=== PATIENT | male | born 1955 | race Caucasian/White ===

== ENCOUNTER 2017-07-26 12:15 | Inpatient (IN) ==
[2017-07-26] MEDS ORDERED: DILTIAZEM 50 MG/10 ML VIAL IV STA (12:34)
[2017-07-26] MEDS ORDERED: MAGNESIUM SULF RIDER 2 GM in PREMIX 1 EACH IV STA (12:34)
[2017-07-26] MEDS ORDERED: MAGNESIUM SULF RIDER 50 ML IV ONE (12:38)
[2017-07-26] MEDS ORDERED: DILTIAZEM 50 MG/10 ML VIAL IV ONE ×2 (12:38→12:53)
[2017-07-26 12:48] LABS: Basophils % 0.7 % (0.0-0.8); Eosinophils # 0.1 10*3/uL (0.0-0.87); Eosinophils % 2.3 % (0.00-10.9); Hematocrit 41.4 VOL% (42.0-52.0); Hemoglobin 14.6 GM/DL (14.0-18.0); Immature Granulocytes % 0.3 %; Immature Granulocytes Absolute 0.02 #; Lymphocytes # 0.7 10*3/uL (1.4-4.0); Lymphocytes % 11.7 % (21.2-54.2); Mean Corpuscular HGB Conc 35.3 GM/DL (32-36); Mean Corpuscular Hemoglobin 33 PG (27-34); Mean Corpuscular Volume 92.6 FL (87-102); Mean Platelet Volume 9.1 FL (9.6-12.0); Monocytes # 0.6 10*3/uL (0.11-0.8); Monocytes % 10.4 % (1.7-12.7); Neutrophils # 4.5 10*3/uL (1.4-7.4); Neutrophils % 74.6 % (38.7-73.9); Platelet Count 173 T/CUMM (130-400); Red Blood Count 4.47 MC/CUMM (3.8-5.5); Red Cell Distribution Width 13.5 % (9.3-17.3); White Blood Count 6.1 T/CUMM (4-12)
[2017-07-26] MEDS ORDERED: LORazepam 2 MG/1 ML VIAL IV STA (12:49)
--- NOTE | 2017-07-26 12:51 | Emergency Department Note ---
Johan Gonzales Manpreet, am scribing for, and in the presence of, Chevy Harper MD 12: 43. Meredith Gonzales James D, MD, personally performed the services described in this documentation, ascribed by Juan Manuel Prado in my presence, and it is both accurate and complete . Arrival - Arrival Chief Complaint: Chest Pain Stated Complaint: chest tightness, shaking all over ED Nursing Triage Note: c/o chest tightness and shaking all over. Patient states it started this am. He took oxycontin 20mg at 0901 and 1001 with no relief. EMS gave patient a 324mg ASA and patient refused nitro. Mode of Arrival: Stretcher Limitations: No Limitations Source: Patient Time Seen by Provider: 07/26/17 12:30 - History of Present Illness HPI Narrative: Pt is a 62 y/o male who is brought to the ED via EMS with CC of "shaking all over" and CP onset yesterday. Pt also c/o vomiting yesterday and this AM which was a greenish color. Pt's PCP is Dr. Sotomayor and saw him 5 months ago. Pt states he was not told about being in A-fib. Pt denies tobacco use, dysuria, fever, or cough but reports of EtOH of "about a half glass a day." No other pains/complaints reported to the ED. Onset (ago): day(s) (Yesterday) Severity: moderate Severity scale (1-10): 3 Allergies/Adverse Reactions: Allergies Allergy/AdvReac Type Severity Reaction Status Date / Time Iodinated Contrast Media - Allergy Severe Difficulty Verified 07/26/17 12:29 Oral and Breathing [Iodinated Contrast Media - IV Dye] Sulfa (Sulfonamide Allergy Severe Difficulty Verified 07/26/17 12:29 Antibiotics) Breathing Home Medications: Home Medications Medication Instructions Recorded Confirmed Type Temazepam 30 mg PO BEDTIME 06/10/16 07/26/17 History Timolol 0.25% Oph Joselyn [Timoptic 1 drop BOTH EYES BID 06/10/16 07/26/17 History 0.25%] Aspirin EC Tab 81 mg PO DAILY tablet 07/15/16 07/26/17 Rx Carvedilol [Carvedilol] 6.25 mg PO BID 07/26/17 07/26/17 History Ezetimibe [Zetia] 10 mg PO DAILY 07/26/17 07/26/17 History Mometasone Furoate [Mometasone 1 applicator TOP BID PRN 07/26/17 07/26/17 History 0.1% Oint] Oxycodone HCl [Oxycodone HCl] 10 mg PO QID PRN 07/26/17 07/26/17 History Review of System - Review of System 12 point system: reviewed and no additional remarkable complaints except as stated - Review of System Constitutional: Present: other ("shaking all over"). Absent: chills, diaphoresis, fever Respiratory: Absent: respiratory distress, wheezing Cardiovascular: Absent: chest pain Gastrointestinal: Absent: abdominal pain, nausea, vomiting, diarrhea Musculoskeletal: Absent: arm pain, back pain Neurological: Absent: headache, weakness, numbness, paresthesias Medical,Surgical,& Family Hx - Medical History HEENT: History of: Eye Problem (Detatched Retnia), Glaucoma Rheumatology: No history of;: Rheumatoid Arthritis (Degenerative arthritis) Other: History of: Miscellaneous Medical Problems (Collagen Disease, Atopic dermatitis) - Surgical History HEENT Surgeries: Surgical HX of: Eye Surgery (4 eye surgeries) - Social History Smoking Status: Never smoker Frequency of Alcohol Use: Frequently Type of Drug Use: None Exam Vital Signs: Vital Signs Temperature 97.6 F 07/26/17 12:15 Pulse Rate 92 H 07/26/17 12:15 Respiratory Rate 18 07/26/17 12:31 Blood Pressure 164/93 07/26/17 12:15 O2 Sat by Pulse Oximetry 96 07/26/17 13:57 GENERAL: This is a chronically ill-appearing disheveled white male in no apparent distress. VITAL SIGNS: Reviewed HEENT: Head is atraumatic and normocephalic. Pupils are equal round react to light. Extraocular movements are intact. Oropharynx is benign with moist mucous membranes. NECK: Neck is soft and supple without tenderness. There are no masses. There is no lymphadenopathy. LUNGS: Lungs are clear to auscultation. Chest rises symmetrically. There is no chest wall tenderness. CV: Heart is irregularly irregular, rapid rate without murmurs rubs or gallops. ABDOMEN: Abdomen is soft, nontender to palpation. There are no abdominal abnormal masses palpated. There is no organomegaly. Bowel sounds are present and active. SKIN: Linear excoriations of the pretibial areas bilaterally. No rash. EXTREMITIES: Patient has full range of motion without tenderness. There is no pedal edema. NEUROLOGIC: Awake alert and oriented 4. Cranial nerves II through XII are grossly intact. Motor is 5 over 5 in all extremities bilaterally. Course - Consultations Consultation #1: Discussed with hospitalist. Patient will be admitted to their service. Time: 14:12 Results - Labs CBC & BMP: 07/26/17 12:35 07/26/17 12:35 Lab Results: I have reviewed the patients labs Labs: Laboratory Tests 07/26/17 12:35 WBC 6.1 RBC 4.47 Hgb 14.6 Hct 41.4 L Plt Count 173 MPV 9.1 L Neut % (Auto) 74.6 H Lymph % (Auto) 11.7 L Lymph # (Auto) 0.7 L Laboratory Tests 07/26/17 12:35 INR 1.1 PT Patient/Control Mix 11.1 Circ Anticoag PTT 27.1 Laboratory Tests 07/26/17 07/26/17 07/26/17 12:35 12:35 12:36 Magnesium 1.1 L Free T4 0.82 Urine Opiates Screen Positive H Ur Barbiturates Screen Negative Ur Phencyclidine Scrn Negative U Amphetamine/Methamph Negative U Benzodiazepines Scrn Positive H U Cocaine Metab Screen Negative U Cannabinoids Screen Negative Serum Alcohol 27 Laboratory Tests 07/26/17 12:35 Sodium 140 Potassium 3.3 L Chloride 105 Carbon Dioxide 1 L Anion Gap 37.3 H BUN < 1 L BUN/Creatinine Ratio 1.00 L Glucose 152 H Calcium 8.3 L ALT < 6 L Troponin I < 0.015 Albumin 3.2 L Globulin 3.8 H Albumin/Globulin Ratio 0.8 L - EKG EKG results: interpreted by ERMD - Impressions EKG: Atrial fib with RVR, rate 131, low voltage QRS, nonspecific ST-T wave changes, normal axis. - Diagnostic Findings Procedure: Chest x-ray: image reviewed by me ("Chest X-ray: 1. No acute cardiopulmonary pathology radiographically.") Disposition Clinical Impression: Atrial fibrillation with RVR, Alcohol abuse, Hypomagnesemia Case discussed with: patient Disposition: Still a Patient Condition: Stable
[2017-07-26] MEDS ORDERED: LORazepam 2 MG/1 ML VIAL ONE (12:58)
[2017-07-26 13:06] LABS: INR 1.1; PT Patient Result 11.1 SECS; Partial Thromboplastin Time 27.1 SECS (0-40)
[2017-07-26] MEDS: DILTIAZEM INJ 100 MG in SODIUM CHLORIDE 0.9% 100 ML IV SCH ×2 (13:12→21:46)
[2017-07-26 13:29] LABS: Free T4 (Free Thyroxine) 0.82 NG/DL (0.76-1.46); Magnesium 1.1 MG/DL (1.8-2.4)
--- NOTE | 2017-07-26 13:29 | XRay Report ---
Exam: XR chest 1V Date: 07/26/2017 12:41 PM Indication: Atrial fibrillation Comparison: 07/13/2016 Technical: AP Findings: Mild prominence the cardiac silhouette. External cardiac leads are present. No obvious consolidating infiltrate or effusion. Mediastinum is intact. Bony structures reveal no acute findings with degenerative changes of the AC joint on the right Impression: 1. No acute cardiopulmonary pathology radiographically PROCEDURE INTERPRETED AT [facility] DEPARTMENT OF RADIOLOGY Final Report Signed by: Dr. Fabián Donis
[2017-07-26 13:30] LABS: Barbiturates Screen,Urine Negative (Negative); Benzodiazepines Screen,Urine Positive (Negative); Cannabinoid Screen,Urine Negative (Negative); Opiate Screen,Urine Positive (Negative); Phencyclidine Screen,Urine Negative (Negative)
[2017-07-26] MEDS ORDERED: THIAMINE INJ 100 MG, FOLIC ACID INJ 1 MG, MAGNESIUM SULF INJ 2 GM, MULTIVITAMIN INJ 10 ... IV ONE (14:09)
[2017-07-26 14:13] LABS: Alanine Aminotransferase < 6 U/L (16-61); Albumin 3.2 G/DL (3.4-5.0); Alkaline Phosphatase 110 U/L (45-117); Aspartate Amino Transferase < 3 U/L (0-37); Blood Urea Nitrogen < 1 MG/DL (7-18); Calcium 8.3 MG/DL (8.5-10.1); Glucose 152 MG/DL (74-106); Osmolality,Calculated 277.8 MOS/KG (273-304); Potassium 3.3 MMOL/L (3.5-5.1); Sodium 140 MMOL/L (136-145); Troponin I Only < 0.015 NG/ML (0.00-0.045)
[2017-07-26] MEDS ORDERED: ONDANSETRON 4 MG/2 ML VIAL IV PRN (16:05)
[2017-07-26] MEDS ORDERED: ACETAMINOPHEN 325 MG TABLET PO PRN (16:05)
[2017-07-26] MEDS ORDERED: MOMETASONE 0.1% CREAM 15 GM TUBE TOP PRN (16:05)
[2017-07-26] MEDS ORDERED: ALBUTEROL 2.5 MG/3 ML NEB RESP TX PRN (16:05)
--- NOTE | 2017-07-26 16:10 | Hospitalist History & Physical ---
Assessment and Plan (1) Atrial fibrillation with RVR Status: Acute Assessment and plan: Admit to ICU. Cardizem infusion @ 5 ml/hr. TSH normal. Cardiac monitoring. Consult cardiology to evaluate. Current Visit: Yes (2) Chest pain Status: Acute Assessment and plan: Admit as inpatient. Cardiac monitoring. Serial troponins. Consult cardiology. PT /INR stable. Echo from 07/14/16 EF 50%. Current Visit: No Qualifiers: Chest pain type: unspecified Qualified Code(s): R07.9 - Chest pain, unspecified (3) Dyslipidemia Status: Acute Assessment and plan: Restart home meds. Current Visit: No (4) Hypomagnesemia Status: Acute Assessment and plan: Replace and recheck. Current Visit: Yes (5) Hypokalemia Status: Acute Assessment and plan: Pt. K is 3.3 millimeters and potassium protocol and recheck in am. Current Visit: Yes (6) Alcohol abuse Status: Acute Assessment and plan: Start on multivitamin, folate. Implement withdrawal modular. Current Visit: Yes History of Present Illness Chief complaint: chest pain History of present illness: Mr. Condon is a 62 year old white male with history of hypertension, glaucoma and blindness, and dermatitis that presented to the ED via EMS with complaints of chest pain with an onset of yesterday that worsened this morning. Pt. also has complaints of diffuse abdominal pain and "shaking all over". Pt admits to alcohol using stating he took a "sip" of bourbon before presenting to the ED this morning for evaluation. Pt. denies fever, chills, night sweats. He does report intermittent shortness of breath associated with the chest pain. He describes the chest pain as midsternal and sharp with radiation to the his left arm. He states he has had these pains before. Pt's PCP is Dr. Sotomayor. Pt. reports being followed by Dr. Valles (cardiology). He says he was seen about 2 weeks ago for chest discomfort but did not have any change in his medication regimen. Pt. states he was referred to Dr. Davis but he has not had his appointment yet. On arrival in the ED, pt noted to be hypertensive and in afib w / RVR. Pt. was started on Cardizem infusion. Pt. also noted to have CO2 of 1 and anion gap of 37.3, magnesium 1.1, K of 3.3 and glucose of 152. On examination in the ED, patient noted to be in mild distress and is quite jittery. Pt. is not having any difficulty breathing but is on supplemental O2. Pt's case has been discussed with ER physician and hospitalist Dr. Jefferson. Pt. will be admitted to the hospital service for further evaluation and treatment. Due to patient's low CO2 level, a repeat BMP will be completed on patient to ensure accuracy. Patient will be placed in the intensive care unit for close monitoring. Home medications have been reviewed and reconciled. Home Medications Medication Instructions Recorded Confirmed Type Temazepam 30 mg PO BEDTIME 06/10/16 07/26/17 History Timolol 0.25% Oph Joselyn [Timoptic 1 drop BOTH EYES BID 06/10/16 07/26/17 History 0.25%] Aspirin EC Tab 81 mg PO DAILY tablet 07/15/16 07/26/17 Rx Carvedilol [Carvedilol] 6.25 mg PO BID 07/26/17 07/26/17 History Ezetimibe [Zetia] 10 mg PO DAILY 07/26/17 07/26/17 History Mometasone Furoate [Mometasone 1 applicator TOP BID PRN 07/26/17 07/26/17 History 0.1% Oint] Oxycodone HCl [Oxycodone HCl] 10 mg PO QID PRN 07/26/17 07/26/17 History Allergies Allergy/AdvReac Type Severity Reaction Status Date / Time Iodinated Contrast Media - Allergy Severe Difficulty Verified 07/26/17 12:29 Oral and Breathing [Iodinated Contrast Media - IV Dye] Sulfa (Sulfonamide Allergy Severe Difficulty Verified 07/26/17 12:29 Antibiotics) Breathing Medical,Surgical,& Family Hx - Medical History Cardio: History of: Hypertension, Cardiovascular Problems (abnormal stress test) Neurology: No history of: Seizures, TIA HEENT: History of: Eye Problem (Detatched Retnia; legally blind), Glaucoma Rheumatology: No history of;: Rheumatoid Arthritis (Degenerative arthritis) Gastrointestinal: History of: GI Problems (abdominal pain) Musculoskeletal: History of: Musculoskeletal Problems (collagen disease) Other: History of: Miscellaneous Medical Problems (Collagen Disease, Atopic dermatitis) - Surgical History HEENT Surgeries: Surgical HX of: Eye Surgery (4 eye surgeries) - Family History Family History: Reports;: Additional Family History (arthritis) - Social History Smoking Status: Never smoker Frequency of Alcohol Use: Frequently Type of Drug Use: None Marital Status: Single Lives With:: Parent (mother) Functional capacity: independent ambulation 12 point system: reviewed and no additional remarkable complaints except as stated - Cardiovascular Cardiovascular: Present: chest pain at rest, dyspnea on exertion, radiating jaw , neck or arm pain. Absent: diaphoresis, edema Exam - Constitutional Vitals: Period Temp Pulse Resp BP Sys/Denny Pulse Ox Last 24 Hr 97.6 F-97.6 F 92-92 18-18 164-164/93-93 96-100 General appearance: mild distress, over weight - Head Head exam: Present: normal inspection, normocephalic - Eye Eye exam: Present: EOMI Pupils: Present: KATERINA - ENT ENT exam: Present: normal exam - Respiratory Respiratory exam: Present: other (coarse) - Cardiovascular Cardiovascular exam: Present: irregular rhythm (afib ). Absent: regular rate and rhythm - GI/Abdominal GI/Abdominal exam: Present: normal bowel sounds, tenderness (diffuse abdominal pain ), soft - Extremities Exam Extremities exam: Present: normal capillary refill, full ROM. Absent: edema - Neurological Exam Neurological exam: Present: alert, oriented X3 - Psychiatric Psychiatric exam: Present: normal affect, normal mood - Skin Skin exam: Present: normal color, warm, dry (pt. has very dry skin; pt. confirms diagnosis of atopic dermatitis) Results - Labs CBC & BMP: 07/26/17 12:35 07/26/17 12:35 Lab Results: I have reviewed the past 24 hour labs
[2017-07-26] MEDS: LORazepam 2 MG/1 ML VIAL IV PRN ×2 (17:02→21:43)
[2017-07-26] MEDS: POTASSIUM CHLORIDE 20 MEQ TABLET PO PRN ×2 (17:02→21:50)
[2017-07-26] MEDS: SODIUM CHLORIDE 0.9% 1,000 ML IV SCH (17:37)
[2017-07-26] MEDS ORDERED: DIGOXIN 0.5 MG/2 ML AMP IV ONE (18:59)
--- NOTE | 2017-07-26 19:04 | Cardiology Consult Note ---
Assessment and Plan (1) Atrial fibrillation with RVR Status: Acute Assessment and plan: He has rapid ventricular spots atrial fibrillation. Has not had a history of this previously. We will try to manage his heart rates. Is not really clear the duration so I am not going to be real pushy to convert the patient at this moment. Reevaluate some his other issues before starting anticoagulation will go ahead and start the patient on low-dose Lovenox. Current Visit: Yes (2) Atypical chest pain Status: Acute Assessment and plan: His sensorimotor chest pain is atypical for cardiac. We will monitor this. His troponin is nondetectable and his ECG without acute changes. Current Visit: No (3) Dyslipidemia Status: Acute Assessment and plan: Has a history of this but not on any medications at present based on his chart. He has lipid profile is ordered for the morning. Current Visit: No (4) Alcohol abuse Status: Acute Current Visit: Yes (5) Hypomagnesemia Status: Acute Assessment and plan: This is being replaced. Current Visit: Yes (6) Hypokalemia Status: Acute Assessment and plan: This is being replaced in follow-up. Current Visit: Yes (7) Noncompliance Status: Chronic Assessment and plan: Patient is a history of not being compliant with follow-up for testing etc. 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 Condon is a 62 year old male who is admitted with multiple complaints but for manipulation rapid ventricular spots. On IV Cardizem at this time still having tachycardia. He is not having any particular chest pain has chest pain everywhere. He complains of his stomach fluttering and moving in his chest etc. He is not really clear along these hand the atrial fibrillation. He is shaking all over this is been going on for several days. He does drink alcohol daily we try to minimize this. He takes pain medications as noted by his urine drug screen. He was asking me for more pain medication as well as in the room. He states his abdomen is been getting larger is uncomfortable and painful. His appetite though is not really probably changed. He denies fever chills but feels cold all the time. His initial lab work does not reveal any specific abnormalities but is interested in his liver enzymes are low. His troponin is nondetectable. Dr. Valles is seen this patient previously. Reviewing the office records this patient apparently is really been noncompliant in getting in his studies including echocardiogram cardiac perfusion study and lab work. He is missed appointments and then called demanding appointments then I am keeping those. Certainly at this time he has a fibrillation RVR. I think this may be secondary other issues. Has not had this previously. At this point we will try to manage his heart rates but nothing his blood pressure will tolerate this. He is shaking and exam not sure what going on but he may have some type of underlying liver disease or even alcoholic disease process. He has been on chronic pain medications apparently. CC: Hilda Jefferson MD - Home Medications and Allergies Home Medications: Home Medications Medication Instructions Recorded Confirmed Type Temazepam 30 mg PO BEDTIME 06/10/16 07/26/17 History Timolol 0.25% Oph Joselyn [Timoptic 1 drop BOTH EYES BID 06/10/16 07/26/17 History 0.25%] Aspirin EC Tab 81 mg PO DAILY tablet 07/15/16 07/26/17 Rx Carvedilol [Carvedilol] 6.25 mg PO BID 07/26/17 07/26/17 History Ezetimibe [Zetia] 10 mg PO DAILY 07/26/17 07/26/17 History Mometasone Furoate [Mometasone 1 applicator TOP BID PRN 07/26/17 07/26/17 History 0.1% Oint] Oxycodone HCl [Oxycodone HCl] 10 mg PO QID PRN 07/26/17 07/26/17 History Allergies/Adverse Reactions: Allergies Allergy/AdvReac Type Severity Reaction Status Date / Time Iodinated Contrast Media - Allergy Severe Difficulty Verified 07/26/17 12:29 Oral and Breathing [Iodinated Contrast Media - IV Dye] Sulfa (Sulfonamide Allergy Severe Difficulty Verified 07/26/17 12:29 Antibiotics) Breathing Review of systems: General/constitutional: No weight loss. Appetite has been fairly good. He complains of diffuse shaking. Eyes: History progressive visual loss. Ears: Denies decreased hearing, vertigo Nose, mouth and throat: Denies dysphagia, epistaxis, headaches, neck pain, tongue swelling, Neck: Denies thyromegaly or masses. No stiffness. Cardiovascular: as per HPI Respiratory: Denies cough, dyspnea, hemoptysis, dyspnea on exertion, wheezing, snoring Gastrointestinal: Denies abdominal pain, constipation, dyspepsia, dysphagia, hematemesis, hematochezia, melena, nausea, vomiting Genitourinary: Denies dysuria, hematuria, nocturia Musculoskeletal: Denies arthralgias, joint swelling, muscle weakness, myalgias Neurological: denies seizures or syncope. He has not had any particular falls. No prior history of strokes. Psychiatric: Denies anxiety, confusion, depression Endocrine: Denies cold intolerance, fatigue, heat intolerance Hematologic/Lymphatic: Denies easy bleeding, easy bruising Dermatologic: Chronic dermatitis Medical,Surgical,& Family Hx - Medical History Cardio: History of: Hypertension, Cardiovascular Problems (abnormal stress test) Neurology: No history of: Seizures, TIA HEENT: History of: Eye Problem (Detatched Retnia; legally blind), Glaucoma Rheumatology: No history of;: Rheumatoid Arthritis (Degenerative arthritis) Gastrointestinal: History of: GI Problems (abdominal pain) Musculoskeletal: History of: Musculoskeletal Problems (collagen disease) Other: History of: Miscellaneous Medical Problems (Collagen Disease, Atopic dermatitis) - Surgical History HEENT Surgeries: Surgical HX of: Eye Surgery (4 eye surgeries) - Family History Family History: Reports;: Additional Family History (arthritis) - Social History Smoking Status: Never smoker Frequency of Alcohol Use: Frequently Type of Drug Use: None Physical Examination Vital Signs Temp Pulse Resp BP Pulse Ox 97.6 F 92 H 18 164/93 100 07/26/17 12:15 07/26/17 12:15 07/26/17 12:15 07/26/17 12:15 07/26/17 12:15 Exam: General appearance: Obese he is shaking all over tremulous little anxious. Head exam: normal inspection, atraumatic Eye exam: EOMI. There is no trauma. Ear exam: Anatomically normal. Normal auditory acuity to conversation. Oral exam: No significant oral lesions. Neck exam: normal inspection no JVD. No carotid bruit. Trachea is in midline. Respiratory exam: clear to auscultation bilaterally and anteriorly with with overall quiet breath sounds. No rales, rhonchi or wheezes. Cardiovascular exam: Tachycardic irregular and on auscultation no murmur or gallop or rub. No precordial lift. No bruits over the major arteries. Chest wall/torso: Anatomically normal. No tenderness, deformity Peripheral Pulses: 2+ throughout. GI/Abdominal exam: Bowel sounds are present, abdomen is soft with what may be some direct tenderness. Abdomen slightly protuberant but certainly not overly distended. Musculoskeletal/Extremities exam: normal inspection without edema or cyanosis. No deformities or trauma. Neurological exam: alert, oriented X3. There is no gross neurologic deficits. Psychiatric exam: normal affect, normal mood. Cognitive function is grossly intact. Skin exam: Patient has excoriations and scratch tapia especially in his legs with atopic dermatitis patches. Result/EKG - Labs CBC & BMP: 07/26/17 12:35 07/26/17 12:35 Lab Results: I have reviewed the past 24 hour labs (Troponin is nondetectable, his liver enzymes are actually look below normal range with low magnesium and potassium.) Labs: Laboratory Results - last 24 hr 07/26/17 07/26/17 07/26/17 12:35 12:35 12:35 WBC 6.1 RBC 4.47 Hgb 14.6 Hct 41.4 L MCV 92.6 MCH 33 MCHC 35.3 RDW 13.5 Plt Count 173 MPV 9.1 L Neut % (Auto) 74.6 H Lymph % (Auto) 11.7 L Rhea % (Auto) 10.4 Eos % (Auto) 2.3 Baso % (Auto) 0.7 Neut # (Auto) 4.5 Lymph # (Auto) 0.7 L Rhea # (Auto) 0.6 Eos # (Auto) 0.1 Baso # (Auto) 0.0 Immature Gran % 0.3 Nucleated RBC % 0.0 Immature Gran # 0.02 Nucleated RBCs # 0.00 Immature Plt Fraction 0.0 INR 1.1 PT Patient/Control Mix 11.1 Circ Anticoag PTT 27.1 Sodium Potassium Chloride Carbon Dioxide Anion Gap BUN Creatinine GFR Calculation BUN/Creatinine Ratio Glucose Calculated Osmolality Calcium Magnesium 1.1 L Total Bilirubin AST ALT Alkaline Phosphatase Troponin I Total Protein Albumin Globulin Albumin/Globulin Ratio Free T4 0.82 TSH 3rd Generation Urine Opiates Screen Ur Barbiturates Screen Ur Phencyclidine Scrn U Amphetamine/Methamph U Benzodiazepines Scrn U Cocaine Metab Screen U Cannabinoids Screen Serum Alcohol 07/26/17 07/26/17 07/26/17 12:35 12:35 12:36 WBC RBC Hgb Hct MCV MCH MCHC RDW Plt Count MPV Neut % (Auto) Lymph % (Auto) Rhea % (Auto) Eos % (Auto) Baso % (Auto) Neut # (Auto) Lymph # (Auto) Rhea # (Auto) Eos # (Auto) Baso # (Auto) Immature Gran % Nucleated RBC % Immature Gran # Nucleated RBCs # Immature Plt Fraction INR PT Patient/Control Mix Circ Anticoag PTT Sodium 140 Potassium 3.3 L Chloride 105 Carbon Dioxide 1 L Anion Gap 37.3 H BUN < 1 L Creatinine 0.90 GFR Calculation 124 BUN/Creatinine Ratio 1.00 L Glucose 152 H Calculated Osmolality 277.8 Calcium 8.3 L Magnesium Total Bilirubin 0.60 AST < 3 ALT < 6 L Alkaline Phosphatase 110 Troponin I < 0.015 Total Protein 7.0 Albumin 3.2 L Globulin 3.8 H Albumin/Globulin Ratio 0.8 L Free T4 TSH 3rd Generation 1.330 Urine Opiates Screen Positive H Ur Barbiturates Screen Negative Ur Phencyclidine Scrn Negative U Amphetamine/Methamph Negative U Benzodiazepines Scrn Positive H U Cocaine Metab Screen Negative U Cannabinoids Screen Negative Serum Alcohol 27 - Impressions Impressions: ECG revealed atrial flutter and rapid ventricular response without acute ECG changes. Does have some inferior nonspecific ST-T abnormalities.
[2017-07-26 19:13] LABS: Calcium 8.2 MG/DL (8.5-10.1); Osmolality,Calculated 278.4 MOS/KG (273-304); Potassium 3.4 MMOL/L (3.5-5.1)
[2017-07-26 19:18] LABS: Troponin I Only < 0.015 NG/ML (0.00-0.045)
[2017-07-26] MEDS ORDERED: ENOXAPARIN 40 MG/0.4 ML SYRINGE SUBCUT SCH (20:00)
[2017-07-26] MEDS: METOPROLOL TARTRATE 25 MG TABLET PO SCH (20:41)
[2017-07-26] MEDS: CARVEDILOL 6.25 MG TABLET PO SCH (20:41)
[2017-07-26] MEDS: MORPHINE 2 MG/1 ML SYRINGE IV PRN (20:46)
[2017-07-26] MEDS: TIMOLOL 0.25% OPH SOLN 5 ML BOTTLE BOTH EYES SCH (20:47)
[2017-07-26] MEDS: TEMAZEPAM 15 MG CAPSULE PO SCH (21:43)
[2017-07-26] MEDS: MAGNESIUM SULF RIDER 2 GM in PREMIX 1 EACH IV PRN (22:42)
[2017-07-27] MEDS: POTASSIUM CHLORIDE 20 MEQ TABLET PO PRN ×2 (00:11→09:48)
[2017-07-27] MEDS: MORPHINE 2 MG/1 ML SYRINGE IV PRN ×3 (00:38→09:49)
[2017-07-27 00:54] LABS: Troponin I Only < 0.015 NG/ML (0.00-0.045)
[2017-07-27] MEDS: LORazepam 2 MG/1 ML VIAL IV PRN ×8 (01:47→20:44)
[2017-07-27] MEDS: chlordiazePOXIDE 25 MG CAPSULE PO PRN ×3 (04:07→14:25)
[2017-07-27] MEDS: DILTIAZEM INJ 100 MG in SODIUM CHLORIDE 0.9% 100 ML IV SCH ×4 (04:49→18:28)
[2017-07-27] MEDS: SODIUM CHLORIDE 0.9% 1,000 ML IV SCH ×4 (06:16→17:40)
[2017-07-27 06:27] LABS: Basophils % 0.5 % (0.0-0.8); Eosinophils # 0.2 10*3/uL (0.0-0.87); Eosinophils % 2.3 % (0.00-10.9); Hematocrit 38.6 VOL% (42.0-52.0); Hemoglobin 13.7 GM/DL (14.0-18.0); Immature Granulocytes % 0.2 %; Immature Granulocytes Absolute 0.02 #; Lymphocytes # 0.8 10*3/uL (1.4-4.0); Lymphocytes % 9.5 % (21.2-54.2); Mean Corpuscular HGB Conc 35.5 GM/DL (32-36); Mean Corpuscular Hemoglobin 33 PG (27-34); Mean Corpuscular Volume 93.2 FL (87-102); Mean Platelet Volume 9.7 FL (9.6-12.0); Monocytes # 0.9 10*3/uL (0.11-0.8); Neutrophils # 6.7 10*3/uL (1.4-7.4); Neutrophils % 77.5 % (38.7-73.9); Platelet Count 175 T/CUMM (130-400); Red Blood Count 4.14 MC/CUMM (3.8-5.5); Red Cell Distribution Width 13.8 % (9.3-17.3); White Blood Count 8.7 T/CUMM (4-12)
--- NOTE | 2017-07-27 07:05 | Gastrointestinal Consult Note ---
Assessment and Plan (1) Pancreatitis, acute Status: Acute Assessment and plan: Would like to see what the results of an ultrasound and CT scan to look for evidence of severity of pancreatitis. Pancreatic enzymes are actually quite low. This may be another intra-abdominal process, will continue to follow lipase levels over time, I will leave the patient on sips with ice chips for the present time and would like to increase his IV fluid rate ideally up to 200/ h, will leave this up to cardiology as they are likely not going to feel comfortable with this level of hydration. Current Visit: Yes (2) Diarrhea Status: Acute Assessment and plan: We will check patient's stool cultures, fecal leukocytes, and C. difficile to see whether this low-grade diarrhea is going to be of any concern. For the present time we will not be treating this actively. Current Visit: Yes (3) Alcohol abuse Status: Acute Assessment and plan: We may wish to have a second pain management evaluation here to help get this patient off of alcohol. He may be at sincere in his desire to find additional pain medication to treat his underlying condition, ensure that the alcohol is likely exacerbating the pancreatitis if present. Again we are ruling out gallstones and sludge as a potential cause for the pancreatitis as well. Current Visit: Yes (4) Hypomagnesemia Status: Acute Assessment and plan: Hypomagnesemia with magnesium 1.1 is quite low, this can be seen with alcoholism , will see how quickly he responds to IV therapy per protocol. Current Visit: Yes History of Present Illness Chief complaint: Lipase elevation, nausea/vomiting, probable pancreatitis History of present illness: Mr. 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 The last 2-1/2 weeks the patient has been experiencing some increasing pain and was unable to convince his pain management physician to increase his intake of oral narcotics. He decided to supplement using bourbon and Coke and unfortunately has at this point developed a low-grade pancreatitis apparently. Lipase level was 488 with nausea and vomiting and multiple episodes of dry heaves with inability to take in food for the last 3 days he states. His pain is in a band over the epigastrium and does radiate through to his back he states this is 10 out of 10 in intensity. He states that yesterday he threw up something that look like cox fluid with bubbles in it. Patient is legally blind but can make out colors and shapes apparently. He presents with atrial fibrillation as well with rapid ventricular rate. States that he has approximately 2-3 loose stools per day that are yellow but not black or red. He has never had upper or lower endoscopy in the past. He does not admit to alcoholism or previous episodes of pancreatitis. He has a skin condition as well that he states is atopic dermatitis throughout his entire body. Patient does have a echocardiogram from 07/14/16 indicating an ejection fraction 50%. He does have both hypomagnesemia and hypokalemia at this time with a magnesium 1.1 and potassium of 3.3 both characteristic of alcoholism/chronic alcohol use, MCV is only 93.2. His hematocrit is stable at 38.6. Ultrasound is pending for this morning and will order a CT scan to visualize the pancreas as well--his creatinine is 0.9 the should be able to handle the dye load. Calcium level is 8.2 based on these numbers the pancreatitis does not seem to be severe. Liver function tests are surprisingly normal, this patient does not appear to have any cholestatic jaundice/alcoholic hepatitis. He has never had upper or lower endoscopy. Home Medications Medication Instructions Recorded Confirmed Type Temazepam 30 mg PO BEDTIME 06/10/16 07/26/17 History Timolol 0.25% Oph Joselyn [Timoptic 1 drop BOTH EYES BID 06/10/16 07/26/17 History 0.25%] Aspirin EC Tab 81 mg PO DAILY tablet 07/15/16 07/26/17 Rx Carvedilol [Carvedilol] 6.25 mg PO BID 07/26/17 07/26/17 History Ezetimibe [Zetia] 10 mg PO DAILY 07/26/17 07/26/17 History Mometasone Furoate [Mometasone 1 applicator TOP BID PRN 07/26/17 07/26/17 History 0.1% Oint] Oxycodone HCl [Oxycodone HCl] 10 mg PO QID PRN 07/26/17 07/26/17 History Allergies Allergy/AdvReac Type Severity Reaction Status Date / Time Iodinated Contrast Media - Allergy Severe Difficulty Verified 07/26/17 12:29 Oral and Breathing [Iodinated Contrast Media - IV Dye] Sulfa (Sulfonamide Allergy Severe Difficulty Verified 07/26/17 12:29 Antibiotics) Breathing Medical,Surgical,& Family Hx - Medical History Cardio: History of: Hypertension, Cardiovascular Problems (abnormal stress test) Neurology: No history of: Seizures, TIA HEENT: History of: Eye Problem (Detatched Retnia; legally blind), Glaucoma Rheumatology: No history of;: Rheumatoid Arthritis (Degenerative arthritis) Gastrointestinal: History of: GI Problems (abdominal pain) Musculoskeletal: History of: Musculoskeletal Problems (collagen disease) Other: History of: Miscellaneous Medical Problems (Collagen Disease, Atopic dermatitis) - Surgical History HEENT Surgeries: Surgical HX of: Eye Surgery (4 eye surgeries) - Family History Family History: Reports;: Additional Family History (arthritis) - Social History Smoking Status: Never smoker Frequency of Alcohol Use: Frequently Type of Drug Use: None Review of systems: Constitutional: Denies fever, chills, positive for nausea, and vomiting Eyes: Denies dry eyes, and scleral icterus HENT: Occasional headaches Cardiovascular: Admits to acute chest pain but no claudication Respiratory: Denies shortness of breath, wheezing, and difficulty breathing, denies cough Gastrointestinal: As noted in the HPI Genitourinary: Denies dysuria and hematuria Neurologic: He does have vision loss, and loss of sensation due to atopic dermatitis Musculoskeletal: Admits to joint swelling, joint stiffness, and muscular weakness Psychiatric: He does have some depression but no isaiah symptoms Heme-Lymph: Denies easy bruising, lymph node enlargement or tenderness, night sweats, excessive bleeding Allergies-immunologic: He has severe pruritus but no rhinorrhea, does admit to severe atopic dermatitis over his "whole body" Exam - Constitutional Vitals: Period Temp Pulse Resp BP Sys/Denny Pulse Ox Last 24 Hr 97.6 F-99.3 F 92-157 12-26 120-181/65-99 95-100 General appearance: severe distress Exam: Constitutional: Well-developed, well-nourished, alert, and in no moderate- severe distress Head and face: Head: Normocephalic atraumatic Eyes: Conjunctiva with injection and decreased visual acuity, no gross scleral icterus, pupils equal and round bilaterally Ears: Intact to conversation in both ears Nose: External appearance is normal, nares patent Mouth: Oral mucous membranes moist without erythema dentition noted to be without erosion Neck: Normal appearance, no masses or tenderness, trachea midline Thyroid: Gland midline and appropriate size for age Respiratory: Normal respiratory effort, clear to auscultation without wheezes, rhonchi or rales Cardiovascular: Irregular rate and rhythm, normal S1, S2, the exam is without rubs, murmurs or gallops. Gastrointestinal: Tenderness mostly in the epigastric region to palpation some bloating in all the other cup quadrants as well, normal active bowel sounds , tone normal without rigidity or guarding, no masses present, no hepatomegaly, no spleen tip felt. No rectal exam obtained. Lymphatic: Neck without adenopathy, axilla without lymphadenopathy present Musculoskeletal: Right and left lower extremities with thickened dry and excoriated skin but without evidence of edema Skin and subcutaneous tissue: No rashes or ulcerations noted, decreased skin turgor, thickened plaques of excoriated skin noted on all extremities chest belly and face, digits and nails without clubbing/cyanosis/deformities. Neurologic: The patient is grossly oriented to person place and time, cranial nerves show tongue movements are normal with normal tongue extrusion midline, light touch sensation is intact. Psychiatric: No hallucinations or delusions are present, does not appear depressed Results - Labs CBC & BMP: 07/27/17 06:03 07/26/17 17:20
[2017-07-27 07:06] LABS: Calcium 8.1 MG/DL (8.5-10.1); Magnesium 2.3 MG/DL (1.8-2.4); Osmolality,Calculated 275.5 MOS/KG (273-304); Potassium 3.8 MMOL/L (3.5-5.1); Risk Ratio 3.17; Thyroid Stimulating Hormone 1.79 uIU/ml (0.358-3.74)
--- NOTE | 2017-07-27 08:39 | Ultrasound Report ---
History: Abdominal pain and distention Date: 07/27/2017 Study: Abdominal ultrasound complete Comparison exam: No previous Real-time ultrasound images are captured and archived. The abdominal aorta and IVC are moderately obscured by bowel gas, though are grossly unremarkable where visualized. The pancreas appears normal. There is hepatopedal flow in the portal vein. There are minimal increased echoes throughout the hepatic parenchyma compatible with mild diffuse fatty infiltration of the liver. There is no focal hepatic mass. The liver measures 17.9 cm length. Numerous highly echogenic foci with posterior acoustic shadowing compatible with gallstones are noted in the lumen of the gallbladder. There is no gallbladder wall thickening. The spleen measures 9.0 x 5.6 x 4.3 cm and is unremarkable. While there is no intrahepatic biliary dilatation, there is ectasia of the common bile duct at 11 mm. No definite choledochal stone is seen, though evaluation of the distal most common duct is difficult because of bowel gas. There is no renal abnormality. The right kidney measures 12.7 cm length; the left kidney measures 11.6 cm. Impression: Cholelithiasis. Dilatation of the common bile duct of uncertain etiology. No intrahepatic biliary dilatation Minimal diffuse fatty infiltration of the liver PROCEDURE INTERPRETED AT [facility] DEPARTMENT OF RADIOLOGY Final Report Signed by: Dr. Briana Davis
[2017-07-27] MEDS ORDERED: PANTOPRAZOLE 40 MG TABLET PO SCH (09:00)
--- NOTE | 2017-07-27 09:13 | Cardiology Progress Note ---
Assessment and Plan (1) Atrial fibrillation with RVR Status: Acute Assessment and plan: He has rapid ventricular spots atrial fibrillation. His rates remain elevated. At this point he has no complication following coagulation so we will increase his Lovenox to full dose. Duration of his atrial fibrillation is unknown. Certainly with his abdominal discomfort other issues this exacerbates his RVR. Current Visit: Yes (2) Atypical chest pain Status: Acute Assessment and plan: He denies any further chest pain. Troponins were unremarkable and nondiagnostic for ischemia. Current Visit: No (3) Dyslipidemia Status: Acute Assessment and plan: Lipids are not adequately managed at this time but some this may be related to his acute pancreatic issues. Current Visit: No (4) Alcohol abuse Status: Acute Assessment and plan: Similar chronic issue. This is probably contributed to his pancreatitis. Current Visit: Yes (5) Hypomagnesemia Status: Acute Assessment and plan: This is been replaced and stable. Current Visit: Yes (6) Hypokalemia Status: Acute Assessment and plan: This has been replaced and stable. Current Visit: Yes (7) Noncompliance Status: Chronic Assessment and plan: Patient is a history of not being compliant with follow-up for testing etc. Current Visit: Yes (8) Pancreatitis, acute Status: Acute Assessment and plan: This may relate to his alcohol. GI medicine is now following. Current Visit: Yes (9) Diarrhea Status: Acute Assessment and plan: GI medicine is following. Current Visit: Yes Cardiology - PN: Subj Interval history: Patient seen last night with atrial fibrillation RVR. We made some adjustments in his medications. The patient remains in atrial fibrillation with RVR. He is not having as the tremulous findings he was having last night but continues to have these minimally. He has apparent pancreatitis with elevation of his lipase. Dr. Antoine mirza GI medicine is seeing the patient for this. Some issues is that he has chronic pain therapy. His troponins certainly are not indicative of underlying disease. His CPKs are elevated but I think this is noncardiac. His lipids are elevated some but this can be addressed after his acute status is managed. General patient is clinically stable with the exception of having the pancreatitis with abdominal pain and with persistent atrial fibrillation with RVR. Of issue is that we do not know the duration of his atrial fibrillation. We will continue anticoagulation. We await his echocardiogram. Exam (Progress Note) - Constitutional Vitals: Period Temp Pulse Resp BP Sys/Denny Pulse Ox Last 24 Hr 97.6 F-99.3 F 92-157 12-26 120-181/65-99 95-100 Exam: General appearance: Obese with occasional generalized tremor and remains little anxious. Head exam: normal inspection, atraumatic Eye exam: EOMI. Ear exam: Normal auditory acuity to conversation. Neck exam: normal inspection no JVD. No carotid bruit. Trachea is in midline. Respiratory exam: clear to auscultation bilaterally and anteriorly with with overall quiet breath sounds. No rales, rhonchi or wheezes. Cardiovascular exam: Tachycardic irregular and on auscultation no murmur or gallop or rub. No precordial lift. No bruits over the major arteries. Chest wall/torso: Anatomically normal. No tenderness, deformity Peripheral Pulses: 2+ throughout. GI/Abdominal exam: Bowel sounds are present, abdomen is soft with what may be some direct tenderness. Abdomen slightly protuberant but certainly not overly distended. Musculoskeletal/Extremities exam: normal inspection without edema or cyanosis. No deformities or trauma. Neurological exam: alert, oriented X3. There is no gross neurologic deficits. Psychiatric exam: normal affect, normal mood. Cognitive function is grossly intact. Skin exam: Patient has excoriations and scratch tapia especially in his legs with atopic dermatitis patches. Result/EKG - Labs CBC & BMP: 07/27/17 06:03 07/27/17 06:03 Lab Results: I have reviewed the past 24 hour labs Labs: Laboratory Results - last 24 hr 07/26/17 07/26/17 07/26/17 12:35 12:35 12:35 WBC 6.1 RBC 4.47 Hgb 14.6 Hct 41.4 L MCV 92.6 MCH 33 MCHC 35.3 RDW 13.5 Plt Count 173 MPV 9.1 L Neut % (Auto) 74.6 H Lymph % (Auto) 11.7 L [place] % (Auto) 10.4 Eos % (Auto) 2.3 Baso % (Auto) 0.7 Neut # (Auto) 4.5 Lymph # (Auto) 0.7 L [place] # (Auto) 0.6 Eos # (Auto) 0.1 Baso # (Auto) 0.0 Immature Gran % 0.3 Nucleated RBC % 0.0 Immature Gran # 0.02 Nucleated RBCs # 0.00 Immature Plt Fraction 0.0 INR 1.1 PT Patient/Control Mix 11.1 Circ Anticoag PTT 27.1 Sodium Potassium Chloride Carbon Dioxide Anion Gap BUN Creatinine GFR Calculation BUN/Creatinine Ratio Glucose Hemoglobin A1c Calculated Osmolality Calcium Magnesium 1.1 L Total Bilirubin AST ALT Alkaline Phosphatase Total Creatine Kinase CK-MB (CK-2) Troponin I Total Protein Albumin Globulin Albumin/Globulin Ratio Triglycerides Cholesterol LDL Cholesterol VLDL Cholesterol HDL Cholesterol Heart Disease Risk Ratio Amylase Lipase Free T4 0.82 TSH 3rd Generation Urine Opiates Screen Ur Barbiturates Screen Ur Phencyclidine Scrn U Amphetamine/Methamph U Benzodiazepines Scrn U Cocaine Metab Screen U Cannabinoids Screen Serum Alcohol 07/26/17 07/26/17 07/26/17 12:35 12:35 12:36 WBC RBC Hgb Hct MCV MCH MCHC RDW Plt Count MPV Neut % (Auto) Lymph % (Auto) [place] % (Auto) Eos % (Auto) Baso % (Auto) Neut # (Auto) Lymph # (Auto) [place] # (Auto) Eos # (Auto) Baso # (Auto) Immature Gran % Nucleated RBC % Immature Gran # Nucleated RBCs # Immature Plt Fraction INR PT Patient/Control Mix Circ Anticoag PTT Sodium 140 Potassium 3.3 L Chloride 105 Carbon Dioxide 1 L Anion Gap 37.3 H BUN < 1 L Creatinine 0.90 GFR Calculation 124 BUN/Creatinine Ratio 1.00 L Glucose 152 H Hemoglobin A1c Calculated Osmolality 277.8 Calcium 8.3 L Magnesium Total Bilirubin 0.60 AST < 3 ALT < 6 L Alkaline Phosphatase 110 Total Creatine Kinase CK-MB (CK-2) Troponin I < 0.015 Total Protein 7.0 Albumin 3.2 L Globulin 3.8 H Albumin/Globulin Ratio 0.8 L Triglycerides Cholesterol LDL Cholesterol VLDL Cholesterol HDL Cholesterol Heart Disease Risk Ratio Amylase Lipase Free T4 TSH 3rd Generation 1.330 Urine Opiates Screen Positive H Ur Barbiturates Screen Negative Ur Phencyclidine Scrn Negative U Amphetamine/Methamph Negative U Benzodiazepines Scrn Positive H U Cocaine Metab Screen Negative U Cannabinoids Screen Negative Serum Alcohol 07/26/17 07/26/17 07/26/17 17:20 17:20 17:54 WBC RBC Hgb Hct MCV MCH MCHC RDW Plt Count MPV Neut % (Auto) Lymph % (Auto) [place] % (Auto) Eos % (Auto) Baso % (Auto) Neut # (Auto) Lymph # (Auto) [place] # (Auto) Eos # (Auto) Baso # (Auto) Immature Gran % Nucleated RBC % Immature Gran # Nucleated RBCs # Immature Plt Fraction INR PT Patient/Control Mix Circ Anticoag PTT Sodium 140 Potassium 3.4 L Chloride 104 Carbon Dioxide 26 Anion Gap 13.4 BUN 7 Creatinine 0.90 GFR Calculation 128 BUN/Creatinine Ratio 7.00 Glucose 137 H Hemoglobin A1c Calculated Osmolality 278.4 Calcium 8.2 L Magnesium Total Bilirubin AST ALT Alkaline Phosphatase Total Creatine Kinase 714 H CK-MB (CK-2) 2.6 Troponin I < 0.015 Total Protein Albumin Globulin Albumin/Globulin Ratio Triglycerides Cholesterol LDL Cholesterol VLDL Cholesterol HDL Cholesterol Heart Disease Risk Ratio Amylase 62 Lipase 488.0 H Free T4 TSH 3rd Generation Urine Opiates Screen Ur Barbiturates Screen Ur Phencyclidine Scrn U Amphetamine/Methamph U Benzodiazepines Scrn U Cocaine Metab Screen U Cannabinoids Screen Serum Alcohol 07/27/17 07/27/17 07/27/17 00:14 06:03 06:03 WBC 8.7 D RBC 4.14 Hgb 13.7 L Hct 38.6 L MCV 93.2 MCH 33 MCHC 35.5 RDW 13.8 Plt Count 175 MPV 9.7 Neut % (Auto) 77.5 H Lymph % (Auto) 9.5 L [place] % (Auto) 10.0 Eos % (Auto) 2.3 Baso % (Auto) 0.5 Neut # (Auto) 6.7 Lymph # (Auto) 0.8 L [place] # (Auto) 0.9 H Eos # (Auto) 0.2 Baso # (Auto) 0.0 Immature Gran % 0.2 Nucleated RBC % 0.0 Immature Gran # 0.02 Nucleated RBCs # 0.00 Immature Plt Fraction 0.0 INR PT Patient/Control Mix Circ Anticoag PTT Sodium 139 Potassium 3.8 Chloride 105 Carbon Dioxide 26 Anion Gap 11.8 BUN 7 Creatinine 0.80 GFR Calculation 130 BUN/Creatinine Ratio 8.00 Glucose 117 H Hemoglobin A1c Calculated Osmolality 275.5 Calcium 8.1 L Magnesium 2.3 Total Bilirubin AST ALT Alkaline Phosphatase Total Creatine Kinase 659 H CK-MB (CK-2) 2.0 Troponin I < 0.015 Total Protein Albumin Globulin Albumin/Globulin Ratio Triglycerides 120 Cholesterol 228 H LDL Cholesterol 138.0 VLDL Cholesterol 24.0 HDL Cholesterol 72 H Heart Disease Risk Ratio 3.17 Amylase Lipase Free T4 TSH 3rd Generation 1.790 Urine Opiates Screen Ur Barbiturates Screen Ur Phencyclidine Scrn U Amphetamine/Methamph U Benzodiazepines Scrn U Cocaine Metab Screen U Cannabinoids Screen Serum Alcohol 07/27/17 07/27/17 07/27/17 06:03 06:03 06:03 WBC RBC Hgb Hct MCV MCH MCHC RDW Plt Count MPV Neut % (Auto) Lymph % (Auto) [place] % (Auto) Eos % (Auto) Baso % (Auto) Neut # (Auto) Lymph # (Auto) [place] # (Auto) Eos # (Auto) Baso # (Auto) Immature Gran % Nucleated RBC % Immature Gran # Nucleated RBCs # Immature Plt Fraction INR PT Patient/Control Mix Circ Anticoag PTT Sodium Potassium Chloride Carbon Dioxide Anion Gap BUN Creatinine GFR Calculation BUN/Creatinine Ratio Glucose Hemoglobin A1c 5.6 Calculated Osmolality Calcium Magnesium Total Bilirubin AST ALT Alkaline Phosphatase Total Creatine Kinase 590 H CK-MB (CK-2) 1.8 Troponin I 0.020 Total Protein Albumin Globulin Albumin/Globulin Ratio Triglycerides Cholesterol LDL Cholesterol VLDL Cholesterol HDL Cholesterol Heart Disease Risk Ratio Amylase Lipase Free T4 0.94 TSH 3rd Generation Urine Opiates Screen Ur Barbiturates Screen Ur Phencyclidine Scrn U Amphetamine/Methamph U Benzodiazepines Scrn U Cocaine Metab Screen U Cannabinoids Screen Serum Alcohol 07/27/17 06:03 WBC RBC Hgb Hct MCV MCH MCHC RDW Plt Count MPV Neut % (Auto) Lymph % (Auto) [place] % (Auto) Eos % (Auto) Baso % (Auto) Neut # (Auto) Lymph # (Auto) [place] # (Auto) Eos # (Auto) Baso # (Auto) Immature Gran % Nucleated RBC % Immature Gran # Nucleated RBCs # Immature Plt Fraction INR PT Patient/Control Mix Circ Anticoag PTT Sodium Potassium Chloride Carbon Dioxide Anion Gap BUN Creatinine GFR Calculation BUN/Creatinine Ratio Glucose Hemoglobin A1c Calculated Osmolality Calcium Magnesium Total Bilirubin AST ALT Alkaline Phosphatase Total Creatine Kinase CK-MB (CK-2) Troponin I Total Protein Albumin Globulin Albumin/Globulin Ratio Triglycerides Cholesterol LDL Cholesterol VLDL Cholesterol HDL Cholesterol Heart Disease Risk Ratio Amylase 61 Lipase Free T4 TSH 3rd Generation Urine Opiates Screen Ur Barbiturates Screen Ur Phencyclidine Scrn U Amphetamine/Methamph U Benzodiazepines Scrn U Cocaine Metab Screen U Cannabinoids Screen Serum Alcohol - Impressions Impressions: Telemetry with atrial fibrillation with rapid ventricular response.
--- NOTE | 2017-07-27 09:31 | Order Completion Report ---
See report scanned to EMR
[2017-07-27] MEDS: METOPROLOL TARTRATE 25 MG TABLET PO SCH (09:44)
[2017-07-27] MEDS: CARVEDILOL 6.25 MG TABLET PO SCH (09:44)
[2017-07-27] MEDS: METOPROLOL TARTRATE 50 MG TABLET PO SCH ×2 (09:47→21:25)
[2017-07-27] MEDS: MULTIVITAMIN (CENTRUM) TABLET PO SCH (09:48)
[2017-07-27] MEDS: ASPIRIN EC 81 MG TABLET PO SCH (09:48)
[2017-07-27] MEDS: EZETIMIBE 10 MG TABLET PO SCH (09:48)
[2017-07-27] MEDS: THIAMINE 100 MG TABLET PO SCH (09:48)
[2017-07-27] MEDS: ENOXAPARIN 100 MG/ML SYRINGE SUBCUT SCH ×2 (09:48→22:16)
[2017-07-27] MEDS: FOLIC ACID 1 MG TABLET PO SCH (09:48)
[2017-07-27] MEDS: PANTOPRAZOLE 40 MG TABLET PO SCH ×2 (09:49→21:26)
[2017-07-27] MEDS: TIMOLOL 0.25% OPH SOLN 5 ML BOTTLE BOTH EYES SCH ×2 (09:49→21:25)
[2017-07-27] MEDS: DIGOXIN 0.25 MG TABLET PO SCH ×2 (09:59→13:29)
--- NOTE | 2017-07-27 11:13 | Hospitalist Progress Note ---
Hospitalist: Subjective Interval history: 62-year-old male admitted with new onset atrial fibrillation with RVR, acute pancreatitis, shakiness, exacerbation of chronic pain. This morning he is feeling better, but is quite weak and deconditioned. Exam - Constitutional Vitals: Period Temp Pulse Resp BP Sys/Denny Pulse Ox Last 24 Hr 97.6 F-99.3 F 92-157 12-26 120-181/65-99 95-100 Exam: General: No Acute Distress HEENT: Normocephalic, atraumatic, Extra ocular movements intact Neck: Supple, No JVD Chest: Clear to auscultation B/L CV: S1 + S2 audible without murmur, gallop or rub Abd: soft, mild epigastric tenderness, distended, BS + Ext: No edema Skin: No purpura, chronic generalized plaques Rheumatologic: No Joint deformities Neurologic: Strength 5/5 all extremities, no gross sensory deficits Results - Labs CBC & BMP: 07/27/17 06:03 07/27/17 06:03 - Impressions Assessment and Plan: Atrial fibrillation with RVR Status: Acute Assessment and plan: On Cardizem infusion as well as digoxin, Lopressor, and full dose Lovenox Current Visit: Yes Chest pain, atypical Status: Acute Assessment and plan: Continue to monitor Current Visit: Yes Acute pancreatitis Status: Acute Assessment and plan: Continue IV fluid Current Visit: No Dyslipidemia Status: Acute Assessment and plan: On Zetia Current Visit: No Hypomagnesemia Status: Acute Assessment and plan: Improved after replacement Current Visit: Yes Hypokalemia Status: Acute Assessment and plan: Improved after placement Current Visit: Yes Alcohol abuse/DT Prophylaxis Status: Acute Assessment and plan: He is on both Librium and Ativan, continue thiamine and folate Current Visit: Yes Chronic pain syndrome Status: Chronic Assessment and plan: Pain was uncontrolled, pain management has been consulted Current Visit: Yes
--- NOTE | 2017-07-27 11:56 | Pain Management Consult Note ---
Assessment and Plan (1) Chronic pain Status: Acute Assessment and plan: he was discharged from my clinic in past and does not wish to see me as inpatient i will sign off Current Visit: Yes Qualifiers: Chronic pain type: chronic pain syndrome Qualified Code(s): G89.4 - Chronic pain syndrome History of Present Illness Chief complaint: neck and low back pain History of present illness: Mr. Condon is a 62 year old male patient has seen me in past and now sees dr Karena perdomo in [place] . he was upset that i wont see him back as op in pain clinic and does not wish me to see him while he is in hospital Home Medications Medication Instructions Recorded Confirmed Type Temazepam 30 mg PO BEDTIME 06/10/16 07/26/17 History Timolol 0.25% Oph Joselyn [Timoptic 1 drop BOTH EYES BID 06/10/16 07/26/17 History 0.25%] Aspirin EC Tab 81 mg PO DAILY tablet 07/15/16 07/26/17 Rx Carvedilol [Carvedilol] 6.25 mg PO BID 07/26/17 07/26/17 History Ezetimibe [Zetia] 10 mg PO DAILY 07/26/17 07/26/17 History Mometasone Furoate [Mometasone 1 applicator TOP BID PRN 07/26/17 07/26/17 History 0.1% Oint] Oxycodone HCl [Oxycodone HCl] 10 mg PO QID PRN 07/26/17 07/26/17 History Allergies Allergy/AdvReac Type Severity Reaction Status Date / Time Iodinated Contrast Media - Allergy Severe Difficulty Verified 07/26/17 12:29 Oral and Breathing [Iodinated Contrast Media - IV Dye] Sulfa (Sulfonamide Allergy Severe Difficulty Verified 07/26/17 12:29 Antibiotics) Breathing Medical,Surgical,& Family Hx - Medical History Cardio: History of: Hypertension, Cardiovascular Problems (abnormal stress test) Neurology: No history of: Seizures, TIA HEENT: History of: Eye Problem (Detatched Retnia; legally blind), Glaucoma Rheumatology: No history of;: Rheumatoid Arthritis (Degenerative arthritis) Gastrointestinal: History of: GI Problems (abdominal pain) Musculoskeletal: History of: Musculoskeletal Problems (collagen disease) Other: History of: Miscellaneous Medical Problems (Collagen Disease, Atopic dermatitis) - Surgical History HEENT Surgeries: Surgical HX of: Eye Surgery (4 eye surgeries) - Family History Family History: Reports;: Additional Family History (arthritis) - Social History Smoking Status: Never smoker Frequency of Alcohol Use: Frequently Type of Drug Use: None 12 point system: reviewed and no additional remarkable complaints except as stated - Musculoskeletal Musculoskeletal: Present: back pain Exam - Constitutional Vitals: Period Temp Pulse Resp BP Sys/Denny Pulse Ox Last 24 Hr 97.6 F-99.3 F 92-157 12-26 120-181/65-99 95-100 General appearance: no acute distress - Head Head exam: Present: normal inspection - Eye Eye exam: Present: EOMI Pupils: Present: KATERINA - ENT ENT exam: Present: normal exam Ear exam: Present: intact Mouth exam: Present: normal external inspection - Neck Neck exam: Present: normal inspection - Respiratory Respiratory exam: Present: clear to auscultation bilaterally - Cardiovascular Cardiovascular exam: Present: irregular rhythm - GI/Abdominal GI/Abdominal exam: Present: normal bowel sounds - Extremities Exam Extremities exam: Present: normal inspection - Back Exam Back exam: Present: vertebral tenderness - Neurological Exam Neurological exam: Present: alert, oriented X3, abnormal gait - Skin Skin exam: Present: dry, rash Results - Labs CBC & BMP: 07/27/17 06:03 07/27/17 06:03 Lab Results: I have reviewed the past 24 hour labs
--- NOTE | 2017-07-27 12:01 | CT Report ---
History: Elevated lipase. Evaluate for pancreatitis Date: 07/27/2017 Study: CT abdomen without IV contrast Comparison exam: No previous abdominal CT available for comparison Technique: Spiral CT sections were obtained from the lung bases to the pubic symphysis without contrast The partially visualized lung bases are generally clear without christal pneumonia. There is moderate diffuse fatty infiltration of the otherwise unremarkable liver. There is no intrahepatic biliary dilatation. The common bile duct measures approximately 10 mm diameter by this modality. There is no calcific density choledochal stone. There is slightly hyperdense opacity throughout the gallbladder. There is no gross gallbladder wall thickening. The pancreas is unremarkable in noncontrast CT appearance. There is no gross pancreatic mass, though evaluation is limited without the benefit of IV contrast. There is no abnormal peripancreatic inflammation. There is a small sliding-type hiatal hernia. The spleen, adrenal glands, and kidneys are normal in noncontrast appearance. There is no radiopaque renal or ureteral stone. There is no hydronephrosis. There is no aneurysm of the mildly calcified abdominal aorta. There is no evidence of pneumoperitoneum. There is no christal bowel obstruction. There is a tiny periumbilical hernia containing only fat. The CT exam was performed using one or more of the following dose reduction techniques: Automated exposure control, adjustment of the mA and/or kV according to patient size, or use of iterative reconstruction technique. Impression: The pancreas is normal in noncontrast CT appearance. Normal CT of the pancreas does not exclude the diagnosis of pancreatitis The common bile duct measures approximately 10 mm as noted on the recent ultrasound. There is no calcific density choledochal stone. Fatty infiltration of the liver Small hiatal hernia No acute process otherwise PROCEDURE INTERPRETED AT [facility] DEPARTMENT OF RADIOLOGY Final Report Signed by: Dr. Briana Davis
[2017-07-27] MEDS ORDERED: HALOPERIDOL 5 MG/ML AMP IV PRN (14:25)
[2017-07-27] MEDS: LORazepam 2 MG/1 ML VIAL IV SCH ×2 (15:12→23:00)
[2017-07-27] MEDS: HALOPERIDOL 5 MG/ML AMP IM PRN ×2 (15:39→20:44)
[2017-07-27] MEDS: DEXMEDETOMIDINE 200 MCG in SODIUM CHLORIDE 0.9% 48 ML IV SCH ×3 (18:01→22:09)
[2017-07-27] MEDS: TEMAZEPAM 15 MG CAPSULE PO SCH (21:26)
[2017-07-28] MEDS: LORazepam 2 MG/1 ML VIAL IV PRN ×3 (00:54→12:57)
[2017-07-28] MEDS: DEXMEDETOMIDINE 200 MCG in SODIUM CHLORIDE 0.9% 48 ML IV SCH ×5 (01:00→11:10)
[2017-07-28] MEDS: SODIUM CHLORIDE 0.9% 1,000 ML IV SCH ×2 (01:01→09:32)
[2017-07-28] MEDS: HALOPERIDOL 5 MG/ML AMP IM PRN ×3 (03:17→13:22)
[2017-07-28 06:13] LABS: Basophils % 0.3 % (0.0-0.8); Eosinophils # 0.2 10*3/uL (0.0-0.87); Eosinophils % 3.8 % (0.00-10.9); Hematocrit 41.8 VOL% (42.0-52.0); Hemoglobin 14.7 GM/DL (14.0-18.0); Immature Granulocytes % 0.5 %; Immature Granulocytes Absolute 0.03 #; Lymphocytes # 0.5 10*3/uL (1.4-4.0); Lymphocytes % 7.9 % (21.2-54.2); Mean Corpuscular HGB Conc 35.2 GM/DL (32-36); Mean Corpuscular Hemoglobin 33 PG (27-34); Mean Corpuscular Volume 93.9 FL (87-102); Mean Platelet Volume 10.6 FL (9.6-12.0); Monocytes # 0.7 10*3/uL (0.11-0.8); Monocytes % 11.3 % (1.7-12.7); NRBC # 0.02 10*3/uL; Neutrophils # 4.5 10*3/uL (1.4-7.4); Neutrophils % 76.2 % (38.7-73.9); Platelet Count 118 T/CUMM (130-400); Red Blood Count 4.45 MC/CUMM (3.8-5.5); Red Cell Distribution Width 13.8 % (9.3-17.3); White Blood Count 5.8 T/CUMM (4-12)
[2017-07-28] MEDS: LORazepam 2 MG/1 ML VIAL IV SCH ×3 (06:35→21:36)
[2017-07-28 06:44] LABS: Calcium 7.9 MG/DL (8.5-10.1); Magnesium 2.1 MG/DL (1.8-2.4); Osmolality,Calculated 282.1 MOS/KG (273-304); Potassium 3.9 MMOL/L (3.5-5.1)
--- NOTE | 2017-07-28 07:30 | Cardiology Progress Note ---
Assessment and Plan (1) Atrial fibrillation with RVR Status: Acute Assessment and plan: The true duration of his atrial fibrillation is really unknown. He has ventricular response is much better controlled while sedated. He is not requiring much in the way of rate control at this time. When he awakens though apparently his heart rates go up. We will get an ECG today. Current Visit: Yes (2) Atypical chest pain Status: Acute Assessment and plan: The present this is not an issue. Current Visit: No (3) Dyslipidemia Status: Acute Assessment and plan: This issue can be followed up later. Current Visit: No (4) Alcohol abuse Status: Acute Assessment and plan: Chronic alcohol use and now pancreatitis and DTs. Current Visit: Yes (5) Hypomagnesemia Status: Resolved Assessment and plan: This is normal now and stable. Current Visit: Yes (6) Hypokalemia Status: Resolved Assessment and plan: Result is stable. Current Visit: Yes (7) Noncompliance Status: Chronic Assessment and plan: Patient is a history of not being compliant with follow-up for testing etc. Current Visit: Yes (8) Pancreatitis, acute Status: Acute Assessment and plan: This may relate to his alcohol. GI medicine is following. Current Visit: Yes (9) Diarrhea Status: Acute Assessment and plan: GI medicine is following. Current Visit: Yes (10) Delirium tremens Status: Acute Assessment and plan: Patient's alcohol abuse and apparent DTs but being managed with Precedex. Current Visit: Yes Cardiology - PN: Subj Interval history: Patient during the night was started on Precedex for sedation. Patient with a sedation had decrease in his heart rates in management. Patient's heart rate now in the 70s 80s. At times it appears to be sinus rhythm. Still having some atrial fibrillation. We will get ECG this morning. Blood pressures been up and down. We will monitor this. I will not make any changes at this time. The patient is sleeping with his Precedex is minimally responsive secondary to this. His echocardiogram revealed left ventricular size normal with moderate concentric left ventricle pressure and ejection fraction 65%. Left atrium mildly dilated. He had mild mitral regurgitation aortic insufficiency. Otherwise echocardiogram is unremarkable. This time continue support we will monitor his rhythm. With his DTs pancreatitis his heart rates from a fluctuate depending on his sedation and agitation. Exam (Progress Note) - Constitutional Vitals: Period Temp Pulse Resp BP Sys/Denny Pulse Ox Last 24 Hr 97.8 F-98.9 F 67-158 14-23 112-158/67-120 93-99 Exam: General appearance: Obese who presents sedate on Precedex. Head exam: normal inspection, atraumatic Eye exam: Not done. Ear exam: Not done Neck exam: normal inspection no JVD. No carotid bruit. Trachea is in midline. Respiratory exam: clear to auscultation bilaterally and anteriorly with with overall quiet breath sounds. No rales, rhonchi or wheezes. Cardiovascular exam: Patient's heart rate is normal. No gross murmur gallop or rub. Chest wall/torso: Anatomically normal. No tenderness, deformity Peripheral Pulses: 2+ throughout. GI/Abdominal exam: Bowel sounds are present, abdomen is soft, protuberant but nondistended. Musculoskeletal/Extremities exam: normal inspection without edema or cyanosis. No deformities or trauma. Neurological exam: Sedated on Precedex. Psychiatric exam: Sedate on Precedex. Skin exam: Patient has excoriations with chronic dermatitis patches. Result/EKG - Labs CBC & BMP: 07/28/17 05:15 07/28/17 05:15 Lab Results: I have reviewed the past 24 hour labs Labs: Laboratory Results - last 24 hr 07/27/17 07/27/17 07/27/17 06:03 06:03 06:03 WBC RBC Hgb Hct MCV MCH MCHC RDW Plt Count MPV Neut % (Auto) Lymph % (Auto) Anson % (Auto) Eos % (Auto) Baso % (Auto) Neut # (Auto) Lymph # (Auto) Anson # (Auto) Eos # (Auto) Baso # (Auto) Immature Gran % Nucleated RBC % Immature Gran # Nucleated RBCs # Sodium Potassium Chloride Carbon Dioxide Anion Gap BUN Creatinine GFR Calculation BUN/Creatinine Ratio Glucose Calculated Osmolality Calcium Magnesium Total Creatine Kinase 590 H CK-MB (CK-2) 1.8 Troponin I 0.020 Amylase 61 Lipase Free T4 0.94 07/28/17 07/28/17 07/28/17 05:15 05:15 05:15 WBC 5.8 D RBC 4.45 Hgb 14.7 Hct 41.8 L MCV 93.9 MCH 33 MCHC 35.2 RDW 13.8 Plt Count 118 L D MPV 10.6 Neut % (Auto) 76.2 H Lymph % (Auto) 7.9 L Anson % (Auto) 11.3 Eos % (Auto) 3.8 Baso % (Auto) 0.3 Neut # (Auto) 4.5 Lymph # (Auto) 0.5 L Anson # (Auto) 0.7 Eos # (Auto) 0.2 Baso # (Auto) 0.0 Immature Gran % 0.5 Nucleated RBC % 0.3 Immature Gran # 0.03 Nucleated RBCs # 0.02 Sodium 142 Potassium 3.9 Chloride 112 H Carbon Dioxide 16 L Anion Gap 17.9 H BUN 9 Creatinine 0.60 L GFR Calculation 148 BUN/Creatinine Ratio 15.00 Glucose 111 H Calculated Osmolality 282.1 Calcium 7.9 L Magnesium 2.1 Total Creatine Kinase CK-MB (CK-2) Troponin I Amylase Lipase 793.0 H D Free T4 - Impressions Impressions: Telemetry reveals atrial fibrillation but episodes what may be sinus rhythm.
--- NOTE | 2017-07-28 07:54 | Order Completion Report ---
See report scanned to EMR
[2017-07-28] MEDS: TIMOLOL 0.25% OPH SOLN 5 ML BOTTLE BOTH EYES SCH ×2 (09:32→22:22)
[2017-07-28] MEDS: THIAMINE 100 MG TABLET PO SCH (09:33)
[2017-07-28] MEDS: METOPROLOL TARTRATE 50 MG TABLET PO SCH ×2 (09:33→21:45)
[2017-07-28] MEDS: ASPIRIN EC 81 MG TABLET PO SCH (09:33)
[2017-07-28] MEDS: PANTOPRAZOLE 40 MG TABLET PO SCH (09:33)
[2017-07-28] MEDS: EZETIMIBE 10 MG TABLET PO SCH (09:33)
[2017-07-28] MEDS: ENOXAPARIN 100 MG/ML SYRINGE SUBCUT SCH ×2 (09:39→22:20)
[2017-07-28] MEDS: FOLIC ACID 1 MG TABLET PO SCH (09:40)
[2017-07-28] MEDS: MULTIVITAMIN (CENTRUM) TABLET PO SCH (10:27)
--- NOTE | 2017-07-28 10:57 | Hospitalist Progress Note ---
Hospitalist: Subjective Interval history: 62-year-old male admitted with new onset atrial fibrillation with RVR, acute pancreatitis, shakiness, exacerbation of chronic pain. Patient developed visual hallucination yesterday and was felt to be in delirium tremens and was started on treatment for that. He was found to have some voiding difficulties today. Exam - Constitutional Vitals: Period Temp Pulse Resp BP Sys/Denny Pulse Ox Last 24 Hr 97.5 F-98.9 F 67-158 14-30 112-180/67-120 91-99 Exam: General: No Acute Distress HEENT: Normocephalic, atraumatic, Extra ocular movements intact Neck: Supple, No JVD Chest: Clear to auscultation B/L CV: S1 + S2 audible without murmur, gallop or rub Abd: soft, mild epigastric tenderness, distended, BS + Ext: No edema Skin: No purpura, chronic generalized plaques Rheumatologic: No Joint deformities Neurologic: Mildly agitated Results - Labs CBC & BMP: 07/28/17 05:15 07/28/17 05:15 - Impressions Assessment and Plan: Acute urine retention Status: Acute Assessment and plan: He has proven difficult to catheterize, Urology has been consulted, check bladder scan Current Visit: Yes Acute alcohol withdrawal/severe delirium tremens Status: Acute Assessment and plan: He is on IV Ativan as needed as well as scheduled, also on Precedex, is calm with that Current Visit: Yes Atrial fibrillation with RVR Status: Acute Assessment and plan: On Cardizem infusion as well as digoxin, Lopressor, and full dose Lovenox Current Visit: Yes Thrombocytopenia Status: Acute Assessment and plan: Monitor platelet count Current Visit: Yes Chest pain, atypical Status: Acute Assessment and plan: Continue to monitor Current Visit: Yes Acute pancreatitis Status: Acute Assessment and plan: Continue IV fluid Current Visit: No Dyslipidemia Status: Acute Assessment and plan: On Zetia Current Visit: No Hypomagnesemia Status: Acute Assessment and plan: Improved after replacement Current Visit: Yes Hypokalemia Status: Acute Assessment and plan: Improved after placement Current Visit: Yes Alcohol abuse Status: Acute Assessment and plan: Continue thiamine and folate Current Visit: Yes Chronic pain syndrome Status: Chronic Assessment and plan: He has declined to see Dr. Garcia, will continue follow-up with his pain doctor as output Current Visit: Yes
[2017-07-28] MEDS: DEXTROSE 5% NACL 0.45% 1,000 ML IV SCH ×2 (11:14→19:50)
[2017-07-28] MEDS: THIAMINE 200 MG/2 ML VIAL IV SCH (11:16)
--- NOTE | 2017-07-28 11:18 | Gastrointestinal Progress Note ---
Assessment and Plan (1) Pancreatitis, acute Status: Acute Assessment and plan: Would like to see what the results of an ultrasound and CT scan to look for evidence of severity of pancreatitis. Pancreatic enzymes are actually quite low. This may be another intra-abdominal process, will continue to follow lipase levels over time, I will leave the patient on sips with ice chips for the present time and would like to increase his IV fluid rate ideally up to 200/ h, will leave this up to cardiology as they are likely not going to feel comfortable with this level of hydration. 07/28/17--the patient's IV fluid rate is still running 125 mL/h. His lipase levels increased up to the 793 up from the 488 level yesterday. He is in florid delirium tremens at this time., He is not able to answer questions. Current Visit: Yes (2) Diarrhea Status: Acute Assessment and plan: We will check patient's stool cultures, fecal leukocytes, and C. difficile to see whether this low-grade diarrhea is going to be of any concern. For the present time we will not be treating this actively. 07/28/17--the patient's diarrhea is under control for the present time but is not eating much. Current Visit: Yes (3) Alcohol abuse Status: Acute Assessment and plan: We may wish to have a second pain management evaluation here to help get this patient off of alcohol. He may be at sincere in his desire to find additional pain medication to treat his underlying condition, ensure that the alcohol is likely exacerbating the pancreatitis if present. Again we are ruling out gallstones and sludge as a potential cause for the pancreatitis as well. 07/28/17--apparently the patient is minimizing the amount of alcohol that he drinks as he is actively in florid DTs at this time. This will likely go on for several more days. Current Visit: Yes (4) Hypomagnesemia Status: Resolved Assessment and plan: Hypomagnesemia with magnesium 1.1 is quite low, this can be seen with alcoholism , will see how quickly he responds to IV therapy per protocol. 07/28/17--This is being addressed/corrected over time. Current Visit: Yes Gastroenterology - PN: Subj Interval history: The patient went into delirium tremens yesterday and despite use of multiple medications he had to be placed on a Precedex drip in order to relieve his agitation, this does appear to be working as far as keeping him calm for the most part. His lipase level has increased slightly. CT scan of the abdomen yesterday does show a ductal dilatation to 1 cm with fatty infiltration of the liver versus cirrhosis but no intrahepatic ductal dilatation and no gross evidence of stones. The pancreas actually appears normal. Exam (Progress Note) - Constitutional Vitals: Period Temp Pulse Resp BP Sys/Denny Pulse Ox Last 24 Hr 97.5 F-98.9 F 67-158 14-30 112-180/67-120 91-99 General appearance: mild distress - Head Head exam: Present: normocephalic - Eye Eye exam: Present: EOMI - Respiratory Respiratory exam: Present: decreased breath sounds (In the bases bilaterally) - Cardiovascular Cardiovascular exam: Present: regular rate and rhythm - GI/Abdominal GI/Abdominal exam: Present: normal bowel sounds, tenderness (Mild diffuse mostly in the epigastric region), soft. Absent: distended, guarding, rebound - Extremities Exam Extremities exam: Present: edema Results - Labs CBC & BMP: 07/28/17 05:15 07/28/17 05:15
[2017-07-28] MEDS: DEXMEDETOMIDINE 400 MCG in SODIUM CHLORIDE 0.9% 96 ML IV SCH ×3 (12:45→21:51)
--- NOTE | 2017-07-28 12:46 | Urology Consultation ---
Assessment and Plan - Time spent with patient Time spent with patient: Greater than 30 minutes (1) Urethral stricture Status: Acute Assessment and plan: We will have to dilate him to place a catheter. Current Visit: Yes (2) Urinary retention Status: Acute Current Visit: Yes History of Present Illness - Data of Consult Patient: new to practice Consult date: 07/28/17 Requesting Physician: Hilda Jefferson - Consult Narrative Reason for consult: Unable to pass Butts History of present illness: Mr. Condon is a 62 year old male who I had seen over 20 years ago for prostatitis. He is now in the unit with acute delirium tremors. And nursing service cannot put a Butts catheter. I have not seen him since. He is somewhat coherent and says he has problems with having a catheter placed. He is being sedated and restrained in the unit. And we will attempt to place a catheter. He is on Precedex. CC: Hilda Jefferson MD - Home Medications and Allergies Home Medications: Home Medications Medication Instructions Recorded Confirmed Type Temazepam 30 mg PO BEDTIME 06/10/16 07/26/17 History Timolol 0.25% Oph Joselyn [Timoptic 1 drop BOTH EYES BID 06/10/16 07/26/17 History 0.25%] Aspirin EC Tab 81 mg PO DAILY tablet 07/15/16 07/26/17 Rx Carvedilol [Carvedilol] 6.25 mg PO BID 07/26/17 07/26/17 History Ezetimibe [Zetia] 10 mg PO DAILY 07/26/17 07/26/17 History Mometasone Furoate [Mometasone 1 applicator TOP BID PRN 07/26/17 07/26/17 History 0.1% Oint] Oxycodone HCl [Oxycodone HCl] 10 mg PO QID PRN 07/26/17 07/26/17 History Allergies/Adverse Reactions: Allergies Allergy/AdvReac Type Severity Reaction Status Date / Time Iodinated Contrast Media - Allergy Severe Difficulty Verified 07/26/17 12:29 Oral and Breathing [Iodinated Contrast Media - IV Dye] Sulfa (Sulfonamide Allergy Severe Difficulty Verified 07/26/17 12:29 Antibiotics) Breathing Medical,Surgical,& Family Hx - Medical History Cardio: History of: Hypertension, Cardiovascular Problems (abnormal stress test) Neurology: No history of: Seizures, TIA HEENT: History of: Eye Problem (Detatched Retnia; legally blind), Glaucoma Rheumatology: No history of;: Rheumatoid Arthritis (Degenerative arthritis) Gastrointestinal: History of: GI Problems (abdominal pain) Musculoskeletal: History of: Musculoskeletal Problems (collagen disease) Other: History of: Miscellaneous Medical Problems (Collagen Disease, Atopic dermatitis) - Surgical History HEENT Surgeries: Surgical HX of: Eye Surgery (4 eye surgeries) - Family History Family History: Reports;: Additional Family History (arthritis) - Social History Smoking Status: Never smoker Frequency of Alcohol Use: Frequently Type of Drug Use: None Exam - Constitutional Vitals: Period Temp Pulse Resp BP Sys/Denny Pulse Ox Last 24 Hr 97.5 F-98.5 F 67-158 14-30 112-180/67-120 91-99 - GI/Abdominal GI/Abdominal exam: Present: distended, guarding, tenderness (Suprapubic. Bladder is at umbilicus), soft - Genitourinary Genitourinary: scrotum without lesions, cysts, edema or rash, penis with no lesions or discharge Results - Labs CBC & BMP: 07/28/17 05:15 07/28/17 05:15 Lab Results: I have reviewed the past 24 hour labs
--- NOTE | 2017-07-28 12:51 | Operative Note ---
Date of procedure: 07/28/17 Pre-op diagnosis: Urethral stricture, urinary retention Post-op diagnosis: other (Stricture at the fossa navicularis) Procedure: 62-year-old white male in the hospital in the ICU with acute delirium tremors. Nursing service unable to pass a Butts catheter. He has a stricture at the fossa navicularis. Patient was prepared and draped in usual sterile manner. 2% Xylocaine jelly is placed in urethra for anesthesia. The distal urethra was then dilated to 20 [place] using Ronald sounds. An 18 [place] coud tip Butts was then passed with some difficulty due to the stricture but I was able pass in the bladder. Clear urine was obtained. This was then left to gravity. There was ultimately about 2000 cc in his bladder and the Butts was clamped intermittently to prevent acute bladder hemorrhage. Patient tolerated this procedure well. Implants: 18 [place] Butts Anesthesia: local Surgeon / Physician: Jamie Cisneros Estimated blood loss: none Specimens: none sent Condition: stable Disposition: PACU Results - Labs CBC & BMP: 07/28/17 05:15 07/28/17 05:15 Discharge Plan - Discharge Medications No Action Timolol 0.25% Oph Joselyn [Timoptic 0.25%] 1 drop BOTH EYES BID Temazepam 30 mg PO BEDTIME Aspirin EC Tab 81 mg PO DAILY tablet Oxycodone HCl [Oxycodone HCl] 10 mg PO QID PRN PRN Reason: Pain Mometasone Furoate [Mometasone 0.1% Oint] 1 applicator TOP BID PRN PRN Reason: Rash Ezetimibe [Zetia] 10 mg PO DAILY Carvedilol [Carvedilol] 6.25 mg PO BID - Follow Up or Referral - Forms/Instructions
[2017-07-28 13:09] LABS: Apearance,Urine CLEAR (Clear); Bilirubin,Urine Negative (Negative); Blood, Urine Small mg/dL (Negative); Glucose,Urine (UA) Negative (Negative); Ketones,Urine 20 mg/dL (Negative); Mucus,Urine Occasional /LPF (Occasional); Nitrite,Urine Negative (Negative); Protein,Urine 30 MG/DL; RBC,Urine 3 /HPF (0-4); Urine Color Yellow (Yellow); Urine Urobilinogen < 2.0 EU/DL (0.2-1.0); WBC,Urine <1 /HPF (0-6)
--- NOTE | 2017-07-28 13:14 | Order Completion Report ---
See report scanned to EMR
[2017-07-28] MEDS: DILTIAZEM INJ 100 MG in SODIUM CHLORIDE 0.9% 100 ML IV SCH (13:15)
[2017-07-28] MEDS: DIGOXIN 0.25 MG TABLET PO SCH (13:23)
[2017-07-28] MEDS: TEMAZEPAM 15 MG CAPSULE PO SCH (22:11)
[2017-07-28] MEDS: PANTOPRAZOLE 40 MG VIAL IV SCH (22:13)
[2017-07-29] MEDS: MORPHINE 2 MG/1 ML SYRINGE IV PRN ×4 (01:10→20:01)
[2017-07-29] MEDS: LORazepam 2 MG/1 ML VIAL IV PRN ×5 (02:25→20:28)
[2017-07-29] MEDS: HALOPERIDOL 5 MG/ML AMP IM PRN ×3 (02:56→23:17)
[2017-07-29] MEDS: DEXTROSE 5% NACL 0.45% 1,000 ML IV SCH ×2 (04:49→12:37)
[2017-07-29 05:40] LABS: Basophils % 0.3 % (0.0-0.8); Eosinophils # 0.2 10*3/uL (0.0-0.87); Eosinophils % 2.6 % (0.00-10.9); Hematocrit 38.5 VOL% (42.0-52.0); Hemoglobin 13.7 GM/DL (14.0-18.0); Immature Granulocytes % 0.4 %; Immature Granulocytes Absolute 0.03 #; Lymphocytes % 13.5 % (21.2-54.2); Mean Corpuscular HGB Conc 35.6 GM/DL (32-36); Mean Corpuscular Hemoglobin 33 PG (27-34); Mean Corpuscular Volume 93.2 FL (87-102); Monocytes # 0.8 10*3/uL (0.11-0.8); Monocytes % 10.9 % (1.7-12.7); NRBC # 0.02 10*3/uL; Neutrophils # 5.1 10*3/uL (1.4-7.4); Neutrophils % 72.3 % (38.7-73.9); Platelet Count 157 T/CUMM (130-400); Red Blood Count 4.13 MC/CUMM (3.8-5.5); Red Cell Distribution Width 13.7 % (9.3-17.3); White Blood Count 7.1 T/CUMM (4-12)
[2017-07-29 05:49] LABS: Calcium 7.8 MG/DL (8.5-10.1); Magnesium 1.8 MG/DL (1.8-2.4); Osmolality,Calculated 283.1 MOS/KG (273-304); Potassium 2.9 MMOL/L (3.5-5.1)
--- NOTE | 2017-07-29 06:38 | Cardiology Progress Note ---
Assessment and Plan (1) Atrial fibrillation with RVR Status: Acute Assessment and plan: The true duration of his atrial fibrillation is really unknown. His heart rates are well controlled at this time. Continue present medications for this. He is anticoagulated adequately. He will need to move to oral anticoagulation seen. Current Visit: Yes (2) Atypical chest pain Status: Acute Assessment and plan: No recurrence and this may last for more of abdominal pain from his pancreatitis. Current Visit: No (3) Dyslipidemia Status: Acute Assessment and plan: This issue can be followed up later. Current Visit: No (4) Alcohol abuse Status: Acute Assessment and plan: Chronic alcohol use and now pancreatitis and DTs. Current Visit: Yes (5) Hypomagnesemia Status: Resolved Assessment and plan: This is normal now and stable. Current Visit: Yes (6) Hypokalemia Status: Resolved Assessment and plan: Test is low this morning but he has protocol ordered. Current Visit: Yes (7) Noncompliance Status: Chronic Assessment and plan: Patient is a history of not being compliant with follow-up and for testing etc. Current Visit: Yes (8) Pancreatitis, acute Status: Acute Assessment and plan: This may relate to his alcohol. GI medicine is following. Current Visit: Yes (9) Diarrhea Status: Acute Assessment and plan: GI medicine is following. Current Visit: Yes (10) Delirium tremens Status: Acute Assessment and plan: This is improving. Current Visit: Yes Cardiology - PN: Subj Interval history: Patient has been going through DTs the last 2 days but this morning is doing well but continues Precedex. He certainly is not as agitated and with this his heart rates are doing well with his atrial fibrillation. He is making reasonable progress from his DTs. He remains anticoagulated for his atrial fibrillation. With his present medications his heart rates are controlled but his blood pressures have some area for improvement. His renal function and ejection fraction normal. I think he would benefit from losartan. I will stay away from amlodipine because of progressive edema would be possible. We will need to look at place him on oral anticoagulant wants he is a little more stable. He may be of do this tomorrow. Exam (Progress Note) - Constitutional Vitals: Period Temp Pulse Resp BP Sys/Denny Pulse Ox Last 24 Hr 97.5 F-99.2 F 83-108 18-30 142-180/93-120 91-97 Exam: General appearance: Obese who is awake and responsive this morning is slightly sedated on Precedex. Head exam: normal inspection, atraumatic Eye exam: Not done. Ear exam: Not done Neck exam: normal inspection no JVD. No carotid bruit. Trachea is in midline. Respiratory exam: clear to auscultation bilaterally and anteriorly with with overall quiet breath sounds. No rales, rhonchi or wheezes. Cardiovascular exam: Patient's heart rate is normal but irregular. No gross murmur gallop or rub. Chest wall/torso: Anatomically normal. No tenderness, deformity Peripheral Pulses: 2+ throughout. GI/Abdominal exam: Bowel sounds are present, abdomen is soft, protuberant but nondistended. Still slightly direct tenderness. Musculoskeletal/Extremities exam: normal inspection without edema or cyanosis. No deformities or trauma. Neurological exam: Patient is awake and responds but quickly drops back off to sleep, he is on Precedex still. Psychiatric exam: Sedate on Precedex. Skin exam: Patient has excoriations with chronic dermatitis patches. Result/EKG - Labs CBC & BMP: 07/29/17 04:29 07/29/17 04:29 Lab Results: I have reviewed the past 24 hour labs Labs: Laboratory Results - last 24 hr 07/28/17 07/28/17 07/29/17 05:15 12:58 04:29 WBC RBC Hgb Hct MCV MCH MCHC RDW Plt Count MPV Neut % (Auto) Lymph % (Auto) Bond % (Auto) Eos % (Auto) Baso % (Auto) Neut # (Auto) Lymph # (Auto) Bond # (Auto) Eos # (Auto) Baso # (Auto) Immature Gran % Nucleated RBC % Immature Gran # Nucleated RBCs # Immature Plt Fraction Sodium 142 Potassium 3.9 Chloride 112 H Carbon Dioxide 16 L Anion Gap 17.9 H BUN 9 Creatinine 0.60 L GFR Calculation 148 BUN/Creatinine Ratio 15.00 Glucose 111 H Calculated Osmolality 282.1 Calcium 7.9 L Magnesium 2.1 Lipase 1229.0 H D Urine Color Yellow Urine Appearance Clear Urine pH 7.0 Ur Specific [place] 1.010 Urine Protein 30 Urine Glucose (UA) Negative Urine Ketones 20 Urine Blood Small Urine Nitrate Negative Urine Bilirubin Negative Urine Urobilinogen < 2.0 H Urine Leukocytes Negative Urine RBC 3 Urine WBC <1 Urine Mucus Occasional Ur Culture Indicated? Not indicated 07/29/17 07/29/17 04:29 04:29 WBC 7.1 RBC 4.13 Hgb 13.7 L Hct 38.5 L MCV 93.2 MCH 33 MCHC 35.6 RDW 13.7 Plt Count 157 D MPV 10.0 Neut % (Auto) 72.3 Lymph % (Auto) 13.5 L Bond % (Auto) 10.9 Eos % (Auto) 2.6 Baso % (Auto) 0.3 Neut # (Auto) 5.1 Lymph # (Auto) 1.0 L Bond # (Auto) 0.8 Eos # (Auto) 0.2 Baso # (Auto) 0.0 Immature Gran % 0.4 Nucleated RBC % 0.3 Immature Gran # 0.03 Nucleated RBCs # 0.02 Immature Plt Fraction 0.0 Sodium 142 Potassium 2.9 L Chloride 108 H Carbon Dioxide 23 Anion Gap 13.9 BUN 10 Creatinine 0.70 GFR Calculation 138 BUN/Creatinine Ratio 14.00 Glucose 136 H Calculated Osmolality 283.1 Calcium 7.8 L Magnesium 1.8 Lipase Urine Color Urine Appearance Urine pH Ur Specific [place] Urine Protein Urine Glucose (UA) Urine Ketones Urine Blood Urine Nitrate Urine Bilirubin Urine Urobilinogen Urine Leukocytes Urine RBC Urine WBC Urine Mucus Ur Culture Indicated? - Impressions Impressions: Telemetry with atrial fibrillation but controlled ventricular response.
[2017-07-29] MEDS: POTASSIUM CHLORIDE 20 MEQ TABLET PO PRN ×2 (08:02→13:38)
[2017-07-29] MEDS: DEXMEDETOMIDINE 400 MCG in SODIUM CHLORIDE 0.9% 96 ML IV SCH ×2 (08:03→11:07)
[2017-07-29] MEDS: LORazepam 2 MG/1 ML VIAL IV SCH ×3 (08:07→22:32)
[2017-07-29] MEDS: LOSARTAN 50 MG TABLET PO SCH (10:21)
[2017-07-29] MEDS: FOLIC ACID 1 MG TABLET PO SCH (10:21)
[2017-07-29] MEDS: METOPROLOL TARTRATE 50 MG TABLET PO SCH ×2 (10:21→21:47)
[2017-07-29] MEDS: EZETIMIBE 10 MG TABLET PO SCH (10:21)
[2017-07-29] MEDS: THIAMINE 200 MG/2 ML VIAL IV SCH (10:22)
[2017-07-29] MEDS: PANTOPRAZOLE 40 MG VIAL IV SCH ×2 (10:22→21:56)
[2017-07-29] MEDS: ASPIRIN EC 81 MG TABLET PO SCH (10:22)
[2017-07-29] MEDS: TIMOLOL 0.25% OPH SOLN 5 ML BOTTLE BOTH EYES SCH ×2 (10:23→21:59)
[2017-07-29] MEDS: ENOXAPARIN 100 MG/ML SYRINGE SUBCUT SCH ×2 (10:24→21:45)
[2017-07-29] MEDS: MULTIVITAMIN (CENTRUM) TABLET PO SCH (10:24)
--- NOTE | 2017-07-29 10:33 | Hospitalist Progress Note ---
Hospitalist: Subjective Interval history: 62-year-old male admitted with new onset atrial fibrillation with RVR, acute pancreatitis, shakiness, exacerbation of chronic pain. His confusion due to delirium tremens is improving. Exam - Constitutional Vitals: Period Temp Pulse Resp BP Sys/Denny Pulse Ox Last 24 Hr 97.7 F-99.2 F 82-108 18-27 119-174/93-120 95-98 Exam: General: No Acute Distress HEENT: Normocephalic, atraumatic, Extra ocular movements intact Neck: Supple, No JVD Chest: Clear to auscultation B/L CV: S1 + S2 audible without murmur, gallop or rub Abd: soft, mild epigastric tenderness, distended, BS + Ext: No edema Skin: No purpura, chronic generalized plaques Rheumatologic: No Joint deformities Neurologic: Mildly agitated Results - Labs CBC & BMP: 07/29/17 04:29 07/29/17 04:29 - Impressions Assessment and Plan: Acute urine retention Status: Acute Assessment and plan: Butts catheter placed 07/28 due to urethral stricture Current Visit: Yes Acute alcohol withdrawal/severe delirium tremens Status: Acute Assessment and plan: He is on IV Ativan as needed as well as scheduled, also on Precedex, is calm with that. DTs are improving, not requiring restraints anymore, tapered down Precedex Current Visit: Yes Atrial fibrillation with RVR Status: Acute Assessment and plan: On Cardizem infusion as well as digoxin, Lopressor, and full dose Lovenox Current Visit: Yes Chest pain, atypical Status: Acute Assessment and plan: Continue to monitor Current Visit: Yes Acute pancreatitis Status: Acute Assessment and plan: Continue IV fluid Current Visit: No Dyslipidemia Status: Acute Assessment and plan: On Zetia Current Visit: No Hypomagnesemia Status: Acute Assessment and plan: Improved after replacement Current Visit: Yes Hypokalemia Status: Acute Assessment and plan: Replacement per potassium protocol Current Visit: Yes Alcohol abuse Status: Acute Assessment and plan: Continue thiamine and folate Current Visit: Yes Essential hypertension Status: Chronic Assessment and plan: Controlled on losartan Current Visit: Yes Chronic pain syndrome Status: Chronic Assessment and plan: He has declined to see Dr. Garcia, will continue follow-up with his pain doctor as output Current Visit: Yes
[2017-07-29] MEDS: DILTIAZEM INJ 100 MG in SODIUM CHLORIDE 0.9% 100 ML IV SCH ×2 (13:37→18:24)
[2017-07-29] MEDS: DIGOXIN 0.25 MG TABLET PO SCH (13:38)
--- NOTE | 2017-07-29 14:47 | Gastrointestinal Progress Note ---
Assessment and Plan (1) Pancreatitis, acute Status: Acute Assessment and plan: Would like to see what the results of an ultrasound and CT scan to look for evidence of severity of pancreatitis. Pancreatic enzymes are actually quite low. This may be another intra-abdominal process, will continue to follow lipase levels over time, I will leave the patient on sips with ice chips for the present time and would like to increase his IV fluid rate ideally up to 200/ h, will leave this up to cardiology as they are likely not going to feel comfortable with this level of hydration. 07/28/17--the patient's IV fluid rate is still running 125 mL/h. His lipase levels increased up to the 793 up from the 488 level yesterday. He is in florid delirium tremens at this time., He is not able to answer questions. 07/29/17--the patient's lipase level continues to climb. He appears to be doing somewhat better in terms of his delirium tremens. He is thirsty and having diarrhea now. This may be related to some narcotic withdrawal or pain but stool cultures have been negative up to this point. We will continue to watch his lipase level, CT scan was fairly unrevealing as far as pancreatic changes leading me to believe this is not going to be a serious problem in the long- term. Current Visit: Yes (2) Diarrhea Status: Acute Assessment and plan: We will check patient's stool cultures, fecal leukocytes, and C. difficile to see whether this low-grade diarrhea is going to be of any concern. For the present time we will not be treating this actively. 07/28/17--the patient's diarrhea is under control for the present time but is not eating much. 07/29/17--The diarrhea is back in force at this point. This might be related to narcotic withdrawal, stool studies are negative, we may end up having to do a colonoscopy look for microscopic and collagenous colitis further down the admission, if this continues. We will repeat C. difficile at this time. Current Visit: Yes (3) Alcohol abuse Status: Acute Assessment and plan: We may wish to have a second pain management evaluation here to help get this patient off of alcohol. He may be at sincere in his desire to find additional pain medication to treat his underlying condition, ensure that the alcohol is likely exacerbating the pancreatitis if present. Again we are ruling out gallstones and sludge as a potential cause for the pancreatitis as well. 07/28/17--apparently the patient is minimizing the amount of alcohol that he drinks as he is actively in florid DTs at this time. This will likely go on for several more days. 07/29/17--Continue to observe as he pulls out of the DTs further, check ammonia level to see if this is elevated. Current Visit: Yes (4) Hypomagnesemia Status: Resolved Assessment and plan: Hypomagnesemia with magnesium 1.1 is quite low, this can be seen with alcoholism , will see how quickly he responds to IV therapy per protocol. 07/28/17--This is being addressed/corrected over time. 07/29--improving. Currently up to 1.8 at this time. Current Visit: Yes Gastroenterology - PN: Subj Interval history: Current complaints include bilateral lower quadrant abdominal pain with right lower quadrant greater than left lower quadrant. In addition the patient is having numerous episodes of diarrhea. This is already been checked and discovered to be C. difficile negative and stool cultures are negative as are fecal white blood cells. It is unclear why this is occurring, but narcotic withdrawal seems like one possibility. Exam (Progress Note) - Constitutional Vitals: Period Temp Pulse Resp BP Sys/Denny Pulse Ox Last 24 Hr 97.7 F-99.2 F 82-109 18-27 119-173/87-124 95-100 General appearance: mild distress - Head Head exam: Present: normocephalic - Eye Eye exam: Present: EOMI Pupils: Present: KATERINA - Respiratory Respiratory exam: Present: clear to auscultation bilaterally - Cardiovascular Cardiovascular exam: Present: regular rate and rhythm - GI/Abdominal GI/Abdominal exam: Present: normal bowel sounds, distended, tenderness (Right greater than left lower quadrant pain), soft. Absent: guarding, rebound - Neurological Exam Neurological exam: Present: alert, oriented X3, altered - Psychiatric Psychiatric exam: Present: normal affect, agitated - Skin Skin exam: Present: warm Results - Labs CBC & BMP: 07/29/17 04:29 07/29/17 04:29
[2017-07-29] MEDS ORDERED: hydrALAZINE 25 MG TABLET PO ONE (15:39)
[2017-07-29] MEDS ORDERED: hydrALAZINE 25 MG TABLET PO SCH (21:00)
[2017-07-29] MEDS: TAMSULOSIN 0.4 MG CAPSULE PO SCH (21:47)
[2017-07-29] MEDS: TEMAZEPAM 15 MG CAPSULE PO SCH (21:47)
[2017-07-29] MEDS: hydrALAZINE 25 MG TABLET PO SCH (21:48)
[2017-07-30] MEDS: MORPHINE 2 MG/1 ML SYRINGE IV PRN ×5 (00:43→22:40)
[2017-07-30] MEDS: DEXTROSE 5% NACL 0.45% 1,000 ML IV SCH ×3 (00:49→11:44)
[2017-07-30] MEDS: DILTIAZEM INJ 100 MG in SODIUM CHLORIDE 0.9% 100 ML IV SCH ×2 (01:11→13:18)
[2017-07-30] MEDS: LORazepam 2 MG/1 ML VIAL IV PRN ×4 (01:13→22:39)
[2017-07-30 06:09] LABS: Basophils # 0.1 10*3/uL (0.0-0.2); Basophils % 0.6 % (0.0-0.8); Eosinophils # 0.3 10*3/uL (0.0-0.87); Eosinophils % 3.7 % (0.00-10.9); Hematocrit 38.3 VOL% (42.0-52.0); Hemoglobin 13.5 GM/DL (14.0-18.0); Immature Granulocytes % 0.5 %; Immature Granulocytes Absolute 0.04 #; Lymphocytes # 1.4 10*3/uL (1.4-4.0); Lymphocytes % 17.6 % (21.2-54.2); Mean Corpuscular HGB Conc 35.2 GM/DL (32-36); Mean Corpuscular Hemoglobin 33 PG (27-34); Mean Corpuscular Volume 93.6 FL (87-102); Mean Platelet Volume 10.1 FL (9.6-12.0); Monocytes # 1.1 10*3/uL (0.11-0.8); Monocytes % 14.2 % (1.7-12.7); Neutrophils % 63.4 % (38.7-73.9); Platelet Count 204 T/CUMM (130-400); Red Blood Count 4.09 MC/CUMM (3.8-5.5); Red Cell Distribution Width 13.9 % (9.3-17.3); White Blood Count 7.9 T/CUMM (4-12)
[2017-07-30 06:44] LABS: Calcium 8.2 MG/DL (8.5-10.1); Magnesium 1.6 MG/DL (1.8-2.4); Osmolality,Calculated 278.3 MOS/KG (273-304); Potassium 3.4 MMOL/L (3.5-5.1)
[2017-07-30] MEDS: LORazepam 2 MG/1 ML VIAL IV SCH ×2 (07:32→14:58)
--- NOTE | 2017-07-30 07:42 | Gastrointestinal Progress Note ---
Assessment and Plan (1) Pancreatitis, acute Status: Acute Assessment and plan: Would like to see what the results of an ultrasound and CT scan to look for evidence of severity of pancreatitis. Pancreatic enzymes are actually quite low. This may be another intra-abdominal process, will continue to follow lipase levels over time, I will leave the patient on sips with ice chips for the present time and would like to increase his IV fluid rate ideally up to 200/ h, will leave this up to cardiology as they are likely not going to feel comfortable with this level of hydration. 07/28/17--the patient's IV fluid rate is still running 125 mL/h. His lipase levels increased up to the 793 up from the 488 level yesterday. He is in florid delirium tremens at this time., He is not able to answer questions. 07/29/17--the patient's lipase level continues to climb. He appears to be doing somewhat better in terms of his delirium tremens. He is thirsty and having diarrhea now. This may be related to some narcotic withdrawal or pain but stool cultures have been negative up to this point. We will continue to watch his lipase level, CT scan was fairly unrevealing as far as pancreatic changes leading me to believe this is not going to be a serious problem in the long- term. 07/30/17--patient's lipase level does still continue to climb. Review of the ultrasound did show gallstone shadowing in addition to a ectatic common bile duct that was dilated to 11 mm. If the patient's liver function tests are abnormally elevated in addition to the lipase level being elevated this with the presumptive evidence of ongoing gallstone pancreatitis and would require ERCP likely to clear the duct. We will arrange this for tomorrow if the bilirubin is elevated as I suspect it might be. Labs are pending. If bilirubin is not elevated would likely just continue to watch the lipase level with time. Current Visit: Yes (2) Diarrhea Status: Acute Assessment and plan: We will check patient's stool cultures, fecal leukocytes, and C. difficile to see whether this low-grade diarrhea is going to be of any concern. For the present time we will not be treating this actively. 07/28/17--the patient's diarrhea is under control for the present time but is not eating much. 07/29/17--The diarrhea is back in force at this point. This might be related to narcotic withdrawal, stool studies are negative, we may end up having to do a colonoscopy look for microscopic and collagenous colitis further down the admission, if this continues. We will repeat C. difficile at this time. 07/30/17--The patient's diarrhea has slowed down to 1 now the potassium has been discontinued. The C. difficile recheck could not be obtained. We are continue to watch him. He remains on clear liquids because of his pancreatitis. Current Visit: Yes (3) Alcohol abuse Status: Acute Assessment and plan: We may wish to have a second pain management evaluation here to help get this patient off of alcohol. He may be at sincere in his desire to find additional pain medication to treat his underlying condition, ensure that the alcohol is likely exacerbating the pancreatitis if present. Again we are ruling out gallstones and sludge as a potential cause for the pancreatitis as well. 07/28/17--apparently the patient is minimizing the amount of alcohol that he drinks as he is actively in florid DTs at this time. This will likely go on for several more days. 07/29/17--Continue to observe as he pulls out of the DTs further, check ammonia level to see if this is elevated. 07/30/17--Patient appears to be out of the delirium tremens at this time he is cognizant and able to answer all questions. I do not see an ammonia level-- will check this for tomorrow. Current Visit: Yes (4) Hypomagnesemia Status: Resolved Assessment and plan: Hypomagnesemia with magnesium 1.1 is quite low, this can be seen with alcoholism , will see how quickly he responds to IV therapy per protocol. 07/28/17--This is being addressed/corrected over time. 07/29--improving. Currently up to 1.8 at this time. Current Visit: Yes Gastroenterology - PN: Subj Interval history: Patient states that he has a chill inside of his body that causes shaking and that he thinks this is rated as about an 8 out of 10 in intensity and may represent his pancreatitis equivalent. He has been thirsty and is a bit hungry as well. His lipase level has increased from 793 on 07/28/17 up to 1229 yesterday and is now up to 1878 this morning. He did have a gallbladder that showed acoustic shadowing consistent with gallstones as well as ectasia with the common bile duct of [address] scan failed to show any enlargement of the pancreas when this was done previously this admission. LFTs not collected this morning. Exam (Progress Note) - Constitutional Vitals: Period Temp Pulse Resp BP Sys/Denny Pulse Ox Last 24 Hr 97.2 F-98.5 F 82-123 15-26 77-170/53-124 95-100 General appearance: no acute distress - Head Head exam: Present: normocephalic - Eye Eye exam: Present: EOMI - Respiratory Respiratory exam: Present: clear to auscultation bilaterally. Absent: rhonchi, stridor, wheezes - Cardiovascular Cardiovascular exam: Present: regular rate and rhythm - GI/Abdominal GI/Abdominal exam: Present: normal bowel sounds, tenderness (Patient's worst pain appears to be in a band across the bilateral upper quadrants right greater than left, there is minimal pain in the bilateral lower quadrants. There is no gross evidence of Elva or Garvey Rojo sign. No ascites is noted), soft. Absent: distended - Extremities Exam Extremities exam: Absent: edema - Neurological Exam Neurological exam: Present: alert, oriented X3 - Psychiatric Psychiatric exam: Present: agitated - Skin Skin exam: Present: warm Results - Labs CBC & BMP: 07/30/17 05:03 07/30/17 05:03
[2017-07-30 08:00] LABS: Albumin 2.7 G/DL (3.4-5.0); Bilirubin,Direct 0.26 MG/DL (0.0-0.20); Bilirubin,Indirect 0.5 MG/DL (0.0-1.0); Bilirubin,Total 0.8 MG/DL (0.2-1.0); Total Protein 6.1 G/DL (6.4-8.3)
[2017-07-30] MEDS: EZETIMIBE 10 MG TABLET PO SCH (09:23)
[2017-07-30] MEDS: PANTOPRAZOLE 40 MG VIAL IV SCH ×2 (09:23→21:01)
[2017-07-30] MEDS: METOPROLOL TARTRATE 50 MG TABLET PO SCH (09:23)
[2017-07-30] MEDS: LOSARTAN 50 MG TABLET PO SCH (09:23)
[2017-07-30] MEDS: ASPIRIN EC 81 MG TABLET PO SCH (09:23)
[2017-07-30] MEDS: FOLIC ACID 1 MG TABLET PO SCH (09:23)
[2017-07-30] MEDS: MULTIVITAMIN (CENTRUM) TABLET PO SCH (09:23)
[2017-07-30] MEDS: ENOXAPARIN 100 MG/ML SYRINGE SUBCUT SCH ×2 (09:23→20:58)
[2017-07-30] MEDS: THIAMINE 200 MG/2 ML VIAL IV SCH (09:24)
--- NOTE | 2017-07-30 09:50 | Order Completion Report ---
See report scanned to EMR
--- NOTE | 2017-07-30 09:55 | Cardiology Progress Note ---
Assessment and Plan (1) Atrial fibrillation with RVR Status: Acute Assessment and plan: Patient is in sinus rhythm now with sinus tachycardia. We will increase his beta-tong. Current Visit: Yes (2) Dyslipidemia Status: Chronic Assessment and plan: This issue can be followed up later and as an outpatient once he is over his acute illness. Current Visit: No (3) Alcohol abuse Status: Chronic Assessment and plan: Chronic alcohol use and now pancreatitis and DTs. Current Visit: Yes (4) Hypomagnesemia Status: Acute Assessment and plan: This is being monitored and treated by protocol. Current Visit: Yes (5) Hypokalemia Status: Resolved Assessment and plan: Test is low this morning but he has protocol ordered. Current Visit: Yes (6) Noncompliance Status: Chronic Assessment and plan: Patient is a history of not being compliant with follow-up and for testing etc. Current Visit: Yes (7) Pancreatitis, acute Status: Acute Assessment and plan: This may relate to his alcohol. GI medicine is following. Current Visit: Yes (8) Delirium tremens Status: Acute Assessment and plan: This is improving. He is short much better today. Current Visit: Yes Cardiology - PN: Subj Interval history: Patient generally is doing better. He is off the Precedex now. He still somewhat anxious but better than he was a few days ago. He still complains of his abdominal pain from his pancreatitis. His heart rates are up though he is in sinus rhythm now. His heart rates normalized when he is not agitated sleeping. I do not think at this time the blood counts is doing much for his heart rates. We will increase his metoprolol low. We will increase his metoprolol. Exam (Progress Note) - Constitutional Vitals: Period Temp Pulse Resp BP Sys/Denny Pulse Ox Last 24 Hr 97.2 F-99.9 F 82-123 15-29 77-174/53-124 95-100 Exam: General appearance: Obese who is awake and responsive this morning and more weight since he is off the Precedex. Head exam: normal inspection, atraumatic Eye exam: Not done. Ear exam: Not done Neck exam: normal inspection no JVD. No carotid bruit. Trachea is in midline. Respiratory exam: Has some slight wheezes anteriorly. Otherwise really has good air movement Cardiovascular exam: Patient's heart rate is normal but irregular. No gross murmur gallop or rub. Chest wall/torso: Anatomically normal. No tenderness, deformity Peripheral Pulses: 2+ throughout. GI/Abdominal exam: Bowel sounds are present, abdomen is soft, protuberant but nondistended. Still slightly direct tenderness. Musculoskeletal/Extremities exam: normal inspection without edema or cyanosis. No deformities or trauma. Neurological exam: Patient is awake and responds but quickly drops back off to sleep, he is on Precedex still. Psychiatric exam: Sedate on Precedex. Skin exam: Patient has excoriations with chronic dermatitis patches. Result/EKG - Labs CBC & BMP: 07/30/17 05:03 07/30/17 05:03 Lab Results: I have reviewed the past 24 hour labs Labs: Laboratory Results - last 24 hr 07/29/17 07/30/17 07/30/17 19:31 05:01 05:03 WBC 7.9 RBC 4.09 Hgb 13.5 L Hct 38.3 L MCV 93.6 MCH 33 MCHC 35.2 RDW 13.9 Plt Count 204 D MPV 10.1 Neut % (Auto) 63.4 Lymph % (Auto) 17.6 L [place] % (Auto) 14.2 H Eos % (Auto) 3.7 Baso % (Auto) 0.6 Neut # (Auto) 5.0 Lymph # (Auto) 1.4 [place] # (Auto) 1.1 H Eos # (Auto) 0.3 Baso # (Auto) 0.1 Immature Gran % 0.5 Nucleated RBC % 0.0 Immature Gran # 0.04 Nucleated RBCs # 0.00 Immature Plt Fraction 0.0 Sodium Potassium 3.7 Chloride Carbon Dioxide Anion Gap BUN Creatinine GFR Calculation BUN/Creatinine Ratio Glucose Calculated Osmolality Calcium Magnesium Total Bilirubin 0.80 Direct Bilirubin 0.260 H Indirect Bilirubin 0.5 AST 83 H ALT 63 H Alkaline Phosphatase 101 Total Protein 6.1 L Albumin 2.7 L Lipase 07/30/17 07/30/17 05:03 05:03 WBC RBC Hgb Hct MCV MCH MCHC RDW Plt Count MPV Neut % (Auto) Lymph % (Auto) [place] % (Auto) Eos % (Auto) Baso % (Auto) Neut # (Auto) Lymph # (Auto) [place] # (Auto) Eos # (Auto) Baso # (Auto) Immature Gran % Nucleated RBC % Immature Gran # Nucleated RBCs # Immature Plt Fraction Sodium 141 Potassium 3.4 L Chloride 108 H Carbon Dioxide 24 Anion Gap 12.4 BUN 8 Creatinine 0.80 GFR Calculation 133 BUN/Creatinine Ratio 10.00 Glucose 98 Calculated Osmolality 278.3 Calcium 8.2 L Magnesium 1.6 L Total Bilirubin Direct Bilirubin Indirect Bilirubin AST ALT Alkaline Phosphatase Total Protein Albumin Lipase 1878.0 H D - Impressions Impressions: ECG with sinus tachycardia without acute changes.
[2017-07-30] MEDS: hydrALAZINE 25 MG TABLET PO SCH (10:21)
[2017-07-30] MEDS: TIMOLOL 0.25% OPH SOLN 5 ML BOTTLE BOTH EYES SCH ×2 (10:21→21:00)
[2017-07-30] MEDS: HALOPERIDOL 5 MG/ML AMP IM PRN ×3 (10:30→20:46)
[2017-07-30] MEDS: MAGNESIUM SULF RIDER 2 GM in PREMIX 1 EACH IV PRN (11:41)
[2017-07-30] MEDS: DIGOXIN 0.25 MG TABLET PO SCH (12:11)
--- NOTE | 2017-07-30 14:43 | Hospitalist Progress Note ---
Hospitalist: Subjective Interval history: Patient awake and alert and coherent today, diarrhea is better, has abdominal pain but tolerating liquid diet. Exam - Constitutional Vitals: Period Temp Pulse Resp BP Sys/Denny Pulse Ox Last 24 Hr 97.2 F-99.9 F 82-123 12 77-174/53-123 95-99 Exam: General: No Acute Distress HEENT: Normocephalic, atraumatic, Extra ocular movements intact Neck: Supple, No JVD Chest: Clear to auscultation B/L CV: S1 + S2 audible without murmur, gallop or rub Abd: soft, mild epigastric tenderness, distended, BS + Ext: No edema Skin: No purpura, chronic generalized plaques Rheumatologic: No Joint deformities Neurologic: Mildly agitated Results - Labs CBC & BMP: 07/30/17 05:03 07/30/17 05:03 - Impressions Assessment and Plan: Acute urine retention Status: Acute Assessment and plan: Butts catheter placed 07/28 due to urethral stricture. Continue Flomax Current Visit: Yes Acute alcohol withdrawal/severe delirium tremens Status: Acute Assessment and plan: This is much improved, Precedex discontinued 08/28, continue Ativan Current Visit: Yes Atrial fibrillation with RVR Status: Acute Assessment and plan: Resolved, he is in NSR. Continue digoxin 0.25 mg and Lopressor 50 mg twice daily Current Visit: Yes Chest pain, atypical Status: Acute Assessment and plan: Continue to monitor Current Visit: Yes Acute pancreatitis Status: Acute Assessment and plan: Lipid level is trending up, continue IV fluid, liquid diet, advance as tolerated. Dr. Schultz is considering ERCP, if liver enzymes and bilirubin persistently high Current Visit: No Dyslipidemia Status: Acute Assessment and plan: On Zetia Current Visit: No Hypomagnesemia Status: Acute Assessment and plan: Improved after replacement Current Visit: Yes Hypokalemia Status: Acute Assessment and plan: Replacement per potassium protocol Current Visit: Yes Alcohol abuse Status: Acute Assessment and plan: Continue thiamine and folate Current Visit: Yes Essential hypertension Status: Chronic Assessment and plan: Controlled on losartan, hydralazine and Lopressor Current Visit: Yes Chronic pain syndrome Status: Chronic Assessment and plan: He has declined to see Dr. Garcia, likely would need a new pain doctor as outpatient Current Visit: Yes
[2017-07-30] MEDS: ALBUTEROL/IPRATROPIUM 3 ML NEB RESP TX SCH ×3 (16:55→23:07)
[2017-07-30] MEDS: TEMAZEPAM 15 MG CAPSULE PO SCH (20:55)
[2017-07-30] MEDS: TAMSULOSIN 0.4 MG CAPSULE PO SCH (20:55)
[2017-07-31] MEDS: HALOPERIDOL 5 MG/ML AMP IM PRN (01:19)
[2017-07-31] MEDS: ALBUTEROL/IPRATROPIUM 3 ML NEB RESP TX SCH ×6 (02:42→23:31)
[2017-07-31] MEDS: MORPHINE 2 MG/1 ML SYRINGE IV PRN ×5 (03:19→22:56)
[2017-07-31 06:47] LABS: Basophils % 0.5 % (0.0-0.8); Eosinophils # 0.3 10*3/uL (0.0-0.87); Eosinophils % 4.4 % (0.00-10.9); Hematocrit 36.8 VOL% (42.0-52.0); Hemoglobin 12.8 GM/DL (14.0-18.0); Immature Granulocytes % 0.3 %; Immature Granulocytes Absolute 0.02 #; Lymphocytes % 16.6 % (21.2-54.2); Mean Corpuscular HGB Conc 34.8 GM/DL (32-36); Mean Corpuscular Hemoglobin 33 PG (27-34); Mean Corpuscular Volume 94.6 FL (87-102); Mean Platelet Volume 9.7 FL (9.6-12.0); Monocytes % 15.8 % (1.7-12.7); Neutrophils # 3.8 10*3/uL (1.4-7.4); Neutrophils % 62.4 % (38.7-73.9); Platelet Count 205 T/CUMM (130-400); Red Blood Count 3.89 MC/CUMM (3.8-5.5); Red Cell Distribution Width 13.9 % (9.3-17.3); White Blood Count 6.1 T/CUMM (4-12)
[2017-07-31 07:09] LABS: Calcium 8.4 MG/DL (8.5-10.1); Eosinophils 3 % (0-10); Giant Platelets Few; Hypochromasia 1+; Lymphocytes 20 % (20-55); Magnesium 1.8 MG/DL (1.8-2.4); Platelet Estimate Adequate; Potassium 3.3 MMOL/L (3.5-5.1); Segmented Neutrophils 64 % (50-85); Total Cells Counted 100
--- NOTE | 2017-07-31 08:01 | Cardiology Progress Note ---
<Jahaira Rojo E - Last Filed: 07/31/17 08:11> Assessment and Plan - Time spent with patient Time spent with patient: Less than 30 minutes (1) Atrial fibrillation with RVR Status: Acute Assessment and plan: See plan of care listed below. Current Visit: Yes (2) Dyslipidemia Status: Chronic Assessment and plan: See plan of care listed below. Current Visit: No (3) Alcohol abuse Status: Chronic Assessment and plan: See plan of care listed below. Current Visit: Yes (4) Hypomagnesemia Status: Acute Assessment and plan: See plan of care listed below. Current Visit: Yes (5) Hypokalemia Status: Acute Assessment and plan: See plan of care listed below. Current Visit: Yes (6) Pancreatitis, acute Status: Acute Assessment and plan: See plan of care listed below. Current Visit: Yes (7) Noncompliance Status: Chronic Assessment and plan: See plan of care listed below. Current Visit: Yes (8) Delirium tremens Status: Acute Assessment and plan: See plan of care listed below. Current Visit: Yes Cardiology - PN: Subj Interval history: Employment Law Attorney: Dr. Valles SUMMARY: Mr. Condon is a 62 y/o WM who was admitted with atrial fibrillation w/ RVR, pancreatitis, and alcohol abuse. We were consulted to aid in management of his afib. GI was consulted. He has a history of dyslipidemia, alcohol abuse, noncompliance, hypertension. JULY 31, 2017: We are continuing to follow Mr. Condon for his atrial fibrillation. GI continues to follow him related to his pancreatitis. He has converted to a normal sinus rhythm but continues to have elevated heart rates. We are maximizing his beta blockers and calcium channel blockers. He has been on IV Cardizem which we will transition to PO. We will continue to replace magnesium and potassium. He is on the potassium replacement protocol. We'll give him 2 grams of magnesium this morning and this evening. We'll also start him on calcium supplements to maintain adequate electrolytes while he is being treated for his pancreatitis. REVIEW OF SYSTEMS: CARDIAC: No chest pain. RESPIRATORY: No shortness of breath. IMPRESSION/PLAN: 1. ATRIAL FIBRILLATION W/ RVR: Continue to maximize CCB and BB therapy. Continue anticoagulation with Lovenox. He will need to continue anticoagulation for 1 month following discharge. IF he remains in sinus rhythm, this could likely be stopped after 1 month. He will also need an event monitor for 1 month after discharge. Continue aspirin. 2. DYSLIPIDEMIA: This issue can be followed up later and as an outpatient once he is over his acute illness. 3. ALCOHOL ABUSE: Chronic alcohol use and now pancreatitis and DTs. Continue treatment for DTs. 4. HYPOMAGNESEMIA: Continue to replace per protocol. Will give an additional 2gm Magnesium this morning and repeat dose this evening. 5. HYPOKALEMIA: Continue to replace per protocol. 6. ACUTE PANCREATITIS: This may relate to his alcohol. GI medicine is following. 7. NONCOMPLIANCE: Patient is a history of not being compliant with follow-up and for testing etc. 8. DELIRIUM TREMENS: This continues to improve. Exam (Progress Note) - Constitutional Vitals: Period Temp Pulse Resp BP Sys/Denny Pulse Ox Last 24 Hr 98.6 F-99.9 F 82-122 12-33 114-182/62-106 94-100 Exam: General appearance: Appears well. Pleasant and cooperative. Overweight, no acute distress. Head exam: Present: normal inspection, normocephalic, atraumatic. Absent: hematoma, laceration Eye exam: Present: EOMI. Absent: conjunctival injection, nystagmus, periorbital swelling, scleral icterus, laceration to eyelids, jaundice Pupils: Present: PERRL. Absent: constricted, dilated, fixed, irregular, unequal ENT exam: Present: normal exam, normal external ear exam, mucous membranes moist. Neck exam: Present: normal inspection, midline trachea. Absent: masses, lymphadenopathy, tenderness, thyromegaly, carotid bruit Respiratory exam: Present: clear to auscultation bilaterally. Absent: accessory muscle use, chest wall tenderness, rales, rhonchi, wheezing. Cardiovascular exam: Present: regular rate and rhythm, tachycardia. Absent: gallop, JVD, rubs, murmur GI/Abdominal exam: Present: normal bowel sounds, soft. Absent: distended, firm , hernia, mass, tenderness. Extremities exam: Present: Normal Gait, No Clubbing, No Cyanosis, Upper Extr. Pulses 2+, Lower Extr. Pulses 2+, No edema. Capillary refill less than 3 seconds. Musculoskeletal: Present: No Fluid Collection, No Pain, Normal Range of Motion Back exam: Present: normal inspection. Absent: muscle spasm, vertebral tenderness Neurological exam: Present: awake, alert, oriented X3, Moves all extremities well without hemiparesis or paralysis. Grossly intact without resting or essential tremor Psychiatric exam: Present: normal affect, normal mood Skin exam: Present: normal color, warm, dry, intact. Absent: cyanosis, diaphoretic, rash, urticaria Result/EKG - Labs CBC & BMP: 07/31/17 05:58 07/31/17 05:58 Lab Results: I have reviewed the past 24 hour labs Labs: Laboratory Results - last 24 hr 07/30/17 07/31/17 07/31/17 05:01 05:58 05:58 WBC 6.1 RBC 3.89 Hgb 12.8 L Hct 36.8 L MCV 94.6 MCH 33 MCHC 34.8 RDW 13.9 Plt Count 205 MPV 9.7 Neut % (Auto) 62.4 Lymph % (Auto) 16.6 L Graham % (Auto) 15.8 H Eos % (Auto) 4.4 Baso % (Auto) 0.5 Neut # (Auto) 3.8 Lymph # (Auto) 1.0 L Graham # (Auto) 1.0 H Eos # (Auto) 0.3 Baso # (Auto) 0.0 Total Counted 100 Immature Gran % 0.3 Nucleated RBC % 0.0 Immature Gran # 0.02 Segmented Neutrophils 64 Lymphocytes 20 Monocytes 12 Eosinophils 3 Basophils 1.0 H Nucleated RBCs # 0.00 Platelet Estimate Adequate Giant Platelets Few Immature Plt Fraction 0.0 Hypochromasia 1+ Sodium 143 Potassium 3.3 L Chloride 108 H Carbon Dioxide 30 Anion Gap 8.3 BUN 5 L Creatinine 0.80 GFR Calculation 133 BUN/Creatinine Ratio 6.00 Glucose 111 H Calculated Osmolality 282.0 Calcium 8.4 L Magnesium 1.8 Total Bilirubin 0.80 Direct Bilirubin 0.260 H Indirect Bilirubin 0.5 AST 83 H ALT 63 H Alkaline Phosphatase 101 Ammonia Total Protein 6.1 L Albumin 2.7 L 07/31/17 05:58 WBC RBC Hgb Hct MCV MCH MCHC RDW Plt Count MPV Neut % (Auto) Lymph % (Auto) Graham % (Auto) Eos % (Auto) Baso % (Auto) Neut # (Auto) Lymph # (Auto) Graham # (Auto) Eos # (Auto) Baso # (Auto) Total Counted Immature Gran % Nucleated RBC % Immature Gran # Segmented Neutrophils Lymphocytes Monocytes Eosinophils Basophils Nucleated RBCs # Platelet Estimate Giant Platelets Immature Plt Fraction Hypochromasia Sodium Potassium Chloride Carbon Dioxide Anion Gap BUN Creatinine GFR Calculation BUN/Creatinine Ratio Glucose Calculated Osmolality Calcium Magnesium Total Bilirubin Direct Bilirubin Indirect Bilirubin AST ALT Alkaline Phosphatase Ammonia 24 Total Protein Albumin - EKG EKG results: interpreted by me, sinus rhythm EKG shows: tachycardia <Roka,Chema - Last Filed: 07/31/17 08:31> Exam (Progress Note) - Constitutional Vitals: Period Temp Pulse Resp BP Sys/Denny Pulse Ox Last 24 Hr 98.6 F-99.5 F 82-122 12-33 114-182/62-106 94-100 Result/EKG - Labs CBC & BMP: 07/31/17 05:58 07/31/17 05:58 Labs: Laboratory Results - last 24 hr 07/31/17 07/31/17 07/31/17 05:58 05:58 05:58 WBC 6.1 RBC 3.89 Hgb 12.8 L Hct 36.8 L MCV 94.6 MCH 33 MCHC 34.8 RDW 13.9 Plt Count 205 MPV 9.7 Neut % (Auto) 62.4 Lymph % (Auto) 16.6 L Graham % (Auto) 15.8 H Eos % (Auto) 4.4 Baso % (Auto) 0.5 Neut # (Auto) 3.8 Lymph # (Auto) 1.0 L Graham # (Auto) 1.0 H Eos # (Auto) 0.3 Baso # (Auto) 0.0 Total Counted 100 Immature Gran % 0.3 Nucleated RBC % 0.0 Immature Gran # 0.02 Segmented Neutrophils 64 Lymphocytes 20 Monocytes 12 Eosinophils 3 Basophils 1.0 H Nucleated RBCs # 0.00 Platelet Estimate Adequate Giant Platelets Few Immature Plt Fraction 0.0 Hypochromasia 1+ Sodium 143 Potassium 3.3 L Chloride 108 H Carbon Dioxide 30 Anion Gap 8.3 BUN 5 L Creatinine 0.80 GFR Calculation 133 BUN/Creatinine Ratio 6.00 Glucose 111 H Calculated Osmolality 282.0 Calcium 8.4 L Magnesium 1.8 Ammonia 24
[2017-07-31] MEDS: LORazepam 2 MG/1 ML VIAL IV PRN (08:17)
[2017-07-31] MEDS: ASPIRIN EC 81 MG TABLET PO SCH (08:33)
[2017-07-31] MEDS: LOSARTAN 50 MG TABLET PO SCH (08:33)
[2017-07-31] MEDS: EZETIMIBE 10 MG TABLET PO SCH (08:34)
[2017-07-31] MEDS: MULTIVITAMIN (CENTRUM) TABLET PO SCH (08:34)
[2017-07-31] MEDS: NEBIVOLOL 10 MG TABLET PO SCH (08:34)
[2017-07-31] MEDS: FOLIC ACID 1 MG TABLET PO SCH (08:35)
[2017-07-31] MEDS: ASCORBIC ACID 500 MG TABLET PO SCH ×2 (08:35→21:50)
[2017-07-31] MEDS: CALCIUM CARBONATE CHEW 500 MG TABLET PO SCH ×2 (08:36→21:53)
[2017-07-31] MEDS: THIAMINE 200 MG/2 ML VIAL IV SCH (08:36)
[2017-07-31] MEDS: PANTOPRAZOLE 40 MG VIAL IV SCH ×2 (08:41→21:54)
[2017-07-31] MEDS: MAGNESIUM SULF RIDER 2 GM in PREMIX 1 EACH IV SCH ×2 (08:42→22:11)
[2017-07-31] MEDS: ENOXAPARIN 100 MG/ML SYRINGE SUBCUT SCH ×2 (08:42→22:02)
[2017-07-31] MEDS: TIMOLOL 0.25% OPH SOLN 5 ML BOTTLE BOTH EYES SCH ×3 (08:42→22:03)
[2017-07-31] MEDS: DILTIAZEM CD 120 MG CAPSULE PO SCH ×2 (09:26→21:52)
[2017-07-31] MEDS: LORazepam 1 MG TABLET PO PRN ×2 (13:17→21:53)
--- NOTE | 2017-07-31 14:15 | Hospitalist Progress Note ---
Hospitalist: Subjective Interval history: Patient is awake and alert, has some abdominal pain and diarrhea, but otherwise feeling better. His mother is also admitted to the hospital on the fourth floor. Exam - Constitutional Vitals: Period Temp Pulse Resp BP Sys/Denny Pulse Ox Last 24 Hr 99.1 F-100.2 F 88-122 13-33 114-182/71-109 93-100 Exam: General: No Acute Distress HEENT: Normocephalic, atraumatic, Extra ocular movements intact Neck: Supple, No JVD Chest: Clear to auscultation B/L CV: S1 + S2 audible without murmur, gallop or rub Abd: soft, mild epigastric tenderness, distended, BS + Ext: No edema Skin: No purpura, chronic generalized plaques Rheumatologic: No Joint deformities Neurologic: Mildly agitated Results - Labs CBC & BMP: 07/31/17 05:58 07/31/17 05:58 - Impressions Assessment and Plan: Acute urine retention Status: Acute Assessment and plan: Butts catheter placed 07/28 due to urethral stricture. Continue Flomax Current Visit: Yes Acute alcohol withdrawal/severe delirium tremens Status: Acute Assessment and plan: This has resolved Current Visit: Yes Atrial fibrillation with RVR Status: Acute Assessment and plan: Resolved, he is in NSR. Continue digoxin 0.25 mg and Lopressor 50 mg twice daily Current Visit: Yes Chest pain, atypical Status: Acute Assessment and plan: Continue to monitor Current Visit: Yes Acute pancreatitis Status: Acute Assessment and plan: Lipid level is trending up, continue IV fluid, liquid diet, advance as tolerated. Dr. Schultz is considering ERCP, if liver enzymes and bilirubin persistently high Current Visit: No Dyslipidemia Status: Acute Assessment and plan: On Zetia Current Visit: No Hypomagnesemia Status: Acute Assessment and plan: Improved after replacement Current Visit: Yes Hypokalemia Status: Acute Assessment and plan: Replacement per potassium protocol Current Visit: Yes Alcohol abuse Status: Acute Assessment and plan: Continue thiamine and folate Current Visit: Yes Essential hypertension Status: Chronic Assessment and plan: Controlled on losartan, hydralazine and Lopressor Current Visit: Yes Chronic pain syndrome Status: Chronic Assessment and plan: He has declined to see Dr. Garcia, likely would need a new pain doctor as outpatient Current Visit: Yes Transfer to floor from ICU and initiate physical therapy
[2017-07-31] MEDS: DEXTROSE 5% NACL 0.45% 1,000 ML IV SCH (16:34)
--- NOTE | 2017-07-31 16:36 | Gastrointestinal Progress Note ---
Assessment and Plan (1) Pancreatitis, acute Status: Acute Assessment and plan: Would like to see what the results of an ultrasound and CT scan to look for evidence of severity of pancreatitis. Pancreatic enzymes are actually quite low. This may be another intra-abdominal process, will continue to follow lipase levels over time, I will leave the patient on sips with ice chips for the present time and would like to increase his IV fluid rate ideally up to 200/ h, will leave this up to cardiology as they are likely not going to feel comfortable with this level of hydration. 07/28/17--the patient's IV fluid rate is still running 125 mL/h. His lipase levels increased up to the 793 up from the 488 level yesterday. He is in florid delirium tremens at this time., He is not able to answer questions. 07/29/17--the patient's lipase level continues to climb. He appears to be doing somewhat better in terms of his delirium tremens. He is thirsty and having diarrhea now. This may be related to some narcotic withdrawal or pain but stool cultures have been negative up to this point. We will continue to watch his lipase level, CT scan was fairly unrevealing as far as pancreatic changes leading me to believe this is not going to be a serious problem in the long- term. 07/30/17--patient's lipase level does still continue to climb. Review of the ultrasound did show gallstone shadowing in addition to a ectatic common bile duct that was dilated to 11 mm. If the patient's liver function tests are abnormally elevated in addition to the lipase level being elevated this with the presumptive evidence of ongoing gallstone pancreatitis and would require ERCP likely to clear the duct. We will arrange this for tomorrow if the bilirubin is elevated as I suspect it might be. Labs are pending. If bilirubin is not elevated would likely just continue to watch the lipase level with time. 07/30/17--the patient's ultrasound may have shown a ductal dilatation but the bilirubin is well within normal limits as is the alkaline phosphatase. No ERCP will be done. I am not completely sure why the patient's lipase levels have not peaked yet. We will continue to monitor them. He may have a drug induced pancreatitis as well, although these are fairly unusual. We will asked the nursing staff to obtain a C. difficile second specimen, given his severe complaints of diarrhea. Leave him on the clear liquids for today until we see what tomorrow's lipase level looks like. Current Visit: Yes (2) Diarrhea Status: Acute Assessment and plan: We will check patient's stool cultures, fecal leukocytes, and C. difficile to see whether this low-grade diarrhea is going to be of any concern. For the present time we will not be treating this actively. 07/28/17--the patient's diarrhea is under control for the present time but is not eating much. 07/29/17--The diarrhea is back in force at this point. This might be related to narcotic withdrawal, stool studies are negative, we may end up having to do a colonoscopy look for microscopic and collagenous colitis further down the admission, if this continues. We will repeat C. difficile at this time. 07/30/17--The patient's diarrhea has slowed down to 1 now the potassium has been discontinued. The C. difficile recheck could not be obtained. We are continue to watch him. He remains on clear liquids because of his pancreatitis. 07/31/17--I asked the patient to keep track of how many stools he is having per day. We are waiting C. difficile recheck. The patient remains on clear liquids due to his pancreatitis, hopefully we can advance him to more solid food tomorrow if his enzymes have peaked. Current Visit: Yes (3) Alcohol abuse Status: Chronic Assessment and plan: We may wish to have a second pain management evaluation here to help get this patient off of alcohol. He may be at sincere in his desire to find additional pain medication to treat his underlying condition, ensure that the alcohol is likely exacerbating the pancreatitis if present. Again we are ruling out gallstones and sludge as a potential cause for the pancreatitis as well. 07/28/17--apparently the patient is minimizing the amount of alcohol that he drinks as he is actively in florid DTs at this time. This will likely go on for several more days. 07/29/17--Continue to observe as he pulls out of the DTs further, check ammonia level to see if this is elevated. 07/30/17--Patient appears to be out of the delirium tremens at this time he is cognizant and able to answer all questions. I do not see an ammonia level-- will check this for tomorrow. 07/31/17--Currently under observation at this time. His ammonia surprisingly good at only 24. He does not require lactulose. Current Visit: Yes (4) Hypomagnesemia Status: Acute Assessment and plan: Hypomagnesemia with magnesium 1.1 is quite low, this can be seen with alcoholism , will see how quickly he responds to IV therapy per protocol. 07/28/17--This is being addressed/corrected over time. 07/29--improving. Currently up to 1.8 at this maykel. 07/31/17--patient's magnesium level is again 1.8. Current Visit: Yes Gastroenterology - PN: Subj Interval history: The patient's bilirubin is well within normal limits. He still feels like his pain in his abdomen is about a 7 out of 10 in intensity otherwise he appears to be doing fairly well. He is tolerating his clears well. He states that he would like to have some cheeseburgers. I have counseled him that this is not quite the diet we want for patient's with pancreatitis. Exam (Progress Note) - Constitutional Vitals: Period Temp Pulse Resp BP Sys/Denny Pulse Ox Last 24 Hr 99.2 F-100.2 F 80-122 13-33 114-182/76-109 93-100 General appearance: mild distress - Head Head exam: Present: normocephalic - Eye Eye exam: Present: EOMI Pupils: Present: KATERINA - Respiratory Respiratory exam: Present: clear to auscultation bilaterally. Absent: rhonchi, stridor, wheezes - Cardiovascular Cardiovascular exam: Present: regular rate and rhythm - GI/Abdominal GI/Abdominal exam: Present: normal bowel sounds, distended, tenderness ( Moderate epigastric and left upper quadrant/right upper quadrant tenderness), soft. Absent: guarding, rebound - Extremities Exam Extremities exam: Present: edema - Neurological Exam Neurological exam: Present: alert, oriented X3 - Psychiatric Psychiatric exam: Present: normal affect, normal mood Results - Labs CBC & BMP: 07/31/17 05:58 07/31/17 05:58
[2017-07-31] MEDS: TEMAZEPAM 15 MG CAPSULE PO SCH (21:52)
[2017-07-31] MEDS: TAMSULOSIN 0.4 MG CAPSULE PO SCH (21:52)
[2017-08-01] MEDS: DEXTROSE 5% NACL 0.45% 1,000 ML IV SCH ×4 (02:19→19:59)
[2017-08-01] MEDS: MORPHINE 2 MG/1 ML SYRINGE IV PRN ×2 (03:38→09:38)
[2017-08-01] MEDS: ALBUTEROL/IPRATROPIUM 3 ML NEB RESP TX SCH ×5 (04:38→21:56)
--- NOTE | 2017-08-01 06:54 | Gastrointestinal Progress Note ---
Assessment and Plan (1) Pancreatitis, acute Status: Acute Assessment and plan: Would like to see what the results of an ultrasound and CT scan to look for evidence of severity of pancreatitis. Pancreatic enzymes are actually quite low. This may be another intra-abdominal process, will continue to follow lipase levels over time, I will leave the patient on sips with ice chips for the present time and would like to increase his IV fluid rate ideally up to 200/ h, will leave this up to cardiology as they are likely not going to feel comfortable with this level of hydration. 07/28/17--the patient's IV fluid rate is still running 125 mL/h. His lipase levels increased up to the 793 up from the 488 level yesterday. He is in florid delirium tremens at this time., He is not able to answer questions. 07/29/17--the patient's lipase level continues to climb. He appears to be doing somewhat better in terms of his delirium tremens. He is thirsty and having diarrhea now. This may be related to some narcotic withdrawal or pain but stool cultures have been negative up to this point. We will continue to watch his lipase level, CT scan was fairly unrevealing as far as pancreatic changes leading me to believe this is not going to be a serious problem in the long- term. 07/30/17--patient's lipase level does still continue to climb. Review of the ultrasound did show gallstone shadowing in addition to a ectatic common bile duct that was dilated to 11 mm. If the patient's liver function tests are abnormally elevated in addition to the lipase level being elevated this with the presumptive evidence of ongoing gallstone pancreatitis and would require ERCP likely to clear the duct. We will arrange this for tomorrow if the bilirubin is elevated as I suspect it might be. Labs are pending. If bilirubin is not elevated would likely just continue to watch the lipase level with time. 07/31/17--the patient's ultrasound may have shown a ductal dilatation but the bilirubin is well within normal limits as is the alkaline phosphatase. No ERCP will be done. I am not completely sure why the patient's lipase levels have not peaked yet. We will continue to monitor them. He may have a drug induced pancreatitis as well, although these are fairly unusual. We will asked the nursing staff to obtain a C. difficile second specimen, given his severe complaints of diarrhea. Leave him on the clear liquids for today until we see what tomorrow's lipase level looks like. 08/01/17--If the patient's pancreatic enzymes are elevated again today, would definitely consider switching over from morphine to Dilaudid. Patient states that his pain is worse and in anticipation of elevation of lipase level will make this patient n.p.o. off clear liquids and put the pancreas completely at rest. We may have to consider placement of a central line and TPN. If the lipase level again remains elevated again today would also consider getting an MRCP should the patient be able to hold still long enough to be able to obtain the images. The only other choice is ERCP. Current Visit: Yes (2) Diarrhea Status: Acute Assessment and plan: We will check patient's stool cultures, fecal leukocytes, and C. difficile to see whether this low-grade diarrhea is going to be of any concern. For the present time we will not be treating this actively. 07/28/17--the patient's diarrhea is under control for the present time but is not eating much. 07/29/17--The diarrhea is back in force at this point. This might be related to narcotic withdrawal, stool studies are negative, we may end up having to do a colonoscopy look for microscopic and collagenous colitis further down the admission, if this continues. We will repeat C. difficile at this time. 07/30/17--The patient's diarrhea has slowed down to 1 now the potassium has been discontinued. The C. difficile recheck could not be obtained. We are continue to watch him. He remains on clear liquids because of his pancreatitis. 07/31/17--I asked the patient to keep track of how many stools he is having per day. We are waiting C. difficile recheck. The patient remains on clear liquids due to his pancreatitis, hopefully we can advance him to more solid food tomorrow if his enzymes have peaked. 08/01/17--this continues we can consider getting a BMS in place. The nurses have not checked his C. difficile again. There are no stools documented in the computer. Will talk to the nurses about this since patient claims he is still having diarrhea. Current Visit: Yes (3) Alcohol abuse Status: Chronic Assessment and plan: We may wish to have a second pain management evaluation here to help get this patient off of alcohol. He may be at sincere in his desire to find additional pain medication to treat his underlying condition, ensure that the alcohol is likely exacerbating the pancreatitis if present. Again we are ruling out gallstones and sludge as a potential cause for the pancreatitis as well. 07/28/17--apparently the patient is minimizing the amount of alcohol that he drinks as he is actively in florid DTs at this time. This will likely go on for several more days. 07/29/17--Continue to observe as he pulls out of the DTs further, check ammonia level to see if this is elevated. 07/30/17--Patient appears to be out of the delirium tremens at this time he is cognizant and able to answer all questions. I do not see an ammonia level-- will check this for tomorrow. 07/31/17--Currently under observation at this time. His ammonia surprisingly good at only 24. He does not require lactulose. Current Visit: Yes (4) Hypomagnesemia Status: Acute Assessment and plan: Hypomagnesemia with magnesium 1.1 is quite low, this can be seen with alcoholism , will see how quickly he responds to IV therapy per protocol. 07/28/17--This is being addressed/corrected over time. 07/29--improving. Currently up to 1.8 at this maykel. 07/31/17--patient's magnesium level is again 1.8. Current Visit: Yes Gastroenterology - PN: Subj Interval history: Patient states that his pain is up to an 8.5 out of 10, not surprising of his pancreatitis is getting worse. I have not seen the lab work from today as this is not on the chart yet. Patient states that he feels extremely weak, the nurses did observe him get up out of bed and "dinorah" after his mother down the hallway. He did admit to this after questioning. His mother is in the next room over and had to be given Geodon to help with her dementia/agitation. She is in the room with her son now. We did discuss switching out the morphine for Dilaudid as this would be less stimulating to his pancreas but he states that he likes the morphine better. Exam (Progress Note) - Constitutional Vitals: Period Temp Pulse Resp BP Sys/Denny Pulse Ox Last 24 Hr 97.8 F-100.2 F 80-113 13-20 130-183/71-109 93-99 General appearance: no acute distress - Head Head exam: Present: normocephalic - Eye Eye exam: Present: EOMI - Respiratory Respiratory exam: Present: clear to auscultation bilaterally. Absent: rhonchi, wheezes - Cardiovascular Cardiovascular exam: Present: regular rate and rhythm - GI/Abdominal GI/Abdominal exam: Present: normal bowel sounds, distended, tenderness (Mild to moderate tenderness over the epigastrium), soft. Absent: guarding, rebound - Extremities Exam Extremities exam: Absent: edema - Neurological Exam Neurological exam: Present: alert, oriented X3 - Psychiatric Psychiatric exam: Present: normal affect, anxious - Skin Skin exam: Present: warm Results - Labs CBC & BMP: 07/31/17 05:58 07/31/17 05:58
[2017-08-01 07:09] LABS: Basophils % 0.5 % (0.0-0.8); Eosinophils # 0.5 10*3/uL (0.0-0.87); Eosinophils % 8.1 % (0.00-10.9); Hematocrit 37.2 VOL% (42.0-52.0); Hemoglobin 12.8 GM/DL (14.0-18.0); Immature Granulocytes % 0.5 %; Immature Granulocytes Absolute 0.03 #; Lymphocytes # 0.9 10*3/uL (1.4-4.0); Lymphocytes % 16.9 % (21.2-54.2); Mean Corpuscular HGB Conc 34.4 GM/DL (32-36); Mean Corpuscular Hemoglobin 33 PG (27-34); Mean Corpuscular Volume 95.4 FL (87-102); Mean Platelet Volume 10.1 FL (9.6-12.0); Monocytes # 0.9 10*3/uL (0.11-0.8); Monocytes % 16.5 % (1.7-12.7); Neutrophils # 3.2 10*3/uL (1.4-7.4); Neutrophils % 57.5 % (38.7-73.9); Platelet Count 216 T/CUMM (130-400); Red Cell Distribution Width 14.1 % (9.3-17.3); White Blood Count 5.6 T/CUMM (4-12)
[2017-08-01 07:31] LABS: Band Neutrophils 1 % (0-10); Eosinophils 10 % (0-10); Giant Platelets Few; Hypochromasia 1+; Lymphocytes 13 % (20-55); Platelet Estimate Adequate; Segmented Neutrophils 54 % (50-85); Total Cells Counted 100
[2017-08-01 07:39] LABS: Calcium 8.7 MG/DL (8.5-10.1); Magnesium 2.1 MG/DL (1.8-2.4); Osmolality,Calculated 281.1 MOS/KG (273-304)
[2017-08-01] MEDS: FOLIC ACID 1 MG TABLET PO SCH (09:29)
[2017-08-01] MEDS: DILTIAZEM CD 120 MG CAPSULE PO SCH (09:29)
[2017-08-01] MEDS: MULTIVITAMIN (CENTRUM) TABLET PO SCH (09:29)
[2017-08-01] MEDS: CALCIUM CARBONATE CHEW 500 MG TABLET PO SCH ×2 (09:30→20:02)
[2017-08-01] MEDS: EZETIMIBE 10 MG TABLET PO SCH (09:30)
[2017-08-01] MEDS: THIAMINE 100 MG TABLET PO SCH (09:30)
[2017-08-01] MEDS: ASCORBIC ACID 500 MG TABLET PO SCH ×2 (09:30→20:02)
[2017-08-01] MEDS: ASPIRIN EC 81 MG TABLET PO SCH (09:30)
[2017-08-01] MEDS: LOSARTAN 50 MG TABLET PO SCH (09:30)
[2017-08-01] MEDS: NEBIVOLOL 10 MG TABLET PO SCH (09:30)
[2017-08-01] MEDS: LORazepam 1 MG TABLET PO PRN ×2 (09:32→20:02)
[2017-08-01] MEDS: ENOXAPARIN 100 MG/ML SYRINGE SUBCUT SCH ×2 (09:34→21:20)
[2017-08-01] MEDS: PANTOPRAZOLE 40 MG VIAL IV SCH ×2 (09:36→20:01)
--- NOTE | 2017-08-01 09:45 | Urology Progress Note ---
Assessment and Plan (1) Urethral stricture Status: Acute Assessment and plan: We will have to dilate him to place a catheter. Current Visit: Yes (2) Urinary retention Status: Acute Current Visit: Yes Urology - PN: Subj Interval history: Patient is now on the floor. He says he is voiding but it slow. I am going to double his Flomax. His urine is appears infected. We will culture. I will place him on ciprofloxacin pending culture. He is allergic to sulfa. I will order bladder scan in the morning. Exam - Constitutional Vitals: Period Temp Pulse Resp BP Sys/Denny Pulse Ox Last 24 Hr 97.8 F-100.1 F 80-103 13-20 130-183/71-90 91-99 Results - Labs CBC & BMP: 08/01/17 05:06 08/01/17 05:06
--- NOTE | 2017-08-01 11:01 | Hospitalist Progress Note ---
Assessment and Plan - Time spent with patient Time spent with patient: Less than 30 minutes (1) Alcohol abuse Status: Chronic Assessment and plan: 62-year-old white male with history of hypertension, glaucoma and blindness, and dermatitis admitted by the hospitalist service on 07/26/2017 with chest pain and new onset A. fib with RVR. He was also found to be in alcoholic delirium tremens with acute pancreatitis. He is being followed by gastroenterology and cardiology. Urology also got involved due to urethral stricture and urinary retention and Dr. Cisneros had to place a Butts catheter in the operating room. Dr. Fisher will see and examine patient and further recommendations to follow. Urinary retention/urethral stricture--Dr. Hernandez is following today. Patient is voiding but it is slow. Dr. Hernandez has doubled his Flomax, cultured the urine and has placed him on Cipro. Bladder scan has been ordered for in the morning. Acute alcoholic pancreatitis--Dr. Schultz is following. Patient is having increasing pain today with lipase 860. Make patient n.p.o. except ice chips and switched him from morphine to Dilaudid for better pain control. Dr. Schultz is considering MRCP or ERCP if the lipase remains elevated. I have also increase his IV fluids to 150 mL/h Diarrhea--patient is also having some diarrhea. Dr. Schultz has ordered C. difficile studies and these are pending. A. fib with RVR--cardiology is following. He is converted to normal sinus rhythm he continues to have elevated heart rates. There are maximizing their beta blockers and calcium channel blockers and replacing his magnesium and potassium. He has been placed on p.o. Cardizem. He was also started on calcium supplementation. Current Visit: Yes (2) Pancreatitis, acute Status: Acute Current Visit: Yes (3) Chronic pain Status: Acute Current Visit: Yes Qualifiers: Chronic pain type: chronic pain syndrome Qualified Code(s): G89.4 - Chronic pain syndrome (4) Delirium tremens Status: Acute Current Visit: Yes (5) Urinary retention Status: Acute Current Visit: Yes Hospitalist: Subjective Interval history: Patient complaining of increasing abdominal pain today. Continues to have urinary retention with little flow. Exam - Constitutional Vitals: Period Temp Pulse Resp BP Sys/Denny Pulse Ox Last 24 Hr 97.8 F-100.1 F 80-96 13-20 130-183/71-90 91-99 Exam: 62-year-old white male, mild distress due to pain, alert and oriented Chest clear CV regular rate and rhythm Abdomen mildly tender Extremities no edema Results - Labs CBC & BMP: 08/01/17 05:06 08/01/17 05:06 Lab Results: I have reviewed the past 24 hour labs
[2017-08-01] MEDS: CIPROFLOXACIN 500 MG TABLET PO SCH ×2 (12:57→20:02)
[2017-08-01] MEDS: TIMOLOL 0.25% OPH SOLN 5 ML BOTTLE BOTH EYES SCH ×2 (12:57→20:03)
[2017-08-01] MEDS: HYDROmorphone 2 MG/1 ML VIAL IV PRN ×2 (14:51→20:00)
[2017-08-01] MEDS: DEXMEDETOMIDINE 400 MCG in SODIUM CHLORIDE 0.9% 96 ML IV SCH (14:55)
--- NOTE | 2017-08-01 15:42 | Cardiology Progress Note ---
<Jahaira Rojo E - Last Filed: 08/01/17 16:14> Assessment and Plan - Time spent with patient Time spent with patient: Less than 30 minutes (1) Atrial fibrillation with RVR Status: Acute Assessment and plan: See plan of care listed below. Current Visit: Yes (2) Dyslipidemia Status: Chronic Assessment and plan: See plan of care listed below. Current Visit: No (3) Alcohol abuse Status: Chronic Assessment and plan: See plan of care listed below. Current Visit: Yes (4) Hypomagnesemia Status: Acute Assessment and plan: See plan of care listed below. Current Visit: Yes (5) Hypokalemia Status: Acute Assessment and plan: See plan of care listed below. Current Visit: Yes (6) Pancreatitis, acute Status: Acute Assessment and plan: See plan of care listed below. Current Visit: Yes (7) Noncompliance Status: Chronic Assessment and plan: See plan of care listed below. Current Visit: Yes (8) Delirium tremens Status: Acute Assessment and plan: See plan of care listed below. Current Visit: Yes Cardiology - PN: Subj Interval history: Information Receptionist: Dr. Valles SUMMARY: Mr. Condon is a 62 y/o WM who was admitted with atrial fibrillation w/ RVR, pancreatitis, and alcohol abuse. We were consulted to aid in management of his afib. GI was consulted. He has a history of dyslipidemia, alcohol abuse, noncompliance, hypertension. AUGUST 01, 2017: Mr. Condon is fairly drowsy at the time of exam today. Upon review of his chart, it seems he has just been given a dose of Dilaudid within the past hour. We are continuing to follow Mr. Condon for his atrial fibrillation. GI continues to follow him related to his pancreatitis. He has converted to a normal sinus rhythm with well controlled rates. Cardizem was transitioned to PO on 07/31/17. We will increase this dosage to 180mg po BID today as his blood pressure has been elevated. We will continue intensive electrolyte monitoring and repletion. He is on the potassium replacement protocol which we have changed to IV. He has not been given any PO replacement since 07/29/17 even though his potassium level has steadily declined and is 3.0 today. He was also started on calcium supplements to maintain adequate electrolytes while he is being treated for his pancreatitis. He has been made NPO except for meds in an attempt to rest his pancreas. REVIEW OF SYSTEMS: Unable to obtain due to patient being drowsy from recent pain medication administration. IMPRESSION/PLAN: 1. ATRIAL FIBRILLATION W/ RVR: Continue to maximize CCB and BB therapy. Continue anticoagulation with Lovenox, once ab. He will need to continue anticoagulation for 1 month following discharge. IF he remains in sinus rhythm, this could likely be stopped after 1 month. He will also need an event monitor for 1 month after discharge. Continue aspirin. 2. DYSLIPIDEMIA: This issue can be followed up later and as an outpatient once he is over his acute illness. 3. ALCOHOL ABUSE: Chronic alcohol use and now pancreatitis and DTs. Continue treatment for DTs. 4. HYPOMAGNESEMIA: Continue to replace per protocol. Will give an additional 2gm Magnesium this morning and repeat dose this evening. 5. HYPOKALEMIA: Continue to replace per protocol. As he is NPO except for meds while trying to give his pancreas a rest, will change his potassium replacements to IV. 6. ACUTE PANCREATITIS: This may relate to his alcohol. GI medicine is following. 7. NONCOMPLIANCE: Patient is a history of not being compliant with follow-up and for testing etc. 8. DELIRIUM TREMENS: This continues to improve. Exam (Progress Note) - Constitutional Vitals: Period Temp Pulse Resp BP Sys/Denny Pulse Ox Last 24 Hr 97.8 F-98.9 F 75-96 18-20 138-183/71-90 91-98 Exam: General appearance: Appears well. Pleasant and cooperative. Overweight, no acute distress. Head exam: Present: normal inspection, normocephalic, atraumatic. Absent: hematoma, laceration Eye exam: Present: EOMI. Absent: conjunctival injection, nystagmus, periorbital swelling, scleral icterus, laceration to eyelids, jaundice Pupils: Present: PERRL. Absent: constricted, dilated, fixed, irregular, unequal ENT exam: Present: normal exam, normal external ear exam, mucous membranes moist. Neck exam: Present: normal inspection, midline trachea. Absent: masses, lymphadenopathy, tenderness, thyromegaly, carotid bruit Respiratory exam: Present: clear to auscultation bilaterally. Absent: accessory muscle use, chest wall tenderness, rales, rhonchi, wheezing. Cardiovascular exam: Present: regular rate and rhythm, tachycardia. Absent: gallop, JVD, rubs, murmur GI/Abdominal exam: Present: normal bowel sounds, soft. Absent: distended, firm , hernia, mass, tenderness. Extremities exam: Present: Normal Gait, No Clubbing, No Cyanosis, Upper Extr. Pulses 2+, Lower Extr. Pulses 2+, No edema. Capillary refill less than 3 seconds. Musculoskeletal: Present: No Fluid Collection, No Pain, Normal Range of Motion Back exam: Present: normal inspection. Absent: muscle spasm, vertebral tenderness Neurological exam: Present: awake, alert, oriented X3, Moves all extremities well without hemiparesis or paralysis. Grossly intact without resting or essential tremor Psychiatric exam: Present: normal affect, normal mood Skin exam: Present: normal color, warm, dry, intact. Absent: cyanosis, diaphoretic, rash, urticaria Result/EKG - Labs CBC & BMP: 08/01/17 05:06 08/01/17 05:06 Lab Results: I have reviewed the past 24 hour labs Labs: Laboratory Results - last 24 hr 07/31/17 08/01/17 08/01/17 21:38 05:06 05:06 WBC 5.6 RBC 3.90 Hgb 12.8 L Hct 37.2 L MCV 95.4 MCH 33 MCHC 34.4 RDW 14.1 Plt Count 216 MPV 10.1 Neut % (Auto) 57.5 Lymph % (Auto) 16.9 L [place] % (Auto) 16.5 H Eos % (Auto) 8.1 Baso % (Auto) 0.5 Neut # (Auto) 3.2 Lymph # (Auto) 0.9 L [place] # (Auto) 0.9 H Eos # (Auto) 0.5 Baso # (Auto) 0.0 Total Counted 100 Immature Gran % 0.5 Nucleated RBC % 0.0 Immature Gran # 0.03 Segmented Neutrophils 54 Band Neutrophils 1 Lymphocytes 13 L Monocytes 22 H Eosinophils 10 Nucleated RBCs # 0.00 Platelet Estimate Adequate Giant Platelets Few Immature Plt Fraction 0.0 Hypochromasia 1+ Sodium 142 Potassium 3.0 L Chloride 107 Carbon Dioxide 26 Anion Gap 12.0 BUN 7 Creatinine 0.70 GFR Calculation 140 BUN/Creatinine Ratio 10.00 Glucose 108 H POC Glucose 119 H Calculated Osmolality 281.1 Calcium 8.7 Magnesium 2.1 Lipase 08/01/17 05:06 WBC RBC Hgb Hct MCV MCH MCHC RDW Plt Count MPV Neut % (Auto) Lymph % (Auto) [place] % (Auto) Eos % (Auto) Baso % (Auto) Neut # (Auto) Lymph # (Auto) [place] # (Auto) Eos # (Auto) Baso # (Auto) Total Counted Immature Gran % Nucleated RBC % Immature Gran # Segmented Neutrophils Band Neutrophils Lymphocytes Monocytes Eosinophils Nucleated RBCs # Platelet Estimate Giant Platelets Immature Plt Fraction Hypochromasia Sodium Potassium Chloride Carbon Dioxide Anion Gap BUN Creatinine GFR Calculation BUN/Creatinine Ratio Glucose POC Glucose Calculated Osmolality Calcium Magnesium Lipase 860.0 H D - EKG EKG results: interpreted by me, sinus rhythm <Fany Cleveland - Last Filed: 08/01/17 19:33> Cardiology - PN: Subj Interval history: I have personally interviewed and evaluated the patient, reviewed the chart and discussed medical decision-making with Practitioner Lucita. I have read this note and agree with her documentation here in. Exam (Progress Note) - Constitutional Vitals: Period Temp Pulse Resp BP Sys/Denny Pulse Ox Last 24 Hr 97.8 F-99.6 F 75-96 18-20 133-183/71-90 91-98 Result/EKG - Labs CBC & BMP: 08/01/17 05:06 08/01/17 05:06 Labs: Laboratory Results - last 24 hr 07/31/17 08/01/17 08/01/17 21:38 05:06 05:06 WBC 5.6 RBC 3.90 Hgb 12.8 L Hct 37.2 L MCV 95.4 MCH 33 MCHC 34.4 RDW 14.1 Plt Count 216 MPV 10.1 Neut % (Auto) 57.5 Lymph % (Auto) 16.9 L [place] % (Auto) 16.5 H Eos % (Auto) 8.1 Baso % (Auto) 0.5 Neut # (Auto) 3.2 Lymph # (Auto) 0.9 L [place] # (Auto) 0.9 H Eos # (Auto) 0.5 Baso # (Auto) 0.0 Total Counted 100 Immature Gran % 0.5 Nucleated RBC % 0.0 Immature Gran # 0.03 Segmented Neutrophils 54 Band Neutrophils 1 Lymphocytes 13 L Monocytes 22 H Eosinophils 10 Nucleated RBCs # 0.00 Platelet Estimate Adequate Giant Platelets Few Immature Plt Fraction 0.0 Hypochromasia 1+ Sodium 142 Potassium 3.0 L Chloride 107 Carbon Dioxide 26 Anion Gap 12.0 BUN 7 Creatinine 0.70 GFR Calculation 140 BUN/Creatinine Ratio 10.00 Glucose 108 H POC Glucose 119 H Calculated Osmolality 281.1 Calcium 8.7 Magnesium 2.1 Lipase 08/01/17 05:06 WBC RBC Hgb Hct MCV MCH MCHC RDW Plt Count MPV Neut % (Auto) Lymph % (Auto) [place] % (Auto) Eos % (Auto) Baso % (Auto) Neut # (Auto) Lymph # (Auto) [place] # (Auto) Eos # (Auto) Baso # (Auto) Total Counted Immature Gran % Nucleated RBC % Immature Gran # Segmented Neutrophils Band Neutrophils Lymphocytes Monocytes Eosinophils Nucleated RBCs # Platelet Estimate Giant Platelets Immature Plt Fraction Hypochromasia Sodium Potassium Chloride Carbon Dioxide Anion Gap BUN Creatinine GFR Calculation BUN/Creatinine Ratio Glucose POC Glucose Calculated Osmolality Calcium Magnesium Lipase 860.0 H D
[2017-08-01] MEDS: DILTIAZEM CD 180 MG CAPSULE PO SCH (21:20)
[2017-08-01] MEDS: TAMSULOSIN 0.4 MG CAPSULE PO SCH (21:20)
[2017-08-01] MEDS: TEMAZEPAM 15 MG CAPSULE PO SCH (22:47)
[2017-08-02] MEDS: ALBUTEROL/IPRATROPIUM 3 ML NEB RESP TX SCH ×2 (01:06→07:59)
[2017-08-02] MEDS: LORazepam 1 MG TABLET PO PRN (03:50)
[2017-08-02] MEDS: HYDROmorphone 2 MG/1 ML VIAL IV PRN ×6 (03:51→21:40)
[2017-08-02] MEDS: DEXTROSE 5% NACL 0.45% 1,000 ML IV SCH ×3 (03:56→19:32)
[2017-08-02 07:59] LABS: Basophils % 0.4 % (0.0-0.8); Eosinophils # 0.5 10*3/uL (0.0-0.87); Eosinophils % 7.2 % (0.00-10.9); Hematocrit 37.9 VOL% (42.0-52.0); Immature Granulocytes % 0.6 %; Immature Granulocytes Absolute 0.04 #; Lymphocytes # 1.4 10*3/uL (1.4-4.0); Lymphocytes % 18.9 % (21.2-54.2); Mean Corpuscular HGB Conc 34.3 GM/DL (32-36); Mean Corpuscular Hemoglobin 33 PG (27-34); Mean Corpuscular Volume 95.2 FL (87-102); Mean Platelet Volume 9.5 FL (9.6-12.0); Monocytes % 13.8 % (1.7-12.7); Neutrophils # 4.3 10*3/uL (1.4-7.4); Neutrophils % 59.1 % (38.7-73.9); Platelet Count 246 T/CUMM (130-400); Red Blood Count 3.98 MC/CUMM (3.8-5.5); White Blood Count 7.3 T/CUMM (4-12)
[2017-08-02 08:23] LABS: Calcium 8.6 MG/DL (8.5-10.1); Magnesium 1.9 MG/DL (1.8-2.4); Osmolality,Calculated 280.3 MOS/KG (273-304); Potassium 3.2 MMOL/L (3.5-5.1)
[2017-08-02 08:25] LABS: Eosinophils 15 % (0-10); Giant Platelets Few; Hypochromasia 1+; Lymphocytes 15 % (20-55); Platelet Estimate Adequate; Segmented Neutrophils 57 % (50-85); Total Cells Counted 100
[2017-08-02] MEDS: LOSARTAN 50 MG TABLET PO SCH (09:55)
[2017-08-02] MEDS: POTASSIUM CHLORIDE 20 MEQ TABLET PO PRN (09:56)
[2017-08-02] MEDS: TAMSULOSIN 0.4 MG CAPSULE PO SCH ×2 (09:58→21:33)
[2017-08-02] MEDS: THIAMINE 100 MG TABLET PO SCH (09:59)
[2017-08-02] MEDS: ASPIRIN EC 81 MG TABLET PO SCH (10:00)
[2017-08-02] MEDS: CALCIUM CARBONATE CHEW 500 MG TABLET PO SCH ×2 (10:00→21:33)
[2017-08-02] MEDS: DILTIAZEM CD 180 MG CAPSULE PO SCH ×2 (10:00→21:33)
[2017-08-02] MEDS: MULTIVITAMIN (CENTRUM) TABLET PO SCH (10:00)
[2017-08-02] MEDS: ASCORBIC ACID 500 MG TABLET PO SCH ×2 (10:00→21:33)
[2017-08-02] MEDS: NEBIVOLOL 10 MG TABLET PO SCH (10:00)
[2017-08-02] MEDS: FOLIC ACID 1 MG TABLET PO SCH (10:00)
[2017-08-02] MEDS: EZETIMIBE 10 MG TABLET PO SCH (10:01)
[2017-08-02] MEDS: ENOXAPARIN 100 MG/ML SYRINGE SUBCUT SCH ×2 (10:01→21:44)
[2017-08-02] MEDS: TIMOLOL 0.25% OPH SOLN 5 ML BOTTLE BOTH EYES SCH ×2 (10:01→21:37)
[2017-08-02] MEDS: PANTOPRAZOLE 40 MG VIAL IV SCH ×2 (10:01→21:38)
[2017-08-02] MEDS: CIPROFLOXACIN 500 MG TABLET PO SCH ×2 (10:34→21:34)
--- NOTE | 2017-08-02 11:14 | Cardiology Progress Note ---
Assessment and Plan - Time spent with patient Time spent with patient: Less than 30 minutes (1) Atrial fibrillation with RVR Status: Acute Assessment and plan: See plan of care listed below. Current Visit: Yes (2) Dyslipidemia Status: Chronic Assessment and plan: See plan of care listed below. Current Visit: No (3) Alcohol abuse Status: Chronic Assessment and plan: See plan of care listed below. Current Visit: Yes (4) Hypomagnesemia Status: Acute Assessment and plan: See plan of care listed below. Current Visit: Yes (5) Hypokalemia Status: Acute Assessment and plan: See plan of care listed below. Current Visit: Yes (6) Pancreatitis, acute Status: Acute Assessment and plan: See plan of care listed below. Current Visit: Yes (7) Noncompliance Status: Chronic Assessment and plan: See plan of care listed below. Current Visit: Yes (8) Delirium tremens Status: Acute Assessment and plan: See plan of care listed below. Current Visit: Yes Cardiology - PN: Subj Interval history: [employer] Flight Attendant: Dr. Valles SUMMARY: Mr. Condon is a 62 y/o WM who was admitted with atrial fibrillation w/ RVR, pancreatitis, and alcohol abuse. We were consulted to aid in management of his afib. GI was consulted. He has a history of dyslipidemia, alcohol abuse, noncompliance, hypertension. AUGUST 02, 2017: Mr. Condon seems drowsy upon exam, but is alert and responsive when speaking with him. We are continuing to follow Mr. Condon for his atrial fibrillation. GI continues to follow him related to his pancreatitis. He has converted to a normal sinus rhythm with well controlled rates. Cardizem was transitioned to PO on 07/31/17. We will continue current dosage of Cardizem 180mg PO BID. We will continue intensive electrolyte monitoring and repletion. He is on the potassium replacement protocol but today is the first day he has received a dose of potassium since 07/29/17. He was also started on calcium supplements to maintain adequate electrolytes while he is being treated for his pancreatitis. He has been made NPO except for meds in an attempt to rest his pancreas. He was noted to have a low-grade temperature this morning. He had blood cultures drawn yesterday and has been started on antibiotics. His white blood cell and neutrophil count have been normal. He has been having diarrhea and stool culture was negative for CDiff. REVIEW OF SYSTEMS: GENERAL: Reports itching (he has atopic dermatitis) CARDIAC: No chest pain. RESPIRATORY: No shortness of breath. IMPRESSION/PLAN: 1. ATRIAL FIBRILLATION W/ RVR: Continue to maximize CCB and BB therapy. Continue anticoagulation with Lovenox, will need to transition to PO Eliquis prior to discharge. He will need to continue anticoagulation for 1 month following discharge. IF he remains in sinus rhythm, this could likely be stopped after 1 month. He will also need an event monitor for 1 month after discharge. Continue aspirin. 2. DYSLIPIDEMIA: This issue can be followed up later and as an outpatient once he is over his acute illness. 3. ALCOHOL ABUSE: Chronic alcohol use and now pancreatitis and DTs. Continue treatment for DTs. 4. HYPOMAGNESEMIA: Continue to replace per protocol. 5. HYPOKALEMIA: Continue to replace per protocol. 6. ACUTE PANCREATITIS: This may relate to his alcohol. GI medicine is following. 7. NONCOMPLIANCE: Patient is a history of not being compliant with follow-up and for testing etc. 8. DELIRIUM TREMENS: Likely related to his alcohol abuse. He is receiving treatment for DTs. 9. ATOPIC DERMATITIS: He usually uses Elocon ointment for this. Will defer management to attending. Exam (Progress Note) - Constitutional Vitals: Period Temp Pulse Resp BP Sys/Denny Pulse Ox Last 24 Hr 98 F-100.4 F 74-92 16-20 124-157/60-81 94-96 Exam: General appearance: Appears well. Pleasant and cooperative. Overweight, no acute distress. Head exam: Present: normal inspection, normocephalic, atraumatic. Absent: hematoma, laceration Eye exam: Present: EOMI. Absent: conjunctival injection, nystagmus, periorbital swelling, scleral icterus, laceration to eyelids, jaundice Pupils: Present: PERRL. Absent: constricted, dilated, fixed, irregular, unequal ENT exam: Present: normal exam, normal external ear exam, mucous membranes moist. Neck exam: Present: normal inspection, midline trachea. Absent: masses, lymphadenopathy, tenderness, thyromegaly, carotid bruit Respiratory exam: Present: clear to auscultation bilaterally. Absent: accessory muscle use, chest wall tenderness, rales, rhonchi, wheezing. Cardiovascular exam: Present: regular rate and rhythm, tachycardia. Absent: gallop, JVD, rubs, murmur GI/Abdominal exam: Present: normal bowel sounds, soft. Absent: distended, firm , hernia, mass, tenderness. Extremities exam: Present: Normal Gait, No Clubbing, No Cyanosis, Upper Extr. Pulses 2+, Lower Extr. Pulses 2+, No edema. Capillary refill less than 3 seconds. Musculoskeletal: Present: No Fluid Collection, No Pain, Normal Range of Motion Back exam: Present: normal inspection. Absent: muscle spasm, vertebral tenderness Neurological exam: Present: awake, alert, oriented X3, Moves all extremities well without hemiparesis or paralysis. Grossly intact without resting or essential tremor Psychiatric exam: Present: normal affect, normal mood Skin exam: Present: normal color, warm, intact, dry, scaly patches of skin on face and bilateral upper extremities (patient reports a history of atopic dermatitis). Absent: cyanosis, diaphoretic, rash, urticaria Result/EKG - Labs CBC & BMP: 08/03/17 05:45 08/03/17 05:45 Lab Results: I have reviewed the past 24 hour labs Labs: Laboratory Results - last 24 hr 08/02/17 08/02/17 08/02/17 07:42 07:42 07:42 WBC 7.3 D RBC 3.98 Hgb 13.0 L Hct 37.9 L MCV 95.2 MCH 33 MCHC 34.3 RDW 14.0 Plt Count 246 MPV 9.5 L Neut % (Auto) 59.1 Lymph % (Auto) 18.9 L [place] % (Auto) 13.8 H Eos % (Auto) 7.2 Baso % (Auto) 0.4 Neut # (Auto) 4.3 Lymph # (Auto) 1.4 [place] # (Auto) 1.0 H Eos # (Auto) 0.5 Baso # (Auto) 0.0 Total Counted 100 Immature Gran % 0.6 Nucleated RBC % 0.0 Immature Gran # 0.04 Segmented Neutrophils 57 Lymphocytes 15 L Monocytes 13 Eosinophils 15 H Nucleated RBCs # 0.00 Platelet Estimate Adequate Giant Platelets Few Immature Plt Fraction 0.0 Hypochromasia 1+ Sodium 141 Potassium 3.2 L Chloride 108 H Carbon Dioxide 26 Anion Gap 10.2 BUN 6 L Creatinine 0.70 GFR Calculation 140 BUN/Creatinine Ratio 8.00 Glucose 127 H Calculated Osmolality 280.3 Calcium 8.6 Magnesium 1.9 Amylase 68 Lipase 536.0 H D - EKG EKG results: interpreted by me, sinus rhythm
[2017-08-02] MEDS ORDERED: DIAZEPAM 10 MG/2 ML SYRINGE IM PRN (11:44)
[2017-08-02] MEDS: POTASSIUM CHLORIDE RIDER 10 MEQ in PREMIX 1 EACH IV PRN ×3 (12:42→18:40)
--- NOTE | 2017-08-02 13:39 | Order Completion Report ---
See report scanned to EMR
--- NOTE | 2017-08-02 13:44 | Gastrointestinal Progress Note ---
Assessment and Plan (1) Pancreatitis, acute Status: Acute Assessment and plan: Would like to see what the results of an ultrasound and CT scan to look for evidence of severity of pancreatitis. Pancreatic enzymes are actually quite low. This may be another intra-abdominal process, will continue to follow lipase levels over time, I will leave the patient on sips with ice chips for the present time and would like to increase his IV fluid rate ideally up to 200/ h, will leave this up to cardiology as they are likely not going to feel comfortable with this level of hydration. 07/28/17--the patient's IV fluid rate is still running 125 mL/h. His lipase levels increased up to the 793 up from the 488 level yesterday. He is in florid delirium tremens at this time., He is not able to answer questions. 07/29/17--the patient's lipase level continues to climb. He appears to be doing somewhat better in terms of his delirium tremens. He is thirsty and having diarrhea now. This may be related to some narcotic withdrawal or pain but stool cultures have been negative up to this point. We will continue to watch his lipase level, CT scan was fairly unrevealing as far as pancreatic changes leading me to believe this is not going to be a serious problem in the long- term. 07/30/17--patient's lipase level does still continue to climb. Review of the ultrasound did show gallstone shadowing in addition to a ectatic common bile duct that was dilated to 11 mm. If the patient's liver function tests are abnormally elevated in addition to the lipase level being elevated this with the presumptive evidence of ongoing gallstone pancreatitis and would require ERCP likely to clear the duct. We will arrange this for tomorrow if the bilirubin is elevated as I suspect it might be. Labs are pending. If bilirubin is not elevated would likely just continue to watch the lipase level with time. 07/31/17--the patient's ultrasound may have shown a ductal dilatation but the bilirubin is well within normal limits as is the alkaline phosphatase. No ERCP will be done. I am not completely sure why the patient's lipase levels have not peaked yet. We will continue to monitor them. He may have a drug induced pancreatitis as well, although these are fairly unusual. We will asked the nursing staff to obtain a C. difficile second specimen, given his severe complaints of diarrhea. Leave him on the clear liquids for today until we see what tomorrow's lipase level looks like. 08/01/17--If the patient's pancreatic enzymes are elevated again today, would definitely consider switching over from morphine to Dilaudid. Patient states that his pain is worse and in anticipation of elevation of lipase level will make this patient n.p.o. off clear liquids and put the pancreas completely at rest. We may have to consider placement of a central line and TPN. If the lipase level again remains elevated again today would also consider getting an MRCP should the patient be able to hold still long enough to be able to obtain the images. The only other choice is ERCP. 08/02/17--Patient's pancreatic enzymes came down yesterday and again today they are currently down from 1878 now down to 536 today. We can think about putting him back on a clear liquid diet tomorrow if he is going to undergo endoscopy after this is completed. We will likely be able to suction up any fluids that are left in the stomach. This patient's pain medications with the Dilaudid may be causing a gastroparesis and bloating. We will check for gastric ulcers and erosions that might be feeding into his pain as well and rule out stomach cancer with the endoscopy tomorrow. The patient is also experiencing some dysphagia and we will consider doing dilation while we are performing the procedure. Current Visit: Yes (2) Dysphagia Status: Acute Assessment and plan: Patient is having difficulty swallowing large pills, will perform upper endoscopy tomorrow. Risks were reviewed with the patient and include but are not limited to bleeding, infection, perforation, cardiac and pulmonary compromise. Current Visit: Yes (3) Diarrhea Status: Acute Assessment and plan: We will check patient's stool cultures, fecal leukocytes, and C. difficile to see whether this low-grade diarrhea is going to be of any concern. For the present time we will not be treating this actively. 07/28/17--the patient's diarrhea is under control for the present time but is not eating much. 07/29/17--The diarrhea is back in force at this point. This might be related to narcotic withdrawal, stool studies are negative, we may end up having to do a colonoscopy look for microscopic and collagenous colitis further down the admission, if this continues. We will repeat C. difficile at this time. 07/30/17--The patient's diarrhea has slowed down to 1 now the potassium has been discontinued. The C. difficile recheck could not be obtained. We are continue to watch him. He remains on clear liquids because of his pancreatitis. 07/31/17--I asked the patient to keep track of how many stools he is having per day. We are waiting C. difficile recheck. The patient remains on clear liquids due to his pancreatitis, hopefully we can advance him to more solid food tomorrow if his enzymes have peaked. 08/01/17--this continues we can consider getting a BMS in place. The nurses have not checked his C. difficile again. There are no stools documented in the computer. Will talk to the nurses about this since patient claims he is still having diarrhea. 08/02/17--diarrhea appears to be doing better. Bowel movements are being documented 0-1 per day. Current Visit: Yes (4) Alcohol abuse Status: Chronic Assessment and plan: We may wish to have a second pain management evaluation here to help get this patient off of alcohol. He may be at sincere in his desire to find additional pain medication to treat his underlying condition, ensure that the alcohol is likely exacerbating the pancreatitis if present. Again we are ruling out gallstones and sludge as a potential cause for the pancreatitis as well. 07/28/17--apparently the patient is minimizing the amount of alcohol that he drinks as he is actively in florid DTs at this time. This will likely go on for several more days. 07/29/17--Continue to observe as he pulls out of the DTs further, check ammonia level to see if this is elevated. 07/30/17--Patient appears to be out of the delirium tremens at this time he is cognizant and able to answer all questions. I do not see an ammonia level-- will check this for tomorrow. 07/31/17--Currently under observation at this time. His ammonia surprisingly good at only 24. He does not require lactulose. 08/02/17--patient is clearly out of the delirium tremens at this point and able to hold normal conversations. Current Visit: Yes (5) Hypomagnesemia Status: Acute Assessment and plan: Hypomagnesemia with magnesium 1.1 is quite low, this can be seen with alcoholism , will see how quickly he responds to IV therapy per protocol. 07/28/17--This is being addressed/corrected over time. 07/29--improving. Currently up to 1.8 at this maykel. 07/31/17--patient's magnesium level is again 1.8. 08/02/17--recheck magnesium tomorrow. Current Visit: Yes Gastroenterology - PN: Subj Interval history: Patient is off of p.o. intake at this time, he is able to handle ice chips. He states that his pain is "a little better", not really willing to quantify. The patient's [id number] who is a doctor/steward[employer] is at the bedside and is able to explained to the patient his diagnosis of pancreatitis better. His brother has a history of gallbladder removal for pancreatitis as well. He still seems quite agitated and we discussed his pain medications as well as use of Ativan to control some of his anxiety. His [id number] is wondering if to help control his anxiety. He might be started on an SSRI during his hospitalization, to help control his anxiety. Will leave this up to the hospitalist. Exam (Progress Note) - Constitutional Vitals: Period Temp Pulse Resp BP Sys/Denny Pulse Ox Last 24 Hr 98.6 F-101.1 F 74-96 16-24 124-157/60-81 93-96 General appearance: mild distress - Eye Eye exam: Present: EOMI - Respiratory Respiratory exam: Present: clear to auscultation bilaterally. Absent: wheezes - Cardiovascular Cardiovascular exam: Present: irregular rhythm, systolic murmur - GI/Abdominal GI/Abdominal exam: Present: normal bowel sounds, distended, tenderness (Mild epigastric), soft. Absent: guarding, rebound - Neurological Exam Neurological exam: Present: alert, oriented X3 - Psychiatric Psychiatric exam: Present: normal affect, normal mood - Skin Skin exam: Present: warm Results - Labs CBC & BMP: 08/02/17 07:42 08/02/17 07:42
--- NOTE | 2017-08-02 15:26 | Hospitalist Progress Note ---
Assessment and Plan (1) Dermatitis, seborrheic Status: Acute Assessment and plan: Add hydrocortisone cream and applied to face twice daily Current Visit: Yes (2) Pancreatitis, acute Status: Acute Assessment and plan: Continue supportive care as outlined by Dr. Schultz. The patient will have EGD tomorrow. Current Visit: Yes (3) Dysphagia Status: Acute Current Visit: Yes Hospitalist: Subjective Interval history: Mr. Colunga has pain in the belly and requests increase of pain medicine. Failing that he wishes to have increased Ativan. I discussed the patient's illness with him and that has improved he would have less pain and therefore was going to keep his sedatives at the present dose. His sedatives are also increasing the risk of gastroparesis which we wish to avoid. The patient has red scaling rash on the face consistent with seborrheic dermatitis. Exam - Constitutional Vitals: Period Temp Pulse Resp BP Sys/Denny Pulse Ox Last 24 Hr 98.6 F-101.1 F 74-96 16-24 124-157/60-81 93-96 General appearance: mild distress - Respiratory Respiratory exam: Present: clear to auscultation bilaterally - Cardiovascular Cardiovascular exam: Present: regular rate and rhythm Results - Labs CBC & BMP: 08/02/17 07:42 08/02/17 07:42 Lab Results: I have reviewed the past 24 hour labs
--- NOTE | 2017-08-02 17:43 | Urology Progress Note ---
Assessment and Plan (1) Urethral stricture Status: Acute Assessment and plan: We will have to dilate him to place a catheter. Current Visit: Yes (2) Urinary retention Status: Acute Current Visit: Yes Urology - PN: Subj Interval history: Patient's residual urine scan was 193. He is voiding some he needs to ambulate more. I placed him on Cipro for his urinary tract infection. It shows gram- negative rods but sensitivities pending. My suggestion is we give this more time and treat the UTI. Exam - Constitutional Vitals: Period Temp Pulse Resp BP Sys/Denny Pulse Ox Last 24 Hr 98.6 F-101.1 F 74-96 16-24 124-157/60-81 93-96 Results - Labs CBC & BMP: 08/02/17 07:42 08/02/17 07:42
[2017-08-02] MEDS: LORazepam 2 MG/1 ML VIAL IV PRN ×2 (18:38→21:39)
[2017-08-02] MEDS: TEMAZEPAM 15 MG CAPSULE PO SCH (21:33)
[2017-08-02] MEDS: HYDROCORTISONE 1% CREAM 28 GM TUBE TOP SCH (21:58)
[2017-08-03] MEDS: HYDROmorphone 2 MG/1 ML VIAL IV PRN ×6 (00:06→17:14)
[2017-08-03] MEDS: DEXTROSE 5% NACL 0.45% 1,000 ML IV SCH ×3 (01:19→12:48)
[2017-08-03] MEDS: LORazepam 2 MG/1 ML VIAL IV PRN ×4 (02:09→17:15)
[2017-08-03] MEDS: POTASSIUM CHLORIDE RIDER 10 MEQ in PREMIX 1 EACH IV PRN ×2 (03:50→09:53)
[2017-08-03 06:15] LABS: Basophils % 0.4 % (0.0-0.8); Eosinophils # 0.5 10*3/uL (0.0-0.87); Eosinophils % 6.1 % (0.00-10.9); Hematocrit 35.9 VOL% (42.0-52.0); Hemoglobin 12.2 GM/DL (14.0-18.0); Immature Granulocytes % 0.4 %; Immature Granulocytes Absolute 0.03 #; Lymphocytes # 1.2 10*3/uL (1.4-4.0); Lymphocytes % 16.2 % (21.2-54.2); Mean Corpuscular Hemoglobin 33 PG (27-34); Mean Corpuscular Volume 96.8 FL (87-102); Mean Platelet Volume 9.9 FL (9.6-12.0); Monocytes # 0.9 10*3/uL (0.11-0.8); Neutrophils # 4.9 10*3/uL (1.4-7.4); Neutrophils % 64.9 % (38.7-73.9); Platelet Count 252 T/CUMM (130-400); Red Blood Count 3.71 MC/CUMM (3.8-5.5); Red Cell Distribution Width 14.1 % (9.3-17.3); White Blood Count 7.5 T/CUMM (4-12)
[2017-08-03 06:51] LABS: Calcium 8.8 MG/DL (8.5-10.1); Magnesium 1.7 MG/DL (1.8-2.4); Potassium 3.4 MMOL/L (3.5-5.1)
--- NOTE | 2017-08-03 07:45 | Order Completion Report ---
See report scanned to EMR
--- NOTE | 2017-08-03 07:59 | Urology Progress Note ---
Assessment and Plan (1) Urethral stricture Status: Acute Assessment and plan: We will have to dilate him to place a catheter. Current Visit: Yes (2) Urinary retention Status: Acute Current Visit: Yes Urology - PN: Subj Interval history: Patient complains of being "weak" this morning. His culture should be out today and we will follow-up on that to make sure the Cipro was working. He does complain of some dysuria. But he has a stricture. I told the patient that he needs to get up and ambulate as much as possible and that will help his voiding issue. He needs cystoscopy but I do not think he is ready to do that just yet. Exam - Constitutional Vitals: Period Temp Pulse Resp BP Sys/Denny Pulse Ox Last 24 Hr 99.0 F-101.1 F 79-96 16-24 114-149/53-79 93-99 Results - Labs CBC & BMP: 08/03/17 05:45 08/03/17 05:45
[2017-08-03] MEDS: ENOXAPARIN 100 MG/ML SYRINGE SUBCUT SCH ×2 (09:56→21:02)
--- NOTE | 2017-08-03 12:39 | Gastrointestinal Progress Note ---
Assessment and Plan (1) Pancreatitis, acute Status: Acute Assessment and plan: Would like to see what the results of an ultrasound and CT scan to look for evidence of severity of pancreatitis. Pancreatic enzymes are actually quite low. This may be another intra-abdominal process, will continue to follow lipase levels over time, I will leave the patient on sips with ice chips for the present time and would like to increase his IV fluid rate ideally up to 200/ h, will leave this up to cardiology as they are likely not going to feel comfortable with this level of hydration. 07/28/17--the patient's IV fluid rate is still running 125 mL/h. His lipase levels increased up to the 793 up from the 488 level yesterday. He is in florid delirium tremens at this time., He is not able to answer questions. 07/29/17--the patient's lipase level continues to climb. He appears to be doing somewhat better in terms of his delirium tremens. He is thirsty and having diarrhea now. This may be related to some narcotic withdrawal or pain but stool cultures have been negative up to this point. We will continue to watch his lipase level, CT scan was fairly unrevealing as far as pancreatic changes leading me to believe this is not going to be a serious problem in the long- term. 07/30/17--patient's lipase level does still continue to climb. Review of the ultrasound did show gallstone shadowing in addition to a ectatic common bile duct that was dilated to 11 mm. If the patient's liver function tests are abnormally elevated in addition to the lipase level being elevated this with the presumptive evidence of ongoing gallstone pancreatitis and would require ERCP likely to clear the duct. We will arrange this for tomorrow if the bilirubin is elevated as I suspect it might be. Labs are pending. If bilirubin is not elevated would likely just continue to watch the lipase level with time. 07/31/17--the patient's ultrasound may have shown a ductal dilatation but the bilirubin is well within normal limits as is the alkaline phosphatase. No ERCP will be done. I am not completely sure why the patient's lipase levels have not peaked yet. We will continue to monitor them. He may have a drug induced pancreatitis as well, although these are fairly unusual. We will asked the nursing staff to obtain a C. difficile second specimen, given his severe complaints of diarrhea. Leave him on the clear liquids for today until we see what tomorrow's lipase level looks like. 08/01/17--If the patient's pancreatic enzymes are elevated again today, would definitely consider switching over from morphine to Dilaudid. Patient states that his pain is worse and in anticipation of elevation of lipase level will make this patient n.p.o. off clear liquids and put the pancreas completely at rest. We may have to consider placement of a central line and TPN. If the lipase level again remains elevated again today would also consider getting an MRCP should the patient be able to hold still long enough to be able to obtain the images. The only other choice is ERCP. 08/02/17--Patient's pancreatic enzymes came down yesterday and again today they are currently down from 1878 now down to 536 today. We can think about putting him back on a clear liquid diet tomorrow if he is going to undergo endoscopy after this is completed. We will likely be able to suction up any fluids that are left in the stomach. This patient's pain medications with the Dilaudid may be causing a gastroparesis and bloating. We will check for gastric ulcers and erosions that might be feeding into his pain as well and rule out stomach cancer with the endoscopy tomorrow. The patient is also experiencing some dysphagia and we will consider doing dilation while we are performing the procedure. 08/03/17--patient appears to be tolerating the decrease in his Dilaudid, states the pain is still approximately 8 out of 10. It is difficult to tell without knowing his baseline, will continue to follow the lipase now that the clear liquids have been restarted--these will be rechecked tomorrow. No further diarrhea. Current Visit: Yes (2) Dysphagia Status: Acute Assessment and plan: Patient is having difficulty swallowing large pills, will perform upper endoscopy tomorrow. Risks were reviewed with the patient and include but are not limited to bleeding, infection, perforation, cardiac and pulmonary compromise. 08/03/17--The patient is refusing an upper endoscopy, states that he does not want to pursue this at this time. There appears to be little reason to keep this patient in the hospital at this time, he can be given clear liquids in a swing bed/rehab facility to help build up his strength. Current Visit: Yes (3) Diarrhea Status: Acute Assessment and plan: We will check patient's stool cultures, fecal leukocytes, and C. difficile to see whether this low-grade diarrhea is going to be of any concern. For the present time we will not be treating this actively. 07/28/17--the patient's diarrhea is under control for the present time but is not eating much. 07/29/17--The diarrhea is back in force at this point. This might be related to narcotic withdrawal, stool studies are negative, we may end up having to do a colonoscopy look for microscopic and collagenous colitis further down the admission, if this continues. We will repeat C. difficile at this time. 07/30/17--The patient's diarrhea has slowed down to 1 now the potassium has been discontinued. The C. difficile recheck could not be obtained. We are continue to watch him. He remains on clear liquids because of his pancreatitis. 07/31/17--I asked the patient to keep track of how many stools he is having per day. We are waiting C. difficile recheck. The patient remains on clear liquids due to his pancreatitis, hopefully we can advance him to more solid food tomorrow if his enzymes have peaked. 08/01/17--this continues we can consider getting a BMS in place. The nurses have not checked his C. difficile again. There are no stools documented in the computer. Will talk to the nurses about this since patient claims he is still having diarrhea. 08/02/17--diarrhea appears to be doing better. Bowel movements are being documented 0-1 per day. 08/03/17--No further diarrhea but the patient has been off of solid food. We will watch and see how he does with clear liquids. Current Visit: Yes (4) Alcohol abuse Status: Chronic Assessment and plan: We may wish to have a second pain management evaluation here to help get this patient off of alcohol. He may be at sincere in his desire to find additional pain medication to treat his underlying condition, ensure that the alcohol is likely exacerbating the pancreatitis if present. Again we are ruling out gallstones and sludge as a potential cause for the pancreatitis as well. 07/28/17--apparently the patient is minimizing the amount of alcohol that he drinks as he is actively in florid DTs at this time. This will likely go on for several more days. 07/29/17--Continue to observe as he pulls out of the DTs further, check ammonia level to see if this is elevated. 07/30/17--Patient appears to be out of the delirium tremens at this time he is cognizant and able to answer all questions. I do not see an ammonia level-- will check this for tomorrow. 07/31/17--Currently under observation at this time. His ammonia surprisingly good at only 24. He does not require lactulose. 08/02/17--patient is clearly out of the delirium tremens at this point and able to hold normal conversations. 08/03/17--The patient appears somewhat sedated and depressed. Little else to offer unfortunately. Current Visit: Yes (5) Hypomagnesemia Status: Acute Assessment and plan: Hypomagnesemia with magnesium 1.1 is quite low, this can be seen with alcoholism , will see how quickly he responds to IV therapy per protocol. 07/28/17--This is being addressed/corrected over time. 07/29--improving. Currently up to 1.8 at this maykel. 07/31/17--patient's magnesium level is again 1.8. 08/02/17--recheck magnesium tomorrow. 08/03/17--Magnesium is 1.7 today. Current Visit: Yes Gastroenterology - PN: Subj Interval history: Patient states that his pain is 8 out of 10 in intensity, he really does not have much of an appetite for his clear liquids. He is been restarted as of lunch. We are rechecking his lipase levels tomorrow. He is off of fluids now. Exam (Progress Note) - Constitutional Vitals: Period Temp Pulse Resp BP Sys/Denny Pulse Ox Last 24 Hr 99.0 F-100.9 F 79-85 16-20 114-149/53-70 93-99 General appearance: mild distress - Eye Eye exam: Present: EOMI - Respiratory Respiratory exam: Present: clear to auscultation bilaterally. Absent: rhonchi, stridor, wheezes - Cardiovascular Cardiovascular exam: Present: regular rate and rhythm - GI/Abdominal GI/Abdominal exam: Present: distended, hypoactive bowel sounds, tenderness ( Mild diffuse tenderness throughout), soft. Absent: ascites, guarding, rebound - Extremities Exam Extremities exam: Present: edema, other (Skin thickening from atopic dermatitis) - Neurological Exam Neurological exam: Present: alert, oriented X3 - Psychiatric Psychiatric exam: Present: depressed, flat affect - Skin Skin exam: Present: warm Results - Labs CBC & BMP: 08/03/17 05:45 08/03/17 05:45
--- NOTE | 2017-08-03 12:40 | Cardiology Progress Note ---
<Ana Landrum E - Last Filed: 08/03/17 16:06> Assessment and Plan - Time spent with patient Time spent with patient: Greater than 30 minutes (1) Hypertension Status: Chronic Assessment and plan: SEE PLAN OF CARE LISTED BELOW Current Visit: Yes (2) Non-compliant behavior Status: Chronic Assessment and plan: SEE PLAN OF CARE LISTED BELOW Current Visit: Yes (3) Dyslipidemia Status: Chronic Assessment and plan: SEE PLAN OF CARE LISTED BELOW Current Visit: No (4) Atrial fibrillation with RVR Status: Resolved Assessment and plan: SEE PLAN OF CARE LISTED BELOW Current Visit: Yes (5) Alcohol abuse Status: Chronic Assessment and plan: SEE PLAN OF CARE LISTED BELOW Current Visit: Yes (6) Pancreatitis, acute Status: Acute Assessment and plan: SEE PLAN OF CARE LISTED BELOW Current Visit: Yes Qualifiers: Pancreatitis type: alcohol induced (7) Delirium tremens Status: Acute Assessment and plan: SEE PLAN OF CARE LISTED BELOW Current Visit: Yes (8) Dermatitis, seborrheic Status: Chronic Assessment and plan: SEE PLAN OF CARE LISTED BELOW Current Visit: Yes Cardiology - PN: Subj Interval history: INTERIOR SPECIALIST: DR. COSTA SUMMARY: Mr. Condon, 62WM, with risk factors significant for hypertension, dyslipidemia, noncompliance. History of atrial fibrillation, alcohol abuse. Admitted July 26, 2017 for pancreatitis. He was found to be in atrial fibrillation with rapid ventricular response. Cardiology was consulted for management of his atrial fibrillation. With medication adjustments, atrial fibrillation came under good control and has been in normal sinus rhythm for several days. He is maintained on Aspirin and therapeutic doses of Lovenox. At discharge, patient may need anticoagulation for 1 month. If he remains in sinus rhythm this can likely be stopped after 1 month. He will need an event monitor for 1 month after discharge as well to verify he is having no paroxysms of atrial fibrillation. Echocardiogram: AUGUST 03, 2017: Patient is followed for stable chronic conditions to include dyslipidemia, hypertension. He is also followed for acute conditions including atrial fibrillation with rapid ventricular response, acute pancreatitis, hypokalemia. Mr. Colunga complaints of chest pain which is reducible to light palpation across the chest wall. Denies heaviness, tightness. Denies shortness of breath, orthopnea or PND. Lipase is improving. Other labs are stable. He has had no fever for the past 24 hours. Urine culture revealed gram -positive E. coli results. Being treated with antibiotics. Blood pressure is adequately controlled on beta-tong, calcium channel tong, ARB. Continue Zetia (avoiding statins due to elevated LFTs). Each morning, will document his rhythm with an official EKG. AUGUST 03, 2017 REVIEW OF SYSTEMS: Cardiovascular: Complains of chest pain to palpation. Denies heaviness, tightness or palpitations. Pulmonary: Denies shortness of breath, orthopnea or PND. Gastrointestinal: Denies constipation, nausea or vomiting. IMPRESSION/PLAN: 1. ATRIAL FIBRILLATION W/ RVR -currently in normal sinus rhythm. Continue beta tong, calcium channel tong. He is currently taking aspirin and therapeutic doses of Lovenox for stroke prevention. Will document his normal sinus rhythm each morning with an EKG. He has previously been a noncompliant patient. If possible, will discharge patient on an anticoagulant for 30 days and then discontinue if we can document he has remained in normal sinus rhythm. His noncompliance, alcoholism presents long-term use of anticoagulant. Will need a 30 day event monitor at discharge if possible. Patient has failed to follow-up in clinic and we will reinforce the importance of follow-up outpatient in order to better manage his conditions. 2. DYSLIPIDEMIA - avoiding statins due to his transaminitis. Continue Zetia. 3. ALCOHOL ABUSE - Chronic alcohol use, now pancreatitis and DTs. Continue treatment for DTs. Reinforced the merits of alcohol cessation 4. HYPOMAGNESEMIA - currently within normal limits. Will continue to monitor daily. Replace accordingly. 5. HYPOKALEMIA - normalized today after finally receiving the potassium protocol routinely. Continue to monitor daily. 6. ACUTE PANCREATITIS - most likely alcohol-related. Improving. 7. NONCOMPLIANCE - greater than 5 minutes was spent today discussing the merits of compliance. 8. DELIRIUM TREMENS - continue current treatment for management of this condition. 9. ATOPIC DERMATITIS - He usually uses Elocon ointment for this. Will defer management to Attending. Exam (Progress Note) - Constitutional Vitals: Period Temp Pulse Resp BP Sys/Denny Pulse Ox Last 24 Hr 99.0 F-100.9 F 79-85 16-20 114-149/53-70 93-99 Exam: General: [Appears well with no apparent distress.] [Pleasant and cooperative. ] [Appears comfortable.] HEENT: [PERRL, normocephalic, atraumatic. Mucous membranes moist. No jaundice noted. Conjunctiva moist and clear, sclerae anicteric] Neck: No JVD/HJR, no thyromegaly or lymphadenopathy noted. No carotid bruit appreciated Cardiac: [Regular rate and rhythm.] [No obvious murmur, rub or gallop.] Lungs: [Clear to auscultation without accessory muscle use to assist the respiratory pattern.] Oxygen in use via nasal cannula Abdomen: Soft, bowel sounds normoactive. Nontender and nondistended. No abdominal bruit or thrill noted. No masses noted. Musculoskeletal: No fluid collection. Decreased range of motion is noted. Extremities: No clubbing, cyanosis noted. [ No edema noted.] Upper extremity pulses 2+. Lower extremity pulses 2+. Capillary refill less than 3 seconds. Skin: Multiple areas of skin excoriation noted over various parts of the body. No other unusual lesions or rashes. No skin breakdown appreciated. Neuro: Awake, alert and oriented 3. Moves all extremities well without hemiparesis or paralysis. No essential tremor is appreciated. Result/EKG - Labs CBC & BMP: 08/03/17 05:45 08/03/17 05:45 Lab Results: I have reviewed the past 24 hour labs Labs: Laboratory Results - last 24 hr 08/03/17 08/03/17 08/03/17 00:37 05:45 05:45 WBC 7.5 RBC 3.71 L Hgb 12.2 L Hct 35.9 L MCV 96.8 MCH 33 MCHC 34.0 RDW 14.1 Plt Count 252 MPV 9.9 Neut % (Auto) 64.9 Lymph % (Auto) 16.2 L [place] % (Auto) 12.0 Eos % (Auto) 6.1 Baso % (Auto) 0.4 Neut # (Auto) 4.9 Lymph # (Auto) 1.2 L [place] # (Auto) 0.9 H Eos # (Auto) 0.5 Baso # (Auto) 0.0 Immature Gran % 0.4 Nucleated RBC % 0.0 Immature Gran # 0.03 Nucleated RBCs # 0.00 Immature Plt Fraction 0.0 Sodium 143 Potassium 3.7 3.4 L Chloride 108 H Carbon Dioxide 26 Anion Gap 12.4 BUN 4 L Creatinine 0.70 GFR Calculation 140 BUN/Creatinine Ratio 5.00 L Glucose 98 Calculated Osmolality 281.0 Calcium 8.8 Magnesium 1.7 L - Diagnostic Findings Procedure: Chest x-ray: report reviewed by me - EKG EKG results: interpreted by me EKG shows: sinus rhythm <Fany Cleveland - Last Filed: 08/03/17 18:00> Cardiology - PN: Subj Interval history: I have personally interviewed and evaluated the patient, reviewed the chart and discussed medical decision-making with Practitioner Lucita. I have read this note and agree with her documentation here in. Exam (Progress Note) - Constitutional Vitals: Period Temp Pulse Resp BP Sys/Denny Pulse Ox Last 24 Hr 99.0 F-100.9 F 82-87 16-20 114-149/53-66 93-99 Result/EKG - Labs CBC & BMP: 08/03/17 05:45 08/03/17 05:45 Labs: Laboratory Results - last 24 hr 08/03/17 08/03/17 08/03/17 00:37 05:45 05:45 WBC 7.5 RBC 3.71 L Hgb 12.2 L Hct 35.9 L MCV 96.8 MCH 33 MCHC 34.0 RDW 14.1 Plt Count 252 MPV 9.9 Neut % (Auto) 64.9 Lymph % (Auto) 16.2 L [place] % (Auto) 12.0 Eos % (Auto) 6.1 Baso % (Auto) 0.4 Neut # (Auto) 4.9 Lymph # (Auto) 1.2 L [place] # (Auto) 0.9 H Eos # (Auto) 0.5 Baso # (Auto) 0.0 Immature Gran % 0.4 Nucleated RBC % 0.0 Immature Gran # 0.03 Nucleated RBCs # 0.00 Immature Plt Fraction 0.0 Sodium 143 Potassium 3.7 3.4 L Chloride 108 H Carbon Dioxide 26 Anion Gap 12.4 BUN 4 L Creatinine 0.70 GFR Calculation 140 BUN/Creatinine Ratio 5.00 L Glucose 98 Calculated Osmolality 281.0 Calcium 8.8 Magnesium 1.7 L
[2017-08-03] MEDS: EZETIMIBE 10 MG TABLET PO SCH (12:54)
[2017-08-03] MEDS: ASPIRIN EC 81 MG TABLET PO SCH (12:54)
[2017-08-03] MEDS: CIPROFLOXACIN 500 MG TABLET PO SCH ×2 (12:54→20:51)
[2017-08-03] MEDS: NEBIVOLOL 10 MG TABLET PO SCH (12:54)
[2017-08-03] MEDS: MULTIVITAMIN (CENTRUM) TABLET PO SCH (12:54)
[2017-08-03] MEDS: FOLIC ACID 1 MG TABLET PO SCH (12:54)
[2017-08-03] MEDS: THIAMINE 100 MG TABLET PO SCH (12:54)
[2017-08-03] MEDS: LOSARTAN 50 MG TABLET PO SCH (12:54)
[2017-08-03] MEDS: ASCORBIC ACID 500 MG TABLET PO SCH ×2 (12:54→20:51)
[2017-08-03] MEDS: TAMSULOSIN 0.4 MG CAPSULE PO SCH ×2 (12:54→20:51)
[2017-08-03] MEDS: CALCIUM CARBONATE CHEW 500 MG TABLET PO SCH ×2 (12:55→20:51)
[2017-08-03] MEDS: DILTIAZEM CD 180 MG CAPSULE PO SCH ×2 (12:55→20:51)
[2017-08-03] MEDS: PANTOPRAZOLE 40 MG VIAL IV SCH (13:13)
[2017-08-03] MEDS: HYDROCORTISONE 1% CREAM 28 GM TUBE TOP SCH ×2 (13:13→21:02)
[2017-08-03] MEDS: TIMOLOL 0.25% OPH SOLN 5 ML BOTTLE BOTH EYES SCH ×2 (13:13→21:02)
--- NOTE | 2017-08-03 14:30 | Hospitalist Progress Note ---
Assessment and Plan (1) Dermatitis, seborrheic Status: Acute Assessment and plan: Add hydrocortisone cream and applied to face twice daily Current Visit: Yes (2) Pancreatitis, acute Status: Acute Assessment and plan: The patient continues therapy for acute pancreatitis. The patient is healing slowly. Current Visit: Yes (3) Dysphagia Status: Acute Current Visit: Yes Hospitalist: Subjective Interval history: Mr. Colunga is bargaining about his pain medications. The patient should continue on present doses. The patient is beginning to take small amounts of clear liquids. Exam - Constitutional Vitals: Period Temp Pulse Resp BP Sys/Denny Pulse Ox Last 24 Hr 99.0 F-100.9 F 79-87 16-20 114-149/53-70 93-99 General appearance: mild distress - Respiratory Respiratory exam: Present: clear to auscultation bilaterally - Cardiovascular Cardiovascular exam: Present: regular rate and rhythm Results - Labs CBC & BMP: 08/03/17 05:45 08/03/17 05:45 Lab Results: I have reviewed the past 24 hour labs
[2017-08-03] MEDS: MAGNESIUM SULF RIDER 2 GM in PREMIX 1 EACH IV PRN (16:25)
[2017-08-04] MEDS: LORazepam 2 MG/1 ML VIAL IM PRN ×4 (02:08→19:41)
[2017-08-04] MEDS: HYDROmorphone 2 MG/1 ML VIAL IM PRN ×4 (02:09→19:43)
[2017-08-04] MEDS: PANTOPRAZOLE 40 MG VIAL IV SCH ×3 (02:11→20:23)
[2017-08-04] MEDS: DEXTROSE 5% NACL 0.45% 1,000 ML IV SCH ×3 (02:12→21:25)
[2017-08-04 04:45] LABS: Basophils % 0.5 % (0.0-0.8); Eosinophils # 0.4 10*3/uL (0.0-0.87); Eosinophils % 5.7 % (0.00-10.9); Hemoglobin 11.8 GM/DL (14.0-18.0); Immature Granulocytes % 0.5 %; Immature Granulocytes Absolute 0.03 #; Lymphocytes # 1.2 10*3/uL (1.4-4.0); Mean Corpuscular HGB Conc 33.7 GM/DL (32-36); Mean Corpuscular Hemoglobin 33 PG (27-34); Monocytes # 0.8 10*3/uL (0.11-0.8); Monocytes % 12.5 % (1.7-12.7); Neutrophils # 3.8 10*3/uL (1.4-7.4); Neutrophils % 61.8 % (38.7-73.9); Platelet Count 274 T/CUMM (130-400); Red Blood Count 3.61 MC/CUMM (3.8-5.5); Red Cell Distribution Width 13.7 % (9.3-17.3); White Blood Count 6.1 T/CUMM (4-12)
[2017-08-04 05:20] LABS: Calcium 8.7 MG/DL (8.5-10.1); Magnesium 1.8 MG/DL (1.8-2.4); Osmolality,Calculated 281.8 MOS/KG (273-304); Potassium 3.5 MMOL/L (3.5-5.1)
[2017-08-04 05:24] LABS: Giant Platelets Few; Hypochromasia 1+; Platelet Estimate Adequate
--- NOTE | 2017-08-04 07:26 | Order Completion Report ---
See report scanned to EMR
--- NOTE | 2017-08-04 09:09 | Urology Progress Note ---
Assessment and Plan (1) Urethral stricture Status: Acute Assessment and plan: We will have to dilate him to place a catheter. Current Visit: Yes (2) Urinary retention Status: Acute Current Visit: Yes Urology - PN: Subj Interval history: Patient is voiding better. Less discomfort. We will continue to observe Exam - Constitutional Vitals: Period Temp Pulse Resp BP Sys/Denny Pulse Ox Last 24 Hr 98.6 F-99.9 F 71-87 18-20 125-145/62-72 95-99 Results - Labs CBC & BMP: 08/04/17 03:32 08/04/17 03:32
[2017-08-04] MEDS: LOSARTAN 50 MG TABLET PO SCH (09:28)
[2017-08-04] MEDS: CALCIUM CARBONATE CHEW 500 MG TABLET PO SCH ×2 (09:28→20:30)
[2017-08-04] MEDS: ASPIRIN EC 81 MG TABLET PO SCH (09:28)
[2017-08-04] MEDS: MULTIVITAMIN (CENTRUM) TABLET PO SCH (09:28)
[2017-08-04] MEDS: DILTIAZEM CD 180 MG CAPSULE PO SCH ×2 (09:29→20:31)
[2017-08-04] MEDS: FOLIC ACID 1 MG TABLET PO SCH (09:29)
[2017-08-04] MEDS: TAMSULOSIN 0.4 MG CAPSULE PO SCH ×2 (09:29→20:31)
[2017-08-04] MEDS: NEBIVOLOL 10 MG TABLET PO SCH (09:29)
[2017-08-04] MEDS: CIPROFLOXACIN 500 MG TABLET PO SCH ×2 (09:29→20:32)
[2017-08-04] MEDS: ASCORBIC ACID 500 MG TABLET PO SCH ×2 (09:29→20:31)
[2017-08-04] MEDS: THIAMINE 100 MG TABLET PO SCH (09:29)
[2017-08-04] MEDS: HYDROCORTISONE 1% CREAM 28 GM TUBE TOP SCH ×2 (09:38→20:37)
[2017-08-04] MEDS: EZETIMIBE 10 MG TABLET PO SCH (09:56)
[2017-08-04] MEDS: ENOXAPARIN 100 MG/ML SYRINGE SUBCUT SCH ×2 (09:56→20:35)
--- NOTE | 2017-08-04 10:45 | Gastrointestinal Progress Note ---
Assessment and Plan (1) Pancreatitis, acute Status: Acute Assessment and plan: Would like to see what the results of an ultrasound and CT scan to look for evidence of severity of pancreatitis. Pancreatic enzymes are actually quite low. This may be another intra-abdominal process, will continue to follow lipase levels over time, I will leave the patient on sips with ice chips for the present time and would like to increase his IV fluid rate ideally up to 200/ h, will leave this up to cardiology as they are likely not going to feel comfortable with this level of hydration. 07/28/17--the patient's IV fluid rate is still running 125 mL/h. His lipase levels increased up to the 793 up from the 488 level yesterday. He is in florid delirium tremens at this time., He is not able to answer questions. 07/29/17--the patient's lipase level continues to climb. He appears to be doing somewhat better in terms of his delirium tremens. He is thirsty and having diarrhea now. This may be related to some narcotic withdrawal or pain but stool cultures have been negative up to this point. We will continue to watch his lipase level, CT scan was fairly unrevealing as far as pancreatic changes leading me to believe this is not going to be a serious problem in the long- term. 07/30/17--patient's lipase level does still continue to climb. Review of the ultrasound did show gallstone shadowing in addition to a ectatic common bile duct that was dilated to 11 mm. If the patient's liver function tests are abnormally elevated in addition to the lipase level being elevated this with the presumptive evidence of ongoing gallstone pancreatitis and would require ERCP likely to clear the duct. We will arrange this for tomorrow if the bilirubin is elevated as I suspect it might be. Labs are pending. If bilirubin is not elevated would likely just continue to watch the lipase level with time. 07/31/17--the patient's ultrasound may have shown a ductal dilatation but the bilirubin is well within normal limits as is the alkaline phosphatase. No ERCP will be done. I am not completely sure why the patient's lipase levels have not peaked yet. We will continue to monitor them. He may have a drug induced pancreatitis as well, although these are fairly unusual. We will asked the nursing staff to obtain a C. difficile second specimen, given his severe complaints of diarrhea. Leave him on the clear liquids for today until we see what tomorrow's lipase level looks like. 08/01/17--If the patient's pancreatic enzymes are elevated again today, would definitely consider switching over from morphine to Dilaudid. Patient states that his pain is worse and in anticipation of elevation of lipase level will make this patient n.p.o. off clear liquids and put the pancreas completely at rest. We may have to consider placement of a central line and TPN. If the lipase level again remains elevated again today would also consider getting an MRCP should the patient be able to hold still long enough to be able to obtain the images. The only other choice is ERCP. 08/02/17--Patient's pancreatic enzymes came down yesterday and again today they are currently down from 1878 now down to 536 today. We can think about putting him back on a clear liquid diet tomorrow if he is going to undergo endoscopy after this is completed. We will likely be able to suction up any fluids that are left in the stomach. This patient's pain medications with the Dilaudid may be causing a gastroparesis and bloating. We will check for gastric ulcers and erosions that might be feeding into his pain as well and rule out stomach cancer with the endoscopy tomorrow. The patient is also experiencing some dysphagia and we will consider doing dilation while we are performing the procedure. 08/03/17--patient appears to be tolerating the decrease in his Dilaudid, states the pain is still approximately 8 out of 10. It is difficult to tell without knowing his baseline, will continue to follow the lipase now that the clear liquids have been restarted--these will be rechecked tomorrow. No further diarrhea. 08/04/17--the patient is doing better with a decrease of Dilaudid and pain now a 6 out of 10 intensity. He is able tolerate some clear liquids and may need to be on these as an outpatient once he was discharged before proceeding with a low -fat diet. He does not want to have inpatient endoscopy, this can be arranged as an outpatient down the road at some point. He certainly can follow-up with me on a as needed basis to arrange this and to discuss his other GI issues. He 100% needs to be abstinent from alcohol, from a GI standpoint he can be discharged at this time. Thank you for this interesting consult, please call myself or my partners if we can be of service to you in the future/or answer further questions. Current Visit: Yes Qualifiers: Pancreatitis type: alcohol induced (2) Dysphagia Status: Acute Assessment and plan: Patient is having difficulty swallowing large pills, will perform upper endoscopy tomorrow. Risks were reviewed with the patient and include but are not limited to bleeding, infection, perforation, cardiac and pulmonary compromise. 08/03/17--The patient is refusing an upper endoscopy, states that he does not want to pursue this at this time. There appears to be little reason to keep this patient in the hospital at this time, he can be given clear liquids in a swing bed/rehab facility to help build up his strength. 08/04/17--we can arrange upper endoscopy on a as needed basis as an outpatient. Consider rehab versus home health for strengthening. Continue current medications, patient will need a clear liquid/low-fat diet for the next 2 weeks at least. Current Visit: Yes (3) Diarrhea Status: Acute Assessment and plan: We will check patient's stool cultures, fecal leukocytes, and C. difficile to see whether this low-grade diarrhea is going to be of any concern. For the present time we will not be treating this actively. 07/28/17--the patient's diarrhea is under control for the present time but is not eating much. 07/29/17--The diarrhea is back in force at this point. This might be related to narcotic withdrawal, stool studies are negative, we may end up having to do a colonoscopy look for microscopic and collagenous colitis further down the admission, if this continues. We will repeat C. difficile at this time. 07/30/17--The patient's diarrhea has slowed down to 1 now the potassium has been discontinued. The C. difficile recheck could not be obtained. We are continue to watch him. He remains on clear liquids because of his pancreatitis. 07/31/17--I asked the patient to keep track of how many stools he is having per day. We are waiting C. difficile recheck. The patient remains on clear liquids due to his pancreatitis, hopefully we can advance him to more solid food tomorrow if his enzymes have peaked. 08/01/17--this continues we can consider getting a BMS in place. The nurses have not checked his C. difficile again. There are no stools documented in the computer. Will talk to the nurses about this since patient claims he is still having diarrhea. 08/02/17--diarrhea appears to be doing better. Bowel movements are being documented 0-1 per day. 08/03/17--No further diarrhea but the patient has been off of solid food. We will watch and see how he does with clear liquids. 08/04/17--no further diarrhea. Patient is back on clears. Current Visit: Yes (4) Alcohol abuse Status: Chronic Assessment and plan: We may wish to have a second pain management evaluation here to help get this patient off of alcohol. He may be at sincere in his desire to find additional pain medication to treat his underlying condition, ensure that the alcohol is likely exacerbating the pancreatitis if present. Again we are ruling out gallstones and sludge as a potential cause for the pancreatitis as well. 07/28/17--apparently the patient is minimizing the amount of alcohol that he drinks as he is actively in florid DTs at this time. This will likely go on for several more days. 07/29/17--Continue to observe as he pulls out of the DTs further, check ammonia level to see if this is elevated. 07/30/17--Patient appears to be out of the delirium tremens at this time he is cognizant and able to answer all questions. I do not see an ammonia level-- will check this for tomorrow. 07/31/17--Currently under observation at this time. His ammonia surprisingly good at only 24. He does not require lactulose. 08/02/17--patient is clearly out of the delirium tremens at this point and able to hold normal conversations. 08/03/17--The patient appears somewhat sedated and depressed. Little else to offer unfortunately. 08/04/17--patient is a slightly better mood. He has not yet agreed to be abstinent as an outpatient, it would not surprise me if he went directly back to drinking. Current Visit: Yes (5) Hypomagnesemia Status: Acute Assessment and plan: Hypomagnesemia with magnesium 1.1 is quite low, this can be seen with alcoholism , will see how quickly he responds to IV therapy per protocol. 07/28/17--This is being addressed/corrected over time. 07/29--improving. Currently up to 1.8 at this maykel. 07/31/17--patient's magnesium level is again 1.8. 08/02/17--recheck magnesium tomorrow. 08/03/17--Magnesium is 1.7 today. Current Visit: Yes Gastroenterology - PN: Subj Interval history: Mateus states that his pain is down to about a 6 out of 10 in intensity, he is now tolerating clear liquids although is not eating much. He needs to continue his advance to a low-fat diet as tolerated although can certainly do this as an outpatient. He does not wish to have upper endoscopy done. He does remain concerned about the "shaking sensation" in his abdomen. The dysphagia does not seem to be bothering him much but he is just taking clears and at this time. We can certainly pursue the upper endoscopy as an outpatient if he desires this. I do not really see a purpose for keeping him here in the hospital from a GI standpoint. It is going to take some time for his pancreatitis to completely [place]. He may need to be transferred to some place where he can do strengthening exercises versus getting some home physical therapy. The patient appears slightly less depressed today. His mother is advocating for his release. I have again emphasized the need for complete abstinence from alcohol. Exam (Progress Note) - Constitutional Vitals: Period Temp Pulse Resp BP Sys/Denny Pulse Ox Last 24 Hr 98.6 F-99.9 F 71-90 18-20 125-165/62-72 94-99 General appearance: no acute distress - Head Head exam: Present: normocephalic - Eye Eye exam: Present: EOMI - ENT ENT exam: Present: normal exam - Respiratory Respiratory exam: Present: clear to auscultation bilaterally. Absent: rhonchi, stridor, wheezes - GI/Abdominal GI/Abdominal exam: Present: normal bowel sounds, distended, tenderness (Mild epigastric tenderness), soft. Absent: ascites, guarding, rebound - Extremities Exam Extremities exam: Present: edema, other (Patient has the atopic dermatitis with skin thickening) - Neurological Exam Neurological exam: Present: alert, oriented X3 - Psychiatric Psychiatric exam: Present: normal affect, normal mood - Skin Skin exam: Present: warm, other (Multiple excoriated and thickened patches across the patient's body) Results - Labs CBC & BMP: 08/04/17 03:32 08/04/17 03:32
--- NOTE | 2017-08-04 13:32 | Cardiology Progress Note ---
<Ana Landrum E - Last Filed: 08/04/17 13:28> Assessment and Plan - Time spent with patient Time spent with patient: Greater than 30 minutes (1) Hypertension Status: Chronic Assessment and plan: SEE PLAN OF CARE LISTED BELOW Current Visit: Yes (2) Non-compliant behavior Status: Chronic Assessment and plan: SEE PLAN OF CARE LISTED BELOW Current Visit: Yes (3) Dyslipidemia Status: Chronic Assessment and plan: SEE PLAN OF CARE LISTED BELOW Current Visit: No (4) Atrial fibrillation with RVR Status: Resolved Assessment and plan: SEE PLAN OF CARE LISTED BELOW Current Visit: Yes (5) Alcohol abuse Status: Chronic Assessment and plan: SEE PLAN OF CARE LISTED BELOW Current Visit: Yes (6) Pancreatitis, acute Status: Acute Assessment and plan: SEE PLAN OF CARE LISTED BELOW Current Visit: Yes Qualifiers: Pancreatitis type: alcohol induced (7) Delirium tremens Status: Acute Assessment and plan: SEE PLAN OF CARE LISTED BELOW Current Visit: Yes (8) Dermatitis, seborrheic Status: Chronic Assessment and plan: SEE PLAN OF CARE LISTED BELOW Current Visit: Yes Cardiology - PN: Subj Interval history: [employer]: DR. COSTA SUMMARY: Mr. Condon, 62WM, with risk factors significant for hypertension, dyslipidemia, noncompliance. History of atrial fibrillation, alcohol abuse. Admitted July 26, 2017 for pancreatitis. He was found to be in atrial fibrillation with rapid ventricular response. Cardiology was consulted for management of his atrial fibrillation. With medication adjustments, atrial fibrillation came under good control and has been in normal sinus rhythm for several days. He is maintained on Aspirin and therapeutic doses of Lovenox. At discharge, patient may need anticoagulation for 1 month. If he remains in sinus rhythm this can likely be stopped after 1 month. He will need an event monitor for 1 month after discharge as well to verify he is having no paroxysms of atrial fibrillation. Echocardiogram: AUGUST 04, 2017: Patient is followed for stable chronic conditions to include dyslipidemia, hypertension. He is also followed for acute conditions including atrial fibrillation with rapid ventricular response, acute pancreatitis, hypokalemia. Mr. Colunga continues to have complaints of reproducible chest pain. He also has pain in general and all over his body Denies heaviness, tightness of chest. Denies shortness of breath, orthopnea or PND. Lipase is basically unchanged overnight but still improving. Other labs are stable. He has had no fever for the past 48 hours. Blood pressure is adequately controlled and will make no medication adjustments in his meds today. Continue Zetia (avoiding statins due to elevated LFTs). Each morning, will document his rhythm with an official EKG. At discharge may be eligible for an event monitor for 30 days. If he has no recurrent atrial fibrillation will need of further anticoagulation. At this time, needs Xarelto for 30 days at discharge. Because of his history of noncompliance, alcohol abuse and transaminitis hesitate to use anticoagulation long-term. We will continue to reevaluate this as we near his discharge. Will further discuss with Dr. Cleveland and await additional recommendations. AUGUST 04, 2017 REVIEW OF SYSTEMS: Cardiovascular: Complains of chest pain to palpation. Denies heaviness, tightness or palpitations. Pulmonary: Denies shortness of breath, orthopnea or PND. Gastrointestinal: Denies constipation, nausea or vomiting. IMPRESSION/PLAN: 1. ATRIAL FIBRILLATION W/ RVR -currently in normal sinus rhythm. Continue beta tong, calcium channel tong. He is currently taking aspirin and therapeutic doses of Lovenox for stroke prevention. Will document his normal sinus rhythm each morning with an EKG. He has previously been a noncompliant patient. If possible, will discharge patient on an anticoagulant for 30 days and then discontinue if we can document he has remained in normal sinus rhythm. His noncompliance, alcoholism presents long-term use of anticoagulant. Will need a 30 day event monitor at discharge if possible. Patient has failed to follow-up in clinic and we will reinforce the importance of follow-up outpatient in order to better manage his conditions. 2. DYSLIPIDEMIA - avoiding statins due to his transaminitis. Continue Zetia. 3. ALCOHOL ABUSE - Chronic alcohol use, now pancreatitis and DTs. Continue treatment for DTs. Reinforced the merits of alcohol cessation 4. HYPOMAGNESEMIA - currently within normal limits. Will continue to monitor daily. Replace accordingly. 5. HYPOKALEMIA - normalized today and continues to receive potassium protocol daily. Continue to monitor daily. 6. ACUTE PANCREATITIS - most likely alcohol-related. Improving. 7. NONCOMPLIANCE - greater than 5 minutes was spent today discussing the merits of compliance. 8. DELIRIUM TREMENS - continue current treatment for management of this condition. 9. ATOPIC DERMATITIS -continue current plan of care. Exam (Progress Note) - Constitutional Vitals: Period Temp Pulse Resp BP Sys/Denny Pulse Ox Last 24 Hr 98.6 F-99.9 F 71-90 18-20 125-165/62-72 90-99 Exam: General: [Appears well with no apparent distress.] [Pleasant and cooperative. ] [Appears comfortable.] HEENT: [PERRL, normocephalic, atraumatic. Mucous membranes moist. No jaundice noted. Conjunctiva moist and clear, sclerae anicteric] Neck: No JVD/HJR, no thyromegaly or lymphadenopathy noted. No carotid bruit appreciated Cardiac: [Regular rate and rhythm.] [No obvious murmur, rub or gallop.] Lungs: [Clear to auscultation without accessory muscle use to assist the respiratory pattern.] Oxygen in use via nasal cannula Abdomen: Soft, bowel sounds normoactive. Nontender and nondistended. No abdominal bruit or thrill noted. No masses noted. Musculoskeletal: No fluid collection. Decreased range of motion is noted. Extremities: No clubbing, cyanosis noted. [ No edema noted.] Upper extremity pulses 2+. Lower extremity pulses 2+. Capillary refill less than 3 seconds. Skin: Multiple areas of skin excoriation noted over various parts of the body. No other unusual lesions or rashes. No skin breakdown appreciated. Neuro: Awake, alert and oriented 3. Moves all extremities well without hemiparesis or paralysis. No essential tremor is appreciated. Result/EKG - Labs CBC & BMP: 08/04/17 03:32 08/04/17 03:32 Lab Results: I have reviewed the past 24 hour labs Labs: Laboratory Results - last 24 hr 08/04/17 08/04/17 08/04/17 03:32 03:32 03:32 WBC 6.1 RBC 3.61 L Hgb 11.8 L Hct 35.0 L MCV 97.0 MCH 33 MCHC 33.7 RDW 13.7 Plt Count 274 MPV 10.0 Neut % (Auto) 61.8 Lymph % (Auto) 19.0 L [place] % (Auto) 12.5 Eos % (Auto) 5.7 Baso % (Auto) 0.5 Neut # (Auto) 3.8 Lymph # (Auto) 1.2 L [place] # (Auto) 0.8 Eos # (Auto) 0.4 Baso # (Auto) 0.0 Immature Gran % 0.5 Nucleated RBC % 0.0 Immature Gran # 0.03 Nucleated RBCs # 0.00 Platelet Estimate Adequate Giant Platelets Few Immature Plt Fraction 0.0 Hypochromasia 1+ Sodium 144 Potassium 3.5 Chloride 108 H Carbon Dioxide 26 Anion Gap 13.5 BUN 4 L Creatinine 0.60 L GFR Calculation 149 BUN/Creatinine Ratio 6.00 Glucose 89 Calculated Osmolality 281.8 Calcium 8.7 Magnesium 1.8 Lipase 579.0 H <Fany Cleveland - Last Filed: 08/04/17 19:34> Cardiology - PN: Subj Interval history: I have personally interviewed and evaluated the patient, reviewed the chart and discussed medical decision-making with Practitioner Lucita. I have read this note and agree with her documentation here in. Exam (Progress Note) - Constitutional Vitals: Period Temp Pulse Resp BP Sys/Denny Pulse Ox Last 24 Hr 98.6 F-99.9 F 71-90 18-20 110-165/56-72 90-97 Result/EKG - Labs CBC & BMP: 08/04/17 03:32 08/04/17 03:32 Labs: Laboratory Results - last 24 hr 08/04/17 08/04/17 08/04/17 03:32 03:32 03:32 WBC 6.1 RBC 3.61 L Hgb 11.8 L Hct 35.0 L MCV 97.0 MCH 33 MCHC 33.7 RDW 13.7 Plt Count 274 MPV 10.0 Neut % (Auto) 61.8 Lymph % (Auto) 19.0 L [place] % (Auto) 12.5 Eos % (Auto) 5.7 Baso % (Auto) 0.5 Neut # (Auto) 3.8 Lymph # (Auto) 1.2 L [place] # (Auto) 0.8 Eos # (Auto) 0.4 Baso # (Auto) 0.0 Immature Gran % 0.5 Nucleated RBC % 0.0 Immature Gran # 0.03 Nucleated RBCs # 0.00 Platelet Estimate Adequate Giant Platelets Few Immature Plt Fraction 0.0 Hypochromasia 1+ Sodium 144 Potassium 3.5 Chloride 108 H Carbon Dioxide 26 Anion Gap 13.5 BUN 4 L Creatinine 0.60 L GFR Calculation 149 BUN/Creatinine Ratio 6.00 Glucose 89 Calculated Osmolality 281.8 Calcium 8.7 Magnesium 1.8 Lipase 579.0 H
[2017-08-04] MEDS: TIMOLOL 0.25% OPH SOLN 5 ML BOTTLE BOTH EYES SCH ×2 (14:17→20:42)
--- NOTE | 2017-08-04 14:34 | Hospitalist Progress Note ---
Assessment and Plan (1) Pancreatitis, acute Status: Acute Assessment and plan: The patient continues therapy for acute pancreatitis. The patient is healing slowly. I am going to advance to soft diet today and anticipate discharge home tomorrow or Monday. Current Visit: Yes Qualifiers: Pancreatitis type: alcohol induced (2) Dermatitis, seborrheic Status: Chronic Assessment and plan: Add hydrocortisone cream and applied to face twice daily Current Visit: Yes (3) Dysphagia Status: Acute Current Visit: Yes Hospitalist: Subjective Interval history: Mr. Colunga is resting quietly in his room today. Seems like pain control is better. He has less shortness of breath and less tremulousness today. The patient complains of shaking of the belly and spells consistent with tremulousness. The patient requests soft diet. Appetite is getting better Exam - Constitutional Vitals: Period Temp Pulse Resp BP Sys/Denny Pulse Ox Last 24 Hr 98.6 F-99.9 F 71-90 18-20 125-165/62-72 90-99 General appearance: mild distress - Respiratory Respiratory exam: Present: clear to auscultation bilaterally - Cardiovascular Cardiovascular exam: Present: regular rate and rhythm - GI/Abdominal GI/Abdominal exam: Present: hypoactive bowel sounds Results - Labs CBC & BMP: 08/04/17 03:32 08/04/17 03:32 Lab Results: I have reviewed the past 24 hour labs
[2017-08-05] MEDS: LORazepam 2 MG/1 ML VIAL IM PRN ×6 (00:01→23:53)
[2017-08-05] MEDS: DEXTROSE 5% NACL 0.45% 1,000 ML IV SCH ×4 (00:35→21:13)
[2017-08-05 04:28] LABS: Basophils % 0.6 % (0.0-0.8); Eosinophils # 0.3 10*3/uL (0.0-0.87); Eosinophils % 5.5 % (0.00-10.9); Hematocrit 34.1 VOL% (42.0-52.0); Hemoglobin 11.7 GM/DL (14.0-18.0); Immature Granulocytes % 0.4 %; Immature Granulocytes Absolute 0.02 #; Lymphocytes # 1.4 10*3/uL (1.4-4.0); Lymphocytes % 27.2 % (21.2-54.2); Mean Corpuscular HGB Conc 34.3 GM/DL (32-36); Mean Corpuscular Hemoglobin 33 PG (27-34); Mean Corpuscular Volume 95.5 FL (87-102); Mean Platelet Volume 9.7 FL (9.6-12.0); Monocytes # 0.7 10*3/uL (0.11-0.8); Monocytes % 14.2 % (1.7-12.7); Neutrophils # 2.6 10*3/uL (1.4-7.4); Neutrophils % 52.1 % (38.7-73.9); Platelet Count 299 T/CUMM (130-400); Red Blood Count 3.57 MC/CUMM (3.8-5.5); Red Cell Distribution Width 13.5 % (9.3-17.3); White Blood Count 5.1 T/CUMM (4-12)
[2017-08-05] MEDS: HYDROmorphone 2 MG/1 ML VIAL IM PRN ×6 (04:41→23:52)
[2017-08-05 04:58] LABS: Calcium 8.9 MG/DL (8.5-10.1); Magnesium 1.7 MG/DL (1.8-2.4); Potassium 3.2 MMOL/L (3.5-5.1)
[2017-08-05 05:29] LABS: Eosinophils 7 % (0-10); Lymphocytes 27 % (20-55); Total Cells Counted 100
[2017-08-05 05:30] LABS: Hypochromasia 2+; Platelet Estimate Normal; Segmented Neutrophils 55 % (50-85)
[2017-08-05] MEDS: THIAMINE 100 MG TABLET PO SCH (08:59)
[2017-08-05] MEDS: CALCIUM CARBONATE CHEW 500 MG TABLET PO SCH ×2 (08:59→21:20)
[2017-08-05] MEDS: EZETIMIBE 10 MG TABLET PO SCH (08:59)
[2017-08-05] MEDS: LOSARTAN 50 MG TABLET PO SCH (08:59)
[2017-08-05] MEDS: MULTIVITAMIN (CENTRUM) TABLET PO SCH (08:59)
[2017-08-05] MEDS: NEBIVOLOL 10 MG TABLET PO SCH (08:59)
[2017-08-05] MEDS: FOLIC ACID 1 MG TABLET PO SCH (09:00)
[2017-08-05] MEDS: CIPROFLOXACIN 500 MG TABLET PO SCH ×2 (09:00→21:20)
[2017-08-05] MEDS: TAMSULOSIN 0.4 MG CAPSULE PO SCH ×2 (09:00→21:20)
[2017-08-05] MEDS: ASCORBIC ACID 500 MG TABLET PO SCH ×2 (09:00→21:19)
[2017-08-05] MEDS: DILTIAZEM CD 180 MG CAPSULE PO SCH ×2 (09:01→21:19)
[2017-08-05] MEDS: HYDROCORTISONE 1% CREAM 28 GM TUBE TOP SCH ×2 (09:09→21:26)
[2017-08-05] MEDS: PANTOPRAZOLE 40 MG VIAL IV SCH ×2 (09:09→21:26)
--- NOTE | 2017-08-05 10:16 | Cardiology Progress Note ---
Assessment and Plan (1) Atypical chest pain Status: Resolved Current Visit: No (2) Dyslipidemia Status: Chronic Current Visit: No (3) Atrial fibrillation with RVR Status: Resolved Current Visit: Yes (4) Alcohol abuse Status: Chronic Current Visit: Yes (5) Hypomagnesemia Status: Acute Current Visit: Yes (6) Hypokalemia Status: Acute Current Visit: Yes (7) Noncompliance Status: Chronic Current Visit: Yes (8) Pancreatitis, acute Status: Acute Current Visit: Yes Qualifiers: Pancreatitis type: alcohol induced (9) Chronic pain Status: Acute Current Visit: Yes Qualifiers: Chronic pain type: chronic pain syndrome Qualified Code(s): G89.4 - Chronic pain syndrome (10) Hypertension Status: Chronic Current Visit: Yes Cardiology - PN: Subj Interval history: 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 Condon, 62WM, with risk factors significant for hypertension, dyslipidemia, noncompliance. History of atrial fibrillation, alcohol abuse. Admitted July 26, 2017 for pancreatitis. He was found to be in atrial fibrillation with rapid ventricular response. Cardiology was consulted for management of his atrial fibrillation. With medication adjustments, atrial fibrillation came under good control and has been in normal sinus rhythm for several days. He is maintained on Aspirin and therapeutic doses of Lovenox. At discharge, patient may need anticoagulation for 1 month. If he remains in sinus rhythm this can likely be stopped after 1 month. He will need an event monitor for 1 month after discharge as well to verify he is having no paroxysms of atrial fibrillation. AUGUST 05, 2017: Patient is followed for stable chronic conditions to include dyslipidemia, hypertension. He is also followed for acute conditions including atrial fibrillation with rapid ventricular response, acute pancreatitis, hypokalemia. He is denying chest pain today. No significant shortness of breath. He is complaining of back pain which is somewhat chronic for him but is now exacerbated. He continues to have his skin rash which is bothersome to him. He continues to have some abdominal discomfort. IMPRESSION/PLAN: 1. ATRIAL FIBRILLATION W/ RVR -currently in normal sinus rhythm. Continue beta tong, calcium channel tong. He is currently taking aspirin and therapeutic doses of Lovenox for stroke prevention. Will document his normal sinus rhythm each morning with an EKG. He has previously been a noncompliant patient. If possible, will discharge patient on an anticoagulant for 30 days and then discontinue if we can document he has remained in normal sinus rhythm. His noncompliance, alcoholism presents a challenge to his long-term use of anticoagulant. Will need a 30 day event monitor at discharge if possible. Patient has failed to follow-up in clinic and we will reinforce the importance of follow-up outpatient in order to better manage his conditions. 2. DYSLIPIDEMIA - avoiding statins due to his transaminitis. Continue Zetia. 3. ALCOHOL ABUSE - Chronic alcohol use, now pancreatitis and DTs. Continue treatment for DTs. Reinforced the merits of alcohol cessation 4. HYPOMAGNESEMIA - currently within normal limits. Will continue to monitor daily. Replace accordingly. 5. HYPOKALEMIA - normalized today and continues to receive potassium protocol daily. Continue to monitor daily. 6. ACUTE PANCREATITIS - most likely alcohol-related. Improving. 7. NONCOMPLIANCE - greater than 5 minutes was spent today discussing the merits of compliance. 8. DELIRIUM TREMENS - continue current treatment for management of this condition. 9. ATOPIC DERMATITIS -continue current plan of care. Exam (Progress Note) - Constitutional Vitals: Period Temp Pulse Resp BP Sys/Denny Pulse Ox Last 24 Hr 98.5 F-99.6 F 67-85 18-20 110-133/56-68 90-97 Exam: General appearance: Over weight, uncomfortable but no acute distress - Head Head exam: Present: normal inspection, normocephalic, atraumatic. Absent: hematoma, laceration - Eye Eye exam: Present: EOMI. Absent: conjunctival injection, nystagmus, periorbital swelling, scleral icterus, laceration to eyelids Pupils: Present: PERRL. Absent: constricted, dilated, fixed, irregular, unequal - ENT ENT exam: Present: normal exam, normal external ear exam - Neck Neck exam: Present: normal inspection. Absent: lymphadenopathy, meningismus, tenderness, thyromegaly - Respiratory Respiratory exam: Present: clear to auscultation bilaterally. Absent: accessory muscle use, chest wall tenderness - Cardiovascular Cardiovascular exam: Present: regular rate and rhythm. Absent: carotid bruit, gallop, JVD, rubs - GI/Abdominal GI/Abdominal exam: Present: normal bowel sounds, soft protuberant, mild tenderness. Absent: firm, guarding, hernia, mass, rebound. - Extremities Exam Extremities exam: Present: normal inspection, normal capillary refill. Absent: calf tenderness, edema - Back Exam Back exam: Present: normal inspection. Absent: muscle spasm, vertebral tenderness - Neurological Exam Neurological exam: Present: alert, oriented X3, grossly intact without resting or intention tremor - Psychiatric Psychiatric exam: Present: normal affect, normal mood - Skin Skin exam: Present: He has erythema and dryness associated with his chronic skin condition on his face and extremities, warm, dry, intact. Absent: cyanosis , diaphoretic, urticaria Result/EKG - Labs CBC & BMP: 08/05/17 04:00 08/05/17 04:00 Lab Results: I have reviewed the past 24 hour labs Labs: Laboratory Results - last 24 hr 08/05/17 08/05/17 04:00 04:00 WBC 5.1 RBC 3.57 L Hgb 11.7 L Hct 34.1 L MCV 95.5 MCH 33 MCHC 34.3 RDW 13.5 Plt Count 299 MPV 9.7 Neut % (Auto) 52.1 Lymph % (Auto) 27.2 [place] % (Auto) 14.2 H Eos % (Auto) 5.5 Baso % (Auto) 0.6 Neut # (Auto) 2.6 Lymph # (Auto) 1.4 [place] # (Auto) 0.7 Eos # (Auto) 0.3 Baso # (Auto) 0.0 Total Counted 100 Immature Gran % 0.4 Nucleated RBC % 0.0 Immature Gran # 0.02 Segmented Neutrophils 55 Lymphocytes 27 Monocytes 11 Eosinophils 7 Nucleated RBCs # 0.00 Platelet Estimate Normal Immature Plt Fraction 0.0 Hypochromasia 2+ Sodium 143 Potassium 3.2 L Chloride 106 Carbon Dioxide 29 Anion Gap 11.2 BUN 6 L Creatinine 0.70 GFR Calculation 140 BUN/Creatinine Ratio 8.00 Glucose 104 Calculated Osmolality 282.0 Calcium 8.9 Magnesium 1.7 L
--- NOTE | 2017-08-05 12:49 | Urology Progress Note ---
Assessment and Plan (1) Urethral stricture Status: Acute Assessment and plan: We will have to dilate him to place a catheter. Current Visit: Yes (2) Urinary retention Status: Acute Current Visit: Yes Urology - PN: Subj Interval history: Patient is stable. Still has a little dysuria. Voiding better. Exam - Constitutional Vitals: Period Temp Pulse Resp BP Sys/Denny Pulse Ox Last 24 Hr 98.5 F-99.6 F 67-85 18-20 110-133/56-68 92-97 Results - Labs CBC & BMP: 08/05/17 04:00 08/05/17 04:00
[2017-08-05] MEDS: ENOXAPARIN 100 MG/ML SYRINGE SUBCUT SCH ×2 (13:24→21:20)
[2017-08-05] MEDS: TIMOLOL 0.25% OPH SOLN 5 ML BOTTLE BOTH EYES SCH ×2 (13:26→21:26)
[2017-08-05] MEDS: ASPIRIN EC 81 MG TABLET PO SCH (13:33)
--- NOTE | 2017-08-05 14:08 | Hospitalist Progress Note ---
Assessment and Plan (1) Pancreatitis, acute Status: Acute Assessment and plan: The patient continues therapy for acute pancreatitis. The patient is healing slowly. I am going to advance to soft diet today and anticipate discharge home Monday. Current Visit: Yes Qualifiers: Pancreatitis type: alcohol induced (2) Dermatitis, seborrheic Status: Chronic Assessment and plan: Add hydrocortisone cream and applied to face twice daily Current Visit: Yes (3) Dysphagia Status: Acute Current Visit: Yes Hospitalist: Subjective Interval history: The patient has no new complaints. He tolerated starting soft diet. Chest clear without complaint of shortness of breath. Exam - Constitutional Vitals: Period Temp Pulse Resp BP Sys/Denny Pulse Ox Last 24 Hr 98.5 F-99.6 F 67-85 18-20 110-133/56-68 92-97 General appearance: no acute distress - Respiratory Respiratory exam: Present: decreased breath sounds - Cardiovascular Cardiovascular exam: Present: regular rate and rhythm - GI/Abdominal GI/Abdominal exam: Present: normal bowel sounds Results - Labs CBC & BMP: 08/05/17 04:00 08/05/17 04:00 Lab Results: I have reviewed the past 24 hour labs
[2017-08-06] MEDS: DEXTROSE 5% NACL 0.45% 1,000 ML IV SCH (02:29)
[2017-08-06] MEDS: LORazepam 2 MG/1 ML VIAL IM PRN ×2 (04:37→08:41)
[2017-08-06] MEDS: HYDROmorphone 2 MG/1 ML VIAL IM PRN ×2 (04:40→08:42)
[2017-08-06] MEDS: THIAMINE 100 MG TABLET PO SCH (08:29)
[2017-08-06] MEDS: NEBIVOLOL 10 MG TABLET PO SCH (08:29)
[2017-08-06] MEDS: EZETIMIBE 10 MG TABLET PO SCH (08:30)
[2017-08-06] MEDS: LOSARTAN 50 MG TABLET PO SCH (08:30)
[2017-08-06] MEDS: MULTIVITAMIN (CENTRUM) TABLET PO SCH (08:30)
[2017-08-06] MEDS: FOLIC ACID 1 MG TABLET PO SCH (08:30)
[2017-08-06] MEDS: CALCIUM CARBONATE CHEW 500 MG TABLET PO SCH (08:30)
[2017-08-06] MEDS: ASCORBIC ACID 500 MG TABLET PO SCH (08:30)
[2017-08-06] MEDS: ASPIRIN EC 81 MG TABLET PO SCH (08:30)
[2017-08-06] MEDS: CIPROFLOXACIN 500 MG TABLET PO SCH (08:30)
[2017-08-06] MEDS: TAMSULOSIN 0.4 MG CAPSULE PO SCH (08:31)
[2017-08-06] MEDS: DILTIAZEM CD 180 MG CAPSULE PO SCH (08:32)
[2017-08-06] MEDS: ENOXAPARIN 100 MG/ML SYRINGE SUBCUT SCH (08:41)
[2017-08-06] MEDS: PANTOPRAZOLE 40 MG VIAL IV SCH (08:44)
--- NOTE | 2017-08-06 10:17 | Discharge Summary ---
Hospital Course - Hospital Course Hospital Course: The patient was admitted to the hospital with acute alcoholic pancreatitis. The patient has chronic pain and had been under their pain management physician receiving OxyContin and Percocet. The patient's prescriptions were not refilled in mid-June and the patient began drinking a great deal of alcohol to try to assuage his discomfort. The patient developed pancreatitis and came to the hospital. The patient has been treated for pancreatitis with bowel rest and gradual transition to liquid and now soft mechanical low-fat diet. The patient is improving his strength and is now rational. The patient did have withdrawal phenomenon but these are mostly extinguished. The patient is safe for discharge home and will follow up with his usual primary care physician. I am going to give 30 pills supply of Percocet at the time of discharge to help with the patient's abdominal discomfort. The patient will follow up with his usual pain management physician at discharge. At the time of discharge, chest is clear and abdomen soft but tender. Heart has regular rate and rhythm and sinus rhythm on cardiac monitoring. Patient medications were reconciled upon admission, and again at the time of discharge. The patient was screened for tobacco use and found to be a occasional smoker. The patient was given 4 minutes of tobacco avoidance education. The patient's medical decsion maker is themself, and when asked, they asked to be Full code. Discharge Time was 34 minutes, including final examination, evaluation and planning, education, reconciliation of medications, writing prescriptions, coordinating care with case management rn, and preparing discharge documentation. - Time spent with patient Time with patient DS: Greater than 30 minutes Diagnosis - Discharge Diagnosis (1) Pancreatitis, acute Status: Acute (2) Dermatitis, seborrheic Status: Chronic (3) Dysphagia Status: Chronic Specialty Discharge - Follow Up or Referrals Discharge Plan - Discharge Data Disposition: Disch To Home/Self Care Condition at Discharge: Stable Discharge Diet: low fat, low cholesterol Activity: resume usual activities as tolerated - Discharge Medications New Losartan [Cozaar] 50 mg PO DAILY #30 tablet Multivitamin (Centrum) [Centrum Tab] 1 tablet PO DAILY #30 tablet Oxycodone HCl/Acetaminophen [Oxycodone-Acetaminophen 10-325] 1 each PO Q8HR PRN #30 tablet PRN Reason: Pain Moderate (4-7) Tamsulosin [Flomax] 0.4 mg PO DAILY #30 capsule Folic Acid Tab 1 mg PO DAILY #30 tablet Continue Timolol 0.25% Oph Joselyn [Timoptic 0.25%] 1 drop BOTH EYES BID Temazepam 30 mg PO BEDTIME Aspirin EC Tab 81 mg PO DAILY tablet Mometasone Furoate [Mometasone 0.1% Oint] 1 applicator TOP BID PRN PRN Reason: Rash Ezetimibe [Zetia] 10 mg PO DAILY Carvedilol 6.25 mg PO BID No Action Oxycodone HCl [Oxycodone HCl] 10 mg PO QID PRN PRN Reason: Pain - Follow Up or Referral - Forms/Instructions Instructions: Pancreatitis (DC), Abuse of Alcohol (DC) Exam - Constitutional Vitals: Period Temp Pulse Resp BP Sys/Denny Pulse Ox Last 24 Hr 96.8 F-99.7 F 72-81 18-20 109-164/59-74 95-99 Discharge Results Procedures and tests throughout hospitalization: Pending Orders 08/04/17 14:38 C. Diff Toxins A & B Routine DS: Provider Date of admission: 07/26/17 14:41 Primary care physician: Will Miramontes DO Attending physician on admission: Hilda Jefferson MD Consults: 07/26/17 16:05 Consult to Physician [CONS] Routine Comment: afib Consulting Provider: Cardiology - [facility] Person Notified: Dr. Wiggins Date Notified: 07/26/17 Time Notified: 17:44 07/27/17 11:06 Consult to Physician [CONS] Routine Comment: Patient with chronic uncontrolled pain Consulting Provider: Karlie Garcia Consulting Provider Notified: Yes When should Consulting Provider be notified: Now Consult to Specialist Group: Pain Management Person Notified: CLARICE Date Notified: 07/27/17 Time Notified: 11:25 07/28/17 09:27 Consult to Physician [CONS] Routine Comment: unable to void or pass catheter Consulting Provider: Jamie Cisneros Consulting Provider Notified: Yes Consult to Specialist Group: Urology When should Consulting Provider be notified: Now Person Notified: KERRY Date Notified: 07/28/17 Time Notified: 09:45 08/02/17 13:38 Consult to Anesthesiology [CONS] Routine Consulting Provider: Reason for Anesthesiology: Pre-op Clearance 08/06/17 08:35 Consult to Case Mgmt/Social Srvs [CONS] Routine Reason for Case Mgmt/Social Srvs: Discharge Planning Consult Comment: Kath Palomino Discharging clinician: Michael Fisher MD
[2017-08-06] MEDS: TIMOLOL 0.25% OPH SOLN 5 ML BOTTLE BOTH EYES SCH (11:09)
[2017-08-06] MEDS: HYDROCORTISONE 1% CREAM 28 GM TUBE TOP SCH (11:09)
[2017-08-06 13:53] VITALS: BP 131/74
== END 2017-08-06 12:15 | disposition home or self-care (01) | DRG 308 ==
LOC: EDUNIT# → EDBD → N.ED 12:15 → N.EDINP 14:41 → SUATTDRO 14:41 → N.EDINP 15:40 → N.ICU 16:28 → N.4E 07-31 15:21
PROVIDERS: ADMIT Hospitalist; ATTEND Internal Medicine

== ENCOUNTER 2017-08-29 06:03 | Inpatient (IN) ==
[2017-08-29] MEDS ORDERED: ONDANSETRON 4 MG/2 ML VIAL IV STA ×2 (06:20→07:55)
[2017-08-29] MEDS ORDERED: SODIUM CHLORIDE 0.9% 1,000 ML IV STA (06:20)
[2017-08-29] MEDS ORDERED: ONDANSETRON 4 MG/2 ML VIAL ONE ×3 (06:22→07:52)
[2017-08-29 06:31] LABS: Basophils # 0.1 10*3/uL (0.0-0.2); Basophils % 0.6 % (0.0-0.8); Eosinophils # 0.7 10*3/uL (0.0-0.87); Eosinophils % 6.4 % (0.00-10.9); Hematocrit 41.5 VOL% (42.0-52.0); Hemoglobin 14.3 GM/DL (14.0-18.0); Immature Granulocytes % 0.4 %; Immature Granulocytes Absolute 0.04 #; Lymphocytes # 2.9 10*3/uL (1.4-4.0); Lymphocytes % 26.9 % (21.2-54.2); Mean Corpuscular HGB Conc 34.5 GM/DL (32-36); Mean Corpuscular Hemoglobin 32 PG (27-34); Mean Corpuscular Volume 93.5 FL (87-102); Mean Platelet Volume 9.5 FL (9.6-12.0); Monocytes # 0.7 10*3/uL (0.11-0.8); Monocytes % 6.7 % (1.7-12.7); Neutrophils # 6.4 10*3/uL (1.4-7.4); Platelet Count 277 T/CUMM (130-400); Red Blood Count 4.44 MC/CUMM (3.8-5.5); Red Cell Distribution Width 13.7 % (9.3-17.3); White Blood Count 10.8 T/CUMM (4-12)
[2017-08-29] MEDS ORDERED: THIAMINE 200 MG/2 ML VIAL IM STA (06:44)
[2017-08-29 06:59] LABS: Albumin 3.5 G/DL (3.4-5.0); Bilirubin,Total 0.4 MG/DL (0.2-1.0); Calcium 9.3 MG/DL (8.5-10.1); Osmolality,Calculated 280.4 MOS/KG (273-304); Potassium 4.5 MMOL/L (3.5-5.1); Total Protein 7.4 G/DL (6.4-8.3)
[2017-08-29 09:44] LABS: Troponin I Only < 0.015 NG/ML (0.00-0.045)
[2017-08-29] MEDS ORDERED: ONDANSETRON 4 MG/2 ML VIAL IV PRN (10:57)
[2017-08-29] MEDS ORDERED: ACETAMINOPHEN 325 MG TABLET PO PRN (10:57)
[2017-08-29] MEDS: MORPHINE 2 MG/1 ML SYRINGE IV PRN ×4 (11:10→23:14)
[2017-08-29] MEDS: PANTOPRAZOLE 40 MG VIAL IV SCH (11:18)
[2017-08-29] MEDS: chlordiazePOXIDE 25 MG CAPSULE PO PRN ×2 (11:18→22:13)
[2017-08-29] MEDS: MULTIVITAMIN (CENTRUM) TABLET PO SCH (11:18)
[2017-08-29] MEDS: CARVEDILOL 6.25 MG TABLET PO SCH ×2 (11:18→20:57)
[2017-08-29] MEDS: DEXTROSE 5% NACL 0.9% 1,000 ML IV SCH ×2 (11:22→20:57)
[2017-08-29 12:05] LABS: PT Patient Result 10.1 SECS; Partial Thromboplastin Time 24.2 SECS (0-40)
[2017-08-29 13:16] LABS: Hepatitis A Ab IgM Quant 0.09 Index; Hepatitis A Ab IgM Result Negative (Negative); Hepatitis B Core IgM Quant 0.13 Index; Hepatitis B Core IgM Result Negative (Negative); Hepatitis B Surface Ag Quant < 0.10 Index; Hepatitis B Surface Ag Result Negative (Negative); Hepatitis C Virus Ab Quant 0.12 Index; Hepatitis C Virus Ab Result Negative (Negative)
[2017-08-29 14:44] LABS: Apearance,Urine CLOUDY (Clear); Bacteria,Urine Occasional /HPF (Few); Bilirubin,Urine Negative (Negative); Blood, Urine Small mg/dL (Negative); Glucose,Urine (UA) Negative (Negative); Ketones,Urine Negative (Negative); Nitrite,Urine Positive (Negative); Protein,Urine 30 MG/DL; Urine Color Yellow (Yellow); Urine Urobilinogen < 2.0 EU/DL (0.2-1.0); WBC,Urine 3069 /HPF (0-6)
[2017-08-30] MEDS: DEXTROSE 5% NACL 0.9% 1,000 ML IV SCH ×3 (02:20→18:32)
[2017-08-30 06:53] LABS: Basophils % 0.2 % (0.0-0.8); Eosinophils % 0.1 % (0.00-10.9); Hematocrit 37.4 VOL% (42.0-52.0); Immature Granulocytes % 0.4 %; Immature Granulocytes Absolute 0.06 #; Lymphocytes # 1.3 10*3/uL (1.4-4.0); Lymphocytes % 9.2 % (21.2-54.2); Mean Corpuscular HGB Conc 34.8 GM/DL (32-36); Mean Corpuscular Hemoglobin 32 PG (27-34); Mean Corpuscular Volume 92.8 FL (87-102); Mean Platelet Volume 9.8 FL (9.6-12.0); Monocytes # 0.7 10*3/uL (0.11-0.8); Neutrophils # 12.2 10*3/uL (1.4-7.4); Neutrophils % 85.1 % (38.7-73.9); Platelet Count 196 T/CUMM (130-400); Red Blood Count 4.03 MC/CUMM (3.8-5.5); Red Cell Distribution Width 13.6 % (9.3-17.3); White Blood Count 14.3 T/CUMM (4-12)
[2017-08-30 07:35] LABS: Bilirubin,Total 1.7 MG/DL (0.2-1.0); Calcium 8.7 MG/DL (8.5-10.1); Magnesium 1.4 MG/DL (1.8-2.4); Osmolality,Calculated 279.5 MOS/KG (273-304); Potassium 3.8 MMOL/L (3.5-5.1); Total Protein 6.5 G/DL (6.4-8.3)
[2017-08-30] MEDS: chlordiazePOXIDE 25 MG CAPSULE PO PRN (09:55)
[2017-08-30] MEDS: ASPIRIN EC 81 MG TABLET PO SCH (10:02)
[2017-08-30] MEDS: MORPHINE 2 MG/1 ML SYRINGE IV PRN ×4 (10:03→22:18)
[2017-08-30] MEDS: CARVEDILOL 6.25 MG TABLET PO SCH ×2 (10:03→20:55)
[2017-08-30] MEDS: FOLIC ACID 1 MG TABLET PO SCH (10:03)
[2017-08-30] MEDS: PANTOPRAZOLE 40 MG VIAL IV SCH (10:03)
[2017-08-30] MEDS: MULTIVITAMIN (CENTRUM) TABLET PO SCH (10:03)
[2017-08-30] MEDS: THIAMINE 200 MG/2 ML VIAL IV SCH (10:03)
[2017-08-30] MEDS ORDERED: TIMOLOL 0.25% OPH SOLN 5 ML BOTTLE BOTH EYES SCH (10:04)
[2017-08-30] MEDS: LORazepam 2 MG/1 ML VIAL IV SCH ×4 (11:01→22:16)
[2017-08-30] MEDS: VANCOMYCIN INJ 1,500 MG in SODIUM CHLORIDE 0.9% 500 ML IV SCH ×2 (11:01→22:23)
[2017-08-30] MEDS ORDERED: TISSUE ADHESIVE 1 EACH APPLICATOR TOP ONE (12:30)
[2017-08-30] MEDS ORDERED: LIDOCAINE 1%/EPI INJ 20 ML VIAL ONE (12:31)
[2017-08-30] MEDS ORDERED: BUPIVACAINE 0.25% 50 ML VIAL ONE (12:31)
[2017-08-30] MEDS ORDERED: MAGNESIUM SULF RIDER 4 GM in PREMIX 1 EACH IV PRN (14:08)
[2017-08-31] MEDS: MORPHINE 2 MG/1 ML SYRINGE IV PRN ×5 (01:46→23:27)
[2017-08-31] MEDS: MAGNESIUM SULF RIDER 2 GM in PREMIX 1 EACH IV PRN ×2 (01:49→03:37)
[2017-08-31] MEDS: LORazepam 2 MG/1 ML VIAL IV SCH ×4 (04:24→23:33)
[2017-08-31 06:28] LABS: Basophils % 0.2 % (0.0-0.8); Eosinophils # 0.2 10*3/uL (0.0-0.87); Hematocrit 37.5 VOL% (42.0-52.0); Hemoglobin 12.6 GM/DL (14.0-18.0); Immature Granulocytes % 0.8 %; Immature Granulocytes Absolute 0.12 #; Lymphocytes # 1.5 10*3/uL (1.4-4.0); Lymphocytes % 9.3 % (21.2-54.2); Mean Corpuscular HGB Conc 33.6 GM/DL (32-36); Mean Corpuscular Hemoglobin 32 PG (27-34); Mean Corpuscular Volume 95.2 FL (87-102); Mean Platelet Volume 9.6 FL (9.6-12.0); Monocytes # 0.7 10*3/uL (0.11-0.8); Monocytes % 4.6 % (1.7-12.7); Neutrophils # 13.3 10*3/uL (1.4-7.4); Neutrophils % 84.1 % (38.7-73.9); Platelet Count 171 T/CUMM (130-400); Red Blood Count 3.94 MC/CUMM (3.8-5.5); Red Cell Distribution Width 13.4 % (9.3-17.3); White Blood Count 15.8 T/CUMM (4-12)
[2017-08-31 07:06] LABS: Albumin 2.6 G/DL (3.4-5.0); Bilirubin,Total 0.8 MG/DL (0.2-1.0); Calcium 8.7 MG/DL (8.5-10.1); Osmolality,Calculated 278.5 MOS/KG (273-304); Total Protein 6.2 G/DL (6.4-8.3)
[2017-08-31] MEDS: FOLIC ACID 1 MG TABLET PO SCH (08:04)
[2017-08-31] MEDS: CARVEDILOL 6.25 MG TABLET PO SCH ×2 (08:04→20:57)
[2017-08-31] MEDS: ASPIRIN EC 81 MG TABLET PO SCH (08:04)
[2017-08-31] MEDS: MULTIVITAMIN (CENTRUM) TABLET PO SCH (08:04)
[2017-08-31] MEDS: THIAMINE 200 MG/2 ML VIAL IV SCH (09:31)
[2017-08-31] MEDS: PANTOPRAZOLE 40 MG VIAL IV SCH (09:32)
[2017-08-31] MEDS: DEXTROSE 5% NACL 0.9% 1,000 ML IV SCH ×2 (10:03→23:06)
[2017-08-31] MEDS ORDERED: LIDOCAINE 1%/EPI INJ 20 ML VIAL ONE (11:37)
[2017-08-31] MEDS ORDERED: BUPIVACAINE 0.25% 50 ML VIAL ONE (11:37)
[2017-08-31] MEDS ORDERED: TISSUE ADHESIVE 1 EACH APPLICATOR TOP ONE (11:37)
[2017-08-31] MEDS: VANCOMYCIN INJ 1,500 MG in SODIUM CHLORIDE 0.9% 500 ML IV SCH ×2 (12:13→23:30)
[2017-08-31] MEDS ORDERED: fentaNYL 100 MCG/2 ML VIAL ONE (14:27)
[2017-08-31] MEDS ORDERED: SEVOFLURANE 1 UNIT/15 MINUTE INH ONE (14:27)
[2017-08-31] MEDS ORDERED: HYDROmorphone 2 MG/1 ML VIAL ONE (14:27)
[2017-08-31] MEDS ORDERED: MIDAZOLAM 2 MG/2 ML VIAL ONE (14:27)
[2017-08-31] MEDS ORDERED: ONDANSETRON 4 MG/2 ML VIAL ONE (14:27)
[2017-08-31] MEDS ORDERED: PROPOFOL 200 MG/20 ML VIAL IV ONE (14:27)
[2017-08-31] MEDS ORDERED: KETOROLAC 30 MG/1 ML VIAL ONE (14:28)
[2017-08-31] MEDS ORDERED: ROCURONIUM 100 MG/10 ML VIAL IV ONE (14:28)
[2017-08-31] MEDS ORDERED: SUCCINYLCHOLINE 200 MG/10 ML VIAL ONE (14:28)
[2017-08-31 16:56] LABS: Hematocrit 35.2 VOL% (42.0-52.0)
[2017-09-01 02:58] LABS: Basophils % 0.2 % (0.0-0.8); Eosinophils # 0.1 10*3/uL (0.0-0.87); Eosinophils % 1.3 % (0.00-10.9); Hematocrit 33.3 VOL% (42.0-52.0); Hemoglobin 11.1 GM/DL (14.0-18.0); Immature Granulocytes % 0.4 %; Immature Granulocytes Absolute 0.04 #; Lymphocytes # 1.3 10*3/uL (1.4-4.0); Lymphocytes % 12.8 % (21.2-54.2); Mean Corpuscular HGB Conc 33.3 GM/DL (32-36); Mean Corpuscular Hemoglobin 32 PG (27-34); Mean Corpuscular Volume 97.1 FL (87-102); Mean Platelet Volume 9.5 FL (9.6-12.0); Monocytes # 0.7 10*3/uL (0.11-0.8); Monocytes % 7.1 % (1.7-12.7); Neutrophils # 7.7 10*3/uL (1.4-7.4); Neutrophils % 78.2 % (38.7-73.9); Platelet Count 133 T/CUMM (130-400); Red Blood Count 3.43 MC/CUMM (3.8-5.5); Red Cell Distribution Width 13.9 % (9.3-17.3); White Blood Count 9.9 T/CUMM (4-12)
[2017-09-01 03:24] LABS: Albumin 2.2 G/DL (3.4-5.0); Bilirubin,Total 0.6 MG/DL (0.2-1.0); Calcium 7.8 MG/DL (8.5-10.1); Osmolality,Calculated 286.1 MOS/KG (273-304); Potassium 4.5 MMOL/L (3.5-5.1); Total Protein 5.4 G/DL (6.4-8.3)
[2017-09-01] MEDS: LORazepam 2 MG/1 ML VIAL IV SCH ×4 (04:16→23:28)
[2017-09-01] MEDS: MORPHINE 2 MG/1 ML SYRINGE IV PRN ×4 (04:17→21:08)
[2017-09-01] MEDS: DEXTROSE 5% NACL 0.9% 1,000 ML IV SCH ×3 (04:18→12:59)
[2017-09-01 07:25] LABS: Hematocrit 31.9 VOL% (42.0-52.0); Hemoglobin 10.7 GM/DL (14.0-18.0)
[2017-09-01] MEDS: PANTOPRAZOLE 40 MG VIAL IV SCH (08:25)
[2017-09-01] MEDS: CARVEDILOL 6.25 MG TABLET PO SCH ×2 (08:25→21:07)
[2017-09-01] MEDS: ASPIRIN EC 81 MG TABLET PO SCH (08:25)
[2017-09-01] MEDS: MULTIVITAMIN (CENTRUM) TABLET PO SCH (08:25)
[2017-09-01] MEDS: FOLIC ACID 1 MG TABLET PO SCH (08:25)
[2017-09-01] MEDS: THIAMINE 200 MG/2 ML VIAL IV SCH (09:09)
[2017-09-01] MEDS: VANCOMYCIN INJ 1,500 MG in SODIUM CHLORIDE 0.9% 500 ML IV SCH (10:45)
[2017-09-01] MEDS ORDERED: oxyCODONE IR 5 MG TABLET PO PRN (17:00)
[2017-09-01] MEDS: NITROFURANTOIN MACROCRYSTALS 100 MG CAPSULE PO SCH (21:07)
[2017-09-01 22:22] LABS: Basophils % 0.2 % (0.0-0.8); Eosinophils # 0.3 10*3/uL (0.0-0.87); Eosinophils % 3.8 % (0.00-10.9); Hematocrit 31.6 VOL% (42.0-52.0); Hemoglobin 10.5 GM/DL (14.0-18.0); Immature Granulocytes % 0.6 %; Immature Granulocytes Absolute 0.05 #; Lymphocytes # 1.4 10*3/uL (1.4-4.0); Lymphocytes % 17.1 % (21.2-54.2); Mean Corpuscular HGB Conc 33.2 GM/DL (32-36); Mean Corpuscular Hemoglobin 32 PG (27-34); Mean Corpuscular Volume 96.6 FL (87-102); Mean Platelet Volume 9.6 FL (9.6-12.0); Monocytes # 0.7 10*3/uL (0.11-0.8); Monocytes % 8.8 % (1.7-12.7); Neutrophils # 5.7 10*3/uL (1.4-7.4); Neutrophils % 69.5 % (38.7-73.9); Platelet Count 157 T/CUMM (130-400); Red Blood Count 3.27 MC/CUMM (3.8-5.5); Red Cell Distribution Width 13.6 % (9.3-17.3); White Blood Count 8.1 T/CUMM (4-12)
[2017-09-02] MEDS: MORPHINE 2 MG/1 ML SYRINGE IV PRN ×3 (02:20→14:06)
[2017-09-02] MEDS: DEXTROSE 5% NACL 0.9% 1,000 ML IV SCH ×3 (03:25→12:59)
[2017-09-02] MEDS: LORazepam 2 MG/1 ML VIAL IV SCH ×3 (05:26→17:35)
[2017-09-02 06:00] LABS: Basophils % 0.3 % (0.0-0.8); Eosinophils # 0.3 10*3/uL (0.0-0.87); Eosinophils % 4.6 % (0.00-10.9); Hematocrit 31.1 VOL% (42.0-52.0); Hemoglobin 10.3 GM/DL (14.0-18.0); Immature Granulocytes % 0.7 %; Immature Granulocytes Absolute 0.05 #; Lymphocytes # 1.3 10*3/uL (1.4-4.0); Mean Corpuscular HGB Conc 33.1 GM/DL (32-36); Mean Corpuscular Hemoglobin 32 PG (27-34); Mean Corpuscular Volume 96.6 FL (87-102); Mean Platelet Volume 9.7 FL (9.6-12.0); Monocytes # 0.8 10*3/uL (0.11-0.8); Monocytes % 11.2 % (1.7-12.7); Neutrophils # 4.9 10*3/uL (1.4-7.4); Neutrophils % 66.2 % (38.7-73.9); Platelet Count 162 T/CUMM (130-400); Red Blood Count 3.22 MC/CUMM (3.8-5.5); Red Cell Distribution Width 13.5 % (9.3-17.3); White Blood Count 7.4 T/CUMM (4-12)
[2017-09-02 06:42] LABS: Calcium 7.7 MG/DL (8.5-10.1); Osmolality,Calculated 279.3 MOS/KG (273-304); Potassium 4.1 MMOL/L (3.5-5.1)
[2017-09-02] MEDS: MULTIVITAMIN (CENTRUM) TABLET PO SCH (09:05)
[2017-09-02] MEDS: ASPIRIN EC 81 MG TABLET PO SCH (09:05)
[2017-09-02] MEDS: FOLIC ACID 1 MG TABLET PO SCH (09:05)
[2017-09-02] MEDS: CARVEDILOL 6.25 MG TABLET PO SCH (09:05)
[2017-09-02] MEDS: NITROFURANTOIN MACROCRYSTALS 100 MG CAPSULE PO SCH ×3 (09:05→17:35)
[2017-09-02] MEDS: PANTOPRAZOLE 40 MG VIAL IV SCH (09:05)
[2017-09-02] MEDS: THIAMINE 200 MG/2 ML VIAL IV SCH (09:06)
[2017-09-02 16:54] VITALS: BP 128/56
== END 2017-09-02 18:06 | disposition home or self-care (01) | DRG 419 ==
LOC: EDBD → EDUNIT# → N.ED 06:03 → N.EDINP 10:03 → N.5E 10:57
PROVIDERS: ADMIT Surgery; ATTEND Surgery
PROC: LAPCHOL (2017-08-31 12:46)

== ENCOUNTER 2018-09-13 14:49 | Inpatient (IN) ==
[2018-09-13 15:17] LABS: Basophils % 0.5 % (0.0-0.8); Eosinophils # 0.2 10*3/uL (0.0-0.87); Eosinophils % 3.2 % (0.00-10.9); Hematocrit 44.1 VOL% (42.0-52.0); Hemoglobin 14.8 GM/DL (14.0-18.0); Immature Granulocytes % 0.4 %; Immature Granulocytes Absolute 0.03 #; Lymphocytes # 1.2 10*3/uL (1.4-4.0); Lymphocytes % 15.5 % (21.2-54.2); Mean Corpuscular HGB Conc 33.6 GM/DL (32-36); Mean Corpuscular Hemoglobin 32 PG (27-34); Mean Corpuscular Volume 94.2 FL (87-102); Mean Platelet Volume 9.5 FL (9.6-12.0); Monocytes # 0.8 10*3/uL (0.11-0.8); Monocytes % 10.5 % (1.7-12.7); Neutrophils # 5.2 10*3/uL (1.4-7.4); Neutrophils % 69.9 % (38.7-73.9); Platelet Count 154 T/CUMM (130-400); Red Blood Count 4.68 MC/CUMM (3.8-5.5); Red Cell Distribution Width 16.6 % (9.3-17.3); White Blood Count 7.5 T/CUMM (4-12)
[2018-09-13 15:41] LABS: Albumin 3.9 G/DL (3.4-5.0); Bilirubin,Total 0.4 MG/DL (0.2-1.0); Calcium 9.3 MG/DL (8.5-10.1); Osmolality,Calculated 280.3 MOS/KG (273-304); Potassium 3.3 MMOL/L (3.5-5.1); Total Protein 8.2 G/DL (6.4-8.3)
[2018-09-13] MEDS ORDERED: ALUM/MAG/SIMETH/LIDO VISC 1:1 30 ML BOTTLE PO STA (16:45)
[2018-09-13] MEDS ORDERED: ONDANSETRON 4 MG/2 ML VIAL IV STA (16:45)
[2018-09-13] MEDS ORDERED: HYDROmorphone 2 MG/1 ML VIAL IV STA (16:45)
[2018-09-13] MEDS ORDERED: SODIUM CHLORIDE 0.9% 500 ML IV STA (16:45)
[2018-09-13] MEDS ORDERED: PANTOPRAZOLE 40 MG VIAL IV STA (16:45)
[2018-09-13 17:09] LABS: Amylase 71 U/L (25-115)
[2018-09-13 18:01] LABS: Lactic Acid 3.9 MMOL/L (0.4-2.0)
[2018-09-13 18:15] LABS: Apearance,Urine CLOUDY (Clear); Bilirubin,Urine Negative (Negative); Blood, Urine Moderate mg/dL (Negative); Glucose,Urine (UA) Negative (Negative); Ketones,Urine Negative (Negative); Nitrite,Urine Negative (Negative); Protein,Urine 30 MG/DL; RBC,Urine 120 /HPF (0-4); Urine Color Yellow (Yellow); Urine Specific Gravity 1.008 (1.001-1.035); Urine Urobilinogen < 2.0 EU/DL (0.2-1.0); WBC,Urine 1264 /HPF (0-6)
[2018-09-13 18:23] LABS: Barbiturates Screen,Urine Negative (Negative); Benzodiazepines Screen,Urine Positive (Negative); Cannabinoid Screen,Urine Negative (Negative); Opiate Screen,Urine Negative (Negative); Phencyclidine Screen,Urine Negative (Negative)
[2018-09-13] MEDS ORDERED: LORazepam 2 MG/1 ML VIAL IM PRN (18:57)
[2018-09-13] MEDS ORDERED: ONDANSETRON 4 MG/2 ML VIAL IV PRN (19:12)
[2018-09-13 20:40] LABS: Lactic Acid 2.4 MMOL/L (0.4-2.0)
[2018-09-13] MEDS ORDERED: CARVEDILOL 6.25 MG TABLET PO SCH (21:00)
[2018-09-13] MEDS: MORPHINE 4 MG/1 ML VIAL IV PRN (22:07)
[2018-09-13] MEDS: TEMAZEPAM 15 MG CAPSULE PO SCH (22:07)
[2018-09-13] MEDS: EZETIMIBE 10 MG TABLET PO SCH (22:07)
[2018-09-13] MEDS: TIMOLOL 0.25% OPH SOLN 5 ML BOTTLE BOTH EYES SCH (22:07)
[2018-09-13] MEDS: SODIUM CHLOR 0.45% KCL 20 MEQ 20 MEQ/1,000 ML BAG IV SCH (22:42)
[2018-09-14] MEDS: MORPHINE 4 MG/1 ML VIAL IV PRN ×7 (02:04→21:57)
[2018-09-14] MEDS: POTASSIUM CHLORIDE 20 MEQ TABLET PO PRN ×3 (02:15→06:14)
[2018-09-14] MEDS ORDERED: LIDOCAINE 2% TOP JELLY 20 ML VIAL INTRAURETH ONE ×2 (07:31→08:30)
[2018-09-14] MEDS ORDERED: LORazepam 2 MG/1 ML VIAL ONE (08:48)
[2018-09-14] MEDS ORDERED: LORazepam 2 MG/1 ML VIAL IV ONE (08:56)
[2018-09-14 09:07] LABS: Apearance,Urine CLOUDY (Clear); Bilirubin,Urine Negative (Negative); Blood, Urine Moderate mg/dL (Negative); Glucose,Urine (UA) Negative (Negative); Ketones,Urine Negative (Negative); Mucus,Urine Occasional /LPF (Occasional); Nitrite,Urine Negative (Negative); Protein,Urine 100 MG/DL; RBC,Urine 145 /HPF (0-4); Squamous Epithelial Cell,Urine Occasional /HPF (0-10); Urine Color Amber (Yellow); Urine Specific Gravity 1.013 (1.001-1.035); WBC,Urine 2836 /HPF (0-6)
[2018-09-14] MEDS ORDERED: ZIPRASIDONE 20 MG/1 ML VIAL IM PRN (09:21)
[2018-09-14] MEDS: PANTOPRAZOLE 40 MG VIAL IV SCH (09:36)
[2018-09-14] MEDS: MUPIROCIN 2% OINT 22 GM TUBE TOP SCH (09:43)
[2018-09-14] MEDS: CARVEDILOL 12.5 MG TABLET PO SCH ×2 (09:43→20:14)
[2018-09-14] MEDS: MOMETASONE 0.1% CREAM 15 GM TUBE TOP SCH (09:43)
[2018-09-14] MEDS: CIPROFLOXACIN INJ 400 MG in PREMIX 1 EACH IV SCH ×2 (09:46→20:12)
[2018-09-14] MEDS: chlordiazePOXIDE 25 MG CAPSULE PO SCH ×2 (10:42→20:13)
[2018-09-14] MEDS ORDERED: SODIUM CHLORIDE 0.9% 1,000 ML IV SCH (12:00)
[2018-09-14] MEDS ORDERED: PROMETHAZINE 25 MG/1 ML VIAL IM PRN (13:29)
[2018-09-14] MEDS ORDERED: ONDANSETRON 4 MG/2 ML VIAL IV PRN ×2 (13:30)
[2018-09-14] MEDS: LORazepam 2 MG/1 ML VIAL IV PRN ×2 (13:58→21:57)
[2018-09-14] MEDS: SODIUM CHLOR 0.45% KCL 20 MEQ 20 MEQ/1,000 ML BAG IV SCH (17:19)
[2018-09-14] MEDS: EZETIMIBE 10 MG TABLET PO SCH (20:14)
[2018-09-14] MEDS: TEMAZEPAM 15 MG CAPSULE PO SCH (20:18)
[2018-09-15] MEDS: MORPHINE 4 MG/1 ML VIAL IV PRN ×5 (00:50→19:22)
[2018-09-15] MEDS: SODIUM CHLOR 0.45% KCL 20 MEQ 20 MEQ/1,000 ML BAG IV SCH ×2 (03:13→13:34)
[2018-09-15 06:03] LABS: Basophils % 0.4 % (0.0-0.8); Eosinophils # 0.2 10*3/uL (0.0-0.87); Eosinophils % 2.7 % (0.00-10.9); Hematocrit 36.3 VOL% (42.0-52.0); Hemoglobin 12.2 GM/DL (14.0-18.0); Immature Granulocytes % 0.9 %; Immature Granulocytes Absolute 0.06 #; Lymphocytes # 0.8 10*3/uL (1.4-4.0); Lymphocytes % 11.9 % (21.2-54.2); Mean Corpuscular HGB Conc 33.6 GM/DL (32-36); Mean Corpuscular Hemoglobin 32 PG (27-34); Mean Platelet Volume 9.9 FL (9.6-12.0); Monocytes # 0.4 10*3/uL (0.11-0.8); Monocytes % 6.5 % (1.7-12.7); Neutrophils # 5.2 10*3/uL (1.4-7.4); Neutrophils % 77.6 % (38.7-73.9); Platelet Count 110 T/CUMM (130-400); Red Blood Count 3.82 MC/CUMM (3.8-5.5); Red Cell Distribution Width 15.5 % (9.3-17.3); White Blood Count 6.7 T/CUMM (4-12)
[2018-09-15 06:18] LABS: Platelet Estimate Decreased; Polychromasia Few
[2018-09-15 06:25] LABS: Calcium 8.5 MG/DL (8.5-10.1); Osmolality,Calculated 269.1 MOS/KG (273-304); Potassium 3.8 MMOL/L (3.5-5.1)
[2018-09-15] MEDS: PANTOPRAZOLE 40 MG VIAL IV SCH (08:33)
[2018-09-15] MEDS: MUPIROCIN 2% OINT 22 GM TUBE TOP SCH (08:33)
[2018-09-15] MEDS: chlordiazePOXIDE 25 MG CAPSULE PO SCH ×2 (08:33→20:41)
[2018-09-15] MEDS: CARVEDILOL 12.5 MG TABLET PO SCH (08:34)
[2018-09-15] MEDS: CIPROFLOXACIN INJ 400 MG in PREMIX 1 EACH IV SCH ×2 (08:46→20:41)
[2018-09-15] MEDS: MOMETASONE 0.1% CREAM 15 GM TUBE TOP SCH (08:49)
[2018-09-15] MEDS ORDERED: MAGNESIUM SULF RIDER 4 GM in PREMIX 1 EACH IV PRN (09:41)
[2018-09-15] MEDS ORDERED: CARVEDILOL 25 MG TABLET PO SCH (11:00)
[2018-09-15] MEDS: MAGNESIUM SULF RIDER 2 GM in PREMIX 1 EACH IV PRN ×2 (11:44→13:45)
[2018-09-15] MEDS: LOSARTAN 50 MG TABLET PO SCH (12:56)
[2018-09-15] MEDS: VANCOMYCIN INJ 1,750 MG in SODIUM CHLORIDE 0.9% 500 ML IV SCH (17:25)
[2018-09-15] MEDS: EZETIMIBE 10 MG TABLET PO SCH (20:41)
[2018-09-15] MEDS: TEMAZEPAM 15 MG CAPSULE PO SCH (20:41)
[2018-09-16] MEDS: SODIUM CHLOR 0.45% KCL 20 MEQ 20 MEQ/1,000 ML BAG IV SCH (00:45)
[2018-09-16] MEDS: MORPHINE 4 MG/1 ML VIAL IV PRN ×8 (00:46→19:58)
[2018-09-16] MEDS: CIPROFLOXACIN INJ 400 MG in PREMIX 1 EACH IV SCH ×2 (08:44→20:00)
[2018-09-16] MEDS: chlordiazePOXIDE 25 MG CAPSULE PO SCH ×2 (08:45→20:01)
[2018-09-16] MEDS: LOSARTAN 50 MG TABLET PO SCH (08:45)
[2018-09-16] MEDS: MUPIROCIN 2% OINT 22 GM TUBE TOP SCH (08:45)
[2018-09-16] MEDS: PANTOPRAZOLE 40 MG VIAL IV SCH (08:45)
[2018-09-16] MEDS: MOMETASONE 0.1% CREAM 15 GM TUBE TOP SCH (08:49)
[2018-09-16] MEDS: MAGNESIUM CHLORIDE 64 MG TABLET PO SCH ×2 (10:15→20:01)
[2018-09-16] MEDS: VANCOMYCIN INJ 1,750 MG in SODIUM CHLORIDE 0.9% 500 ML IV SCH (10:16)
[2018-09-16] MEDS: AMPICILLIN INJ 2,000 MG in SODIUM CHLORIDE 0.9% 100 ML IV SCH ×2 (15:23→21:46)
[2018-09-16] MEDS: TIMOLOL 0.25% OPH SOLN 5 ML BOTTLE BOTH EYES SCH (20:01)
[2018-09-16] MEDS: TEMAZEPAM 15 MG CAPSULE PO SCH (20:01)
[2018-09-16] MEDS: EZETIMIBE 10 MG TABLET PO SCH (20:01)
[2018-09-17] MEDS: MORPHINE 4 MG/1 ML VIAL IV PRN ×3 (00:30→09:04)
[2018-09-17] MEDS: AMPICILLIN INJ 2,000 MG in SODIUM CHLORIDE 0.9% 100 ML IV SCH ×3 (03:33→10:08)
[2018-09-17] MEDS: MUPIROCIN 2% OINT 22 GM TUBE TOP SCH (08:57)
[2018-09-17] MEDS: MAGNESIUM CHLORIDE 64 MG TABLET PO SCH (09:01)
[2018-09-17] MEDS: PANTOPRAZOLE 40 MG VIAL IV SCH (09:02)
[2018-09-17] MEDS: LOSARTAN 50 MG TABLET PO SCH (09:02)
[2018-09-17] MEDS: MOMETASONE 0.1% CREAM 15 GM TUBE TOP SCH (09:04)
[2018-09-17] MEDS: chlordiazePOXIDE 25 MG CAPSULE PO SCH (09:08)
[2018-09-17] MEDS: CIPROFLOXACIN INJ 400 MG in PREMIX 1 EACH IV SCH (10:08)
[2018-09-17 12:38] VITALS: BP 138/91
== END 2018-09-17 13:25 | disposition home or self-care (01) | DRG 697 ==
LOC: N.ED 14:49 → N.EDINP 18:53 → N.5E 20:41
PROVIDERS: ADMIT Internal Medicine; ATTEND Internal Medicine

== ENCOUNTER 2018-10-14 12:32 | Inpatient (IN) ==
[2018-10-14] MEDS ORDERED: THIAMINE INJ 100 MG, FOLIC ACID INJ 1 MG, MAGNESIUM SULF INJ 2 GM, MULTIVITAMIN INJ 10 ... IV ONE (13:14)
[2018-10-14 13:55] LABS: Eosinophils # 0.2 10*3/uL (0.0-0.87); Eosinophils % 5.4 % (0.00-10.9); Hematocrit 42.8 VOL% (42.0-52.0); Immature Granulocytes % 0.3 %; Immature Granulocytes Absolute 0.01 #; Lymphocytes # 1.5 10*3/uL (1.4-4.0); Lymphocytes % 37.9 % (21.2-54.2); Mean Corpuscular HGB Conc 32.7 GM/DL (32-36); Mean Corpuscular Hemoglobin 31 PG (27-34); Mean Platelet Volume 9.6 FL (9.6-12.0); Monocytes # 0.4 10*3/uL (0.11-0.8); Monocytes % 11.3 % (1.7-12.7); Neutrophils # 1.7 10*3/uL (1.4-7.4); Neutrophils % 44.1 % (38.7-73.9); Platelet Count 102 T/CUMM (130-400); Red Blood Count 4.46 MC/CUMM (3.8-5.5); Red Cell Distribution Width 15.5 % (9.3-17.3); White Blood Count 3.9 T/CUMM (4-12)
[2018-10-14 14:03] LABS: INR 0.9; PT Patient Result 10.1 SECS; Partial Thromboplastin Time 25.6 SECS (0-40)
[2018-10-14 14:19] LABS: Alanine Aminotransferase 28 U/L (16-61); Albumin 3.6 G/DL (3.4-5.0); Alkaline Phosphatase 124 U/L (45-117); Amylase 59 U/L (25-115); Aspartate Amino Transferase 58 U/L (0-37); Blood Urea Nitrogen 9 MG/DL (7-18); Calcium 8.3 MG/DL (8.5-10.1); Glucose 111 MG/DL (74-106); Potassium 3.1 MMOL/L (3.5-5.1); Sodium 143 MMOL/L (136-145); Total Protein 7.7 G/DL (6.4-8.3); Troponin I < 0.015 NG/ML (0.00-0.045)
[2018-10-14 14:27] LABS: Lactic Acid 4.5 MMOL/L (0.4-2.0)
[2018-10-14] MEDS ORDERED: SODIUM CHLORIDE 0.9% 1,000 ML IV STA (14:30)
[2018-10-14 14:32] LABS: Ammonia 40 UMOL/L (11-32)
[2018-10-14 14:47] LABS: Apearance,Urine CLEAR (Clear); Bilirubin,Urine Negative (Negative); Blood, Urine Small mg/dL (Negative); Glucose,Urine (UA) Negative (Negative); Ketones,Urine Negative (Negative); Mucus,Urine Occasional /LPF (Occasional); Nitrite,Urine Negative (Negative); Protein,Urine 30 MG/DL; RBC,Urine 5 /HPF (0-4); Urine Color Yellow (Yellow); Urine Urobilinogen < 2.0 EU/DL (0.2-1.0); WBC,Urine 1 /HPF (0-6)
[2018-10-14 14:49] LABS: Barbiturates Screen,Urine Negative (Negative); Benzodiazepines Screen,Urine Positive (Negative); Cannabinoid Screen,Urine Negative (Negative); Opiate Screen,Urine Positive (Negative); Phencyclidine Screen,Urine Negative (Negative)
[2018-10-14] MEDS ORDERED: POTASSIUM BICARB EFFERVESCENT 25 MEQ TABLET PO ONE (14:57)
[2018-10-14] MEDS ORDERED: ALBUTEROL 2.5 MG/3 ML NEB RESP TX PRN (15:26)
[2018-10-14] MEDS ORDERED: LABETALOL 20 MG/4 ML SYRINGE IV PRN (15:32)
[2018-10-14 16:00] LABS: Risk Ratio 2.75; VLDL CHOLESTEROL 30.4 MG/DL
[2018-10-14 16:11] LABS: Folate 2.1 NG/ML (5.4-24.0)
[2018-10-14] MEDS ORDERED: MAGNESIUM SULF RIDER 4 GM in PREMIX 1 EACH IV PRN (16:48)
[2018-10-14] MEDS: SODIUM CHLORIDE 0.9% 1,000 ML IV SCH (18:39)
[2018-10-14] MEDS: PIPERACILLIN/TAZOBACTAM 3,375 MG in SODIUM CHLORIDE 0.9% 100 ML IV SCH (18:43)
[2018-10-14] MEDS: PANTOPRAZOLE 40 MG VIAL IV SCH (18:43)
[2018-10-14] MEDS: LACTULOSE 20 GM/30 ML UDCUP PO SCH ×2 (18:46→23:04)
[2018-10-14 18:59] LABS: Lactic Acid 3.8 MMOL/L (0.4-2.0)
[2018-10-14] MEDS: LORazepam 2 MG/1 ML VIAL IV PRN ×2 (19:04→23:41)
[2018-10-14] MEDS ORDERED: ASPIRIN CHEW 81 MG TABLET PO ONE (19:18)
[2018-10-14] MEDS ORDERED: NITROGLYCERIN SL 0.4 MG TABLET SL PRN (19:18)
[2018-10-14] MEDS ORDERED: MORPHINE 4 MG/1 ML VIAL ONE (19:22)
[2018-10-14] MEDS: MORPHINE 4 MG/1 ML VIAL IV PRN ×3 (19:24→22:45)
[2018-10-14] MEDS ORDERED: DILTIAZEM 25 MG/5 ML VIAL IV ONE ×2 (19:31→20:28)
[2018-10-14] MEDS ORDERED: DILTIAZEM 50 MG/10 ML VIAL IV ONE (19:33)
[2018-10-14] MEDS: dilTIAZem Drip 125 MG/125 ML PREMIX IV SCH (19:45)
[2018-10-14] MEDS ORDERED: ROSUVASTATIN 20 MG TABLET PO SCH (21:00)
[2018-10-14] MEDS ORDERED: METOPROLOL TARTRATE 5 MG/5 ML VIAL IV ONE (21:04)
[2018-10-14] MEDS: METOPROLOL TARTRATE 5 MG/5 ML VIAL IV PRN (22:23)
[2018-10-14] MEDS: TAMSULOSIN 0.4 MG CAPSULE PO SCH (23:04)
[2018-10-14] MEDS: ASCORBIC ACID 500 MG TABLET PO SCH (23:05)
[2018-10-14] MEDS: MAGNESIUM CHLORIDE 64 MG TABLET PO SCH (23:05)
[2018-10-14] MEDS: chlordiazePOXIDE 25 MG CAPSULE PO SCH (23:41)
[2018-10-15] MEDS ORDERED: METOPROLOL TARTRATE 5 MG/5 ML VIAL IV SCH
[2018-10-15] MEDS: SODIUM CHLORIDE 0.9% 1,000 ML IV SCH ×4 (01:17→23:37)
[2018-10-15] MEDS: LACTULOSE 20 GM/30 ML UDCUP PO SCH ×7 (01:26→23:27)
[2018-10-15] MEDS ORDERED: MORPHINE 4 MG/1 ML VIAL ONE (01:43)
[2018-10-15] MEDS: MORPHINE 4 MG/1 ML VIAL IV PRN ×5 (01:47→23:36)
[2018-10-15] MEDS: LORazepam 2 MG/1 ML VIAL IV PRN ×3 (02:53→21:09)
[2018-10-15] MEDS: dilTIAZem Drip 125 MG/125 ML PREMIX IV SCH ×3 (02:54→19:54)
[2018-10-15] MEDS: PIPERACILLIN/TAZOBACTAM 3,375 MG in SODIUM CHLORIDE 0.9% 100 ML IV SCH ×3 (03:44→17:16)
[2018-10-15] MEDS: METOPROLOL TARTRATE 5 MG/5 ML VIAL IV PRN ×2 (03:55→16:53)
[2018-10-15] MEDS: ONDANSETRON 4 MG/2 ML VIAL IV PRN ×2 (04:51→13:21)
[2018-10-15] MEDS ORDERED: PROMETHAZINE 25 MG/1 ML VIAL ONE (05:00)
[2018-10-15] MEDS: PROMETHAZINE 25 MG/1 ML VIAL IM PRN ×2 (05:11→17:14)
[2018-10-15 05:26] LABS: Basophils % 0.3 % (0.0-0.8); Eosinophils # 0.1 10*3/uL (0.0-0.87); Eosinophils % 0.7 % (0.00-10.9); Hematocrit 39.8 VOL% (42.0-52.0); Immature Granulocytes % 0.1 %; Immature Granulocytes Absolute 0.01 #; Lymphocytes # 0.9 10*3/uL (1.4-4.0); Lymphocytes % 12.1 % (21.2-54.2); Mean Corpuscular HGB Conc 32.7 GM/DL (32-36); Mean Corpuscular Hemoglobin 31 PG (27-34); Mean Corpuscular Volume 96.1 FL (87-102); Mean Platelet Volume 10.1 FL (9.6-12.0); Monocytes # 0.7 10*3/uL (0.11-0.8); Monocytes % 9.4 % (1.7-12.7); Neutrophils # 5.7 10*3/uL (1.4-7.4); Neutrophils % 77.4 % (38.7-73.9); Red Blood Count 4.14 MC/CUMM (3.8-5.5); Red Cell Distribution Width 15.1 % (9.3-17.3); White Blood Count 7.4 T/CUMM (4-12)
[2018-10-15 05:30] LABS: Platelet Count 99 T/CUMM (130-400)
[2018-10-15 05:41] LABS: Albumin 3.3 G/DL (3.4-5.0); Bilirubin,Total 1.5 MG/DL (0.2-1.0); Calcium 7.8 MG/DL (8.5-10.1); Potassium 3.1 MMOL/L (3.5-5.1); Total Protein 7.1 G/DL (6.4-8.3)
[2018-10-15 05:42] LABS: Lactic Acid 4.2 MMOL/L (0.4-2.0)
[2018-10-15] MEDS ORDERED: METOPROLOL TARTRATE 5 MG/5 ML VIAL IV ONE ×2 (06:01→11:33)
[2018-10-15 07:37] LABS: Risk Ratio 2.32; VLDL CHOLESTEROL 14.4 MG/DL
[2018-10-15] MEDS ORDERED: DIGOXIN 0.5 MG/2 ML AMP IV ONE ×2 (07:39→09:00)
[2018-10-15] MEDS: MAGNESIUM SULF RIDER 2 GM in PREMIX 1 EACH IV PRN (08:20)
[2018-10-15] MEDS: ASCORBIC ACID 500 MG TABLET PO SCH ×2 (08:24→20:25)
[2018-10-15] MEDS: MAGNESIUM CHLORIDE 64 MG TABLET PO SCH ×2 (08:24→20:25)
[2018-10-15] MEDS: THIAMINE 100 MG TABLET PO SCH (08:24)
[2018-10-15] MEDS: chlordiazePOXIDE 25 MG CAPSULE PO SCH ×5 (08:24→23:36)
[2018-10-15] MEDS: FOLIC ACID 1 MG TABLET PO SCH (08:25)
[2018-10-15] MEDS: MUPIROCIN 2% OINT 22 GM TUBE TOP SCH ×2 (08:25→08:48)
[2018-10-15] MEDS: CYANOCOBALAMIN 1000 MCG/1 ML VIAL IM SCH (08:25)
[2018-10-15] MEDS: TAMSULOSIN 0.4 MG CAPSULE PO SCH ×2 (08:25→20:25)
[2018-10-15] MEDS: POTASSIUM CHLORIDE 20 MEQ TABLET PO SCH ×5 (08:25→23:36)
[2018-10-15] MEDS: ASPIRIN EC 81 MG TABLET PO SCH (08:25)
[2018-10-15] MEDS: METOPROLOL TARTRATE 100 MG TABLET PO SCH ×2 (08:25→20:25)
[2018-10-15] MEDS: MOMETASONE 0.1% CREAM 15 GM TUBE TOP SCH (08:46)
[2018-10-15] MEDS: PANTOPRAZOLE 40 MG VIAL IV SCH (16:21)
[2018-10-15] MEDS: THIAMINE INJ 100 MG, FOLIC ACID INJ 1 MG, MULTIVITAMIN INJ 10 ML in SODIUM CHLORIDE 0.9... IV SCH (18:29)
[2018-10-15] MEDS: oxyCODONE IR 5 MG TABLET PO PRN (20:26)
[2018-10-15 23:29] LABS: Lactic Acid 2.1 MMOL/L (0.4-2.0)
[2018-10-16] MEDS: PIPERACILLIN/TAZOBACTAM 3,375 MG in SODIUM CHLORIDE 0.9% 100 ML IV SCH ×3 (01:48→17:02)
[2018-10-16] MEDS: oxyCODONE IR 5 MG TABLET PO PRN ×2 (01:52→21:54)
[2018-10-16 02:10] LABS: Basophils % 0.4 % (0.0-0.8); Eosinophils # 0.2 10*3/uL (0.0-0.87); Hematocrit 36.6 VOL% (42.0-52.0); Hemoglobin 11.7 GM/DL (14.0-18.0); Immature Granulocytes % 0.5 %; Immature Granulocytes Absolute 0.04 #; Lymphocytes # 1.1 10*3/uL (1.4-4.0); Lymphocytes % 12.7 % (21.2-54.2); Mean Corpuscular Hemoglobin 32 PG (27-34); Mean Corpuscular Volume 98.4 FL (87-102); Mean Platelet Volume 10.4 FL (9.6-12.0); Monocytes # 0.6 10*3/uL (0.11-0.8); Monocytes % 6.7 % (1.7-12.7); Neutrophils # 6.5 10*3/uL (1.4-7.4); Neutrophils % 77.7 % (38.7-73.9); Red Blood Count 3.72 MC/CUMM (3.8-5.5); White Blood Count 8.3 T/CUMM (4-12)
[2018-10-16 02:48] LABS: Platelet Count 74 T/CUMM (130-400)
[2018-10-16 02:50] LABS: Calcium 7.8 MG/DL (8.5-10.1); Osmolality,Calculated 272.7 MOS/KG (273-304); Potassium 3.6 MMOL/L (3.5-5.1)
[2018-10-16 02:52] LABS: Bilirubin,Total 1.2 MG/DL (0.2-1.0); Calcium 7.9 MG/DL (8.5-10.1); Osmolality,Calculated 270.8 MOS/KG (273-304); Potassium 3.5 MMOL/L (3.5-5.1); Total Protein 6.5 G/DL (6.4-8.3)
[2018-10-16 03:42] LABS: Platelet Estimate Decreased
[2018-10-16 03:43] LABS: Polychromasia Few
[2018-10-16] MEDS: LACTULOSE 20 GM/30 ML UDCUP PO SCH ×3 (05:14→21:55)
[2018-10-16] MEDS: dilTIAZem Drip 125 MG/125 ML PREMIX IV SCH ×2 (05:14→13:36)
[2018-10-16] MEDS: chlordiazePOXIDE 25 MG CAPSULE PO SCH ×5 (05:15→19:18)
[2018-10-16] MEDS: MORPHINE 4 MG/1 ML VIAL IV PRN ×4 (05:15→19:08)
[2018-10-16] MEDS: SODIUM CHLORIDE 0.9% 1,000 ML IV SCH ×2 (07:47→16:55)
[2018-10-16] MEDS ORDERED: MAGNESIUM SULF RIDER 2 GM in PREMIX 1 EACH IV ONE ×2 (08:01→17:07)
[2018-10-16] MEDS: METOPROLOL TARTRATE 100 MG TABLET PO SCH ×2 (08:58→21:55)
[2018-10-16] MEDS: TAMSULOSIN 0.4 MG CAPSULE PO SCH ×2 (08:59→21:55)
[2018-10-16] MEDS: FOLIC ACID 1 MG TABLET PO SCH (09:00)
[2018-10-16] MEDS: THIAMINE 100 MG TABLET PO SCH (09:01)
[2018-10-16] MEDS: ASCORBIC ACID 500 MG TABLET PO SCH ×2 (09:01→21:55)
[2018-10-16] MEDS: MAGNESIUM CHLORIDE 64 MG TABLET PO SCH ×2 (09:01→21:55)
[2018-10-16] MEDS: ASPIRIN EC 81 MG TABLET PO SCH (09:02)
[2018-10-16] MEDS: CYANOCOBALAMIN 1000 MCG/1 ML VIAL IM SCH (09:02)
[2018-10-16] MEDS: MUPIROCIN 2% OINT 22 GM TUBE TOP SCH (09:56)
[2018-10-16] MEDS: MOMETASONE 0.1% CREAM 15 GM TUBE TOP SCH (09:56)
[2018-10-16] MEDS: THIAMINE INJ 100 MG, FOLIC ACID INJ 1 MG, MULTIVITAMIN INJ 10 ML in SODIUM CHLORIDE 0.9... IV SCH (13:44)
[2018-10-16] MEDS: DILTIAZEM CD 240 MG CAPSULE PO SCH ×2 (13:44→21:55)
[2018-10-16] MEDS: PANTOPRAZOLE 40 MG VIAL IV SCH (15:00)
[2018-10-16] MEDS: METOPROLOL TARTRATE 5 MG/5 ML VIAL IV PRN (17:01)
[2018-10-16] MEDS: LORazepam 2 MG/1 ML VIAL IV PRN ×2 (18:10→21:56)
[2018-10-16] MEDS: PROMETHAZINE 25 MG/1 ML VIAL IM PRN (21:54)
[2018-10-17] MEDS: PIPERACILLIN/TAZOBACTAM 3,375 MG in SODIUM CHLORIDE 0.9% 100 ML IV SCH ×2 (00:18→08:40)
[2018-10-17] MEDS: chlordiazePOXIDE 25 MG CAPSULE PO SCH ×6 (00:18→20:18)
[2018-10-17] MEDS: SODIUM CHLORIDE 0.9% 1,000 ML IV SCH ×4 (00:50→22:17)
[2018-10-17] MEDS: LORazepam 2 MG/1 ML VIAL IV PRN ×2 (01:49→04:28)
[2018-10-17] MEDS: MORPHINE 4 MG/1 ML VIAL IV PRN ×4 (01:52→18:44)
[2018-10-17] MEDS: METOPROLOL TARTRATE 5 MG/5 ML VIAL IV PRN (04:28)
[2018-10-17 04:39] LABS: Basophils % 0.5 % (0.0-0.8); Eosinophils # 0.3 10*3/uL (0.0-0.87); Hematocrit 35.9 VOL% (42.0-52.0); Hemoglobin 11.9 GM/DL (14.0-18.0); Immature Granulocytes % 0.5 %; Immature Granulocytes Absolute 0.03 #; Lymphocytes # 0.8 10*3/uL (1.4-4.0); Lymphocytes % 12.3 % (21.2-54.2); Mean Corpuscular HGB Conc 33.1 GM/DL (32-36); Mean Corpuscular Hemoglobin 32 PG (27-34); Mean Corpuscular Volume 97.3 FL (87-102); Monocytes # 0.5 10*3/uL (0.11-0.8); Monocytes % 7.2 % (1.7-12.7); Neutrophils # 4.7 10*3/uL (1.4-7.4); Neutrophils % 75.5 % (38.7-73.9); Red Blood Count 3.69 MC/CUMM (3.8-5.5); Red Cell Distribution Width 14.3 % (9.3-17.3); White Blood Count 6.3 T/CUMM (4-12)
[2018-10-17 05:03] LABS: Platelet Count 86 T/CUMM (130-400)
[2018-10-17 05:06] LABS: Albumin 2.7 G/DL (3.4-5.0); Bilirubin,Total 0.7 MG/DL (0.2-1.0); Calcium 8.3 MG/DL (8.5-10.1); Osmolality,Calculated 280.3 MOS/KG (273-304); Potassium 3.4 MMOL/L (3.5-5.1); Total Protein 6.4 G/DL (6.4-8.3)
[2018-10-17] MEDS: POTASSIUM CHLORIDE RIDER 10 MEQ in PREMIX 1 EACH IV PRN ×3 (07:01→09:30)
[2018-10-17] MEDS: MAGNESIUM SULF RIDER 2 GM in PREMIX 1 EACH IV PRN (07:05)
[2018-10-17] MEDS: THIAMINE 100 MG TABLET PO SCH (08:25)
[2018-10-17] MEDS: LACTULOSE 20 GM/30 ML UDCUP PO SCH ×2 (08:26→20:19)
[2018-10-17] MEDS: METOPROLOL TARTRATE 100 MG TABLET PO SCH ×2 (08:26→20:18)
[2018-10-17] MEDS: ASCORBIC ACID 500 MG TABLET PO SCH ×2 (08:26→20:19)
[2018-10-17] MEDS: TAMSULOSIN 0.4 MG CAPSULE PO SCH ×2 (08:26→20:19)
[2018-10-17] MEDS: FOLIC ACID 1 MG TABLET PO SCH (08:27)
[2018-10-17] MEDS: DILTIAZEM CD 240 MG CAPSULE PO SCH ×2 (08:27→20:19)
[2018-10-17] MEDS: MAGNESIUM CHLORIDE 64 MG TABLET PO SCH ×2 (08:27→20:18)
[2018-10-17] MEDS: ASPIRIN EC 81 MG TABLET PO SCH (08:27)
[2018-10-17] MEDS: CYANOCOBALAMIN 1000 MCG/1 ML VIAL IM SCH (08:37)
[2018-10-17] MEDS: MUPIROCIN 2% OINT 22 GM TUBE TOP SCH (11:23)
[2018-10-17] MEDS: MOMETASONE 0.1% CREAM 15 GM TUBE TOP SCH (11:23)
[2018-10-17] MEDS: TIMOLOL 0.25% OPH SOLN 5 ML BOTTLE BOTH EYES SCH (11:23)
[2018-10-17] MEDS: DIGOXIN 0.5 MG/2 ML AMP IV SCH (11:33)
[2018-10-17] MEDS: LEVOFLOXACIN 750 MG TABLET PO SCH (12:33)
[2018-10-17] MEDS: PANTOPRAZOLE 40 MG VIAL IV SCH (17:41)
[2018-10-18] MEDS: SODIUM CHLORIDE 0.9% 1,000 ML IV SCH ×5 (00:07→23:45)
[2018-10-18] MEDS: MORPHINE 4 MG/1 ML VIAL IV PRN ×3 (00:18→16:55)
[2018-10-18] MEDS: chlordiazePOXIDE 25 MG CAPSULE PO SCH ×5 (00:19→20:13)
[2018-10-18 05:56] LABS: Basophils % 0.4 % (0.0-0.8); Eosinophils # 0.2 10*3/uL (0.0-0.87); Eosinophils % 4.4 % (0.00-10.9); Hematocrit 36.5 VOL% (42.0-52.0); Hemoglobin 11.7 GM/DL (14.0-18.0); Immature Granulocytes % 0.4 %; Immature Granulocytes Absolute 0.02 #; Lymphocytes # 0.8 10*3/uL (1.4-4.0); Lymphocytes % 17.5 % (21.2-54.2); Mean Corpuscular HGB Conc 32.1 GM/DL (32-36); Mean Corpuscular Hemoglobin 32 PG (27-34); Mean Corpuscular Volume 98.6 FL (87-102); Mean Platelet Volume 9.9 FL (9.6-12.0); Monocytes # 0.7 10*3/uL (0.11-0.8); Monocytes % 14.8 % (1.7-12.7); Neutrophils % 62.5 % (38.7-73.9); Platelet Count 108 T/CUMM (130-400); Red Cell Distribution Width 14.6 % (9.3-17.3); White Blood Count 4.7 T/CUMM (4-12)
[2018-10-18 06:12] LABS: Albumin 2.5 G/DL (3.4-5.0); Bilirubin,Total 0.6 MG/DL (0.2-1.0); Calcium 8.6 MG/DL (8.5-10.1); Osmolality,Calculated 279.3 MOS/KG (273-304); Potassium 3.7 MMOL/L (3.5-5.1); Total Protein 6.4 G/DL (6.4-8.3)
[2018-10-18] MEDS: POTASSIUM CHLORIDE RIDER 10 MEQ in PREMIX 1 EACH IV PRN (06:39)
[2018-10-18] MEDS: MAGNESIUM SULF RIDER 2 GM in PREMIX 1 EACH IV PRN (06:40)
[2018-10-18] MEDS: DILTIAZEM CD 240 MG CAPSULE PO SCH ×2 (09:05→20:10)
[2018-10-18] MEDS: ASPIRIN EC 81 MG TABLET PO SCH (09:05)
[2018-10-18] MEDS: TAMSULOSIN 0.4 MG CAPSULE PO SCH ×2 (09:06→20:10)
[2018-10-18] MEDS: LACTULOSE 20 GM/30 ML UDCUP PO SCH ×2 (09:06→20:13)
[2018-10-18] MEDS: FOLIC ACID 1 MG TABLET PO SCH (09:15)
[2018-10-18] MEDS: MAGNESIUM CHLORIDE 64 MG TABLET PO SCH ×2 (09:15→20:10)
[2018-10-18] MEDS: THIAMINE 100 MG TABLET PO SCH (09:15)
[2018-10-18] MEDS: LEVOFLOXACIN 750 MG TABLET PO SCH (09:16)
[2018-10-18] MEDS: METOPROLOL TARTRATE 100 MG TABLET PO SCH ×2 (09:16→20:13)
[2018-10-18] MEDS: ASCORBIC ACID 500 MG TABLET PO SCH ×2 (09:16→20:10)
[2018-10-18] MEDS: DIGOXIN 0.5 MG/2 ML AMP IV SCH (09:17)
[2018-10-18] MEDS: CYANOCOBALAMIN 1000 MCG/1 ML VIAL IM SCH (09:20)
[2018-10-18] MEDS: oxyCODONE IR 5 MG TABLET PO PRN ×3 (09:36→20:10)
[2018-10-18] MEDS: MOMETASONE 0.1% CREAM 15 GM TUBE TOP SCH (11:42)
[2018-10-18] MEDS: MUPIROCIN 2% OINT 22 GM TUBE TOP SCH (11:42)
[2018-10-18] MEDS ORDERED: POTASSIUM CHLORIDE 20 MEQ TABLET PO ONE (12:57)
[2018-10-18] MEDS ORDERED: MAGNESIUM SULF RIDER 2 GM in PREMIX 1 EACH IV ONE (12:58)
[2018-10-18] MEDS: PANTOPRAZOLE 40 MG TABLET PO SCH (13:19)
[2018-10-18] MEDS: ONDANSETRON 4 MG/2 ML VIAL IV PRN (22:50)
[2018-10-19] MEDS: MORPHINE 4 MG/1 ML VIAL IV PRN ×3 (01:18→23:40)
[2018-10-19] MEDS: chlordiazePOXIDE 25 MG CAPSULE PO SCH ×5 (04:18→20:14)
[2018-10-19 04:59] LABS: Basophils % 0.5 % (0.0-0.8); Eosinophils # 0.2 10*3/uL (0.0-0.87); Eosinophils % 5.5 % (0.00-10.9); Hemoglobin 11.6 GM/DL (14.0-18.0); Immature Granulocytes % 0.7 %; Immature Granulocytes Absolute 0.03 #; Lymphocytes % 21.9 % (21.2-54.2); Mean Corpuscular HGB Conc 32.2 GM/DL (32-36); Mean Corpuscular Hemoglobin 32 PG (27-34); Mean Corpuscular Volume 99.2 FL (87-102); Mean Platelet Volume 9.5 FL (9.6-12.0); Monocytes # 0.7 10*3/uL (0.11-0.8); Monocytes % 16.6 % (1.7-12.7); Neutrophils # 2.4 10*3/uL (1.4-7.4); Neutrophils % 54.8 % (38.7-73.9); Platelet Count 148 T/CUMM (130-400); Red Blood Count 3.63 MC/CUMM (3.8-5.5); Red Cell Distribution Width 14.6 % (9.3-17.3); White Blood Count 4.4 T/CUMM (4-12)
[2018-10-19 05:16] LABS: Calcium 8.4 MG/DL (8.5-10.1); Osmolality,Calculated 282.3 MOS/KG (273-304); Potassium 4.1 MMOL/L (3.5-5.1)
[2018-10-19] MEDS: oxyCODONE IR 5 MG TABLET PO PRN ×4 (05:55→20:18)
[2018-10-19] MEDS: MAGNESIUM SULF RIDER 2 GM in PREMIX 1 EACH IV PRN (05:58)
[2018-10-19 06:42] LABS: Band Neutrophils 2 % (0-10); Eosinophils 2 % (0-10); Lymphocytes 21 % (20-55); Metamyelocytes 2 %; Segmented Neutrophils 50 % (50-85); Total Cells Counted 100
[2018-10-19 06:43] LABS: Hypochromasia 2+; Platelet Estimate Adequate
[2018-10-19] MEDS: DIGOXIN 0.25 MG TABLET PO SCH (08:04)
[2018-10-19] MEDS: DILTIAZEM CD 240 MG CAPSULE PO SCH ×2 (08:05→20:15)
[2018-10-19] MEDS: MAGNESIUM CHLORIDE 64 MG TABLET PO SCH ×2 (08:05→20:15)
[2018-10-19] MEDS: FOLIC ACID 1 MG TABLET PO SCH (08:06)
[2018-10-19] MEDS: LEVOFLOXACIN 750 MG TABLET PO SCH (08:06)
[2018-10-19] MEDS: THIAMINE 100 MG TABLET PO SCH (08:06)
[2018-10-19] MEDS: METOPROLOL TARTRATE 100 MG TABLET PO SCH ×2 (08:06→20:14)
[2018-10-19] MEDS: PANTOPRAZOLE 40 MG TABLET PO SCH (08:06)
[2018-10-19] MEDS: POTASSIUM CHLORIDE 20 MEQ TABLET PO SCH (08:06)
[2018-10-19] MEDS: ASCORBIC ACID 500 MG TABLET PO SCH ×2 (08:06→20:15)
[2018-10-19] MEDS: TAMSULOSIN 0.4 MG CAPSULE PO SCH ×2 (08:07→20:15)
[2018-10-19] MEDS: LACTULOSE 20 GM/30 ML UDCUP PO SCH ×2 (08:07→20:14)
[2018-10-19] MEDS: MUPIROCIN 2% OINT 22 GM TUBE TOP SCH (08:07)
[2018-10-19] MEDS: ASPIRIN EC 81 MG TABLET PO SCH (08:07)
[2018-10-19] MEDS: MOMETASONE 0.1% CREAM 15 GM TUBE TOP SCH (08:07)
[2018-10-19] MEDS: CYANOCOBALAMIN 1000 MCG/1 ML VIAL IM SCH (08:07)
[2018-10-19] MEDS: SODIUM CHLORIDE 0.9% 1,000 ML IV SCH ×3 (10:25→23:42)
[2018-10-19] MEDS: PROMETHAZINE 25 MG/1 ML VIAL IM PRN (15:33)
[2018-10-20] MEDS: chlordiazePOXIDE 25 MG CAPSULE PO SCH ×3 (03:13→20:58)
[2018-10-20 05:18] LABS: Basophils % 0.6 % (0.0-0.8); Eosinophils # 0.3 10*3/uL (0.0-0.87); Eosinophils % 5.7 % (0.00-10.9); Hematocrit 40.1 VOL% (42.0-52.0); Hemoglobin 12.9 GM/DL (14.0-18.0); Immature Granulocytes % 0.6 %; Immature Granulocytes Absolute 0.03 #; Mean Corpuscular HGB Conc 32.2 GM/DL (32-36); Mean Corpuscular Hemoglobin 32 PG (27-34); Mean Corpuscular Volume 98.8 FL (87-102); Mean Platelet Volume 9.4 FL (9.6-12.0); Monocytes # 0.8 10*3/uL (0.11-0.8); Monocytes % 16.3 % (1.7-12.7); Neutrophils # 2.9 10*3/uL (1.4-7.4); Neutrophils % 56.8 % (38.7-73.9); Platelet Count 204 T/CUMM (130-400); Red Blood Count 4.06 MC/CUMM (3.8-5.5); Red Cell Distribution Width 14.6 % (9.3-17.3); White Blood Count 5.1 T/CUMM (4-12)
[2018-10-20 05:34] LABS: Bilirubin,Total 0.6 MG/DL (0.2-1.0); Calcium 9.2 MG/DL (8.5-10.1); Osmolality,Calculated 276.5 MOS/KG (273-304); Total Protein 7.1 G/DL (6.4-8.3)
[2018-10-20 06:02] LABS: Anisocytosis Slight; Band Neutrophils 13 % (0-10); Eosinophils 2 % (0-10); Lymphocytes 18 % (20-55); Macrocytosis Slight; Platelet Estimate Normal; Segmented Neutrophils 54 % (50-85); Total Cells Counted 100
[2018-10-20] MEDS: oxyCODONE IR 5 MG TABLET PO PRN ×4 (06:38→23:06)
[2018-10-20] MEDS: FOLIC ACID 1 MG TABLET PO SCH (09:02)
[2018-10-20] MEDS: METOPROLOL TARTRATE 100 MG TABLET PO SCH ×2 (09:02→20:58)
[2018-10-20] MEDS: LEVOFLOXACIN 750 MG TABLET PO SCH (09:03)
[2018-10-20] MEDS: TAMSULOSIN 0.4 MG CAPSULE PO SCH ×2 (09:03→20:58)
[2018-10-20] MEDS: PANTOPRAZOLE 40 MG TABLET PO SCH (09:03)
[2018-10-20] MEDS: MAGNESIUM CHLORIDE 64 MG TABLET PO SCH ×2 (09:03→20:58)
[2018-10-20] MEDS: ASCORBIC ACID 500 MG TABLET PO SCH ×2 (09:04→20:58)
[2018-10-20] MEDS: ASPIRIN EC 81 MG TABLET PO SCH (09:04)
[2018-10-20] MEDS: LACTULOSE 20 GM/30 ML UDCUP PO SCH ×2 (09:04→20:59)
[2018-10-20] MEDS: CYANOCOBALAMIN 1000 MCG/1 ML VIAL IM SCH (09:05)
[2018-10-20] MEDS: DIGOXIN 0.25 MG TABLET PO SCH (10:14)
[2018-10-20] MEDS: DILTIAZEM CD 240 MG CAPSULE PO SCH ×2 (10:14→20:58)
[2018-10-20] MEDS: THIAMINE 100 MG TABLET PO SCH (10:15)
[2018-10-20] MEDS: POTASSIUM CHLORIDE 20 MEQ TABLET PO SCH (10:17)
[2018-10-20] MEDS: PROMETHAZINE 25 MG/1 ML VIAL IM PRN (13:50)
[2018-10-20] MEDS: MUPIROCIN 2% OINT 22 GM TUBE TOP SCH (16:35)
[2018-10-20] MEDS: TIMOLOL 0.25% OPH SOLN 5 ML BOTTLE BOTH EYES SCH (16:35)
[2018-10-20] MEDS: MOMETASONE 0.1% CREAM 15 GM TUBE TOP SCH (16:35)
[2018-10-20] MEDS: SODIUM CHLORIDE 0.9% 1,000 ML IV SCH ×2 (23:11→23:12)
[2018-10-21] MEDS: oxyCODONE IR 5 MG TABLET PO PRN ×2 (02:35→08:15)
[2018-10-21] MEDS ORDERED: MORPHINE 4 MG/1 ML VIAL IV ONE (03:57)
[2018-10-21] MEDS: SODIUM CHLORIDE 0.9% 1,000 ML IV SCH (04:21)
[2018-10-21] MEDS: MUPIROCIN 2% OINT 22 GM TUBE TOP SCH (08:11)
[2018-10-21] MEDS: THIAMINE 100 MG TABLET PO SCH (08:12)
[2018-10-21] MEDS: TAMSULOSIN 0.4 MG CAPSULE PO SCH (08:12)
[2018-10-21] MEDS: LACTULOSE 20 GM/30 ML UDCUP PO SCH (08:12)
[2018-10-21] MEDS: chlordiazePOXIDE 25 MG CAPSULE PO SCH (08:12)
[2018-10-21] MEDS: LEVOFLOXACIN 750 MG TABLET PO SCH (08:13)
[2018-10-21] MEDS: CYANOCOBALAMIN 1000 MCG/1 ML VIAL IM SCH (08:13)
[2018-10-21] MEDS: POTASSIUM CHLORIDE 20 MEQ TABLET PO SCH (08:13)
[2018-10-21] MEDS: METOPROLOL TARTRATE 100 MG TABLET PO SCH (08:13)
[2018-10-21] MEDS: FOLIC ACID 1 MG TABLET PO SCH (08:14)
[2018-10-21] MEDS: ASPIRIN EC 81 MG TABLET PO SCH (08:14)
[2018-10-21] MEDS: DIGOXIN 0.25 MG TABLET PO SCH (08:14)
[2018-10-21] MEDS: ASCORBIC ACID 500 MG TABLET PO SCH (08:14)
[2018-10-21] MEDS: DILTIAZEM CD 240 MG CAPSULE PO SCH (08:14)
[2018-10-21] MEDS: MAGNESIUM CHLORIDE 64 MG TABLET PO SCH (08:15)
[2018-10-21] MEDS: PANTOPRAZOLE 40 MG TABLET PO SCH (08:15)
[2018-10-21] MEDS: MOMETASONE 0.1% CREAM 15 GM TUBE TOP SCH (08:16)
[2018-10-21 13:45] VITALS: BP 138/67
== END 2018-10-21 13:55 | disposition home or self-care (01) | DRG 896 ==
LOC: EDBD → EDUNIT# → N.ED 12:32 → N.EDINP 15:26 → SUATTDRO 15:26 → N.CC 15:57 → N.4E 16:41 → N.ICU 19:26 → N.5E 10-19 11:44
PROVIDERS: ADMIT Internal Medicine; ATTEND Hospitalist

== ENCOUNTER 2018-10-27 20:16 | Inpatient (IN) ==
[2018-10-27 22:44] LABS: Basophils # 0.1 10*3/uL (0.0-0.2); Basophils % 0.7 % (0.0-0.8); Eosinophils # 0.1 10*3/uL (0.0-0.87); Eosinophils % 0.7 % (0.00-10.9); Hematocrit 39.6 VOL% (42.0-52.0); Hemoglobin 12.9 GM/DL (14.0-18.0); Immature Granulocytes % 0.8 %; Immature Granulocytes Absolute 0.09 #; Lymphocytes # 1.3 10*3/uL (1.4-4.0); Mean Corpuscular HGB Conc 32.6 GM/DL (32-36); Mean Corpuscular Hemoglobin 32 PG (27-34); Mean Corpuscular Volume 97.5 FL (87-102); Mean Platelet Volume 9.7 FL (9.6-12.0); Monocytes # 0.7 10*3/uL (0.11-0.8); Monocytes % 5.5 % (1.7-12.7); Neutrophils # 9.7 10*3/uL (1.4-7.4); Neutrophils % 81.3 % (38.7-73.9); Platelet Count 476 T/CUMM (130-400); Red Blood Count 4.06 MC/CUMM (3.8-5.5); Red Cell Distribution Width 14.6 % (9.3-17.3); White Blood Count 11.9 T/CUMM (4-12)
[2018-10-27 22:50] LABS: Apearance,Urine CLOUDY (Clear); Bilirubin,Urine Negative (Negative); Blood, Urine Moderate mg/dL (Negative); Glucose,Urine (UA) Negative (Negative); Ketones,Urine Negative (Negative); Mucus,Urine Occasional /LPF (Occasional); Nitrite,Urine Negative (Negative); Protein,Urine Negative; RBC,Urine 24 /HPF (0-4); Squamous Epithelial Cell,Urine Occasional /HPF (0-10); Urine Color Yellow (Yellow); Urine Specific Gravity 1.006 (1.001-1.035); Urine Urobilinogen < 2.0 EU/DL (0.2-1.0); WBC,Urine 973 /HPF (0-6)
[2018-10-27 22:51] LABS: INR 0.9; PT Patient Result 9.9 SECS; Partial Thromboplastin Time < 21.0 SECS (0-40)
[2018-10-27 23:07] LABS: Lactic Acid 2.4 MMOL/L (0.4-2.0)
[2018-10-27 23:14] LABS: Alanine Aminotransferase 36 U/L (16-61); Albumin 3.1 G/DL (3.4-5.0); Alkaline Phosphatase 130 U/L (45-117); Aspartate Amino Transferase 55 U/L (0-37); Bilirubin,Total < 0.39 MG/DL (0.2-1.0); Blood Urea Nitrogen 8 MG/DL (7-18); Calcium 8.5 MG/DL (8.5-10.1); Glucose 117 MG/DL (74-106); Osmolality,Calculated 281.1 MOS/KG (273-304); Potassium 3.8 MMOL/L (3.5-5.1); Sodium 142 MMOL/L (136-145); Total Protein 7.3 G/DL (6.4-8.3)
[2018-10-27 23:15] LABS: Giant Platelets Few; Hypochromasia Slight; Platelet Estimate Normal
[2018-10-27] MEDS ORDERED: DIPH/TET/ACEL PERT BOOSTER VACCINE 0.5 ML VIAL IM ONE (23:16)
[2018-10-27] MEDS ORDERED: LACTATED RINGERS 1,000 ML IV ONE (23:16)
[2018-10-27] MEDS: ACETAMINOPHEN 500 MG TABLET PO STA (23:30)
[2018-10-27 23:33] LABS: Barbiturates Screen,Urine Negative (Negative); Benzodiazepines Screen,Urine Positive (Negative); Cannabinoid Screen,Urine Negative (Negative); Opiate Screen,Urine Negative (Negative); Phencyclidine Screen,Urine Negative (Negative)
[2018-10-28] MEDS: cefTRIAXone 1,000 MG in SODIUM CHLORIDE 0.9% 100 ML IV STA ×2 (01:15→02:41)
[2018-10-28] MEDS ORDERED: diphenhydrAMINE CAP 25 MG CAPSULE PO PRN (01:46)
[2018-10-28] MEDS ORDERED: guaiFENesin/DM ER 600-30 MG TABLET PO PRN (01:46)
[2018-10-28] MEDS ORDERED: NICOTINE 21 MG/24 HR PATCH TRANSDERM PRN (01:46)
[2018-10-28] MEDS: ACETAMINOPHEN 500 MG TABLET PO STA (02:41)
[2018-10-28] MEDS: SODIUM CHLORIDE 0.9% 1,000 ML IV SCH ×3 (03:14→21:04)
[2018-10-28] MEDS: MORPHINE 4 MG/1 ML VIAL IV PRN ×5 (03:15→20:56)
[2018-10-28] MEDS: PANTOPRAZOLE 40 MG TABLET PO SCH (09:10)
[2018-10-28] MEDS: DIGOXIN 0.25 MG TABLET PO SCH (09:10)
[2018-10-28] MEDS: MUPIROCIN 2% OINT 22 GM TUBE TOP SCH (09:10)
[2018-10-28] MEDS: FOLIC ACID 1 MG TABLET PO SCH (09:10)
[2018-10-28] MEDS: DILTIAZEM CD 240 MG CAPSULE PO SCH ×2 (09:10→20:57)
[2018-10-28] MEDS: chlordiazePOXIDE 25 MG CAPSULE PO SCH ×3 (09:10→20:57)
[2018-10-28] MEDS: TAMSULOSIN 0.4 MG CAPSULE PO SCH ×2 (09:10→20:58)
[2018-10-28] MEDS: METOPROLOL TARTRATE 100 MG TABLET PO SCH ×2 (09:10→20:58)
[2018-10-28] MEDS: THIAMINE 100 MG TABLET PO SCH (09:10)
[2018-10-28] MEDS: MAGNESIUM CHLORIDE 64 MG TABLET PO SCH ×2 (09:10→20:58)
[2018-10-28] MEDS: TIMOLOL 0.25% OPH SOLN 5 ML BOTTLE BOTH EYES SCH (10:29)
[2018-10-28] MEDS: MOMETASONE 0.1% CREAM 15 GM TUBE TOP SCH (10:29)
[2018-10-28] MEDS: ONDANSETRON 4 MG/2 ML VIAL IV PRN ×2 (12:50→23:25)
[2018-10-28] MEDS: cefTRIAXone 1,000 MG in SYRINGE 1 EACH IV SCH (14:14)
[2018-10-28] MEDS: TEMAZEPAM 15 MG CAPSULE PO SCH (20:58)
[2018-10-29] MEDS: MORPHINE 4 MG/1 ML VIAL IV PRN ×6 (01:27→23:02)
[2018-10-29] MEDS: cefTRIAXone 1,000 MG in SYRINGE 1 EACH IV SCH (03:20)
[2018-10-29] MEDS: LORazepam 2 MG/1 ML VIAL IV PRN (03:32)
[2018-10-29] MEDS: chlordiazePOXIDE 25 MG CAPSULE PO SCH ×3 (08:07→21:27)
[2018-10-29] MEDS: THIAMINE 100 MG TABLET PO SCH (08:07)
[2018-10-29] MEDS: DILTIAZEM CD 240 MG CAPSULE PO SCH ×2 (08:07→21:26)
[2018-10-29] MEDS: TAMSULOSIN 0.4 MG CAPSULE PO SCH ×2 (08:07→21:26)
[2018-10-29] MEDS: DIGOXIN 0.25 MG TABLET PO SCH (08:07)
[2018-10-29] MEDS: MAGNESIUM CHLORIDE 64 MG TABLET PO SCH ×2 (08:07→21:26)
[2018-10-29] MEDS: METOPROLOL TARTRATE 100 MG TABLET PO SCH ×2 (08:07→21:26)
[2018-10-29] MEDS: MOMETASONE 0.1% CREAM 15 GM TUBE TOP SCH (08:07)
[2018-10-29] MEDS: FOLIC ACID 1 MG TABLET PO SCH (08:07)
[2018-10-29] MEDS: PANTOPRAZOLE 40 MG TABLET PO SCH (08:07)
[2018-10-29] MEDS: MUPIROCIN 2% OINT 22 GM TUBE TOP SCH (08:08)
[2018-10-29 15:30] LABS: Apearance,Urine CLEAR (Clear); Bilirubin,Urine Negative (Negative); Blood, Urine Moderate mg/dL (Negative); Glucose,Urine (UA) Negative (Negative); Ketones,Urine Negative (Negative); Mucus,Urine Occasional /LPF (Occasional); Nitrite,Urine Negative (Negative); Protein,Urine Negative; RBC,Urine 2 /HPF (0-4); Renal Epithelial Cells,Urine Occasional /HPF (<1); Urine Color Straw (Yellow); Urine Specific Gravity 1.006 (1.001-1.035); Urine Urobilinogen < 2.0 EU/DL (0.2-1.0); WBC,Urine 3 /HPF (0-6)
[2018-10-29] MEDS: TEMAZEPAM 15 MG CAPSULE PO SCH (21:27)
[2018-10-29] MEDS: ONDANSETRON 4 MG/2 ML VIAL IV PRN (23:03)
[2018-10-30] MEDS: MORPHINE 4 MG/1 ML VIAL IV PRN ×5 (02:41→21:40)
[2018-10-30 06:52] LABS: Basophils # 0.1 10*3/uL (0.0-0.2); Basophils % 0.6 % (0.0-0.8); Eosinophils # 0.4 10*3/uL (0.0-0.87); Eosinophils % 4.4 % (0.00-10.9); Hemoglobin 12.3 GM/DL (14.0-18.0); Immature Granulocytes % 0.7 %; Immature Granulocytes Absolute 0.06 #; Lymphocytes # 1.6 10*3/uL (1.4-4.0); Lymphocytes % 20.1 % (21.2-54.2); Mean Corpuscular HGB Conc 32.4 GM/DL (32-36); Mean Corpuscular Hemoglobin 32 PG (27-34); Mean Corpuscular Volume 97.7 FL (87-102); Monocytes # 0.7 10*3/uL (0.11-0.8); Neutrophils # 5.4 10*3/uL (1.4-7.4); Neutrophils % 66.2 % (38.7-73.9); Platelet Count 372 T/CUMM (130-400); Red Blood Count 3.89 MC/CUMM (3.8-5.5); Red Cell Distribution Width 13.8 % (9.3-17.3); White Blood Count 8.2 T/CUMM (4-12)
[2018-10-30 06:53] LABS: Calcium 8.7 MG/DL (8.5-10.1); Osmolality,Calculated 274.5 MOS/KG (273-304); Potassium 3.3 MMOL/L (3.5-5.1)
[2018-10-30] MEDS: MAGNESIUM CHLORIDE 64 MG TABLET PO SCH ×2 (08:09→21:40)
[2018-10-30] MEDS: TAMSULOSIN 0.4 MG CAPSULE PO SCH ×2 (08:09→21:40)
[2018-10-30] MEDS: PANTOPRAZOLE 40 MG TABLET PO SCH (08:09)
[2018-10-30] MEDS: FOLIC ACID 1 MG TABLET PO SCH (08:09)
[2018-10-30] MEDS: THIAMINE 100 MG TABLET PO SCH (08:09)
[2018-10-30] MEDS: DIGOXIN 0.25 MG TABLET PO SCH (08:09)
[2018-10-30] MEDS: METOPROLOL TARTRATE 100 MG TABLET PO SCH ×2 (08:09→21:40)
[2018-10-30] MEDS: chlordiazePOXIDE 25 MG CAPSULE PO SCH ×3 (08:09→21:40)
[2018-10-30] MEDS: DILTIAZEM CD 240 MG CAPSULE PO SCH ×2 (08:09→21:40)
[2018-10-30] MEDS: MOMETASONE 0.1% CREAM 15 GM TUBE TOP SCH (08:14)
[2018-10-30] MEDS: MUPIROCIN 2% OINT 22 GM TUBE TOP SCH (08:14)
[2018-10-30] MEDS ORDERED: cefTRIAXone 1,000 MG in SYRINGE 1 EACH IV SCH (09:00)
[2018-10-30] MEDS: TEMAZEPAM 15 MG CAPSULE PO SCH (21:40)
[2018-10-31] MEDS: MORPHINE 4 MG/1 ML VIAL IV PRN ×4 (02:04→18:51)
[2018-10-31 06:00] LABS: Basophils % 0.5 % (0.0-0.8); Eosinophils # 0.4 10*3/uL (0.0-0.87); Eosinophils % 4.8 % (0.00-10.9); Hematocrit 39.2 VOL% (42.0-52.0); Hemoglobin 12.9 GM/DL (14.0-18.0); Immature Granulocytes % 0.7 %; Immature Granulocytes Absolute 0.06 #; Lymphocytes # 1.5 10*3/uL (1.4-4.0); Lymphocytes % 18.3 % (21.2-54.2); Mean Corpuscular HGB Conc 32.9 GM/DL (32-36); Mean Corpuscular Hemoglobin 32 PG (27-34); Mean Corpuscular Volume 96.8 FL (87-102); Mean Platelet Volume 9.7 FL (9.6-12.0); Monocytes # 0.7 10*3/uL (0.11-0.8); Monocytes % 8.5 % (1.7-12.7); Neutrophils # 5.4 10*3/uL (1.4-7.4); Neutrophils % 67.2 % (38.7-73.9); Platelet Count 330 T/CUMM (130-400); Red Blood Count 4.05 MC/CUMM (3.8-5.5); Red Cell Distribution Width 13.4 % (9.3-17.3); White Blood Count 8.1 T/CUMM (4-12)
[2018-10-31 06:13] LABS: Calcium 8.9 MG/DL (8.5-10.1); Osmolality,Calculated 272.7 MOS/KG (273-304); Potassium 3.5 MMOL/L (3.5-5.1)
[2018-10-31] MEDS: ONDANSETRON 4 MG/2 ML VIAL IV PRN ×2 (08:24→13:50)
[2018-10-31] MEDS ORDERED: MOMETASONE 0.1% CREAM 15 GM TUBE TOP SCH (09:00)
[2018-10-31] MEDS: DOXYCYCLINE HYCLATE INJ 100 MG in SODIUM CHLORIDE 0.9% 100 ML IV SCH ×2 (09:59→22:33)
[2018-10-31] MEDS: MUPIROCIN 2% OINT 22 GM TUBE TOP SCH (10:00)
[2018-10-31] MEDS: TAMSULOSIN 0.4 MG CAPSULE PO SCH ×2 (10:01→22:32)
[2018-10-31] MEDS: DILTIAZEM CD 240 MG CAPSULE PO SCH ×2 (10:01→22:32)
[2018-10-31] MEDS: METOPROLOL TARTRATE 100 MG TABLET PO SCH ×2 (10:01→22:32)
[2018-10-31] MEDS: DIGOXIN 0.25 MG TABLET PO SCH (10:01)
[2018-10-31] MEDS: FOLIC ACID 1 MG TABLET PO SCH (10:01)
[2018-10-31] MEDS: MAGNESIUM CHLORIDE 64 MG TABLET PO SCH ×2 (10:02→22:31)
[2018-10-31] MEDS: chlordiazePOXIDE 25 MG CAPSULE PO SCH ×3 (10:02→22:31)
[2018-10-31] MEDS: PANTOPRAZOLE 40 MG TABLET PO SCH (10:02)
[2018-10-31] MEDS: TIMOLOL 0.25% OPH SOLN 5 ML BOTTLE BOTH EYES SCH (10:37)
[2018-10-31] MEDS: THIAMINE 100 MG TABLET PO SCH (10:37)
[2018-10-31] MEDS: LORazepam 2 MG/1 ML VIAL IV PRN (22:32)
[2018-10-31] MEDS: TEMAZEPAM 15 MG CAPSULE PO SCH (22:32)
[2018-11-01] MEDS: MORPHINE 4 MG/1 ML VIAL IV PRN ×6 (00:25→21:36)
[2018-11-01 06:49] LABS: Basophils % 0.3 % (0.0-0.8); Eosinophils # 0.4 10*3/uL (0.0-0.87); Eosinophils % 4.5 % (0.00-10.9); Hematocrit 40.9 VOL% (42.0-52.0); Hemoglobin 13.1 GM/DL (14.0-18.0); Immature Granulocytes % 0.7 %; Immature Granulocytes Absolute 0.06 #; Lymphocytes # 1.4 10*3/uL (1.4-4.0); Lymphocytes % 15.6 % (21.2-54.2); Mean Corpuscular Hemoglobin 31 PG (27-34); Mean Corpuscular Volume 97.4 FL (87-102); Mean Platelet Volume 9.8 FL (9.6-12.0); Monocytes # 0.7 10*3/uL (0.11-0.8); Monocytes % 8.2 % (1.7-12.7); Neutrophils # 6.1 10*3/uL (1.4-7.4); Neutrophils % 70.7 % (38.7-73.9); Platelet Count 301 T/CUMM (130-400); Red Cell Distribution Width 13.5 % (9.3-17.3); White Blood Count 8.6 T/CUMM (4-12)
[2018-11-01 06:52] LABS: Calcium 8.8 MG/DL (8.5-10.1)
[2018-11-01 06:53] LABS: Osmolality,Calculated 272.7 MOS/KG (273-304); Potassium 3.8 MMOL/L (3.5-5.1)
[2018-11-01] MEDS: DOXYCYCLINE HYCLATE INJ 100 MG in SODIUM CHLORIDE 0.9% 100 ML IV SCH ×2 (10:05→21:36)
[2018-11-01] MEDS: MAGNESIUM CHLORIDE 64 MG TABLET PO SCH ×2 (10:06→21:35)
[2018-11-01] MEDS: THIAMINE 100 MG TABLET PO SCH (10:06)
[2018-11-01] MEDS: PANTOPRAZOLE 40 MG TABLET PO SCH (10:07)
[2018-11-01] MEDS: MUPIROCIN 2% OINT 22 GM TUBE TOP SCH (10:07)
[2018-11-01] MEDS: chlordiazePOXIDE 25 MG CAPSULE PO SCH ×3 (10:07→21:34)
[2018-11-01] MEDS: TAMSULOSIN 0.4 MG CAPSULE PO SCH ×2 (10:07→21:34)
[2018-11-01] MEDS: DIGOXIN 0.25 MG TABLET PO SCH (10:07)
[2018-11-01] MEDS: FOLIC ACID 1 MG TABLET PO SCH (10:07)
[2018-11-01] MEDS: METOPROLOL TARTRATE 100 MG TABLET PO SCH ×2 (10:07→21:33)
[2018-11-01] MEDS: DILTIAZEM CD 240 MG CAPSULE PO SCH ×2 (10:07→21:34)
[2018-11-01] MEDS: TEMAZEPAM 15 MG CAPSULE PO SCH (21:35)
[2018-11-02] MEDS: MORPHINE 4 MG/1 ML VIAL IV PRN ×2 (03:00→09:08)
[2018-11-02] MEDS: DIGOXIN 0.25 MG TABLET PO SCH (09:09)
[2018-11-02] MEDS: THIAMINE 100 MG TABLET PO SCH (09:09)
[2018-11-02] MEDS: FOLIC ACID 1 MG TABLET PO SCH (09:09)
[2018-11-02] MEDS: METOPROLOL TARTRATE 100 MG TABLET PO SCH (09:09)
[2018-11-02] MEDS: PANTOPRAZOLE 40 MG TABLET PO SCH (09:09)
[2018-11-02] MEDS: chlordiazePOXIDE 25 MG CAPSULE PO SCH ×2 (09:09→14:00)
[2018-11-02] MEDS: MAGNESIUM CHLORIDE 64 MG TABLET PO SCH (09:09)
[2018-11-02] MEDS: TAMSULOSIN 0.4 MG CAPSULE PO SCH (09:10)
[2018-11-02] MEDS: MUPIROCIN 2% OINT 22 GM TUBE TOP SCH (09:10)
[2018-11-02] MEDS: DILTIAZEM CD 240 MG CAPSULE PO SCH (09:10)
[2018-11-02] MEDS: DOXYCYCLINE HYCLATE INJ 100 MG in SODIUM CHLORIDE 0.9% 100 ML IV SCH (09:10)
[2018-11-02 10:55] VITALS: BP 132/80
== END 2018-11-02 15:41 | disposition home health service (06) | DRG 690 ==
LOC: N.ED 20:16 → N.EDINP 23:46 → SUATTDRO 23:46 → N.5E 10-28 00:04
PROVIDERS: ADMIT Internal Medicine Geriatric Medicine; ATTEND Internal Medicine

== ENCOUNTER 2018-12-16 08:24 | Inpatient (IN) ==
[2018-12-16] MEDS ORDERED: PANTOPRAZOLE 40 MG VIAL IV STA (08:57)
[2018-12-16] MEDS ORDERED: METOCLOPRAMIDE 10 MG/2 ML VIAL IV STA (08:57)
[2018-12-16] MEDS ORDERED: THIAMINE INJ 100 MG, FOLIC ACID INJ 1 MG, MAGNESIUM SULF INJ 2 GM, MULTIVITAMIN INJ 10 ... IV STA (08:57)
[2018-12-16] MEDS ORDERED: ONDANSETRON 4 MG/2 ML VIAL IV STA (08:57)
[2018-12-16 09:25] LABS: Alanine Aminotransferase 27 U/L (16-61); Albumin 3.8 G/DL (3.4-5.0); Alkaline Phosphatase 155 U/L (45-117); Aspartate Amino Transferase 82 U/L (0-37); Blood Urea Nitrogen 8 MG/DL (7-18); Calcium 8.8 MG/DL (8.5-10.1); Glucose 80 MG/DL (74-106); Potassium 3.1 MMOL/L (3.5-5.1); Sodium 136 MMOL/L (136-145); Troponin I < 0.015 NG/ML (0.00-0.045)
[2018-12-16 09:52] LABS: Basophils # 0.1 10*3/uL (0.0-0.2); Basophils % 1.3 % (0.0-0.8); Eosinophils # 0.1 10*3/uL (0.0-0.87); Eosinophils % 1.1 % (0.00-10.9); Hematocrit 43.2 VOL% (42.0-52.0); Hemoglobin 14.8 GM/DL (14.0-18.0); Immature Granulocytes % 0.4 %; Immature Granulocytes Absolute 0.02 #; Lymphocytes % 18.7 % (21.2-54.2); Mean Corpuscular HGB Conc 34.3 GM/DL (32-36); Mean Corpuscular Hemoglobin 32 PG (27-34); Mean Corpuscular Volume 92.9 FL (87-102); Mean Platelet Volume 9.2 FL (9.6-12.0); Monocytes # 0.6 10*3/uL (0.11-0.8); Monocytes % 10.2 % (1.7-12.7); Neutrophils # 3.8 10*3/uL (1.4-7.4); Neutrophils % 68.3 % (38.7-73.9); Platelet Count 179 T/CUMM (130-400); Red Blood Count 4.65 MC/CUMM (3.8-5.5); White Blood Count 5.5 T/CUMM (4-12)
[2018-12-16 10:01] LABS: INR 1.1; Partial Thromboplastin Time < 21.0 SECS (0-40)
[2018-12-16] MEDS ORDERED: KETOROLAC 30 MG/1 ML VIAL ONE (10:06)
[2018-12-16] MEDS ORDERED: KETOROLAC 30 MG/1 ML VIAL IV STA (10:35)
[2018-12-16 11:44] LABS: Apearance,Urine CLEAR (Clear); Bilirubin,Urine Negative (Negative); Blood, Urine Moderate mg/dL (Negative); Glucose,Urine (UA) Negative (Negative); Ketones,Urine 20 mg/dL (Negative); Nitrite,Urine Negative (Negative); Protein,Urine Negative; RBC,Urine 4 /HPF (0-4); Squamous Epithelial Cell,Urine Occasional /HPF (0-10); Urine Color Yellow (Yellow); Urine Specific Gravity 1.005 (1.001-1.035); Urine Urobilinogen < 2.0 EU/DL (0.2-1.0); WBC,Urine <1 /HPF (0-6)
[2018-12-16 11:47] LABS: Barbiturates Screen,Urine Negative (Negative); Benzodiazepines Screen,Urine Positive (Negative); Cannabinoid Screen,Urine Negative (Negative); Opiate Screen,Urine Negative (Negative); Phencyclidine Screen,Urine Negative (Negative)
[2018-12-16] MEDS ORDERED: fentaNYL 100 MCG/2 ML VIAL IV STA (12:08)
[2018-12-16] MEDS ORDERED: MAGNESIUM SULF RIDER 2 GM in PREMIX 1 EACH IV PRN (13:00)
[2018-12-16] MEDS ORDERED: MAGNESIUM SULF RIDER 4 GM in PREMIX 1 EACH IV PRN (13:00)
[2018-12-16] MEDS ORDERED: SODIUM CHLORIDE 0.9% 1,000 ML IV ONE (13:08)
[2018-12-16] MEDS: ASPIRIN 325 MG TABLET PO SCH (14:44)
[2018-12-16] MEDS: CARVEDILOL 6.25 MG TABLET PO SCH ×2 (15:33→20:05)
[2018-12-16] MEDS: ENOXAPARIN 40 MG/0.4 ML SYRINGE SUBCUT SCH (15:34)
[2018-12-16] MEDS: MORPHINE 4 MG/1 ML VIAL IV PRN ×2 (15:37→20:05)
[2018-12-16] MEDS: TIMOLOL 0.25% OPH SOLN 5 ML BOTTLE RIGHT EYE SCH (15:49)
[2018-12-16] MEDS ORDERED: cloNIDine 0.3 MG/24 HR PATCH TRANSDERM SCH (16:30)
[2018-12-16] MEDS ORDERED: hydrALAZINE 20 MG/1 ML VIAL IV PRN (16:30)
[2018-12-16] MEDS: SODIUM CHLORIDE 0.9% 1,000 ML IV SCH ×2 (17:26→21:50)
[2018-12-16] MEDS: chlordiazePOXIDE 25 MG CAPSULE PO SCH ×2 (17:27→20:05)
[2018-12-16] MEDS: POTASSIUM CHLORIDE RIDER 10 MEQ in PREMIX 1 EACH IV PRN ×2 (21:51→22:59)
[2018-12-17] MEDS: POTASSIUM CHLORIDE RIDER 10 MEQ in PREMIX 1 EACH IV PRN ×6 (01:05→08:51)
[2018-12-17] MEDS: MORPHINE 4 MG/1 ML VIAL IV PRN ×4 (01:09→15:15)
[2018-12-17] MEDS: LORazepam 2 MG/1 ML VIAL IV PRN ×4 (03:09→23:14)
[2018-12-17 04:30] LABS: Basophils % 0.8 % (0.0-0.8); Eosinophils # 0.1 10*3/uL (0.0-0.87); Eosinophils % 2.3 % (0.00-10.9); Hematocrit 37.8 VOL% (42.0-52.0); Hemoglobin 12.5 GM/DL (14.0-18.0); Immature Granulocytes % 0.3 %; Immature Granulocytes Absolute 0.01 #; Lymphocytes # 0.6 10*3/uL (1.4-4.0); Lymphocytes % 15.6 % (21.2-54.2); Mean Corpuscular HGB Conc 33.1 GM/DL (32-36); Mean Corpuscular Hemoglobin 31 PG (27-34); Mean Platelet Volume 9.5 FL (9.6-12.0); Monocytes # 0.3 10*3/uL (0.11-0.8); Monocytes % 8.6 % (1.7-12.7); Neutrophils # 2.8 10*3/uL (1.4-7.4); Neutrophils % 72.4 % (38.7-73.9); Platelet Count 146 T/CUMM (130-400); Red Blood Count 4.02 MC/CUMM (3.8-5.5); White Blood Count 3.9 T/CUMM (4-12)
[2018-12-17 05:01] LABS: Albumin 2.9 G/DL (3.4-5.0); Bilirubin,Total 0.9 MG/DL (0.2-1.0); Calcium 7.5 MG/DL (8.5-10.1); Potassium 3.3 MMOL/L (3.5-5.1); Risk Ratio 2.03; Total Protein 6.3 G/DL (6.4-8.3); VLDL CHOLESTEROL 12.8 MG/DL
[2018-12-17] MEDS ORDERED: MAGNESIUM SULF RIDER 2 GM in PREMIX 1 EACH IV PRN (05:38)
[2018-12-17] MEDS: SODIUM CHLORIDE 0.9% 1,000 ML IV SCH ×2 (06:09→12:50)
[2018-12-17] MEDS: CARVEDILOL 6.25 MG TABLET PO SCH ×2 (09:41→20:35)
[2018-12-17] MEDS: ASPIRIN 325 MG TABLET PO SCH (09:41)
[2018-12-17] MEDS: PANTOPRAZOLE 40 MG VIAL IV SCH (09:41)
[2018-12-17] MEDS: THIAMINE 200 MG/2 ML VIAL IV SCH (09:42)
[2018-12-17] MEDS: chlordiazePOXIDE 25 MG CAPSULE PO SCH ×3 (10:13→17:09)
[2018-12-17] MEDS: EZETIMIBE 10 MG TABLET PO SCH (10:13)
[2018-12-17] MEDS: MULTIVITAMIN (BEROCCA) TABLET PO SCH (10:13)
[2018-12-17] MEDS ORDERED: MAGNESIUM SULF RIDER 2 GM in PREMIX 1 EACH IV ONE (13:09)
[2018-12-17] MEDS: ONDANSETRON 4 MG/2 ML VIAL IV PRN ×2 (15:15→20:31)
[2018-12-17] MEDS: ENOXAPARIN 40 MG/0.4 ML SYRINGE SUBCUT SCH (15:15)
[2018-12-17] MEDS: POTASSIUM CHLORIDE INJ 20 MEQ in LACTATED RINGERS 1,000 ML IV SCH ×2 (18:10→23:17)
[2018-12-17] MEDS: HYDROmorphone 2 MG/1 ML VIAL IV PRN ×2 (18:55→23:12)
[2018-12-18] MEDS: POTASSIUM CHLORIDE INJ 20 MEQ in LACTATED RINGERS 1,000 ML IV SCH ×4 (04:21→22:01)
[2018-12-18] MEDS: HYDROmorphone 2 MG/1 ML VIAL IV PRN ×5 (04:22→21:56)
[2018-12-18] MEDS: LORazepam 2 MG/1 ML VIAL IV PRN ×3 (04:24→18:58)
[2018-12-18 06:52] LABS: Calcium 8.2 MG/DL (8.5-10.1); Osmolality,Calculated 266.2 MOS/KG (273-304); Potassium 3.4 MMOL/L (3.5-5.1)
[2018-12-18] MEDS: PANTOPRAZOLE 40 MG VIAL IV SCH (08:51)
[2018-12-18] MEDS: ASPIRIN 325 MG TABLET PO SCH (08:52)
[2018-12-18] MEDS: THIAMINE 200 MG/2 ML VIAL IV SCH (08:52)
[2018-12-18] MEDS: MULTIVITAMIN (BEROCCA) TABLET PO SCH (08:52)
[2018-12-18] MEDS: EZETIMIBE 10 MG TABLET PO SCH (08:52)
[2018-12-18] MEDS: CARVEDILOL 6.25 MG TABLET PO SCH (08:52)
[2018-12-18] MEDS: ENOXAPARIN 40 MG/0.4 ML SYRINGE SUBCUT SCH (16:51)
[2018-12-18] MEDS ORDERED: POTASSIUM CHLORIDE INJ 20 MEQ in LACTATED RINGERS 1,000 ML IV SCH (20:00)
[2018-12-18] MEDS ORDERED: MAGNESIUM SULF INJ 3 GM in SODIUM CHLORIDE 0.9% 100 ML IV ONE (21:00)
[2018-12-18] MEDS: CARVEDILOL 12.5 MG TABLET PO SCH (21:49)
[2018-12-19] MEDS: HYDROmorphone 2 MG/1 ML VIAL IV PRN ×5 (01:37→20:28)
[2018-12-19 05:18] LABS: Calcium 8.2 MG/DL (8.5-10.1); Osmolality,Calculated 261.5 MOS/KG (273-304); Potassium 3.9 MMOL/L (3.5-5.1)
[2018-12-19] MEDS: LORazepam 2 MG/1 ML VIAL IV PRN ×2 (05:23→23:21)
[2018-12-19] MEDS: MULTIVITAMIN (BEROCCA) TABLET PO SCH (09:30)
[2018-12-19] MEDS: ASPIRIN 325 MG TABLET PO SCH (09:30)
[2018-12-19] MEDS: EZETIMIBE 10 MG TABLET PO SCH (09:31)
[2018-12-19] MEDS: CARVEDILOL 12.5 MG TABLET PO SCH ×2 (09:31→20:28)
[2018-12-19] MEDS: THIAMINE 200 MG/2 ML VIAL IV SCH (09:31)
[2018-12-19] MEDS: ENOXAPARIN 40 MG/0.4 ML SYRINGE SUBCUT SCH (13:42)
[2018-12-19] MEDS: TIMOLOL 0.25% OPH SOLN 5 ML BOTTLE RIGHT EYE SCH (13:42)
[2018-12-19] MEDS: PANTOPRAZOLE 40 MG TABLET PO SCH (17:05)
[2018-12-19] MEDS: POTASSIUM CHLORIDE INJ 20 MEQ in LACTATED RINGERS 1,000 ML IV SCH ×2 (20:26→20:27)
[2018-12-20] MEDS: HYDROmorphone 2 MG/1 ML VIAL IV PRN ×3 (00:42→10:11)
[2018-12-20] MEDS: EZETIMIBE 10 MG TABLET PO SCH (09:07)
[2018-12-20] MEDS: THIAMINE 200 MG/2 ML VIAL IV SCH (09:07)
[2018-12-20] MEDS: ASPIRIN 325 MG TABLET PO SCH (09:07)
[2018-12-20] MEDS: CARVEDILOL 12.5 MG TABLET PO SCH ×2 (09:07→20:04)
[2018-12-20] MEDS: MULTIVITAMIN (BEROCCA) TABLET PO SCH (09:07)
[2018-12-20] MEDS: THIAMINE 100 MG TABLET PO SCH (11:05)
[2018-12-20] MEDS: FOLIC ACID 1 MG TABLET PO SCH (11:05)
[2018-12-20] MEDS: LORazepam 2 MG/1 ML VIAL IV PRN ×3 (13:00→22:05)
[2018-12-20] MEDS: ENOXAPARIN 40 MG/0.4 ML SYRINGE SUBCUT SCH (13:00)
[2018-12-20] MEDS: chlordiazePOXIDE 10 MG CAPSULE PO SCH ×2 (15:00→20:04)
[2018-12-20] MEDS: POTASSIUM CHLORIDE INJ 20 MEQ in LACTATED RINGERS 1,000 ML IV SCH (15:04)
[2018-12-20] MEDS: PANTOPRAZOLE 40 MG TABLET PO SCH (16:03)
[2018-12-20] MEDS: MECLIZINE 25 MG TABLET PO SCH (20:04)
[2018-12-21] MEDS: LORazepam 2 MG/1 ML VIAL IV PRN (03:05)
[2018-12-21 05:15] LABS: Basophils % 0.3 % (0.0-0.8); Eosinophils # 0.1 10*3/uL (0.0-0.87); Eosinophils % 4.2 % (0.00-10.9); Hematocrit 36.8 VOL% (42.0-52.0); Hemoglobin 12.3 GM/DL (14.0-18.0); Immature Granulocytes % 0.6 %; Immature Granulocytes Absolute 0.02 #; Lymphocytes # 0.8 10*3/uL (1.4-4.0); Lymphocytes % 25.6 % (21.2-54.2); Mean Corpuscular HGB Conc 33.4 GM/DL (32-36); Mean Corpuscular Hemoglobin 31 PG (27-34); Mean Corpuscular Volume 93.9 FL (87-102); Mean Platelet Volume 10.2 FL (9.6-12.0); Monocytes # 0.6 10*3/uL (0.11-0.8); Monocytes % 19.1 % (1.7-12.7); Neutrophils # 1.6 10*3/uL (1.4-7.4); Neutrophils % 50.2 % (38.7-73.9); Platelet Count 126 T/CUMM (130-400); Red Blood Count 3.92 MC/CUMM (3.8-5.5); Red Cell Distribution Width 14.7 % (9.3-17.3); White Blood Count 3.1 T/CUMM (4-12)
[2018-12-21 05:41] LABS: Band Neutrophils 2 % (0-10); Eosinophils 6 % (0-10); Hypochromasia 1+; Lymphocytes 23 % (20-55); Platelet Estimate Normal; Segmented Neutrophils 50 % (50-85); Total Cells Counted 100
[2018-12-21 05:42] LABS: Calcium 8.6 MG/DL (8.5-10.1); Osmolality,Calculated 267.1 MOS/KG (273-304); Potassium 3.5 MMOL/L (3.5-5.1)
[2018-12-21] MEDS: MULTIVITAMIN (BEROCCA) TABLET PO SCH (08:48)
[2018-12-21] MEDS: THIAMINE 100 MG TABLET PO SCH (08:48)
[2018-12-21] MEDS: MECLIZINE 25 MG TABLET PO SCH (08:48)
[2018-12-21] MEDS: EZETIMIBE 10 MG TABLET PO SCH (08:48)
[2018-12-21] MEDS: FOLIC ACID 1 MG TABLET PO SCH (08:48)
[2018-12-21] MEDS: chlordiazePOXIDE 10 MG CAPSULE PO SCH (08:49)
[2018-12-21] MEDS: CARVEDILOL 12.5 MG TABLET PO SCH (08:49)
[2018-12-21] MEDS: ASPIRIN 325 MG TABLET PO SCH (08:49)
[2018-12-21 11:18] VITALS: BP 124/76
== END 2018-12-21 14:06 | disposition home health service (06) | DRG 439 ==
LOC: EDBD → EDUNIT# → N.ED 08:24 → N.EDINP 12:38 → SUATTDRO 12:38 → N.EDINP 14:07 → N.3E 14:31
PROVIDERS: ADMIT Hospitalist; ATTEND Internal Medicine

== ENCOUNTER 2019-01-19 17:04 | Inpatient (IN) ==
[2019-01-19] MEDS ORDERED: PANTOPRAZOLE 40 MG VIAL IV STA (18:29)
[2019-01-19] MEDS ORDERED: ONDANSETRON 4 MG/2 ML VIAL IV STA (18:29)
[2019-01-19 18:47] LABS: Basophils % 0.3 % (0.0-0.8); Eosinophils # 0.1 10*3/uL (0.0-0.87); Eosinophils % 1.1 % (0.00-10.9); Hematocrit 37.6 VOL% (42.0-52.0); Hemoglobin 12.8 GM/DL (14.0-18.0); Immature Granulocytes % 0.3 %; Immature Granulocytes Absolute 0.02 #; Lymphocytes # 0.9 10*3/uL (1.4-4.0); Lymphocytes % 14.7 % (21.2-54.2); Mean Corpuscular Hemoglobin 33 PG (27-34); Mean Corpuscular Volume 95.7 FL (87-102); Mean Platelet Volume 9.4 FL (9.6-12.0); Monocytes # 0.5 10*3/uL (0.11-0.8); Monocytes % 8.4 % (1.7-12.7); Neutrophils # 4.7 10*3/uL (1.4-7.4); Neutrophils % 75.2 % (38.7-73.9); Platelet Count 154 T/CUMM (130-400); Red Blood Count 3.93 MC/CUMM (3.8-5.5); Red Cell Distribution Width 16.9 % (9.3-17.3); White Blood Count 6.2 T/CUMM (4-12)
[2019-01-19 18:57] LABS: Albumin 3.2 G/DL (3.4-5.0); Bilirubin,Total 0.7 MG/DL (0.2-1.0); Calcium 8.6 MG/DL (8.5-10.1); Osmolality,Calculated 267.1 MOS/KG (273-304); Total Protein 7.8 G/DL (6.4-8.3)
[2019-01-19] MEDS ORDERED: MAGNESIUM SULF RIDER 1 GM in PREMIX 1 EACH IV STA (19:58)
[2019-01-19] MEDS ORDERED: PROMETHAZINE 25 MG/1 ML VIAL IM PRN (20:09)
[2019-01-19] MEDS ORDERED: LORazepam 2 MG/1 ML VIAL IV PRN (20:09)
[2019-01-19] MEDS ORDERED: NICOTINE 21 MG/24 HR PATCH TRANSDERM PRN (20:09)
[2019-01-19] MEDS ORDERED: MAGNESIUM SULF RIDER 4 GM in PREMIX 1 EACH IV PRN (20:09)
[2019-01-19] MEDS ORDERED: KETOROLAC 30 MG/1 ML VIAL ONE (20:58)
[2019-01-19] MEDS ORDERED: KETOROLAC 30 MG/1 ML VIAL IV STA (21:01)
[2019-01-19] MEDS ORDERED: POTASSIUM CHLORIDE INJ 40 MEQ in SODIUM CHLORIDE 0.45% 1,000 ML IV SCH (21:30)
[2019-01-19] MEDS: MORPHINE 4 MG/1 ML VIAL IV PRN (21:43)
[2019-01-19 23:30] LABS: Apearance,Urine CLOUDY (Clear); Bacteria,Urine Moderate /HPF (Few); Bilirubin,Urine Negative (Negative); Blood, Urine Moderate mg/dL (Negative); Glucose,Urine (UA) Negative (Negative); Ketones,Urine Negative (Negative); Nitrite,Urine Negative (Negative); Protein,Urine 30 MG/DL; RBC,Urine 320 /HPF (0-4); Squamous Epithelial Cell,Urine Occasional /HPF (0-10); Urine Color Amber (Yellow); Urine Specific Gravity 1.005 (1.001-1.035); Urine Urobilinogen < 2.0 EU/DL (0.2-1.0); WBC,Urine 422 /HPF (0-6)
[2019-01-20] MEDS: MORPHINE 4 MG/1 ML VIAL IV PRN ×6 (01:10→20:54)
[2019-01-20 04:00] LABS: Albumin 2.8 G/DL (3.4-5.0); Bilirubin,Total 1.3 MG/DL (0.2-1.0); Osmolality,Calculated 267.1 MOS/KG (273-304); Potassium 3.1 MMOL/L (3.5-5.1)
[2019-01-20] MEDS: ONDANSETRON 4 MG/2 ML VIAL IV PRN (05:08)
[2019-01-20] MEDS: THIAMINE INJ 100 MG, FOLIC ACID INJ 1 MG, MULTIVITAMIN INJ 10 ML in SODIUM CHLORIDE 0.9... IV SCH ×2 (08:24→17:30)
[2019-01-20] MEDS: SODIUM CHLORIDE 0.9% 1,000 ML IV SCH ×2 (08:25→08:26)
[2019-01-20] MEDS: POTASSIUM CHLORIDE INJ 20 MEQ in LACTATED RINGERS 1,000 ML IV SCH ×3 (11:02→23:59)
[2019-01-20] MEDS: cefTRIAXone 1,000 MG in SYRINGE 1 EACH IV SCH (15:37)
[2019-01-20] MEDS: PANTOPRAZOLE 40 MG TABLET PO SCH (18:06)
[2019-01-20] MEDS: TEMAZEPAM 15 MG CAPSULE PO PRN (20:48)
[2019-01-20] MEDS: MAGNESIUM OXIDE 400 MG TABLET PO SCH (20:48)
[2019-01-21] MEDS: MORPHINE 4 MG/1 ML VIAL IV PRN ×6 (01:31→23:25)
[2019-01-21 04:40] LABS: Basophils % 0.3 % (0.0-0.8); Eosinophils # 0.1 10*3/uL (0.0-0.87); Hematocrit 37.7 VOL% (42.0-52.0); Hemoglobin 12.6 GM/DL (14.0-18.0); Immature Granulocytes % 0.4 %; Immature Granulocytes Absolute 0.05 #; Lymphocytes # 1.1 10*3/uL (1.4-4.0); Lymphocytes % 9.5 % (21.2-54.2); Mean Corpuscular HGB Conc 33.4 GM/DL (32-36); Mean Corpuscular Hemoglobin 32 PG (27-34); Mean Corpuscular Volume 96.9 FL (87-102); Mean Platelet Volume 9.3 FL (9.6-12.0); Monocytes # 0.8 10*3/uL (0.11-0.8); Monocytes % 6.7 % (1.7-12.7); Neutrophils # 9.6 10*3/uL (1.4-7.4); Neutrophils % 82.1 % (38.7-73.9); Platelet Count 191 T/CUMM (130-400); Red Blood Count 3.89 MC/CUMM (3.8-5.5); Red Cell Distribution Width 16.8 % (9.3-17.3); White Blood Count 11.7 T/CUMM (4-12)
[2019-01-21 05:05] LABS: Calcium 7.8 MG/DL (8.5-10.1); Osmolality,Calculated 266.1 MOS/KG (273-304); Potassium 2.8 MMOL/L (3.5-5.1)
[2019-01-21] MEDS: POTASSIUM CHLORIDE INJ 20 MEQ in LACTATED RINGERS 1,000 ML IV SCH (06:35)
[2019-01-21] MEDS: PANTOPRAZOLE 40 MG TABLET PO SCH ×2 (06:35→18:39)
[2019-01-21] MEDS ORDERED: MAGNESIUM SULF RIDER 2 GM in PREMIX 1 EACH IV ONE (10:00)
[2019-01-21] MEDS ORDERED: POTASSIUM CHLORIDE INJ 100 MEQ in SODIUM CHLORIDE 0.9% 1,000 ML IV ONE (10:00)
[2019-01-21] MEDS: POTASSIUM CHLORIDE 20 MEQ TABLET PO SCH (10:10)
[2019-01-21] MEDS: MULTIVITAMIN (CENTRUM) TABLET PO SCH (10:11)
[2019-01-21] MEDS: THIAMINE 100 MG TABLET PO SCH (10:11)
[2019-01-21] MEDS: FOLIC ACID 1 MG TABLET PO SCH (10:11)
[2019-01-21] MEDS: MAGNESIUM OXIDE 400 MG TABLET PO SCH ×2 (10:11→21:23)
[2019-01-21] MEDS: cefTRIAXone 1,000 MG in SYRINGE 1 EACH IV SCH (10:30)
[2019-01-21] MEDS: NITROFURANTOIN MACRO/MONO 100 MG CAPSULE PO SCH ×2 (14:21→21:23)
[2019-01-21] MEDS: TEMAZEPAM 15 MG CAPSULE PO PRN (21:25)
[2019-01-21] MEDS: SODIUM CHLORIDE 0.9% 1,000 ML IV SCH ×2 (23:23→23:28)
[2019-01-22 05:18] LABS: Basophils % 0.4 % (0.0-0.8); Eosinophils # 0.3 10*3/uL (0.0-0.87); Eosinophils % 3.5 % (0.00-10.9); Hematocrit 35.5 VOL% (42.0-52.0); Hemoglobin 11.8 GM/DL (14.0-18.0); Immature Granulocytes % 0.4 %; Immature Granulocytes Absolute 0.03 #; Lymphocytes # 1.2 10*3/uL (1.4-4.0); Lymphocytes % 16.7 % (21.2-54.2); Mean Corpuscular HGB Conc 33.2 GM/DL (32-36); Mean Corpuscular Hemoglobin 33 PG (27-34); Mean Corpuscular Volume 97.8 FL (87-102); Mean Platelet Volume 9.5 FL (9.6-12.0); Monocytes # 0.7 10*3/uL (0.11-0.8); Monocytes % 9.9 % (1.7-12.7); Neutrophils # 4.9 10*3/uL (1.4-7.4); Neutrophils % 69.1 % (38.7-73.9); Platelet Count 198 T/CUMM (130-400); Red Blood Count 3.63 MC/CUMM (3.8-5.5); Red Cell Distribution Width 16.4 % (9.3-17.3); White Blood Count 7.1 T/CUMM (4-12)
[2019-01-22 05:24] LABS: Calcium 8.1 MG/DL (8.5-10.1); Osmolality,Calculated 271.7 MOS/KG (273-304); Potassium 3.5 MMOL/L (3.5-5.1)
[2019-01-22] MEDS: PANTOPRAZOLE 40 MG TABLET PO SCH ×2 (06:45→18:00)
[2019-01-22] MEDS: SODIUM CHLORIDE 0.9% 1,000 ML IV SCH ×2 (06:48→18:00)
[2019-01-22] MEDS: MORPHINE 4 MG/1 ML VIAL IV PRN ×4 (07:50→23:11)
[2019-01-22] MEDS ORDERED: MAGNESIUM SULF RIDER 2 GM in PREMIX 1 EACH IV ONE (09:00)
[2019-01-22] MEDS: FOLIC ACID 1 MG TABLET PO SCH (09:08)
[2019-01-22] MEDS: MULTIVITAMIN (CENTRUM) TABLET PO SCH (09:08)
[2019-01-22] MEDS: POTASSIUM CHLORIDE 20 MEQ TABLET PO SCH (09:08)
[2019-01-22] MEDS: MAGNESIUM OXIDE 400 MG TABLET PO SCH ×2 (09:08→20:52)
[2019-01-22] MEDS: THIAMINE 100 MG TABLET PO SCH (09:08)
[2019-01-22] MEDS: NITROFURANTOIN MACRO/MONO 100 MG CAPSULE PO SCH ×2 (09:08→20:52)
[2019-01-22] MEDS ORDERED: ERGOCALCIFEROL 50,000 UNIT CAPSULE PO SCH (15:00)
[2019-01-22] MEDS: MAGNESIUM CHLORIDE 64 MG TABLET PO SCH (15:49)
[2019-01-22] MEDS: HYOSCYAMINE 0.125 MG TABLET PO SCH (20:52)
[2019-01-22] MEDS: TEMAZEPAM 15 MG CAPSULE PO PRN (20:54)
[2019-01-23] MEDS: SODIUM CHLORIDE 0.9% 1,000 ML IV SCH ×2 (04:15→17:10)
[2019-01-23] MEDS: MORPHINE 4 MG/1 ML VIAL IV PRN ×3 (04:59→13:46)
[2019-01-23 05:20] LABS: Basophils % 0.4 % (0.0-0.8); Eosinophils # 0.2 10*3/uL (0.0-0.87); Eosinophils % 3.1 % (0.00-10.9); Hematocrit 39.9 VOL% (42.0-52.0); Hemoglobin 12.8 GM/DL (14.0-18.0); Immature Granulocytes % 0.7 %; Immature Granulocytes Absolute 0.05 #; Lymphocytes # 1.2 10*3/uL (1.4-4.0); Lymphocytes % 16.4 % (21.2-54.2); Mean Corpuscular HGB Conc 32.1 GM/DL (32-36); Mean Corpuscular Hemoglobin 33 PG (27-34); Mean Corpuscular Volume 102.6 FL (87-102); Mean Platelet Volume 10.3 FL (9.6-12.0); Monocytes # 0.8 10*3/uL (0.11-0.8); Neutrophils # 5.2 10*3/uL (1.4-7.4); Neutrophils % 69.4 % (38.7-73.9); Platelet Count 110 T/CUMM (130-400); Red Blood Count 3.89 MC/CUMM (3.8-5.5); Red Cell Distribution Width 16.4 % (9.3-17.3); White Blood Count 7.5 T/CUMM (4-12)
[2019-01-23 05:38] LABS: Calcium 8.6 MG/DL (8.5-10.1)
[2019-01-23] MEDS: PANTOPRAZOLE 40 MG TABLET PO SCH ×2 (07:11→19:19)
[2019-01-23] MEDS: NITROFURANTOIN MACRO/MONO 100 MG CAPSULE PO SCH ×2 (08:51→21:03)
[2019-01-23] MEDS: HYOSCYAMINE 0.125 MG TABLET PO SCH ×4 (08:51→21:04)
[2019-01-23] MEDS: MULTIVITAMIN (CENTRUM) TABLET PO SCH (08:52)
[2019-01-23] MEDS: MAGNESIUM OXIDE 400 MG TABLET PO SCH ×2 (08:52→21:03)
[2019-01-23] MEDS: MAGNESIUM CHLORIDE 64 MG TABLET PO SCH (08:52)
[2019-01-23] MEDS: THIAMINE 100 MG TABLET PO SCH (08:53)
[2019-01-23] MEDS: MAGNESIUM SULF RIDER 2 GM in PREMIX 1 EACH IV PRN (08:54)
[2019-01-23] MEDS: POTASSIUM CHLORIDE 20 MEQ TABLET PO SCH (08:54)
[2019-01-23] MEDS: FOLIC ACID 1 MG TABLET PO SCH (08:54)
[2019-01-23] MEDS: ONDANSETRON 4 MG/2 ML VIAL IV PRN (09:02)
[2019-01-23] MEDS ORDERED: PROPOFOL 200 MG/20 ML VIAL IV ONE (10:00)
[2019-01-23] MEDS ORDERED: LIDOCAINE 2% 5 ML VIAL ONE (10:00)
[2019-01-23] MEDS: TEMAZEPAM 15 MG CAPSULE PO PRN (21:03)
[2019-01-23] MEDS: oxyCODONE IR 5 MG TABLET PO PRN (21:03)
[2019-01-24] MEDS: SODIUM CHLORIDE 0.9% 1,000 ML IV SCH (03:01)
[2019-01-24] MEDS: oxyCODONE IR 5 MG TABLET PO PRN ×3 (03:15→18:30)
[2019-01-24 04:52] LABS: Basophils % 0.5 % (0.0-0.8); Eosinophils # 0.2 10*3/uL (0.0-0.87); Eosinophils % 3.6 % (0.00-10.9); Immature Granulocytes % 1.1 %; Immature Granulocytes Absolute 0.07 #; Lymphocytes # 0.9 10*3/uL (1.4-4.0); Lymphocytes % 14.8 % (21.2-54.2); Mean Corpuscular HGB Conc 32.4 GM/DL (32-36); Mean Corpuscular Hemoglobin 32 PG (27-34); Mean Corpuscular Volume 99.7 FL (87-102); Mean Platelet Volume 9.4 FL (9.6-12.0); Monocytes # 0.8 10*3/uL (0.11-0.8); Monocytes % 12.2 % (1.7-12.7); Neutrophils # 4.3 10*3/uL (1.4-7.4); Neutrophils % 67.8 % (38.7-73.9); Platelet Count 231 T/CUMM (130-400); Red Blood Count 3.71 MC/CUMM (3.8-5.5); White Blood Count 6.3 T/CUMM (4-12)
[2019-01-24 05:10] LABS: Calcium 8.6 MG/DL (8.5-10.1); Potassium 4.3 MMOL/L (3.5-5.1)
[2019-01-24] MEDS: MORPHINE 4 MG/1 ML VIAL IV PRN ×2 (06:46→13:32)
[2019-01-24] MEDS: PANTOPRAZOLE 40 MG TABLET PO SCH ×2 (06:46→18:30)
[2019-01-24] MEDS: POTASSIUM CHLORIDE 20 MEQ TABLET PO SCH (08:27)
[2019-01-24] MEDS: MAGNESIUM OXIDE 400 MG TABLET PO SCH ×2 (08:28→21:19)
[2019-01-24] MEDS: MAGNESIUM CHLORIDE 64 MG TABLET PO SCH (08:28)
[2019-01-24] MEDS: MULTIVITAMIN (CENTRUM) TABLET PO SCH (08:28)
[2019-01-24] MEDS: THIAMINE 100 MG TABLET PO SCH (08:29)
[2019-01-24] MEDS: FOLIC ACID 1 MG TABLET PO SCH (08:29)
[2019-01-24] MEDS: NITROFURANTOIN MACRO/MONO 100 MG CAPSULE PO SCH ×2 (08:29→21:18)
[2019-01-24] MEDS: HYOSCYAMINE 0.125 MG TABLET PO SCH ×4 (08:29→21:19)
[2019-01-24] MEDS: MAGNESIUM SULF RIDER 2 GM in PREMIX 1 EACH IV PRN (08:30)
[2019-01-24] MEDS: CARVEDILOL 6.25 MG TABLET PO SCH ×2 (09:01→17:03)
[2019-01-24] MEDS ORDERED: hydrALAZINE 20 MG/1 ML VIAL IM ONE (13:12)
[2019-01-24] MEDS ORDERED: hydrALAZINE 20 MG/1 ML VIAL IM PRN (13:12)
[2019-01-25] MEDS: oxyCODONE IR 5 MG TABLET PO PRN (00:18)
[2019-01-25 05:39] LABS: Basophils % 0.6 % (0.0-0.8); Eosinophils # 0.3 10*3/uL (0.0-0.87); Eosinophils % 3.9 % (0.00-10.9); Immature Granulocytes Absolute 0.07 #; Lymphocytes # 0.9 10*3/uL (1.4-4.0); Lymphocytes % 13.6 % (21.2-54.2); Mean Corpuscular HGB Conc 33.3 GM/DL (32-36); Mean Corpuscular Hemoglobin 33 PG (27-34); Mean Corpuscular Volume 97.5 FL (87-102); Mean Platelet Volume 9.5 FL (9.6-12.0); Monocytes # 0.8 10*3/uL (0.11-0.8); Neutrophils # 4.6 10*3/uL (1.4-7.4); Neutrophils % 68.9 % (38.7-73.9); Platelet Count 270 T/CUMM (130-400); White Blood Count 6.7 T/CUMM (4-12)
[2019-01-25] MEDS ORDERED: NITROGLYCERIN SL 0.4 MG TABLET SL ONE (05:58)
[2019-01-25] MEDS ORDERED: NITROGLYCERIN SL 0.4 MG TABLET SL PRN (05:59)
[2019-01-25] MEDS ORDERED: MORPHINE 4 MG/1 ML VIAL IM ONE (06:04)
[2019-01-25 06:06] LABS: Calcium 9.6 MG/DL (8.5-10.1); Osmolality,Calculated 270.1 MOS/KG (273-304); Potassium 3.8 MMOL/L (3.5-5.1)
[2019-01-25] MEDS: PANTOPRAZOLE 40 MG TABLET PO SCH (06:25)
[2019-01-25] MEDS: MAGNESIUM CHLORIDE 64 MG TABLET PO SCH (08:46)
[2019-01-25] MEDS: THIAMINE 100 MG TABLET PO SCH (08:46)
[2019-01-25] MEDS: MULTIVITAMIN (CENTRUM) TABLET PO SCH (08:46)
[2019-01-25] MEDS: POTASSIUM CHLORIDE 20 MEQ TABLET PO SCH (08:47)
[2019-01-25] MEDS: HYOSCYAMINE 0.125 MG TABLET PO SCH ×2 (08:47→16:15)
[2019-01-25] MEDS: MAGNESIUM OXIDE 400 MG TABLET PO SCH (08:47)
[2019-01-25] MEDS: NITROFURANTOIN MACRO/MONO 100 MG CAPSULE PO SCH (08:47)
[2019-01-25] MEDS: CARVEDILOL 6.25 MG TABLET PO SCH (08:47)
[2019-01-25] MEDS: FOLIC ACID 1 MG TABLET PO SCH (08:47)
[2019-01-25] MEDS ORDERED: LISINOPRIL 10 MG TABLET PO SCH (10:30)
[2019-01-25 12:42] VITALS: BP 181/122
[2019-01-25] MEDS ORDERED: CARVEDILOL 12.5 MG TABLET PO SCH (17:00)
== END 2019-01-25 13:42 | disposition home health service (06) | DRG 439 ==
LOC: EDSEX → EDUNIT# → N.ED 17:04 → N.EDINP 17:04 → N.2E 21:05
PROVIDERS: ADMIT Hospitalist; ATTEND Hospitalist

== ENCOUNTER 2019-03-16 12:35 | Inpatient (IN) ==
[2019-03-16] MEDS ORDERED: SODIUM CHLORIDE 0.9% 1,000 ML IV STA (13:13)
[2019-03-16 13:29] LABS: Basophils % 0.4 % (0.0-0.8); Eosinophils # 0.1 10*3/uL (0.0-0.87); Eosinophils % 0.7 % (0.00-10.9); Hematocrit 37.1 VOL% (42.0-52.0); Hemoglobin 12.6 GM/DL (14.0-18.0); Immature Granulocytes % 0.4 %; Immature Granulocytes Absolute 0.03 #; Lymphocytes # 1.4 10*3/uL (1.4-4.0); Lymphocytes % 19.4 % (21.2-54.2); Mean Corpuscular Volume 93.7 FL (87-102); Mean Platelet Volume 8.9 FL (9.6-12.0); Monocytes % 8.6 % (1.7-12.7); Neutrophils % 70.5 % (38.7-73.9); Platelet Count 129 T/CUMM (130-400); Red Blood Count 3.96 MC/CUMM (3.8-5.5); Red Cell Distribution Width 15.6 % (9.3-17.3); White Blood Count 7.4 T/CUMM (4-12)
[2019-03-16 13:40] LABS: PT Patient Result 11.2 SECS
[2019-03-16 13:44] LABS: Partial Thromboplastin Time 25.3 SECS (0-40)
[2019-03-16 13:54] LABS: Alanine Aminotransferase 15 U/L (16-61); Albumin 3.2 G/DL (3.4-5.0); Alkaline Phosphatase 120 U/L (45-117); Amylase 76 U/L (25-115); Aspartate Amino Transferase 29 U/L (0-37); Bilirubin,Total < 0.39 MG/DL (0.2-1.0); Blood Urea Nitrogen 6 MG/DL (7-18); Calcium 8.4 MG/DL (8.5-10.1); Glucose 108 MG/DL (74-106); Osmolality,Calculated 279.3 MOS/KG (273-304); Total Protein 7.3 G/DL (6.4-8.3); Troponin I < 0.015 NG/ML (0.00-0.045)
[2019-03-16 14:23] LABS: Barbiturates Screen,Urine Negative (Negative); Benzodiazepines Screen,Urine Negative (Negative); Cannabinoid Screen,Urine Negative (Negative); Opiate Screen,Urine Negative (Negative); Phencyclidine Screen,Urine Negative (Negative)
[2019-03-16 14:26] LABS: Apearance,Urine CLOUDY (Clear); Bacteria,Urine Few /HPF (Few); Bilirubin,Urine Negative (Negative); Blood, Urine Small mg/dL (Negative); Glucose,Urine (UA) Negative (Negative); Ketones,Urine Negative (Negative); Mucus,Urine Occasional /LPF (Occasional); Nitrite,Urine Negative (Negative); Protein,Urine 100 MG/DL; RBC,Urine 36 /HPF (0-4); Urine Color Yellow (Yellow); Urine Specific Gravity 1.008 (1.001-1.035); Urine Urobilinogen < 2.0 EU/DL (0.2-1.0); WBC,Urine 368 /HPF (0-6)
[2019-03-16] MEDS ORDERED: PANTOPRAZOLE 40 MG VIAL IV ONE (15:49)
[2019-03-16] MEDS ORDERED: KETOROLAC 30 MG/1 ML VIAL ONE (15:49)
[2019-03-16] MEDS ORDERED: PANTOPRAZOLE 40 MG VIAL IV STA (15:55)
[2019-03-16] MEDS ORDERED: KETOROLAC 30 MG/1 ML VIAL IV STA (15:55)
[2019-03-16] MEDS ORDERED: POTASSIUM CHLORIDE 20 MEQ TABLET PO STA (16:54)
[2019-03-16] MEDS ORDERED: MAGNESIUM SULF RIDER 4 GM in PREMIX 1 EACH IV ONE (16:57)
[2019-03-16] MEDS: LACTATED RINGERS 1,000 ML IV SCH (18:28)
[2019-03-16] MEDS: ENOXAPARIN 40 MG/0.4 ML SYRINGE SUBCUT SCH (18:32)
[2019-03-16] MEDS: MORPHINE 4 MG/1 ML VIAL IV PRN ×2 (18:37→23:12)
[2019-03-16] MEDS: CIPROFLOXACIN INJ 400 MG in PREMIX 1 EACH IV SCH (20:39)
[2019-03-16] MEDS: hydrALAZINE 20 MG/1 ML VIAL IV PRN (20:41)
[2019-03-16] MEDS: ZALEPLON 5 MG CAPSULE PO PRN (20:45)
[2019-03-16] MEDS: PANTOPRAZOLE 40 MG VIAL IV SCH (20:46)
[2019-03-16] MEDS ORDERED: CARVEDILOL 6.25 MG TABLET PO SCH (21:00)
[2019-03-16] MEDS ORDERED: POTASSIUM CHLORIDE 20 MEQ TABLET PO ONE (21:00)
[2019-03-16] MEDS: ONDANSETRON 4 MG/2 ML VIAL IV PRN (23:10)
[2019-03-17] MEDS: ONDANSETRON 4 MG/2 ML VIAL IV PRN ×2 (04:45→20:49)
[2019-03-17] MEDS: MORPHINE 4 MG/1 ML VIAL IV PRN ×4 (04:45→22:34)
[2019-03-17] MEDS: hydrALAZINE 20 MG/1 ML VIAL IV PRN (04:47)
[2019-03-17 05:34] LABS: Basophils % 0.3 % (0.0-0.8); Hematocrit 38.2 VOL% (42.0-52.0); Hemoglobin 12.8 GM/DL (14.0-18.0); Immature Granulocytes % 0.5 %; Immature Granulocytes Absolute 0.03 #; Lymphocytes % 16.7 % (21.2-54.2); Mean Corpuscular HGB Conc 33.5 GM/DL (32-36); Mean Corpuscular Volume 94.8 FL (87-102); Monocytes % 8.2 % (1.7-12.7); Neutrophils % 74.3 % (38.7-73.9); Platelet Count 115 T/CUMM (130-400); Red Blood Count 4.03 MC/CUMM (3.8-5.5); Red Cell Distribution Width 15.8 % (9.3-17.3); White Blood Count 6.2 T/CUMM (4-12)
[2019-03-17 05:41] LABS: Albumin 3.3 G/DL (3.4-5.0); Bilirubin,Total 0.9 MG/DL (0.2-1.0); Calcium 8.8 MG/DL (8.5-10.1); Osmolality,Calculated 272.8 MOS/KG (273-304); Total Protein 7.4 G/DL (6.4-8.3)
[2019-03-17] MEDS: LACTATED RINGERS 1,000 ML IV SCH ×3 (08:13→17:54)
[2019-03-17] MEDS: CIPROFLOXACIN INJ 400 MG in PREMIX 1 EACH IV SCH ×2 (08:58→20:49)
[2019-03-17] MEDS: chlordiazePOXIDE 25 MG CAPSULE PO SCH ×3 (08:59→22:20)
[2019-03-17] MEDS: LORazepam 2 MG/1 ML VIAL IV PRN ×2 (08:59→13:07)
[2019-03-17] MEDS: PROMETHAZINE 25 MG/1 ML VIAL IM PRN ×2 (08:59→15:40)
[2019-03-17] MEDS: POTASSIUM CHLORIDE 20 MEQ TABLET PO SCH (09:00)
[2019-03-17] MEDS: PANTOPRAZOLE 40 MG VIAL IV SCH ×2 (09:00→20:45)
[2019-03-17] MEDS: CARVEDILOL 6.25 MG TABLET PO SCH ×2 (09:33→20:54)
[2019-03-17] MEDS: ENOXAPARIN 40 MG/0.4 ML SYRINGE SUBCUT SCH (17:08)
[2019-03-17] MEDS: ZALEPLON 5 MG CAPSULE PO PRN (20:52)
[2019-03-18] MEDS: LACTATED RINGERS 1,000 ML IV SCH (02:50)
[2019-03-18] MEDS: MORPHINE 4 MG/1 ML VIAL IV PRN ×2 (03:28→07:30)
[2019-03-18] MEDS: ONDANSETRON 4 MG/2 ML VIAL IV PRN ×4 (03:31→18:58)
[2019-03-18 05:31] LABS: Basophils % 0.2 % (0.0-0.8); Eosinophils # 0.1 10*3/uL (0.0-0.87); Eosinophils % 2.5 % (0.00-10.9); Hematocrit 35.8 VOL% (42.0-52.0); Immature Granulocytes % 0.4 %; Immature Granulocytes Absolute 0.02 #; Lymphocytes # 0.6 10*3/uL (1.4-4.0); Lymphocytes % 13.2 % (21.2-54.2); Mean Corpuscular HGB Conc 33.5 GM/DL (32-36); Mean Platelet Volume 9.5 FL (9.6-12.0); Monocytes % 2.2 % (1.7-12.7); Neutrophils % 81.5 % (38.7-73.9); Red Blood Count 3.73 MC/CUMM (3.8-5.5); Red Cell Distribution Width 15.8 % (9.3-17.3); White Blood Count 4.5 T/CUMM (4-12)
[2019-03-18 05:42] LABS: Platelet Count 79 T/CUMM (130-400)
[2019-03-18 05:53] LABS: Hypochromasia 1+; Platelet Estimate Decreased
[2019-03-18 06:04] LABS: Albumin 2.9 G/DL (3.4-5.0); Bilirubin,Total 1.3 MG/DL (0.2-1.0); Calcium 8.1 MG/DL (8.5-10.1); Osmolality,Calculated 270.8 MOS/KG (273-304); Total Protein 6.7 G/DL (6.4-8.3)
[2019-03-18] MEDS: chlordiazePOXIDE 25 MG CAPSULE PO SCH ×3 (06:47→21:28)
[2019-03-18] MEDS: PANTOPRAZOLE 40 MG VIAL IV SCH (08:38)
[2019-03-18] MEDS: CIPROFLOXACIN INJ 400 MG in PREMIX 1 EACH IV SCH (08:38)
[2019-03-18] MEDS: POTASSIUM CHLORIDE 20 MEQ TABLET PO SCH (08:39)
[2019-03-18] MEDS ORDERED: MORPHINE 4 MG/1 ML VIAL IV PRN (09:00)
[2019-03-18 09:05] LABS: Bilirubin,Direct 0.28 MG/DL (0.0-0.20); Bilirubin,Indirect 0.9 MG/DL (0.0-1.0); Bilirubin,Total 1.2 MG/DL (0.2-1.0); Calcium 8.6 MG/DL (8.5-10.1); Osmolality,Calculated 270.8 MOS/KG (273-304); Total Protein 6.9 G/DL (6.4-8.3)
[2019-03-18] MEDS: CARVEDILOL 6.25 MG TABLET PO SCH ×2 (10:41→21:29)
[2019-03-18] MEDS: DEXT 5% NACL 0.45% KCL 20 MEQ 20 MEQ/1,000 ML BAG IV SCH ×2 (10:43→21:27)
[2019-03-18] MEDS ORDERED: ACETAMINOPHEN 500 MG TABLET PO PRN (17:26)
[2019-03-18] MEDS: traMADol 50 MG TABLET PO PRN (18:58)
[2019-03-18] MEDS: AMPICILLIN/SULBACTAM 1,500 MG in SODIUM CHLORIDE 0.9% 100 ML IV SCH (18:58)
[2019-03-18] MEDS: PANTOPRAZOLE 40 MG TABLET PO SCH (21:28)
[2019-03-18] MEDS: ZALEPLON 5 MG CAPSULE PO PRN (21:28)
[2019-03-19] MEDS: ONDANSETRON 4 MG/2 ML VIAL IV PRN ×2 (02:04→17:24)
[2019-03-19] MEDS: traMADol 50 MG TABLET PO PRN ×2 (02:17→09:40)
[2019-03-19] MEDS: AMPICILLIN/SULBACTAM 1,500 MG in SODIUM CHLORIDE 0.9% 100 ML IV SCH ×2 (02:26→09:43)
[2019-03-19 05:05] LABS: Basophils % 0.2 % (0.0-0.8); Eosinophils # 0.2 10*3/uL (0.0-0.87); Eosinophils % 3.7 % (0.00-10.9); Hematocrit 34.1 VOL% (42.0-52.0); Hemoglobin 11.4 GM/DL (14.0-18.0); Immature Granulocytes % 0.7 %; Immature Granulocytes Absolute 0.03 #; Lymphocytes # 0.9 10*3/uL (1.4-4.0); Lymphocytes % 20.4 % (21.2-54.2); Mean Corpuscular HGB Conc 33.4 GM/DL (32-36); Mean Corpuscular Volume 96.1 FL (87-102); Mean Platelet Volume 9.4 FL (9.6-12.0); Monocytes % 6.6 % (1.7-12.7); Neutrophils % 68.4 % (38.7-73.9); Red Blood Count 3.55 MC/CUMM (3.8-5.5); Red Cell Distribution Width 15.6 % (9.3-17.3); White Blood Count 4.6 T/CUMM (4-12)
[2019-03-19 05:08] LABS: Platelet Count 85 T/CUMM (130-400)
[2019-03-19 05:28] LABS: Hypochromasia Slight; Platelet Estimate Decreased
[2019-03-19 05:47] LABS: % Iron Saturation 17.4 % (18-50); Albumin 2.6 G/DL (3.4-5.0); Albumin 2.8 G/DL (3.4-5.0); Bilirubin,Direct 0.23 MG/DL (0.0-0.20); Bilirubin,Indirect 1.7 MG/DL (0.0-1.0); Bilirubin,Total 1.9 MG/DL (0.2-1.0); Calcium 8.2 MG/DL (8.5-10.1); Osmolality,Calculated 272.7 MOS/KG (273-304); Total Protein 6.2 G/DL (6.4-8.3); Total Protein 6.4 G/DL (6.4-8.3)
[2019-03-19 06:34] LABS: Hepatitis B Core IgM Quant 0.06 Index; Hepatitis B Surface Ag Quant < 0.10 Index; Hepatitis B Surface Ag Result Negative (Negative); Hepatitis C Virus Ab Quant 0.07 Index; Hepatitis C Virus Ab Result Negative (Negative)
[2019-03-19] MEDS: chlordiazePOXIDE 25 MG CAPSULE PO SCH ×3 (07:49→21:08)
[2019-03-19] MEDS ORDERED: BISACODYL 5 MG TABLET PO PRN (09:21)
[2019-03-19] MEDS ORDERED: POLYETHYLENE GLYCOL POWDER 17 GM PACK PO PRN (09:21)
[2019-03-19] MEDS: CARVEDILOL 6.25 MG TABLET PO SCH ×2 (09:40→21:08)
[2019-03-19] MEDS: PANTOPRAZOLE 40 MG TABLET PO SCH ×2 (09:40→21:12)
[2019-03-19] MEDS: POTASSIUM CHLORIDE 20 MEQ TABLET PO SCH (09:41)
[2019-03-19] MEDS: DEXT 5% NACL 0.45% KCL 20 MEQ 20 MEQ/1,000 ML BAG IV SCH ×2 (09:48→23:22)
[2019-03-19] MEDS: LIDOCAINE 5% PATCH TRANSDERM SCH (12:17)
[2019-03-19] MEDS: AMOXICILLIN 500 MG CAPSULE PO SCH ×2 (17:21→21:08)
[2019-03-19] MEDS: FOLIC ACID 1 MG TABLET PO SCH (17:21)
[2019-03-19] MEDS: POLYETHYLENE GLYCOL POWDER 17 GM PACK PO SCH (17:22)
[2019-03-19] MEDS: THIAMINE 100 MG TABLET PO SCH (17:22)
[2019-03-19] MEDS: ZALEPLON 5 MG CAPSULE PO PRN (21:08)
[2019-03-20] MEDS: traMADol 50 MG TABLET PO PRN ×2 (00:30→09:29)
[2019-03-20] MEDS: ONDANSETRON 4 MG/2 ML VIAL IV PRN ×2 (00:35→09:29)
[2019-03-20 05:18] LABS: Basophils % 0.5 % (0.0-0.8); Eosinophils # 0.2 10*3/uL (0.0-0.87); Eosinophils % 3.9 % (0.00-10.9); Hematocrit 34.2 VOL% (42.0-52.0); Hemoglobin 11.1 GM/DL (14.0-18.0); Immature Granulocytes % 0.8 %; Immature Granulocytes Absolute 0.03 #; Lymphocytes % 24.5 % (21.2-54.2); Mean Corpuscular HGB Conc 32.5 GM/DL (32-36); Mean Corpuscular Volume 98.8 FL (87-102); Mean Platelet Volume 9.3 FL (9.6-12.0); Monocytes % 11.9 % (1.7-12.7); Neutrophils % 58.4 % (38.7-73.9); Platelet Count 101 T/CUMM (130-400); Red Blood Count 3.46 MC/CUMM (3.8-5.5); Red Cell Distribution Width 15.8 % (9.3-17.3); White Blood Count 3.9 T/CUMM (4-12)
[2019-03-20 05:37] LABS: Albumin 2.6 G/DL (3.4-5.0); Bilirubin,Direct 0.11 MG/DL (0.0-0.20); Bilirubin,Indirect 0.4 MG/DL (0.0-1.0); Bilirubin,Total 0.5 MG/DL (0.2-1.0)
[2019-03-20 06:08] LABS: Platelet Estimate Decreased; Polychromasia Few
[2019-03-20] MEDS: chlordiazePOXIDE 25 MG CAPSULE PO SCH (06:10)
[2019-03-20 08:08] VITALS: BP 167/107
[2019-03-20] MEDS: POTASSIUM CHLORIDE 20 MEQ TABLET PO SCH (09:27)
[2019-03-20] MEDS: CARVEDILOL 6.25 MG TABLET PO SCH (09:28)
[2019-03-20] MEDS: LIDOCAINE 5% PATCH TRANSDERM SCH (09:28)
[2019-03-20] MEDS: AMOXICILLIN 500 MG CAPSULE PO SCH (09:28)
[2019-03-20] MEDS: PANTOPRAZOLE 40 MG TABLET PO SCH (09:28)
[2019-03-20] MEDS: FOLIC ACID 1 MG TABLET PO SCH (09:28)
[2019-03-20] MEDS: THIAMINE 100 MG TABLET PO SCH (09:29)
[2019-03-20] MEDS: POLYETHYLENE GLYCOL POWDER 17 GM PACK PO SCH (11:30)
== END 2019-03-20 11:40 | disposition home health service (06) | DRG 690 ==
LOC: N.ED 12:35 → SUATTDRO 16:49 → N.EDINP 16:49 → N.2E 17:21
PROVIDERS: ADMIT Family Medicine; ATTEND Internal Medicine

== ENCOUNTER 2019-04-05 07:56 | Observation (INO) ==
[2019-04-05 09:22] LABS: Alanine Aminotransferase 15 U/L (16-61); Albumin 3.3 G/DL (3.4-5.0); Alkaline Phosphatase 145 U/L (45-117); Amylase 92 U/L (25-115); Aspartate Amino Transferase 25 U/L (0-37); Blood Urea Nitrogen 8 MG/DL (7-18); Calcium 8.8 MG/DL (8.5-10.1); Glucose 134 MG/DL (74-106); Osmolality,Calculated 267.2 MOS/KG (273-304); Total Protein 7.8 G/DL (6.4-8.3)
[2019-04-05] MEDS ORDERED: SODIUM CHLORIDE 0.9% 1,000 ML IV STA (09:23)
[2019-04-05 09:25] LABS: Troponin I < 0.015 NG/ML (0.00-0.045)
[2019-04-05 09:41] LABS: Apearance,Urine CLEAR (Clear); Bacteria,Urine Occasional /HPF (Few); Bilirubin,Urine Negative (Negative); Blood, Urine Small mg/dL (Negative); Glucose,Urine (UA) Negative (Negative); Hyaline Casts,Urine 4 /LPF (0-3); Ketones,Urine Negative (Negative); Mucus,Urine Many /LPF (Occasional); Nitrite,Urine Negative (Negative); Protein,Urine 100 MG/DL; RBC,Urine 2 /HPF (0-4); Squamous Epithelial Cell,Urine Occasional /HPF (0-10); Urine Color Yellow (Yellow); Urine Specific Gravity 1.015 (1.001-1.035); Urine Urobilinogen < 2.0 EU/DL (0.2-1.0); WBC,Urine 1 /HPF (0-6)
[2019-04-05 09:44] LABS: Barbiturates Screen,Urine Negative (Negative); Benzodiazepines Screen,Urine Positive (Negative); Cannabinoid Screen,Urine Negative (Negative); Opiate Screen,Urine Negative (Negative); Phencyclidine Screen,Urine Negative (Negative)
[2019-04-05 09:45] LABS: Basophils % 0.2 % (0.0-0.8); Eosinophils % 0.5 % (0.00-10.9); Hematocrit 40.8 VOL% (42.0-52.0); Immature Granulocytes % 0.3 %; Immature Granulocytes Absolute 0.03 #; Lymphocytes % 10.8 % (21.2-54.2); Mean Corpuscular HGB Conc 34.3 GM/DL (32-36); Mean Corpuscular Volume 93.8 FL (87-102); Mean Platelet Volume 9.2 FL (9.6-12.0); Monocytes % 8.6 % (1.7-12.7); Neutrophils % 79.6 % (38.7-73.9); Platelet Count 194 T/CUMM (130-400); Red Blood Count 4.35 MC/CUMM (3.8-5.5); Red Cell Distribution Width 16.3 % (9.3-17.3); White Blood Count 8.8 T/CUMM (4-12)
[2019-04-05] MEDS ORDERED: ACETAMINOPHEN 325 MG TABLET PO PRN (14:40)
[2019-04-05] MEDS ORDERED: LACTULOSE 20 GM/30 ML UDCUP PO PRN (14:40)
[2019-04-05] MEDS ORDERED: ONDANSETRON 4 MG/2 ML VIAL IV PRN (14:40)
[2019-04-05 15:21] LABS: Risk Ratio 4.46; Thyroid Stimulating Hormone 2.41 uIU/ml (0.358-3.74); VLDL CHOLESTEROL 24.2 MG/DL
[2019-04-05] MEDS: SODIUM CHLORIDE 0.9% 1,000 ML IV SCH (17:10)
[2019-04-05] MEDS: ENOXAPARIN 40 MG/0.4 ML SYRINGE SUBCUT SCH (17:11)
[2019-04-06] MEDS ORDERED: CARVEDILOL 25 MG TABLET PO ONE (01:00)
[2019-04-06 06:00] LABS: Basophils % 0.3 % (0.0-0.8); Eosinophils # 0.2 10*3/uL (0.0-0.87); Eosinophils % 2.3 % (0.00-10.9); Hematocrit 36.7 VOL% (42.0-52.0); Hemoglobin 12.6 GM/DL (14.0-18.0); Immature Granulocytes % 0.2 %; Immature Granulocytes Absolute 0.01 #; Lymphocytes # 1.4 10*3/uL (1.4-4.0); Lymphocytes % 21.7 % (21.2-54.2); Mean Corpuscular HGB Conc 34.3 GM/DL (32-36); Mean Corpuscular Volume 95.3 FL (87-102); Mean Platelet Volume 9.9 FL (9.6-12.0); Neutrophils % 67.5 % (38.7-73.9); Platelet Count 162 T/CUMM (130-400); Red Blood Count 3.85 MC/CUMM (3.8-5.5); Red Cell Distribution Width 16.2 % (9.3-17.3); White Blood Count 6.5 T/CUMM (4-12)
[2019-04-06 06:24] LABS: Calcium 8.5 MG/DL (8.5-10.1); Osmolality,Calculated 271.8 MOS/KG (273-304)
[2019-04-06] MEDS ORDERED: POTASSIUM CHLORIDE 20 MEQ TABLET PO ONE (08:34)
[2019-04-06] MEDS: SODIUM CHLORIDE 0.9% 1,000 ML IV SCH (08:55)
[2019-04-06] MEDS: CARVEDILOL 25 MG TABLET PO SCH ×2 (08:56→17:55)
[2019-04-06] MEDS: PANTOPRAZOLE 40 MG TABLET PO SCH (08:56)
[2019-04-06] MEDS: FOLIC ACID 1 MG TABLET PO SCH (15:01)
[2019-04-06] MEDS: THIAMINE 100 MG TABLET PO SCH (15:01)
[2019-04-06] MEDS: MULTIVITAMIN (CENTRUM) TABLET PO SCH (15:01)
[2019-04-06] MEDS: ENOXAPARIN 40 MG/0.4 ML SYRINGE SUBCUT SCH (15:01)
[2019-04-06] MEDS: MAGNESIUM OXIDE 400 MG TABLET PO SCH (22:23)
[2019-04-07] MEDS: SODIUM CHLORIDE 0.9% 1,000 ML IV SCH (00:47)
[2019-04-07] MEDS: FOLIC ACID 1 MG TABLET PO SCH ×2 (07:47→08:04)
[2019-04-07] MEDS: THIAMINE 100 MG TABLET PO SCH ×2 (07:47→08:05)
[2019-04-07] MEDS: MULTIVITAMIN (CENTRUM) TABLET PO SCH ×2 (07:47→08:06)
[2019-04-07] MEDS: CARVEDILOL 25 MG TABLET PO SCH (07:48)
[2019-04-07] MEDS: POTASSIUM CHLORIDE 20 MEQ TABLET PO SCH ×2 (07:48→08:05)
[2019-04-07] MEDS: MAGNESIUM OXIDE 400 MG TABLET PO SCH ×2 (07:49→08:05)
[2019-04-07] MEDS: PANTOPRAZOLE 40 MG TABLET PO SCH ×2 (07:49→08:05)
[2019-04-07 12:29] VITALS: BP 144/98
== END 2019-04-07 14:47 | disposition home or self-care (01) ==
LOC: EDBD → EDUNIT# → N.EDINP 07:56 → N.ED 07:56 → SUATTDRO 14:40 → N.EDINP 16:34 → N.5E 16:41
PROVIDERS: ADMIT Internal Medicine Nephrology; ATTEND Internal Medicine

== ENCOUNTER 2019-04-16 13:06 | Observation (INO) ==
[2019-04-16 13:56] LABS: Basophils % 0.4 % (0.0-0.8); Eosinophils # 0.1 10*3/uL (0.0-0.87); Eosinophils % 0.6 % (0.00-10.9); Hematocrit 41.4 VOL% (42.0-52.0); Hemoglobin 13.9 GM/DL (14.0-18.0); Immature Granulocytes % 0.4 %; Immature Granulocytes Absolute 0.03 #; Lymphocytes # 1.6 10*3/uL (1.4-4.0); Lymphocytes % 20.3 % (21.2-54.2); Mean Corpuscular HGB Conc 33.6 GM/DL (32-36); Mean Corpuscular Volume 94.5 FL (87-102); Mean Platelet Volume 8.6 FL (9.6-12.0); Monocytes % 5.6 % (1.7-12.7); Neutrophils % 72.7 % (38.7-73.9); Platelet Count 253 T/CUMM (130-400); Red Blood Count 4.38 MC/CUMM (3.8-5.5); Red Cell Distribution Width 16.3 % (9.3-17.3)
[2019-04-16 14:13] LABS: Albumin 3.4 G/DL (3.4-5.0); Bilirubin,Total 0.4 MG/DL (0.2-1.0); Calcium 8.7 MG/DL (8.5-10.1); Osmolality,Calculated 275.5 MOS/KG (273-304); Total Protein 7.7 G/DL (6.4-8.3)
[2019-04-16] MEDS ORDERED: ALUM/MAG/SIMETH/LIDO VISC 1:1 30 ML BOTTLE PO ONE (14:15)
[2019-04-16] MEDS ORDERED: ALUM/MAG/SIMETH/LIDO VISC 1:1 30 ML BOTTLE PO STA (14:17)
[2019-04-16] MEDS ORDERED: METOPROLOL TARTRATE 5 MG/5 ML VIAL IV STA (14:54)
[2019-04-16] MEDS ORDERED: LACTULOSE 20 GM/30 ML UDCUP PO PRN (16:15)
[2019-04-16] MEDS ORDERED: ENOXAPARIN 40 MG/0.4 ML SYRINGE SUBCUT SCH (16:30)
[2019-04-16] MEDS: ONDANSETRON 4 MG/2 ML VIAL IV PRN ×3 (16:53→22:33)
[2019-04-16] MEDS: THIAMINE 100 MG TABLET PO SCH (17:23)
[2019-04-16] MEDS: ASPIRIN CHEW 81 MG TABLET PO SCH (17:24)
[2019-04-16] MEDS: FOLIC ACID 1 MG TABLET PO SCH (17:24)
[2019-04-16] MEDS: MULTIVITAMIN (CENTRUM) TABLET PO SCH (17:25)
[2019-04-16] MEDS: POTASSIUM CHLORIDE 20 MEQ TABLET PO SCH (17:25)
[2019-04-16] MEDS: ACETAMINOPHEN 325 MG TABLET PO PRN ×2 (17:25→21:28)
[2019-04-16] MEDS: SODIUM CHLOR 0.9% KCL 20 MEQ 20 MEQ/1,000 ML BAG IV SCH (17:30)
[2019-04-16] MEDS: amLODIPine 5 MG TABLET PO SCH (19:02)
[2019-04-16] MEDS: chlordiazePOXIDE 10 MG CAPSULE PO SCH (20:47)
[2019-04-16] MEDS: MAGNESIUM OXIDE 400 MG TABLET PO SCH (20:47)
[2019-04-16] MEDS: CARVEDILOL 25 MG TABLET PO SCH (20:47)
[2019-04-17] MEDS: ACETAMINOPHEN 325 MG TABLET PO PRN (01:20)
[2019-04-17] MEDS: ONDANSETRON 4 MG/2 ML VIAL IV PRN ×2 (02:57→08:40)
[2019-04-17] MEDS: MAGNESIUM OXIDE 400 MG TABLET PO SCH (08:39)
[2019-04-17] MEDS: CARVEDILOL 25 MG TABLET PO SCH (08:39)
[2019-04-17] MEDS: POTASSIUM CHLORIDE 20 MEQ TABLET PO SCH (08:39)
[2019-04-17] MEDS: MULTIVITAMIN (CENTRUM) TABLET PO SCH (08:39)
[2019-04-17] MEDS: THIAMINE 100 MG TABLET PO SCH (08:39)
[2019-04-17] MEDS: ASPIRIN CHEW 81 MG TABLET PO SCH (08:39)
[2019-04-17] MEDS: chlordiazePOXIDE 10 MG CAPSULE PO SCH (08:39)
[2019-04-17] MEDS: SODIUM CHLOR 0.9% KCL 20 MEQ 20 MEQ/1,000 ML BAG IV SCH (08:40)
[2019-04-17] MEDS: FOLIC ACID 1 MG TABLET PO SCH (08:40)
[2019-04-17] MEDS: amLODIPine 5 MG TABLET PO SCH (08:40)
[2019-04-17] MEDS ORDERED: PANTOPRAZOLE 40 MG TABLET PO SCH (09:00)
[2019-04-17 11:11] VITALS: BP 155/92
== END 2019-04-17 15:45 | disposition home or self-care (01) ==
LOC: EDBD → EDUNIT# → N.5E 13:06 → N.ED 13:06 → N.5E 16:59
PROVIDERS: ADMIT Internal Medicine; ATTEND Internal Medicine

== ENCOUNTER 2019-05-07 00:24 | Observation (INO) ==
[2019-05-07] MEDS ORDERED: ONDANSETRON 4 MG/2 ML VIAL IV ONE (02:06)
[2019-05-07] MEDS ORDERED: LABETALOL 20 MG/4 ML SYRINGE IV STA (02:14)
[2019-05-07] MEDS ORDERED: LABETALOL 100 MG/20 ML VIAL IV STA (02:43)
[2019-05-07] MEDS ORDERED: ACETAMINOPHEN 325 MG TABLET PO PRN (03:44)
[2019-05-07] MEDS ORDERED: KETOROLAC 30 MG/1 ML VIAL IV PRN (03:49)
[2019-05-07] MEDS ORDERED: MAGNESIUM SULF RIDER 2 GM in PREMIX 1 EACH IV ONE ×2 (03:55→12:23)
[2019-05-07] MEDS ORDERED: LORazepam 2 MG/1 ML VIAL IV PRN (03:59)
[2019-05-07 05:31] LABS: Basophils % 0.2 % (0.0-0.8); Hematocrit 44.3 VOL% (42.0-52.0); Hemoglobin 14.8 GM/DL (14.0-18.0); Immature Granulocytes % 0.4 %; Immature Granulocytes Absolute 0.03 #; Lymphocytes # 0.7 10*3/uL (1.4-4.0); Lymphocytes % 8.3 % (21.2-54.2); Mean Corpuscular HGB Conc 33.4 GM/DL (32-36); Mean Corpuscular Volume 95.7 FL (87-102); Monocytes % 5.2 % (1.7-12.7); Neutrophils % 85.9 % (38.7-73.9); Platelet Count 165 T/CUMM (130-400); Red Blood Count 4.63 MC/CUMM (3.8-5.5); Red Cell Distribution Width 16.6 % (9.3-17.3); White Blood Count 8.3 T/CUMM (4-12)
[2019-05-07] MEDS: LEVOFLOXACIN 500 MG TABLET PO SCH (06:05)
[2019-05-07] MEDS: SODIUM CHLORIDE 0.9% 1,000 ML IV SCH ×2 (06:06→19:20)
[2019-05-07] MEDS: ONDANSETRON 4 MG/2 ML VIAL IV PRN ×3 (07:06→21:30)
[2019-05-07] MEDS ORDERED: PANTOPRAZOLE 40 MG TABLET PO SCH (09:00)
[2019-05-07] MEDS ORDERED: POTASSIUM CHLORIDE 20 MEQ TABLET PO ONE ×2 (09:00→11:04)
[2019-05-07] MEDS ORDERED: PROMETHAZINE 25 MG TABLET PO PRN (09:02)
[2019-05-07] MEDS: oxyCODONE ER 20 MG TABLET PO SCH ×2 (10:03→21:15)
[2019-05-07] MEDS: THIAMINE 100 MG TABLET PO SCH (10:03)
[2019-05-07] MEDS: CARVEDILOL 25 MG TABLET PO SCH ×2 (10:04→21:15)
[2019-05-07] MEDS: ASPIRIN EC 81 MG TABLET PO SCH (10:04)
[2019-05-07] MEDS: DILTIAZEM CD 120 MG CAPSULE PO SCH (10:05)
[2019-05-07] MEDS: TAMSULOSIN 0.4 MG CAPSULE PO SCH (10:05)
[2019-05-07 10:23] LABS: Calcium 8.6 MG/DL (8.5-10.1); Osmolality,Calculated 270.1 MOS/KG (273-304)
[2019-05-07] MEDS: ASCORBIC ACID 500 MG TABLET PO SCH ×2 (12:40→21:14)
[2019-05-07] MEDS: ENOXAPARIN 40 MG/0.4 ML SYRINGE SUBCUT SCH (12:40)
[2019-05-07] MEDS: MOMETASONE 0.1% CREAM 15 GM TUBE TOP SCH (17:10)
[2019-05-07] MEDS ORDERED: LIDOCAINE 2% TOP JELLY 20 ML VIAL INTRAURETH ONE (18:23)
[2019-05-07] MEDS ORDERED: LIDOCAINE 2% TOP JELLY 5 ML TUBE TOP ONE (18:30)
[2019-05-07] MEDS: NITROFURANTOIN MACRO/MONO 100 MG CAPSULE PO SCH (21:14)
[2019-05-07] MEDS: POTASSIUM CHLORIDE 20 MEQ TABLET PO PRN (21:14)
[2019-05-07] MEDS: MAGNESIUM OXIDE 400 MG TABLET PO SCH (21:15)
[2019-05-08] MEDS: POTASSIUM CHLORIDE 20 MEQ TABLET PO PRN ×3 (00:39→04:40)
[2019-05-08] MEDS: SODIUM CHLORIDE 0.9% 1,000 ML IV SCH (02:56)
[2019-05-08] MEDS: ONDANSETRON 4 MG/2 ML VIAL IV PRN ×2 (03:01→09:52)
[2019-05-08 08:18] LABS: Basophils % 0.2 % (0.0-0.8); Eosinophils # 0.1 10*3/uL (0.0-0.87); Eosinophils % 1.3 % (0.00-10.9); Hematocrit 37.3 VOL% (42.0-52.0); Immature Granulocytes % 0.2 %; Immature Granulocytes Absolute 0.01 #; Lymphocytes # 0.9 10*3/uL (1.4-4.0); Lymphocytes % 20.4 % (21.2-54.2); Mean Corpuscular HGB Conc 33.2 GM/DL (32-36); Mean Corpuscular Volume 97.4 FL (87-102); Mean Platelet Volume 10.4 FL (9.6-12.0); Monocytes % 9.7 % (1.7-12.7); Neutrophils % 68.2 % (38.7-73.9); Red Blood Count 3.83 MC/CUMM (3.8-5.5); Red Cell Distribution Width 16.2 % (9.3-17.3); White Blood Count 4.6 T/CUMM (4-12)
[2019-05-08 08:19] LABS: Hemoglobin 12.4 GM/DL (14.0-18.0); Platelet Count 115 T/CUMM (130-400)
[2019-05-08 08:33] LABS: Calcium 7.8 MG/DL (8.5-10.1); Osmolality,Calculated 273.7 MOS/KG (273-304)
[2019-05-08] MEDS ORDERED: FOLIC ACID 1 MG TABLET PO SCH (09:00)
[2019-05-08] MEDS ORDERED: MULTIVITAMIN (CENTRUM) TABLET PO SCH (09:00)
[2019-05-08] MEDS ORDERED: POTASSIUM CHLORIDE 20 MEQ TABLET PO SCH (09:00)
[2019-05-08] MEDS ORDERED: PANTOPRAZOLE 40 MG TABLET PO SCH (09:00)
[2019-05-08] MEDS: LEVOFLOXACIN 500 MG TABLET PO SCH (09:22)
[2019-05-08] MEDS: MOMETASONE 0.1% CREAM 15 GM TUBE TOP SCH (09:24)
[2019-05-08] MEDS: NITROFURANTOIN MACRO/MONO 100 MG CAPSULE PO SCH (09:25)
[2019-05-08] MEDS: ENOXAPARIN 40 MG/0.4 ML SYRINGE SUBCUT SCH (09:25)
[2019-05-08] MEDS: ASCORBIC ACID 500 MG TABLET PO SCH (09:52)
[2019-05-08] MEDS: THIAMINE 100 MG TABLET PO SCH (09:52)
[2019-05-08] MEDS: ASPIRIN EC 81 MG TABLET PO SCH (09:56)
[2019-05-08] MEDS: DILTIAZEM CD 120 MG CAPSULE PO SCH (09:56)
[2019-05-08] MEDS: CARVEDILOL 25 MG TABLET PO SCH (09:56)
[2019-05-08] MEDS: MAGNESIUM OXIDE 400 MG TABLET PO SCH (09:56)
[2019-05-08] MEDS: TAMSULOSIN 0.4 MG CAPSULE PO SCH (09:56)
[2019-05-08 12:11] VITALS: BP 150/87
== END 2019-05-08 12:57 | disposition home or self-care (01) ==
LOC: N.EDINP 00:24 → N.ED 00:24 → N.5E 04:02
PROVIDERS: ADMIT Internal Medicine; ATTEND Internal Medicine

== ENCOUNTER 2019-05-19 13:54 | Inpatient (IN) ==
[2019-05-19] MEDS ORDERED: NITROGLYCERIN SL 0.4 MG TABLET SL PRN (14:12)
[2019-05-19] MEDS ORDERED: ASPIRIN 325 MG TABLET PO STA (14:12)
[2019-05-19 14:52] LABS: Basophils % 0.7 % (0.0-0.8); Eosinophils % 0.5 % (0.00-10.9); Hematocrit 41.4 VOL% (42.0-52.0); Hemoglobin 13.6 GM/DL (14.0-18.0); Immature Granulocytes % 0.2 %; Immature Granulocytes Absolute 0.01 #; Lymphocytes # 0.8 10*3/uL (1.4-4.0); Lymphocytes % 19.7 % (21.2-54.2); Mean Corpuscular HGB Conc 32.9 GM/DL (32-36); Mean Corpuscular Volume 95.4 FL (87-102); Mean Platelet Volume 9.3 FL (9.6-12.0); Monocytes % 7.5 % (1.7-12.7); Neutrophils % 71.4 % (38.7-73.9); Platelet Count 216 T/CUMM (130-400); Red Blood Count 4.34 MC/CUMM (3.8-5.5); Red Cell Distribution Width 16.2 % (9.3-17.3); White Blood Count 4.3 T/CUMM (4-12)
[2019-05-19 15:13] LABS: Albumin 3.6 G/DL (3.4-5.0); Bilirubin,Total 0.8 MG/DL (0.2-1.0); Calcium 8.6 MG/DL (8.5-10.1); Osmolality,Calculated 275.4 MOS/KG (273-304); Total Protein 7.8 G/DL (6.4-8.3)
[2019-05-19] MEDS ORDERED: MORPHINE 4 MG/1 ML VIAL IV STA (16:09)
[2019-05-19] MEDS ORDERED: ONDANSETRON 4 MG/2 ML VIAL IV STA ×2 (16:09→18:04)
[2019-05-19] MEDS ORDERED: HEPARIN 5,000 UNIT/1 ML VIAL IV STA (17:05)
[2019-05-19] MEDS ORDERED: HEPARIN DRIP 500 ML IV SCH (17:30)
[2019-05-19] MEDS ORDERED: HEPARIN DRIP 25,000 UNITS/500 ML PREMIX IV SCH (17:30)
[2019-05-19] MEDS: HEPARIN DRIP 25,000 UNITS/500 ML PREMIX IV SCH (17:49)
[2019-05-19] MEDS: ALBUTEROL/IPRATROPIUM 3 ML NEB RESP TX SCH ×2 (18:55→23:17)
[2019-05-19] MEDS ORDERED: LORazepam 2 MG/1 ML VIAL IV PRN (19:18)
[2019-05-19] MEDS: SODIUM CHLORIDE 0.9% 1,000 ML IV SCH (19:47)
[2019-05-19 20:38] LABS: Apearance,Urine CLEAR (Clear); Bilirubin,Urine Negative (Negative); Blood, Urine Small mg/dL (Negative); Glucose,Urine (UA) Negative (Negative); Ketones,Urine 20 mg/dL (Negative); Nitrite,Urine Negative (Negative); Protein,Urine Negative; RBC,Urine 1 /HPF (0-4); Squamous Epithelial Cell,Urine Occasional /HPF (0-10); Urine Color Yellow (Yellow); Urine Specific Gravity 1.019 (1.001-1.035); Urine Urobilinogen < 2.0 EU/DL (0.2-1.0); WBC,Urine 1 /HPF (0-6)
[2019-05-19] MEDS: CARVEDILOL 6.25 MG TABLET PO SCH (20:42)
[2019-05-19] MEDS: cloNIDine 0.1 MG TABLET PO PRN ×2 (20:42→23:47)
[2019-05-19] MEDS: MORPHINE 4 MG/1 ML VIAL IV PRN (20:48)
[2019-05-19] MEDS ORDERED: DOCUSATE SODIUM 100 MG CAPSULE PO PRN (21:00)
[2019-05-19 21:16] LABS: Barbiturates Screen,Urine Negative (Negative); Benzodiazepines Screen,Urine Negative (Negative); Cannabinoid Screen,Urine Negative (Negative); Opiate Screen,Urine Positive (Negative); Phencyclidine Screen,Urine Negative (Negative)
[2019-05-19] MEDS ORDERED: LORazepam 2 MG/1 ML VIAL IV ONE (22:03)
[2019-05-19] MEDS: TEMAZEPAM 15 MG CAPSULE PO PRN (22:24)
[2019-05-20] MEDS: LORazepam 2 MG/1 ML VIAL IV PRN ×6 (00:40→21:40)
[2019-05-20] MEDS: MORPHINE 4 MG/1 ML VIAL IV PRN ×6 (00:44→23:25)
[2019-05-20] MEDS: ONDANSETRON 4 MG/2 ML VIAL IV PRN (00:56)
[2019-05-20] MEDS: SODIUM CHLORIDE 0.9% 1,000 ML IV SCH ×3 (03:35→18:38)
[2019-05-20] MEDS: ALBUTEROL/IPRATROPIUM 3 ML NEB RESP TX SCH ×6 (03:35→23:35)
[2019-05-20 05:50] LABS: Basophils % 0.4 % (0.0-0.8); Eosinophils # 0.1 10*3/uL (0.0-0.87); Eosinophils % 1.2 % (0.00-10.9); Hematocrit 35.5 VOL% (42.0-52.0); Hemoglobin 11.5 GM/DL (14.0-18.0); Immature Granulocytes % 0.4 %; Immature Granulocytes Absolute 0.02 #; Lymphocytes # 0.8 10*3/uL (1.4-4.0); Lymphocytes % 16.2 % (21.2-54.2); Mean Corpuscular HGB Conc 32.4 GM/DL (32-36); Mean Corpuscular Volume 96.5 FL (87-102); Mean Platelet Volume 9.3 FL (9.6-12.0); Monocytes % 7.6 % (1.7-12.7); Neutrophils % 74.2 % (38.7-73.9); Platelet Count 152 T/CUMM (130-400); Red Blood Count 3.68 MC/CUMM (3.8-5.5); White Blood Count 4.9 T/CUMM (4-12)
[2019-05-20 06:07] LABS: Calcium 7.8 MG/DL (8.5-10.1); Osmolality,Calculated 272.8 MOS/KG (273-304)
[2019-05-20] MEDS: HEPARIN DRIP 25,000 UNITS/500 ML PREMIX IV SCH ×2 (07:10→18:40)
[2019-05-20] MEDS: CARVEDILOL 6.25 MG TABLET PO SCH (07:56)
[2019-05-20] MEDS: EZETIMIBE 10 MG TABLET PO SCH (09:03)
[2019-05-20] MEDS: amLODIPine 10 MG TABLET PO SCH (09:03)
[2019-05-20] MEDS: PANTOPRAZOLE 40 MG TABLET PO SCH (09:03)
[2019-05-20] MEDS ORDERED: LORazepam 2 MG/1 ML VIAL ONE ×4 (09:43→21:34)
[2019-05-20] MEDS: DIAZEPAM 5 MG TABLET PO SCH ×8 (15:57→23:25)
[2019-05-20] MEDS ORDERED: CARVEDILOL 12.5 MG TABLET PO SCH (21:00)
[2019-05-20] MEDS: TEMAZEPAM 15 MG CAPSULE PO PRN (23:25)
[2019-05-21] MEDS: SODIUM CHLORIDE 0.9% 1,000 ML IV SCH ×4 (00:37→22:44)
[2019-05-21] MEDS: DIAZEPAM 5 MG TABLET PO SCH ×23 (01:12→23:35)
[2019-05-21] MEDS ORDERED: LORazepam 2 MG/1 ML VIAL ONE ×5 (02:27→19:55)
[2019-05-21] MEDS: LORazepam 2 MG/1 ML VIAL IV PRN ×5 (02:29→20:07)
[2019-05-21] MEDS: ALBUTEROL/IPRATROPIUM 3 ML NEB RESP TX SCH ×6 (03:40→22:32)
[2019-05-21] MEDS: MORPHINE 4 MG/1 ML VIAL IV PRN ×5 (04:10→22:31)
[2019-05-21 06:13] LABS: Basophils % 0.5 % (0.0-0.8); Eosinophils # 0.2 10*3/uL (0.0-0.87); Eosinophils % 3.9 % (0.00-10.9); Hematocrit 38.9 VOL% (42.0-52.0); Hemoglobin 12.6 GM/DL (14.0-18.0); Immature Granulocytes % 0.5 %; Immature Granulocytes Absolute 0.02 #; Lymphocytes % 24.8 % (21.2-54.2); Mean Corpuscular HGB Conc 32.4 GM/DL (32-36); Mean Corpuscular Volume 96.8 FL (87-102); Mean Platelet Volume 10.4 FL (9.6-12.0); Monocytes % 7.8 % (1.7-12.7); Neutrophils % 62.5 % (38.7-73.9); Platelet Count 143 T/CUMM (130-400); Red Blood Count 4.02 MC/CUMM (3.8-5.5); Red Cell Distribution Width 15.7 % (9.3-17.3); White Blood Count 4.1 T/CUMM (4-12)
[2019-05-21 06:39] LABS: Calcium 8.4 MG/DL (8.5-10.1); Osmolality,Calculated 271.7 MOS/KG (273-304)
[2019-05-21] MEDS: HEPARIN DRIP 25,000 UNITS/500 ML PREMIX IV SCH ×2 (08:08→22:42)
[2019-05-21] MEDS: PHENOL 1.4% THROAT SPRAY 177 ML BOTTLE PO PRN ×2 (09:04→11:07)
[2019-05-21] MEDS: POTASSIUM CHLORIDE 20 MEQ TABLET PO SCH ×3 (09:06→16:48)
[2019-05-21] MEDS: EZETIMIBE 10 MG TABLET PO SCH (09:06)
[2019-05-21] MEDS: CARVEDILOL 25 MG TABLET PO SCH ×2 (09:06→20:07)
[2019-05-21] MEDS: amLODIPine 10 MG TABLET PO SCH (09:06)
[2019-05-21] MEDS: PANTOPRAZOLE 40 MG TABLET PO SCH (09:13)
[2019-05-21] MEDS: MAGNESIUM SULF RIDER 2 GM in PREMIX 1 EACH IV SCH ×3 (09:18→16:52)
[2019-05-21] MEDS: TEMAZEPAM 15 MG CAPSULE PO PRN (22:31)
[2019-05-22] MEDS ORDERED: LORazepam 2 MG/1 ML VIAL ONE (00:31)
[2019-05-22] MEDS: LORazepam 2 MG/1 ML VIAL IV PRN (00:38)
[2019-05-22] MEDS: DIAZEPAM 5 MG TABLET PO SCH ×12 (00:38→12:24)
[2019-05-22] MEDS: PHENOL 1.4% THROAT SPRAY 177 ML BOTTLE PO PRN ×2 (00:45→03:50)
[2019-05-22] MEDS: ONDANSETRON 4 MG/2 ML VIAL IV PRN ×2 (01:53→20:53)
[2019-05-22] MEDS: ALBUTEROL/IPRATROPIUM 3 ML NEB RESP TX SCH ×5 (02:30→20:20)
[2019-05-22] MEDS: MORPHINE 4 MG/1 ML VIAL IV PRN ×4 (03:18→20:48)
[2019-05-22 06:02] LABS: Basophils % 0.2 % (0.0-0.8); Eosinophils # 0.2 10*3/uL (0.0-0.87); Eosinophils % 3.1 % (0.00-10.9); Hematocrit 38.6 VOL% (42.0-52.0); Hemoglobin 12.8 GM/DL (14.0-18.0); Immature Granulocytes % 0.3 %; Immature Granulocytes Absolute 0.02 #; Lymphocytes # 1.3 10*3/uL (1.4-4.0); Lymphocytes % 19.6 % (21.2-54.2); Mean Corpuscular HGB Conc 33.2 GM/DL (32-36); Mean Corpuscular Volume 98.7 FL (87-102); Mean Platelet Volume 10.8 FL (9.6-12.0); Monocytes % 5.5 % (1.7-12.7); Neutrophils % 71.3 % (38.7-73.9); Platelet Count 136 T/CUMM (130-400); Red Blood Count 3.91 MC/CUMM (3.8-5.5); Red Cell Distribution Width 15.6 % (9.3-17.3); White Blood Count 6.4 T/CUMM (4-12)
[2019-05-22 06:28] LABS: Calcium 8.8 MG/DL (8.5-10.1); Osmolality,Calculated 269.8 MOS/KG (273-304)
[2019-05-22] MEDS: CARVEDILOL 25 MG TABLET PO SCH ×2 (08:02→20:46)
[2019-05-22] MEDS: PANTOPRAZOLE 40 MG TABLET PO SCH (08:02)
[2019-05-22] MEDS: amLODIPine 10 MG TABLET PO SCH (08:02)
[2019-05-22] MEDS: EZETIMIBE 10 MG TABLET PO SCH (08:02)
[2019-05-22] MEDS: SODIUM CHLORIDE 0.9% 1,000 ML IV SCH (08:07)
[2019-05-22 09:13] LABS: PT Patient Result 10.7 SECS
[2019-05-22] MEDS: HEPARIN DRIP 25,000 UNITS/500 ML PREMIX IV SCH (15:16)
[2019-05-22] MEDS: WARFARIN 5 MG TABLET PO SCH (18:37)
[2019-05-22] MEDS: DIAZEPAM 5 MG TABLET PO PRN (20:45)
[2019-05-22] MEDS: TEMAZEPAM 15 MG CAPSULE PO PRN (20:45)
[2019-05-23] MEDS: ALBUTEROL/IPRATROPIUM 3 ML NEB RESP TX SCH ×7 (00:10→23:55)
[2019-05-23] MEDS: MORPHINE 4 MG/1 ML VIAL IV PRN ×5 (00:39→20:45)
[2019-05-23] MEDS: DIAZEPAM 5 MG TABLET PO PRN ×3 (00:40→20:42)
[2019-05-23 00:53] LABS: Basophils % 0.2 % (0.0-0.8); Eosinophils # 0.2 10*3/uL (0.0-0.87); Eosinophils % 3.6 % (0.00-10.9); Hematocrit 37.7 VOL% (42.0-52.0); Immature Granulocytes % 0.8 %; Immature Granulocytes Absolute 0.04 #; Lymphocytes # 0.8 10*3/uL (1.4-4.0); Lymphocytes % 16.4 % (21.2-54.2); Mean Corpuscular HGB Conc 31.8 GM/DL (32-36); Mean Platelet Volume 10.7 FL (9.6-12.0); Monocytes % 6.4 % (1.7-12.7); Neutrophils % 72.6 % (38.7-73.9); Platelet Count 132 T/CUMM (130-400); Red Blood Count 3.77 MC/CUMM (3.8-5.5); Red Cell Distribution Width 15.9 % (9.3-17.3)
[2019-05-23 01:04] LABS: Calcium 8.9 MG/DL (8.5-10.1); Osmolality,Calculated 274.7 MOS/KG (273-304)
[2019-05-23] MEDS: HEPARIN DRIP 25,000 UNITS/500 ML PREMIX IV SCH ×2 (05:11→16:48)
[2019-05-23] MEDS: EZETIMIBE 10 MG TABLET PO SCH (08:50)
[2019-05-23] MEDS: CARVEDILOL 25 MG TABLET PO SCH ×2 (08:50→20:42)
[2019-05-23] MEDS: PANTOPRAZOLE 40 MG TABLET PO SCH (08:50)
[2019-05-23] MEDS: amLODIPine 10 MG TABLET PO SCH (08:50)
[2019-05-23] MEDS: ONDANSETRON 4 MG/2 ML VIAL IV PRN ×3 (10:50→20:42)
[2019-05-23] MEDS: WARFARIN 5 MG TABLET PO SCH (17:35)
[2019-05-23] MEDS: TEMAZEPAM 15 MG CAPSULE PO PRN (20:45)
[2019-05-24] MEDS: MORPHINE 4 MG/1 ML VIAL IV PRN ×4 (01:34→21:14)
[2019-05-24] MEDS: ALBUTEROL/IPRATROPIUM 3 ML NEB RESP TX SCH ×6 (02:30→23:14)
[2019-05-24] MEDS: DIAZEPAM 5 MG TABLET PO PRN (02:43)
[2019-05-24 06:00] LABS: Basophils % 0.2 % (0.0-0.8); Eosinophils # 0.2 10*3/uL (0.0-0.87); Eosinophils % 4.1 % (0.00-10.9); Hematocrit 39.5 VOL% (42.0-52.0); Hemoglobin 12.4 GM/DL (14.0-18.0); Immature Granulocytes % 0.8 %; Immature Granulocytes Absolute 0.04 #; Lymphocytes # 1.1 10*3/uL (1.4-4.0); Lymphocytes % 20.7 % (21.2-54.2); Mean Corpuscular HGB Conc 31.4 GM/DL (32-36); Mean Corpuscular Volume 100.8 FL (87-102); Mean Platelet Volume 9.6 FL (9.6-12.0); Monocytes % 10.7 % (1.7-12.7); Neutrophils % 63.5 % (38.7-73.9); Platelet Count 158 T/CUMM (130-400); Red Blood Count 3.92 MC/CUMM (3.8-5.5); White Blood Count 5.3 T/CUMM (4-12)
[2019-05-24 06:03] LABS: PT Patient Result 11.2 SECS
[2019-05-24 06:13] LABS: Calcium 9.2 MG/DL (8.5-10.1); Osmolality,Calculated 275.5 MOS/KG (273-304)
[2019-05-24] MEDS ORDERED: WARFARIN 5 MG TABLET PO ONE (08:30)
[2019-05-24] MEDS: EZETIMIBE 10 MG TABLET PO SCH (09:22)
[2019-05-24] MEDS: amLODIPine 10 MG TABLET PO SCH (09:22)
[2019-05-24] MEDS: MAGNESIUM OXIDE 400 MG TABLET PO SCH ×2 (09:22→21:21)
[2019-05-24] MEDS: CARVEDILOL 25 MG TABLET PO SCH ×2 (09:23→21:21)
[2019-05-24] MEDS: ENOXAPARIN 120 MG/0.8 ML SYRINGE SUBCUT SCH ×2 (09:24→21:22)
[2019-05-24] MEDS: PANTOPRAZOLE 40 MG TABLET PO SCH (09:24)
[2019-05-24] MEDS: ONDANSETRON 4 MG/2 ML VIAL IV PRN ×2 (13:19→19:30)
[2019-05-24] MEDS: WARFARIN 7.5 MG TABLET PO SCH (17:12)
[2019-05-24] MEDS: TEMAZEPAM 15 MG CAPSULE PO PRN (21:29)
[2019-05-25] MEDS: ALBUTEROL/IPRATROPIUM 3 ML NEB RESP TX SCH ×6 (02:37→23:52)
[2019-05-25] MEDS: MORPHINE 4 MG/1 ML VIAL IV PRN (03:46)
[2019-05-25 06:52] LABS: Basophils % 0.5 % (0.0-0.8); Eosinophils # 0.3 10*3/uL (0.0-0.87); Eosinophils % 5.8 % (0.00-10.9); Hematocrit 39.5 VOL% (42.0-52.0); Hemoglobin 12.5 GM/DL (14.0-18.0); Immature Granulocytes % 1.2 %; Immature Granulocytes Absolute 0.05 #; Lymphocytes # 1.2 10*3/uL (1.4-4.0); Mean Corpuscular HGB Conc 31.6 GM/DL (32-36); Mean Corpuscular Volume 100.3 FL (87-102); Mean Platelet Volume 9.9 FL (9.6-12.0); Monocytes % 15.9 % (1.7-12.7); Neutrophils % 48.6 % (38.7-73.9); Platelet Count 174 T/CUMM (130-400); Red Blood Count 3.94 MC/CUMM (3.8-5.5); Red Cell Distribution Width 15.8 % (9.3-17.3); White Blood Count 4.3 T/CUMM (4-12)
[2019-05-25 06:56] LABS: INR 1.2; PT Patient Result 12.6 SECS
[2019-05-25 07:26] LABS: Calcium 9.5 MG/DL (8.5-10.1); Osmolality,Calculated 273.5 MOS/KG (273-304)
[2019-05-25 07:55] LABS: Calcium 9.1 MG/DL (8.5-10.1); Osmolality,Calculated 269.8 MOS/KG (273-304)
[2019-05-25 08:04] LABS: Band Neutrophils 7 % (0-10); Eosinophils 8 % (0-10); Lymphocytes 24 % (20-55); Platelet Estimate Normal; Segmented Neutrophils 50 % (50-85); Total Cells Counted 100
[2019-05-25 08:05] LABS: Anisocytosis 1+; Macrocytosis 1+
[2019-05-25] MEDS: EZETIMIBE 10 MG TABLET PO SCH (09:41)
[2019-05-25] MEDS: CARVEDILOL 25 MG TABLET PO SCH ×2 (09:44→21:46)
[2019-05-25] MEDS: MAGNESIUM OXIDE 400 MG TABLET PO SCH ×2 (09:44→21:44)
[2019-05-25] MEDS: amLODIPine 10 MG TABLET PO SCH (09:44)
[2019-05-25] MEDS: PANTOPRAZOLE 40 MG TABLET PO SCH (09:45)
[2019-05-25] MEDS: ENOXAPARIN 120 MG/0.8 ML SYRINGE SUBCUT SCH ×2 (09:45→21:44)
[2019-05-25] MEDS: WARFARIN 7.5 MG TABLET PO SCH (17:55)
[2019-05-25] MEDS: TEMAZEPAM 15 MG CAPSULE PO PRN (21:46)
[2019-05-26] MEDS: ONDANSETRON 4 MG/2 ML VIAL IV PRN ×2 (02:08→09:34)
[2019-05-26] MEDS: ALBUTEROL/IPRATROPIUM 3 ML NEB RESP TX SCH ×5 (03:00→19:10)
[2019-05-26 05:29] LABS: INR 1.4; PT Patient Result 15.4 SECS
[2019-05-26] MEDS: EZETIMIBE 10 MG TABLET PO SCH (09:33)
[2019-05-26] MEDS: CARVEDILOL 25 MG TABLET PO SCH ×2 (09:33→21:25)
[2019-05-26] MEDS: MAGNESIUM OXIDE 400 MG TABLET PO SCH ×2 (09:33→21:25)
[2019-05-26] MEDS: amLODIPine 10 MG TABLET PO SCH (09:33)
[2019-05-26] MEDS: ENOXAPARIN 120 MG/0.8 ML SYRINGE SUBCUT SCH (09:33)
[2019-05-26] MEDS: PANTOPRAZOLE 40 MG TABLET PO SCH (09:34)
[2019-05-26] MEDS: APIXABAN 5 MG TABLET PO SCH ×2 (11:03→21:25)
[2019-05-26] MEDS ORDERED: ALPRAZolam 0.5 MG TABLET PO ONE (13:16)
[2019-05-26] MEDS: ONDANSETRON 4 MG TABLET PO PRN ×2 (17:52→21:25)
[2019-05-26] MEDS: TEMAZEPAM 15 MG CAPSULE PO PRN (21:33)
[2019-05-27] MEDS: ALBUTEROL/IPRATROPIUM 3 ML NEB RESP TX SCH ×7 (00:12→23:00)
[2019-05-27 06:21] LABS: INR 1.7; PT Patient Result 17.9 SECS
[2019-05-27] MEDS: ONDANSETRON 4 MG TABLET PO PRN ×4 (06:25→21:58)
[2019-05-27] MEDS ORDERED: TUBERCULIN SKIN TEST 0.1 ML SYRINGE INTRADERM ONE (09:19)
[2019-05-27] MEDS: EZETIMIBE 10 MG TABLET PO SCH (09:43)
[2019-05-27] MEDS: amLODIPine 10 MG TABLET PO SCH (09:43)
[2019-05-27] MEDS: MAGNESIUM OXIDE 400 MG TABLET PO SCH ×2 (09:43→21:58)
[2019-05-27] MEDS: CARVEDILOL 25 MG TABLET PO SCH ×2 (09:43→21:58)
[2019-05-27] MEDS: APIXABAN 5 MG TABLET PO SCH ×2 (09:43→21:58)
[2019-05-27] MEDS: PANTOPRAZOLE 40 MG TABLET PO SCH (09:50)
[2019-05-28] MEDS: ALBUTEROL/IPRATROPIUM 3 ML NEB RESP TX SCH ×4 (03:00→14:30)
[2019-05-28] MEDS: ONDANSETRON 4 MG TABLET PO PRN ×3 (03:21→13:49)
[2019-05-28 05:42] LABS: Basophils % 0.7 % (0.0-0.8); Eosinophils # 0.2 10*3/uL (0.0-0.87); Eosinophils % 4.5 % (0.00-10.9); Hematocrit 37.5 VOL% (42.0-52.0); Hemoglobin 11.9 GM/DL (14.0-18.0); Immature Granulocytes % 0.7 %; Immature Granulocytes Absolute 0.03 #; Lymphocytes # 1.4 10*3/uL (1.4-4.0); Lymphocytes % 31.8 % (21.2-54.2); Mean Corpuscular HGB Conc 31.7 GM/DL (32-36); Mean Corpuscular Volume 100.3 FL (87-102); Mean Platelet Volume 9.7 FL (9.6-12.0); Monocytes % 18.2 % (1.7-12.7); Neutrophils % 44.1 % (38.7-73.9); Platelet Count 195 T/CUMM (130-400); Red Blood Count 3.74 MC/CUMM (3.8-5.5); Red Cell Distribution Width 15.5 % (9.3-17.3); White Blood Count 4.4 T/CUMM (4-12)
[2019-05-28 05:59] LABS: Alanine Aminotransferase 21 U/L (16-61); Alkaline Phosphatase 83 U/L (45-117); Aspartate Amino Transferase 20 U/L (0-37); Bilirubin,Total < 0.39 MG/DL (0.2-1.0); Blood Urea Nitrogen 12 MG/DL (7-18); Calcium 9.1 MG/DL (8.5-10.1); Glucose 107 MG/DL (74-106); Osmolality,Calculated 276.5 MOS/KG (273-304); Total Protein 6.8 G/DL (6.4-8.3)
[2019-05-28 06:08] LABS: Band Neutrophils 1 % (0-10); Eosinophils 8 % (0-10); Hypochromasia Slight; Lymphocytes 26 % (20-55); Myelocytes 1 %; Segmented Neutrophils 50 % (50-85); Total Cells Counted 100
[2019-05-28 06:09] LABS: Macrocytosis 1+; Platelet Estimate Adequate
[2019-05-28] MEDS: APIXABAN 5 MG TABLET PO SCH (09:21)
[2019-05-28] MEDS: PANTOPRAZOLE 40 MG TABLET PO SCH (09:21)
[2019-05-28] MEDS: EZETIMIBE 10 MG TABLET PO SCH (09:21)
[2019-05-28] MEDS: MAGNESIUM OXIDE 400 MG TABLET PO SCH (09:21)
[2019-05-28] MEDS: CARVEDILOL 25 MG TABLET PO SCH (09:21)
[2019-05-28] MEDS: amLODIPine 10 MG TABLET PO SCH (09:21)
[2019-05-28 11:50] VITALS: BP 136/78
[2019-06-02] MEDS ORDERED: APIXABAN 5 MG TABLET PO SCH (09:00)
== END 2019-05-28 16:20 | DRG 176 ==
LOC: EDUNIT# → N.ED 13:54 → SUATTDRO 17:05 → N.EDINP 17:05 → N.ICU 18:00 → N.5E 05-22 19:51
PROVIDERS: ADMIT Internal Medicine; ATTEND Internal Medicine

== ENCOUNTER 2019-06-12 20:55 | Observation (INO) ==
[2019-06-12 21:23] LABS: Basophils % 0.3 % (0.0-0.8); Eosinophils # 0.1 10*3/uL (0.0-0.87); Eosinophils % 1.1 % (0.00-10.9); Hematocrit 36.4 VOL% (42.0-52.0); Hemoglobin 12.2 GM/DL (14.0-18.0); Immature Granulocytes % 0.1 %; Immature Granulocytes Absolute 0.01 #; Lymphocytes # 3.1 10*3/uL (1.4-4.0); Lymphocytes % 42.6 % (21.2-54.2); Mean Corpuscular HGB Conc 33.5 GM/DL (32-36); Mean Platelet Volume 9.5 FL (9.6-12.0); Monocytes % 7.8 % (1.7-12.7); Neutrophils % 48.1 % (38.7-73.9); Platelet Count 236 T/CUMM (130-400); Red Blood Count 3.83 MC/CUMM (3.8-5.5); Red Cell Distribution Width 15.9 % (9.3-17.3); White Blood Count 7.3 T/CUMM (4-12)
[2019-06-12 21:37] LABS: INR 0.9; PT Patient Result 10.3 SECS; Partial Thromboplastin Time 26.2 SECS (0-40)
[2019-06-12 21:47] LABS: Albumin 3.4 G/DL (3.4-5.0); Bilirubin,Total 0.7 MG/DL (0.2-1.0); Calcium 8.1 MG/DL (8.5-10.1); Osmolality,Calculated 281.1 MOS/KG (273-304); Total Protein 7.3 G/DL (6.4-8.3)
[2019-06-13] MEDS ORDERED: ACETAMINOPHEN 325 MG TABLET PO PRN (03:41)
[2019-06-13] MEDS ORDERED: MAGNESIUM SULF RIDER 2 GM in PREMIX 1 EACH IV ONE (03:44)
[2019-06-13] MEDS ORDERED: DOCUSATE SODIUM 100 MG CAPSULE PO PRN (03:46)
[2019-06-13] MEDS: LORazepam 1 MG TABLET PO PRN ×3 (04:42→14:20)
[2019-06-13] MEDS: POTASSIUM CHLORIDE 20 MEQ TABLET PO PRN ×2 (04:43→08:51)
[2019-06-13] MEDS: ONDANSETRON 4 MG/2 ML VIAL IV PRN ×5 (05:46→20:44)
[2019-06-13] MEDS: SODIUM BICARB INJ 50 MEQ in SODIUM CHLORIDE 0.45% 1,000 ML IV SCH ×2 (06:25→18:39)
[2019-06-13] MEDS: CARVEDILOL 25 MG TABLET PO SCH ×2 (07:20→16:56)
[2019-06-13 08:07] LABS: ABG Base Excess -2.8 MMOL/L (-2.5-2.5); ABG HCO3 20.2 MMOL/L (20-26); ABG Oxygen Saturation 97.5 % (95-100); ABG PCO2 29.8 MM HG (35-48); ABG PH 7.449 (7.35-7.45); ABG PO2 114.4 MM HG (80-95); ABG TCO2 21.1 MMOL/L (23-27); Allen Test Positive; Pt O2 Delivery Device Room Air
[2019-06-13 08:23] LABS: Albumin 3.1 G/DL (3.4-5.0); Bilirubin,Total 0.9 MG/DL (0.2-1.0); Osmolality,Calculated 275.4 MOS/KG (273-304); Total Protein 6.9 G/DL (6.4-8.3)
[2019-06-13] MEDS: THIAMINE 100 MG TABLET PO SCH (08:50)
[2019-06-13] MEDS: PANTOPRAZOLE 40 MG TABLET PO SCH (08:50)
[2019-06-13] MEDS: EZETIMIBE 10 MG TABLET PO SCH (08:50)
[2019-06-13] MEDS: APIXABAN 5 MG TABLET PO SCH ×2 (08:50→20:44)
[2019-06-13] MEDS: MULTIVITAMIN (CENTRUM) TABLET PO SCH (08:50)
[2019-06-13] MEDS: amLODIPine 10 MG TABLET PO SCH (08:50)
[2019-06-13] MEDS: FOLIC ACID 1 MG TABLET PO SCH (08:50)
[2019-06-13] MEDS: POTASSIUM CHLORIDE 20 MEQ TABLET PO SCH (12:42)
[2019-06-14] MEDS: SODIUM BICARB INJ 50 MEQ in SODIUM CHLORIDE 0.45% 1,000 ML IV SCH (01:07)
[2019-06-14 06:14] LABS: Calcium 8.2 MG/DL (8.5-10.1); Osmolality,Calculated 275.5 MOS/KG (273-304)
[2019-06-14] MEDS: MULTIVITAMIN (CENTRUM) TABLET PO SCH (08:25)
[2019-06-14] MEDS: CARVEDILOL 25 MG TABLET PO SCH (08:25)
[2019-06-14] MEDS: PANTOPRAZOLE 40 MG TABLET PO SCH (08:26)
[2019-06-14] MEDS: THIAMINE 100 MG TABLET PO SCH (08:26)
[2019-06-14] MEDS: amLODIPine 10 MG TABLET PO SCH (08:26)
[2019-06-14] MEDS: EZETIMIBE 10 MG TABLET PO SCH (08:26)
[2019-06-14] MEDS: FOLIC ACID 1 MG TABLET PO SCH (08:26)
[2019-06-14] MEDS: POTASSIUM CHLORIDE 20 MEQ TABLET PO SCH (08:26)
[2019-06-14] MEDS: APIXABAN 5 MG TABLET PO SCH (08:26)
[2019-06-14 12:05] VITALS: BP 171/110
== END 2019-06-14 13:26 | disposition home or self-care (01) ==
LOC: EDUNIT# → EDBD → N.EDINP 20:55 → N.ED 20:55 → N.3E 06-13 03:59